=== PATIENT | female | born 1960 | race Caucasian/White ===

== ENCOUNTER 2020-05-05 14:39 | Inpatient (IN) | payer MEDICARE ==
[~2020-05-05] VITALS: Ht 157.5 cm; Wt 99.4 kg
[2020-05-05 14:48] VITALS: BP 126/67
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
[2020-05-05] MEDS ORDERED: ACETAMINOPHEN 325 MG TABLET PO PRN ×2 (16:15→17:15)
[2020-05-05] MEDS ORDERED: MAGNESIUM HYDROXIDE 2,400 MG/30 ML ORAL.SUSP. PO PRN ×2 (16:15→18:00)
[2020-05-05] MEDS ORDERED: MAG HYDROX/AL HYDROX/SIMETH 30 ML ORAL.SUSP PO PRN (16:15)
[2020-05-05] MEDS ORDERED: METHYL SALICYLATE/MENTHOL TOPICAL OINTMENT 57GM TUBE. TP PRN (16:15)
--- NOTE | 2020-05-05 16:39 | NUR ---
Spoke with Dr Taylor about which medications to continue. He gave telephone order for zyprexa 5mg PRN Q6-8 hrs as needed for agitation. Medications continued per Dr Taylor order. INR ordered per order.
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
[2020-05-05] MEDS ORDERED: MULT-245 PO (17:12)
[2020-05-05] MEDS ORDERED: POLY17PO5 PO (17:12)
[2020-05-05] MEDS ORDERED: WARF2.5T71 PO (17:12)
[2020-05-05] MEDS ORDERED: LATA7.5D OU (17:12)
[2020-05-05] MEDS ORDERED: WARF1TAB69 PO (17:12)
[2020-05-05] MEDS ORDERED: FENO145T32 PO (17:12)
[2020-05-05] MEDS ORDERED: CARV25TA2 PO (17:12)
[2020-05-05] MEDS ORDERED: MORP-15 PO (17:12)
[2020-05-05] MEDS ORDERED: LEVO50TA5 PO (17:12)
[2020-05-05] MEDS ORDERED: TIMO5DRO5 EACHEYE (17:12)
[2020-05-05] MEDS ORDERED: VENL150C PO (17:12)
[2020-05-05] MEDS ORDERED: MAGN24003 PO (17:12)
[2020-05-05] MEDS ORDERED: SENN8.8S5 PO (17:12)
[2020-05-05] MEDS ORDERED: TRAZ-120 PO (17:12)
[2020-05-05] MEDS ORDERED: CLON1PAT9 TD (17:12)
[2020-05-05] MEDS ORDERED: ACET325T21 PO (17:12)
[2020-05-05] MEDS ORDERED: INSU100I17 SQ (17:12)
[2020-05-05] MEDS ORDERED: SIMV10TA15 PO (17:12)
[2020-05-05] MEDS ORDERED: GABA-586 PO (17:12)
[2020-05-05] MEDS ORDERED: LISI-334 PO (17:12)
[2020-05-05] MEDS ORDERED: MAGN400T44 PO (17:12)
[2020-05-05] MEDS ORDERED: INSU100I13 SQ (17:12)
[2020-05-05] MEDS ORDERED: CARVEDILOL 12.5 MG TABLET PO SCH (18:00)
[2020-05-05] MEDS ORDERED: INSULIN LISPRO 300 UNITS/3 ML VIAL. SQ SCH (18:00)
--- NOTE | 2020-05-05 18:41 | NUR ---
Patient unable to be safely managed on [facility] 48 hour unit. Patient to transfer to [facility] and be placed in [facility] for her own safety. This nurse spoke with Dr Taylor after supervision made the decision to transfer the patient to [facility].
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
[2020-05-05 20:31] LABS: BASO # 0.1 x10^3/uL (0.0-0.2); BASO % 1 % (0-3); EOS # 0.3 x10^3/uL (0.0-0.7); EOS % 6 % (0-3); HEMATOCRIT 34.7 % (36.0-47.0); HEMOGLOBIN 10.9 g/dL (12.0-15.5); LYMPH # 1.3 x10^3/uL (1.0-4.8); LYMPH % 25 % (24-48); MEAN CORPUSCULAR HEMOGLOBIN 26 pg (25-35); MEAN CORPUSCULAR HGB CONC 31 g/dL (31-37); MEAN CORPUSCULAR VOLUME 82 fL (79-100); MONO # 0.5 x10^3/uL (0.0-1.1); MONO % 10 % (0-9); NEUT # 3.1 x10^3uL (1.8-7.7); NEUT % 58 % (31-73); PLATELET COUNT 226 x10^3/uL (140-400); RED BLOOD COUNT 4.21 x10^6/uL (3.50-5.40); RED CELL DISTRIBUTION WIDTH 17.1 % (11.5-14.5); WHITE BLOOD COUNT 5.3 x10^3/uL (4.0-11.0)
[2020-05-05 20:49] LABS: ALBUMIN 2.6 g/dL (3.4-5.0); ALBUMIN/GLOBULIN RATIO 0.6 (1.0-1.7); CALCIUM 8.9 mg/dL (8.5-10.1); CREATININE 1.1 mg/dL (0.6-1.0); GFR 50.3; MAGNESIUM 1.8 mg/dL (1.8-2.4); POTASSIUM 4.2 mmol/L (3.5-5.1); TOTAL BILIRUBIN 0.2 mg/dL (0.2-1.0); TOTAL PROTEIN 6.7 g/dL (6.4-8.2)
[2020-05-05] MEDS ORDERED: VENLAFAXINE 50 MG TABLET. PO SCH (21:00)
[2020-05-05] MEDS ORDERED: LATANOPROST 0.005% OPHTH SOLUTION 2.5ML BOTTLE. OU SCH (21:00)
[2020-05-05] MEDS ORDERED: GABAPENTIN 300 MG CAPSULE. PO SCH (21:00)
[2020-05-05] MEDS ORDERED: TIMOLOL 0.5% OPHTH SOLUTION 5ML BOTTLE. OU SCH (21:00)
[2020-05-05] MEDS ORDERED: SIMVASTATIN 10 MG TABLET PO SCH (21:00)
[2020-05-05] MEDS ORDERED: MORPHINE ER 15 MG TABLET.ER PO SCH (21:00)
[2020-05-05] MEDS ORDERED: INSULIN GLARGINE SYRINGE. SQ SCH (21:00)
[2020-05-05] MEDS ORDERED: traZODone 50 MG TABLET. PO SCH (21:00)
[2020-05-05] MEDS ORDERED: SENNOSIDES 8.6 MG TABLET PO SCH (21:00)
[2020-05-06] MEDS ORDERED: LEVOTHYROXINE 50 MCG TABLET PO SCH (06:00)
[2020-05-06] MEDS ORDERED: LISINOPRIL 20 MG TABLET PO SCH (09:00)
[2020-05-06] MEDS ORDERED: POLYETHYLENE GLYCOL 3350 17 GM PACKET. PO SCH (09:00)
[2020-05-06] MEDS ORDERED: FENOFIBRATE NANOCRYSTALLIZED 145 MG TABLET PO SCH (09:00)
[2020-05-06] MEDS ORDERED: MULTIVITAMIN with MINERAL TABLET. PO SCH (09:00)
[2020-05-06] MEDS ORDERED: MAGNESIUM OXIDE 400 MG TABLET PO SCH (09:00)
[2020-05-06 18:22] LABS: THYROID STIM HORMONE (TSH) 1.59 uIU/mL (0.358-3.740)
[2020-05-06 19:08] LABS: THYROXINE 7.8 ug/dL (4.5-12.0)
[2020-05-07 04:07] LABS: HEMOGLOBIN A1C 9.2 % (4.8-5.6)
[2020-05-12] MEDS ORDERED: cloNIDine TTS-1 1 PATCH PATCH TD SCH (09:00)
[2020-05-20] MEDS ORDERED: MAG-95 PO (13:21)
== END 2020-05-05 18:55 | DRG 885 ==
LOC: 1 SOUTH 14:39
PROVIDERS: ADMIT Hospitalist; ATTEND Hospitalist
DX: F31.60 Bipolar disorder, current episode mixed, unspecified (principal); Z68.41 Body mass index [BMI] 40.0-44.9, adult; F39 Unspecified mood [affective] disorder; F60.9 Personality disorder, unspecified; Z20.828 Contact with and (suspected) exposure to other viral communicable diseases; F22 Delusional disorders; E11.51 Type 2 diabetes mellitus with diabetic peripheral angiopathy without gangrene; N18.9 Chronic kidney disease, unspecified; E11.29 Type 2 diabetes mellitus with other diabetic kidney complication; E78.5 Hyperlipidemia, unspecified; M19.90 Unspecified osteoarthritis, unspecified site; Z66 Do not resuscitate; E66.9 Obesity, unspecified; Z86.711 Personal history of pulmonary embolism; Z88.1 Allergy status to other antibiotic agents; Z88.5 Allergy status to narcotic agent; Z88.0 Allergy status to penicillin; Z88.8 Allergy status to other drugs, medicaments and biological substances; Z91.018 Allergy to other foods
CPT/HCPCS: 36415; 80053; 80061; 82306; 82607; 82947; 83036; 83540; 83550; 83735; 84436; 84443; 84480; 85025; 85379; 86592; 93005; U0003

== ENCOUNTER 2020-05-05 18:00 | Inpatient (IN) | payer MEDICARE ==
[~2020-05-05] VITALS: Ht 157.5 cm; Wt 110.3 kg
[~2020-05-05 18:00] MED LIST: ACET325T21 PO; CARV25TA2 PO; CLON1PAT9 TD; FENO145T32 PO; GABA-586 PO; INSU100I13 SQ; INSU100I17 SQ; LATA7.5D OU; LEVO50TA5 PO; LISI20TA18 PO; MAGN24003 PO; MAGN400T44 PO; MORP-15 PO; MULT-245 PO; POLY17PO5 PO; SENN8.8S13 PO; SIMV10TA15 PO; TIMO5DRO5 EACHEYE; TRAZ-120 PO; VENL150C PO; WARF1TAB69 PO; WARF2.5T71 PO
[2020-05-05] MEDS ORDERED: NON FORMULARY ITEM (Magnesium Hydroxide (Milk Of Magnesia) 30 ML) PO PRN (20:15)
[2020-05-05] MEDS ORDERED: MAGNESIUM HYDROXIDE 2,400 MG/30 ML ORAL.SUSP. PO PRN (20:15)
[2020-05-05] MEDS ORDERED: METHYL SALICYLATE/MENTHOL TOPICAL OINTMENT 57GM TUBE. TP PRN (20:15)
[2020-05-05] MEDS ORDERED: ACETAMINOPHEN 325 MG TABLET PO PRN (20:15)
[2020-05-05] MEDS ORDERED: MAG HYDROX/AL HYDROX/SIMETH 30 ML ORAL.SUSP PO PRN (20:15)
[2020-05-05] MEDS: TIMOLOL 0.5% OPHTH SOLUTION 5ML BOTTLE. OU SCH (21:00)
[2020-05-05] MEDS: LATANOPROST 0.005% OPHTH SOLUTION 2.5ML BOTTLE. OU SCH (21:00)
[2020-05-05] MEDS: INSULIN GLARGINE SYRINGE. SQ SCH (21:00)
[2020-05-05] MEDS: VENLAFAXINE 50 MG TABLET. PO SCH (21:05)
[2020-05-05] MEDS: GABAPENTIN 300 MG CAPSULE. PO SCH (21:05)
[2020-05-05] MEDS: SIMVASTATIN 10 MG TABLET PO SCH (21:05)
[2020-05-05] MEDS: SENNOSIDES 8.6 MG TABLET PO SCH (21:06)
[2020-05-05] MEDS: MORPHINE ER 15 MG TABLET.ER PO SCH (21:06)
[2020-05-05] MEDS: traZODone 50 MG TABLET. PO SCH (21:06)
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
--- NOTE | 2020-05-05 21:36 | PDOC ---
Exam Note: Joseph Note: Please also refer to the separate dictated note~for this date of service dictated separately.~Patient seen individually. Discussed the patient with Nursing staff reviewed the chart.~Reviewed interim history and current functioning. Reviewed vital signs,~Labs/ Radiology~and current medications noted below. Continue current treatment with the changes noted in the dictated addendum note Assessment: Vital Signs/I&O: Vital Signs Date Time Temp Pulse Resp B/P (MAP) Pulse Ox O2 Delivery O2 Flow Rate FiO2 05/05/20 21:06 20 Room Air Labs: Laboratory Tests Test 05/05/20 20:19 05/05/20 21:00 Prothrombin Time 23.8 SEC (9.4-11.4) H Prothrombin Time INR 2.4 (0.9-1.1) H Glucose (Fingerstick) 280 mg/dL (70-99) H Current Medications: Meds: Current Medications Medications (Trade) Dose Ordered Sig/Jayant Route PRN Reason Start Time Stop Time Status Last Admin Dose Admin Gabapentin (Neurontin) 300 mg TID PO 05/05/20 21:00 05/05/20 21:05 Morphine Sulfate (Ms Contin) 15 mg BID PO 05/05/20 21:00 05/05/20 21:06 Simvastatin (Zocor) 10 mg HS PO 05/05/20 21:00 05/05/20 21:05 Trazodone HCl (Desyrel) 50 mg HS PO 05/05/20 21:00 05/05/20 21:06 Sennosides (Senna) 17.2 mg BID PO 05/05/20 21:00 05/05/20 21:06 Venlafaxine HCl (Effexor) 50 mg TID PO 05/05/20 21:00 05/05/20 21:05 I have reviewed the current psychotropics carefully including drug interactions. Risk benefit ratio favors no change other than as noted in my dictated progress note. Diagnosis: Problems: (1) Psychotic disorder (2) Person under investigation for COVID-19 ADELSO LOVE MD May 05, 2020 21:36
[2020-05-06 00:16] VITALS: BP 126/67
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
[2020-05-06 01:22] LABS: BACTERIA,URINE 0 /HPF (0-FEW); BILIRUBIN,URINE NEG (NEG); CLARITY,URINE CLEAR; COLOR,URINE YELLOW; GLUCOSE,URINE 500 mg/dL (NEG); NITRITE,URINE NEG (NEG); RBC,URINE RARE /HPF (0-2); UROBILINOGEN,URINE 0.2 mg/dL (0.2 mg/dL); WBC,URINE OCC /HPF (0-4)
[2020-05-06] MEDS: LEVOTHYROXINE 50 MCG TABLET PO SCH ×2 (04:52→08:22)
[2020-05-06] MEDS ORDERED: INSULIN LISPRO 300 UNITS/3 ML VIAL. SQ SCH (07:30)
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
[2020-05-06] MEDS: POLYETHYLENE GLYCOL 3350 17 GM PACKET. PO SCH (08:21)
[2020-05-06] MEDS: VENLAFAXINE 50 MG TABLET. PO SCH ×4 (08:22→20:16)
[2020-05-06] MEDS: SENNOSIDES 8.6 MG TABLET PO SCH ×2 (08:22→15:39)
[2020-05-06] MEDS: LISINOPRIL 20 MG TABLET PO SCH (08:22)
[2020-05-06] MEDS: MULTIVITAMIN with MINERAL TABLET. PO SCH (08:23)
[2020-05-06] MEDS: MORPHINE ER 15 MG TABLET.ER PO SCH ×2 (08:23→20:17)
[2020-05-06] MEDS: GABAPENTIN 300 MG CAPSULE. PO SCH ×4 (08:23→20:16)
[2020-05-06] MEDS: MAGNESIUM OXIDE 400 MG TABLET PO SCH (08:23)
[2020-05-06] MEDS: CARVEDILOL 12.5 MG TABLET PO SCH ×2 (08:26→16:10)
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
[2020-05-06] MEDS: FENOFIBRATE NANOCRYSTALLIZED 145 MG TABLET PO SCH (08:55)
[2020-05-06] MEDS: TIMOLOL 0.5% OPHTH SOLUTION 5ML BOTTLE. OU SCH ×2 (09:00→20:15)
[2020-05-06] MEDS ORDERED: FLU VACC QS 2020-21(6MOS+)/PF 0.5 ML SYRINGE. VAX IM ONE (09:00)
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
[2020-05-06] MEDS: LORazepam 0.5 MG TABLET PO PRN ×2 (11:22→22:17)
--- NOTE | 2020-05-06 12:29 | NUR ---
Pharmacy Warfarin Dosing Note S:Pharmacy consulted to assist with anticoagulation therapy started with target INR: 2 -3 O:REBA LINDSAY is a 60 year old F with history of PE LABS: Last INR: 2.4 Hgb/Hct ordered Last dose of 3.5mg given on 05/05/20 Previous Regimen: 3.5mg daily Vitamin K given: N Drug Interaction Changes: Same Interacting Drug Ongoing Drug Interactions: fenofibrate, venlafaxine A:INR Within desired Range. Target Range for this patient is: 2 -3 P: Warfarin dose: 3.5 mg Today at 1600 Bridge Therapy: None Next INR due 05/07 Pharmacy anticoagulation service will continue to follow. GREGORIA SWANSON, 05/06/20 [id number]
[2020-05-06] MEDS: INSULIN LISPRO 300 UNITS/3 ML VIAL. SQ SCH ×2 (12:34→17:00)
[2020-05-06 12:36] LABS: HEMOGLOBIN 11.9 g/dL (12.0-15.5)
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
--- NOTE | 2020-05-06 14:46 | NUR ---
CHUYITA placed call to Annamarie, GIULIA/sister in law, with intent to confirm social history information that Shweta provided, discuss d/c plan, and invite to participate in team meeting scheduled for 05/09/20. CHUYITA left Annamarie voice message with request for return phone call. Awaiting call.
--- NOTE | 2020-05-06 15:24 | NUR ---
Pt has been yelling out most of day. Has been belligerent. Cussing at staff. Refused meds in am but took them at lunch when she was in better spirits. Pt has been syringed with Zydis x2 and Ativan x1. Pt has been requesting to go to [facility] excessively. Pt does not currently have a UTI although pt insists she does and is on ABT. Pt also does not take diuretics. Pt placed on 2 hour toileting schedule. Pt very angry.
[2020-05-06 15:45] VITALS: BP 138/74
[2020-05-06] MEDS: WARFARIN 2.5 MG TABLET. PO SCH (16:00)
[2020-05-06] MEDS: WARFARIN 1 MG TABLET. PO SCH (16:00)
[2020-05-06] MEDS: LATANOPROST 0.005% OPHTH SOLUTION 2.5ML BOTTLE. OU SCH (20:15)
[2020-05-06] MEDS: SIMVASTATIN 10 MG TABLET PO SCH (20:17)
[2020-05-06] MEDS: traZODone 50 MG TABLET. PO SCH (20:17)
[2020-05-06] MEDS: DIVALPROEX ER 500 MG TAB.ER.24H PO SCH (20:18)
[2020-05-06] MEDS: INSULIN GLARGINE SYRINGE. SQ SCH (20:20)
--- NOTE | 2020-05-06 20:53 | PDOC ---
Exam Note: Joseph Note: Please also refer to the separate dictated note~for this date of service dictated separately.~Patient seen individually. Discussed the patient with Nursing staff reviewed the chart.~Reviewed interim history and current functioning. Reviewed vital signs,~Labs/ Radiology~and current medications noted below. Continue current treatment with the changes noted in the dictated addendum note Assessment: Vital Signs/I&O: Vital Signs Date Time Temp Pulse Resp B/P (MAP) Pulse Ox O2 Delivery O2 Flow Rate FiO2 05/06/20 16:10 77 138/74 05/06/20 15:45 99.2 16 91 05/05/20 21:06 Room Air I & O 05/05/20 05/05/20 05/06/20 15:00 23:00 07:00 Intake Total 400 ml Balance 400 ml Labs: Laboratory Tests Test 05/05/20 21:00 05/06/20 00:58 05/06/20 11:46 05/06/20 12:15 Glucose (Fingerstick) 280 mg/dL (70-99) H 207 mg/dL (70-99) H Urine Collection Type Unknown Urine Color Yellow Urine Clarity Clear Urine pH 7.0 Urine Specific [place] 1.020 Urine Protein >100 mg/dl (NEG-TRACE) Urine Glucose (UA) 500 mg/dL (NEG) Urine Ketones (Stick) Neg mg/dL (NEG) Urine Blood Trace (NEG) Urine Nitrite Neg (NEG) Urine Bilirubin Neg (NEG) Urine Urobilinogen Dipstick 0.2 mg/dL (0.2 mg/dL) Urine Leukocyte Esterase Neg (NEG) Urine RBC Rare /HPF (0-2) Urine WBC Occ /HPF (0-4) Urine Squamous Epithelial Cells None /LPF Urine Bacteria 0 /HPF (0-FEW) Hemoglobin 11.9 g/dL (12.0-15.5) L Hematocrit 37.0 % (36.0-47.0) Test 05/06/20 17:06 05/06/20 19:28 Glucose (Fingerstick) 307 mg/dL (70-99) H 361 mg/dL (70-99) H Current Medications: Meds: Current Medications Medications (Trade) Dose Ordered Sig/Jayant Route PRN Reason Start Time Stop Time Status Last Admin Dose Admin Fenofibrate (Tricor) 145 mg DAILY PO 05/06/20 09:00 05/06/20 08:55 Gabapentin (Neurontin) 300 mg TID PO 05/05/20 21:00 05/06/20 20:16 Levothyroxine Sodium (Synthroid) 50 mcg DAILY06 PO 05/06/20 06:00 05/06/20 08:22 Lisinopril (Prinivil) 20 mg DAILY PO 05/06/20 09:00 05/06/20 08:22 Magnesium Oxide (Magnesium Oxide) 200 mg DAILY PO 05/06/20 09:00 05/06/20 08:23 Morphine Sulfate (Ms Contin) 15 mg BID PO 05/05/20 21:00 05/06/20 20:17 Polyethylene Glycol (miraLAX) 17 gm DAILY PO 05/06/20 09:00 05/06/20 08:21 Simvastatin (Zocor) 10 mg HS PO 05/05/20 21:00 05/06/20 20:17 Timolol Maleate (Timoptic 0.5% Oph) 1 drop BID OU 05/05/20 21:00 05/06/20 20:15 Trazodone HCl (Desyrel) 50 mg HS PO 05/05/20 21:00 05/06/20 20:17 Carvedilol (Coreg) 12.5 mg BIDWMEALS PO 05/06/20 08:00 05/06/20 16:10 Insulin Human Lispro (HumaLOG) 10 units TIDAC SQ 05/06/20 07:30 05/06/20 11:36 DC 05/06/20 07:30 Insulin Glargine (Lantus Syringe) 25 unit QHS SQ 05/05/20 21:00 05/06/20 20:20 Latanoprost (Xalatan) 1 drop QHS OU 05/05/20 21:00 05/06/20 20:15 Multivitamins/ Calcium (Thera-M Plus) 1 tab DAILY PO 05/06/20 09:00 05/06/20 08:23 Sennosides (Senna) 17.2 mg BID PO 05/05/20 21:00 05/06/20 08:22 Venlafaxine HCl (Effexor) 50 mg TID PO 05/05/20 21:00 05/06/20 18:23 DC 05/06/20 12:34 Influenza Virus Vaccine Quadrival (Fluzone Quad Syringe) 0.5 ml ONCE ONCE VAX IM 05/06/20 09:00 05/06/20 09:01 DC 05/06/20 09:00 Warfarin Sodium (Coumadin Per Pharmacy) 1 each PRN DAILY PRN MC SEE COMMENTS 05/06/20 11:00 05/06/20 11:37 Warfarin Sodium (Coumadin) 2.5 mg DAILY@1600 PO 05/06/20 16:00 05/06/20 16:00 Lorazepam (Ativan) 0.5 mg PRN Q2HRS PRN PO ANXIETY / AGITATION 05/06/20 11:00 05/06/20 11:22 Olanzapine (ZyPREXA ZYDIS) 5 mg PRN Q2HRS PRN PO PSYCHOSIS 05/06/20 11:00 05/06/20 14:53 Warfarin Sodium (Coumadin) 1 mg DAILY@1600 PO 05/06/20 16:00 05/06/20 16:00 Insulin Human Lispro (HumaLOG) 10 units TIDWMEALS SQ 05/06/20 12:00 05/06/20 17:00 Venlafaxine HCl (Effexor) 25 mg TID PO 05/06/20 21:00 05/09/20 20:59 05/06/20 20:16 Divalproex Sodium (Depakote Er) 500 mg QHS PO 05/06/20 21:00 05/06/20 20:18 I have reviewed the current psychotropics carefully including drug interactions. Risk benefit ratio favors no change other than as noted in my dictated progress note. Diagnosis: Problems: (1) Bipolar disorder with psychotic features (2) Major depressive disorder (3) Personality disorder, unspecified (4) Psychotic disorder ADELSO LOVE MD May 06, 2020 20:53
[2020-05-06] MEDS: ACETAMINOPHEN 325 MG TABLET PO PRN (21:22)
--- NOTE | 2020-05-06 23:58 | NUR ---
Patient is sitting in her room on assumption of care, up in wheelchair. She is anxious, somatic. Compliant with assessments and medications taken whole. Did participate in HS cares and transferred to and from bed/chair to commode and back with stand-by assist. Once back in bed, patient began to cry and complain of leg pain. This nurse went in to give patient her medications, which included a scheduled MS contin. Patient repositioned in the bed, legs raised, and given reassurance. She then asked "What time did you get here?" This nurse answered "About 7PM, why?" Patient then responded by asking "Did you hear me hollering and yelling? They all keep telling me I've been yelling like a maniac all day, but I don't remember any of that. Can you wake me up next time you hear me doing that?" This nurse assured her that we would wake her if she was asleep and yelling out. Approximately 15 minutes later, patient began yelling out "NURSE!! NURSE!!" When this nurse responded, patient complained of neuropathic pain in bilateral legs and stated "Oh my God, it has never been so bad. Can't I just get up and sit in the chair for a little while?" This nurse told patient that seemed fine, and that she would return to check on the patient in 15-20 minutes. After that time, nurse returned to check on patient, who was still very anxious about her leg pain. She was given Ativan 0.5mg at that time(2215) and assisted back into bed. Patient appears to be sleeping comfortably at present time. Will continue to monitor.
[2020-05-07] MEDS: LEVOTHYROXINE 50 MCG TABLET PO SCH (06:00)
--- NOTE | 2020-05-07 06:00 | NUR ---
Patient 0600 dose of Levothyroxine 50mcg administered at scheduled time. EMAR would not let me scan it in.
[2020-05-07 06:24] VITALS: BP 149/98
[2020-05-07] MEDS: ACETAMINOPHEN 325 MG TABLET PO PRN (06:32)
[2020-05-07] MEDS: INSULIN LISPRO 300 UNITS/3 ML VIAL. SQ SCH ×3 (08:52→17:14)
[2020-05-07] MEDS: POLYETHYLENE GLYCOL 3350 17 GM PACKET. PO SCH (08:52)
[2020-05-07] MEDS: LISINOPRIL 20 MG TABLET PO SCH (08:53)
[2020-05-07] MEDS: MULTIVITAMIN with MINERAL TABLET. PO SCH (08:53)
[2020-05-07] MEDS: FENOFIBRATE NANOCRYSTALLIZED 145 MG TABLET PO SCH (08:53)
[2020-05-07] MEDS: SENNOSIDES 8.6 MG TABLET PO SCH ×2 (08:53→20:23)
[2020-05-07] MEDS: MAGNESIUM OXIDE 400 MG TABLET PO SCH (08:53)
[2020-05-07] MEDS: LATANOPROST 0.005% OPHTH SOLUTION 2.5ML BOTTLE. OU SCH (08:54)
[2020-05-07] MEDS: GABAPENTIN 300 MG CAPSULE. PO SCH ×3 (08:54→20:20)
[2020-05-07] MEDS: MORPHINE ER 15 MG TABLET.ER PO SCH ×2 (08:54→20:19)
[2020-05-07] MEDS: VENLAFAXINE 50 MG TABLET. PO SCH ×3 (08:54→20:20)
[2020-05-07] MEDS: CARVEDILOL 12.5 MG TABLET PO SCH ×2 (08:54→17:09)
[2020-05-07] MEDS: TIMOLOL 0.5% OPHTH SOLUTION 5ML BOTTLE. OU SCH ×2 (08:56→20:21)
--- NOTE | 2020-05-07 10:04 | NUR ---
Patient assisted to the rest room. Patient is attention seeking pretending she needs more assistance then she actually needs. Patient will continue to be encouraged to move on her own as much as possible with staff supervision and encouraged not to yell at staff when she is not having her way.
--- NOTE | 2020-05-07 12:01 | RAD ---
CT brain without contrast. HISTORY: Mental status change. CT scan of brain was done without contrast. I do not have an old study for comparison. Sinuses are clear. There are changes from a previous left craniotomy. Mastoids are normally aerated. Ventricles are normal in size. There is no mass or shift of the midline. There is no intracranial hemorrhage or subdural hematoma. There are areas of decreased attenuation in the left frontal lobe and left temporal lobe in the region of prior surgery. IMPRESSION: 1. No intracranial hemorrhage. 2. Focal encephalomalacia of the anterior temporal lobe and frontal lobe with evidence of a previous left craniotomy. 3. No intracranial hemorrhage or definite acute findings although I do not have an old study for comparison. PQRS Compliance Statement: One or more of the following individualized dose reduction techniques were utilized for this examination: 1. Automated exposure control 2. Adjustment of the mA and/or kV according to patient size 3. Use of iterative reconstruction technique Electronically signed by: Kvng Irving MD (05/07/2020 11:58 AM) [facility]
[2020-05-07 16:43] VITALS: BP 122/75
[2020-05-07] MEDS: WARFARIN 1 MG TABLET. PO SCH (17:08)
[2020-05-07] MEDS: WARFARIN 2.5 MG TABLET. PO SCH (17:09)
[2020-05-07] MEDS: DIVALPROEX ER 500 MG TAB.ER.24H PO SCH (20:19)
[2020-05-07] MEDS: traZODone 50 MG TABLET. PO SCH (20:20)
[2020-05-07] MEDS: SIMVASTATIN 10 MG TABLET PO SCH (20:21)
[2020-05-07] MEDS: INSULIN GLARGINE SYRINGE. SQ SCH (20:24)
--- NOTE | 2020-05-07 21:04 | PDOC ---
Exam Note: Joseph Note: This note is a late entry for 05/06/2020 covers elements not covered in my initial note. Subjective: The patient was seen on telehealth rounds in the evening of 05/06/2020 with Janine CORRAL as the unit is on a lockdown by the [place] [employer] [facility] because there were 2 patients who turned out positive for COVID-19 and no admission or discharges can be done for next 2 weeks due to the quarantine requirements. Discussed with nursing staff, reviewed the chart. She slept at 1-1/2 hours previous night. The patient has had multiple calls from the nursing staff during the day and last evening. She has been extremely loud, disruptive. She seems to have more short-term deficits, than were apparent initially and we will proceed with the CT head to make sure there has been no cerebrovascular event that could contribute to this. Additionally she has been yelling throughout the day, extremely loud, somewhat hoarse and later when questioned on this she stated she did not remember it. She continues to feel she is in [facility] and I addressed this with her. We did add Ativan p.r.n. together with increasing the Zyprexa 5 mg q.2h. after I was called as an emergency. Review of Systems: Impaired ambulation in wheelchair. No CV, , pulmonary, eye, ENT system symptoms on review. Mental Status Exam: The patient is oriented to herself and situation. Speech is coherent, somewhat hoarse. Short-term memory is impaired. Abstraction is fair. Computation is impaired. Language function is intact. Attention span is short. Mood and affect remains labile but during the individual visit, she was pleasant, smiling. She seems to do better with males than female staff. Laboratory Data: Reviewed. Impression: Bipolar disorder unspecified. Major depressive disorder. Anxiety disorder unspecified. Impulse control disorder unspecified. Personality disorder unspecified. Plan: Check CT head as noted above. Given some of her manic symptoms, reduce Effexor XR from 150 mg a day to 75 mg a day and in 3 days later stop it. Continue Zyprexa and Ativan p.r.n. Start Depakote ER 500 mg h.s. Check CBC, CMP, valproic acid level, ammonia level in 3 days. Adjust further as clinically indicated. Assessment: Vital Signs/I&O: Vital Signs Date Time Temp Pulse Resp B/P (MAP) Pulse Ox O2 Delivery O2 Flow Rate FiO2 05/07/20 17:09 69 122/75 05/07/20 16:43 98.2 18 94 05/07/20 12:49 Room Air I & O 05/06/20 05/06/20 05/07/20 15:00 23:00 07:00 Intake Total 480 ml 600 ml Balance 480 ml 600 ml Labs: Laboratory Tests Test 05/07/20 06:40 05/07/20 08:06 05/07/20 17:01 05/07/20 19:27 Prothrombin Time 19.5 SEC (9.4-11.4) H Prothrombin Time INR 1.9 (0.9-1.1) H Glucose (Fingerstick) 293 mg/dL (70-99) H 265 mg/dL (70-99) H 285 mg/dL (70-99) H Current Medications: I have reviewed the current psychotropics carefully including drug interactions. Risk benefit ratio favors no change other than as noted in my dictated progress note. Diagnosis: Problems: (1) Psychotic disorder (2) Major depressive disorder (3) Personality disorder, unspecified (4) Bipolar disorder with psychotic features ADELSO LOVE MD May 07, 2020 21:04
--- NOTE | 2020-05-07 21:12 | PDOC ---
Exam Note: Joseph Note: Please also refer to the separate dictated note~for this date of service dictated separately.~Patient seen individually. Discussed the patient with Nursing staff reviewed the chart.~Reviewed interim history and current functioning. Reviewed vital signs,~Labs/ Radiology~and current medications noted below. Continue current treatment with the changes noted in the dictated addendum note Assessment: Vital Signs/I&O: Vital Signs Date Time Temp Pulse Resp B/P (MAP) Pulse Ox O2 Delivery O2 Flow Rate FiO2 05/07/20 17:09 69 122/75 05/07/20 16:43 98.2 18 94 05/07/20 12:49 Room Air I & O 05/06/20 05/06/20 05/07/20 15:00 23:00 07:00 Intake Total 480 ml 600 ml Balance 480 ml 600 ml Labs: Laboratory Tests Test 05/07/20 06:40 05/07/20 08:06 05/07/20 17:01 05/07/20 19:27 Prothrombin Time 19.5 SEC (9.4-11.4) H Prothrombin Time INR 1.9 (0.9-1.1) H Glucose (Fingerstick) 293 mg/dL (70-99) H 265 mg/dL (70-99) H 285 mg/dL (70-99) H Current Medications: I have reviewed the current psychotropics carefully including drug interactions. Risk benefit ratio favors no change other than as noted in my dictated progress note. Diagnosis: Problems: (1) Psychotic disorder (2) Major depressive disorder (3) Personality disorder, unspecified (4) Bipolar disorder with psychotic features ADELSO LOVE MD May 07, 2020 21:12
--- NOTE | 2020-05-07 22:23 | NUR ---
Patient is in her room on assumption of care, awake in bed. Compliant with assessments and medications taken whole. Less somatic and anxious than previous evening. No agitation. No delusions voiced so far this shift. Patient appears to be sleeping comfortably at present time. Will continue to monitor.
[2020-05-08] MEDS: LEVOTHYROXINE 50 MCG TABLET PO SCH (05:09)
[2020-05-08 06:18] VITALS: BP 149/85
[2020-05-08] MEDS: MULTIVITAMIN with MINERAL TABLET. PO SCH (07:28)
[2020-05-08] MEDS: FENOFIBRATE NANOCRYSTALLIZED 145 MG TABLET PO SCH (07:28)
[2020-05-08] MEDS: GABAPENTIN 300 MG CAPSULE. PO SCH ×3 (07:28→19:32)
[2020-05-08] MEDS: MAGNESIUM OXIDE 400 MG TABLET PO SCH (07:28)
[2020-05-08] MEDS: LISINOPRIL 20 MG TABLET PO SCH (07:29)
[2020-05-08] MEDS: CARVEDILOL 12.5 MG TABLET PO SCH ×2 (07:29→17:00)
[2020-05-08] MEDS: VENLAFAXINE 50 MG TABLET. PO SCH ×3 (07:30→19:31)
[2020-05-08] MEDS: TIMOLOL 0.5% OPHTH SOLUTION 5ML BOTTLE. OU SCH ×2 (07:31→19:31)
[2020-05-08] MEDS: SENNOSIDES 8.6 MG TABLET PO SCH ×2 (07:32→19:34)
[2020-05-08] MEDS: POLYETHYLENE GLYCOL 3350 17 GM PACKET. PO SCH (07:32)
[2020-05-08] MEDS: MORPHINE ER 15 MG TABLET.ER PO SCH ×2 (07:33→19:31)
[2020-05-08] MEDS: LORazepam 0.5 MG TABLET PO PRN ×2 (07:35→20:35)
[2020-05-08] MEDS: INSULIN LISPRO 300 UNITS/3 ML VIAL. SQ SCH ×3 (08:09→17:00)
--- NOTE | 2020-05-08 15:22 | NUR ---
Pt yelling out at start of shift. Ativan given with am meds. Has been up for meals and has been in pleasant spirits. Has been polite and courteous to staff. Pt has been compliant with meds and cares.
[2020-05-08 16:00] VITALS: BP 173/75
[2020-05-08] MEDS: WARFARIN 2.5 MG TABLET. PO SCH (16:00)
[2020-05-08] MEDS: WARFARIN 1 MG TABLET. PO SCH (16:00)
[2020-05-08] MEDS: LATANOPROST 0.005% OPHTH SOLUTION 2.5ML BOTTLE. OU SCH (19:31)
[2020-05-08] MEDS: traZODone 50 MG TABLET. PO SCH (19:32)
[2020-05-08] MEDS: DIVALPROEX ER 500 MG TAB.ER.24H PO SCH (19:33)
[2020-05-08] MEDS: SIMVASTATIN 10 MG TABLET PO SCH (19:34)
[2020-05-08] MEDS: INSULIN GLARGINE SYRINGE. SQ SCH (19:35)
[2020-05-08] MEDS ORDERED: traZODone 50 MG TABLET. PO PRN (21:00)
--- NOTE | 2020-05-08 23:59 | NUR ---
Patient is in her room on assumption of care, awake in her bed. She is irritable, needy, attention seeking, labile, helpless, staff-splitting. Complied with assessments and took her HS meds without issue, but that was all she was willing to cooperate with. Refusing to ambulate, perform any hygiene care following toilet use, lifting her own legs into bed, reaching for her own drink, etc. She would not even attempt any of these things, even with therapeutic communication and encouragement from multiple staff members. Eventually, she did ambulate using the walker and standby assist to the toilet and back. Very rude and demanding, ordering staff to "Lift me up NOW!", "Give me my water, you bitch!", "Get in here and wipe my ass you [id number] ninny!" Staff informed the patient that it was unacceptable to speak to people that way and she should ask nicely. She maliciously complied, asking "Can you help me put my leg into the bed PLEASE?" in a rude and condescending manner. Nurse assisted her as requested, and patient then yelled "BITCH!" as soon as her leg was up in bed. Throughout the evening patient has received multiple PRNs for behavior and anxiety r/t her leg pain, with zero effect as of this time. Will continue to monitor and report to oncoming staff.
--- NOTE | 2020-05-09 00:26 | PDOC ---
Exam Note: Joseph Note: This is a late entry for 05/08/2020. Please also refer to the separate dictated note~for this date of service dictated separately.~Patient seen individually. Discussed the patient with Nursing staff reviewed the chart.~Reviewed interim history and current functioning. Reviewed vital signs,~Labs/ Radiology~and cur rent medications noted below. Continue current treatment with the changes noted in the dictated addendum note Assessment: Vital Signs/I&O: Vital Signs Date Time Temp Pulse Resp B/P (MAP) Pulse Ox O2 Delivery O2 Flow Rate FiO2 05/08/20 17:00 72 173/75 05/08/20 16:00 97.5 20 98 05/07/20 12:49 Room Air I & O 05/08/20 05/08/20 05/09/20 15:00 23:00 07:00 Intake Total 960 ml 580 ml Balance 960 ml 580 ml Labs: Laboratory Tests Test 05/08/20 06:53 05/08/20 08:00 05/08/20 11:49 05/08/20 17:09 Prothrombin Time 22.3 SEC (9.4-11.4) H Prothrombin Time INR 2.2 (0.9-1.1) H Glucose (Fingerstick) 260 mg/dL (70-99) H 360 mg/dL (70-99) H 307 mg/dL (70-99) H Test 05/08/20 19:10 Glucose (Fingerstick) 308 mg/dL (70-99) H Current Medications: Meds: Current Medications Medications (Trade) Dose Ordered Sig/Jayant Route PRN Reason Start Time Stop Time Status Last Admin Dose Admin Levothyroxine Sodium (Synthroid) 50 mcg 0600 PO 05/08/20 06:00 05/08/20 05:09 I have reviewed the current psychotropics carefully including drug interactions. Risk benefit ratio favors no change other than as noted in my dictated progress note. Diagnosis: Problems: (1) Psychotic disorder (2) Major depressive disorder (3) Personality disorder, unspecified (4) Bipolar disorder with psychotic features ADELSO LOVE MD May 09, 2020 00:26
[2020-05-09] MEDS: LEVOTHYROXINE 50 MCG TABLET PO SCH (04:56)
[2020-05-09 06:00] VITALS: BP 137/86
[2020-05-09 07:55] LABS: BASO # 0.1 x10^3/uL (0.0-0.2); BASO % 1 % (0-3); EOS # 0.6 x10^3/uL (0.0-0.7); EOS % 8 % (0-3); HEMATOCRIT 38.3 % (36.0-47.0); LYMPH # 2.1 x10^3/uL (1.0-4.8); LYMPH % 31 % (24-48); MEAN CORPUSCULAR HEMOGLOBIN 26 pg (25-35); MEAN CORPUSCULAR HGB CONC 31 g/dL (31-37); MEAN CORPUSCULAR VOLUME 83 fL (79-100); MONO # 0.5 x10^3/uL (0.0-1.1); MONO % 7 % (0-9); NEUT # 3.6 x10^3uL (1.8-7.7); NEUT % 52 % (31-73); PLATELET COUNT 242 x10^3/uL (140-400); RED BLOOD COUNT 4.64 x10^6/uL (3.50-5.40); RED CELL DISTRIBUTION WIDTH 16.4 % (11.5-14.5); WHITE BLOOD COUNT 6.8 x10^3/uL (4.0-11.0)
[2020-05-09 08:14] LABS: VAL ACID 11 mcg/mL (50-100)
[2020-05-09 08:15] LABS: ALBUMIN/GLOBULIN RATIO 0.7 (1.0-1.7); CALCIUM 9.3 mg/dL (8.5-10.1); GFR 56.2; POTASSIUM 4.1 mmol/L (3.5-5.1); TOTAL BILIRUBIN 0.3 mg/dL (0.2-1.0); TOTAL PROTEIN 7.6 g/dL (6.4-8.2)
[2020-05-09] MEDS: FENOFIBRATE NANOCRYSTALLIZED 145 MG TABLET PO SCH (08:21)
[2020-05-09] MEDS: MAGNESIUM OXIDE 400 MG TABLET PO SCH (08:21)
[2020-05-09] MEDS: VENLAFAXINE 50 MG TABLET. PO SCH ×2 (08:21→15:19)
[2020-05-09] MEDS: POLYETHYLENE GLYCOL 3350 17 GM PACKET. PO SCH (08:21)
[2020-05-09] MEDS: LISINOPRIL 20 MG TABLET PO SCH (08:22)
[2020-05-09] MEDS: MULTIVITAMIN with MINERAL TABLET. PO SCH (08:22)
[2020-05-09] MEDS: GABAPENTIN 300 MG CAPSULE. PO SCH ×3 (08:22→19:52)
[2020-05-09] MEDS: CARVEDILOL 12.5 MG TABLET PO SCH ×2 (08:22→17:26)
[2020-05-09] MEDS: SENNOSIDES 8.6 MG TABLET PO SCH ×2 (08:24→19:52)
[2020-05-09] MEDS: TIMOLOL 0.5% OPHTH SOLUTION 5ML BOTTLE. OU SCH ×2 (08:28→19:55)
[2020-05-09] MEDS: LORazepam 0.5 MG TABLET PO PRN (08:29)
[2020-05-09] MEDS: MORPHINE ER 15 MG TABLET.ER PO SCH ×2 (08:29→19:54)
[2020-05-09] MEDS: INSULIN LISPRO 300 UNITS/3 ML VIAL. SQ SCH ×3 (08:35→17:27)
--- NOTE | 2020-05-09 09:13 | NUR ---
Nursing note: Pt screaming out for help and was assisted to the bathroom. Pt then pressed the call light to be "wiped clean". Pt stated "I've wiped my butt long enough, you can do it for me now! My arms are too short and they don't work!" She was informed that staff would not wipe her as she is able to do it herself, but that staff would make sure she was clean before putting her pants on. Pt threw her walker at staff and accused staff of "looking at my naked body to look at the parts she wants to touch!" Pt was telling nurse that the male staff on duty today talk about the sexual things they do to her (there are no male staff here today). Pt turned down original offer of help and was then offered a héctor bottle to clean herself with. Pt refused the héctor bottle as well. PRN ativan given with her AM meds, but was ineffective. She is continuing to scream and can be heard throughout the hospital. Pt is now refusing to take oral medications. Dr. Thomas paged regarding pt's behaviors. New orders received for Haldol 5mg IM daily, Ativan 0.5mg IM daily, and Depakote ER 1000mg HS d/t VPA level being 11. Labs are ordered for 05/12. IM medications administered. Pt tolerated well. Afterwards, pt began ramming her walker into the wall, leaving dents in the wall and paint chips falling onto the floor. Walker was put to the side and pt was made aware that when she was willing to work with us and clean herself up, staff would be more than happy to assist her in getting back to bed. DPOA notified of new orders and has no questions or concerns.
[2020-05-09] MEDS: HALOPERIDOL LACT 5 MG/ML VIAL. IM SCH (09:46)
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
[2020-05-09] MEDS: WARFARIN 1 MG TABLET. PO SCH (17:25)
[2020-05-09] MEDS: WARFARIN 2.5 MG TABLET. PO SCH (17:26)
[2020-05-09 19:25] VITALS: BP 117/75
[2020-05-09] MEDS: SIMVASTATIN 10 MG TABLET PO SCH (19:51)
[2020-05-09] MEDS: traZODone 50 MG TABLET. PO SCH (19:52)
[2020-05-09] MEDS: DIVALPROEX ER 500 MG TAB.ER.24H PO SCH (19:54)
[2020-05-09] MEDS: LATANOPROST 0.005% OPHTH SOLUTION 2.5ML BOTTLE. OU SCH (19:55)
--- NOTE | 2020-05-09 20:53 | PDOC ---
Exam Note: Joseph Note: Please also refer to the separate dictated note~for this date of service dictated separately.~Patient seen individually. Discussed the patient with Nursing staff reviewed the chart.~Reviewed interim history and current functioning. Reviewed vital signs,~Labs/ Radiology~and current medications noted below. Continue current treatment with the changes noted in the dictated addendum note Assessment: Vital Signs/I&O: Vital Signs Date Time Temp Pulse Resp B/P (MAP) Pulse Ox O2 Delivery O2 Flow Rate FiO2 05/09/20 19:54 95 05/09/20 19:25 97.6 68 18 117/75 (89) 05/07/20 12:49 Room Air I & O 0 05/08/20 05/08/20 05/09/20 15:00 23:00 07:00 Intake Total 960 ml 580 ml Balance 960 ml 580 ml Labs: Laboratory Tests Test 05/09/20 07:45 05/09/20 07:48 05/09/20 12:01 05/09/20 17:01 White Blood Count 6.8 x10^3/uL (4.0-11.0) Red Blood Count 4.64 x10^6/uL (3.50-5.40) Hemoglobin 12.0 g/dL (12.0-15.5) Hematocrit 38.3 % (36.0-47.0) Mean Corpuscular Volume 83 fL (79-100) Mean Corpuscular Hemoglobin 26 pg (25-35) Mean Corpuscular Hemoglobin Concent 31 g/dL (31-37) Red Cell Distribution Width 16.4 % (11.5-14.5) H Platelet Count 242 x10^3/uL (140-400) Neutrophils (%) (Auto) 52 % (31-73) Lymphocytes (%) (Auto) 31 % (24-48) Monocytes (%) (Auto) 7 % (0-9) Eosinophils (%) (Auto) 8 % (0-3) H Basophils (%) (Auto) 1 % (0-3) Neutrophils # (Auto) 3.6 x10^3uL (1.8-7.7) Lymphocytes # (Auto) 2.1 x10^3/uL (1.0-4.8) Monocytes # (Auto) 0.5 x10^3/uL (0.0-1.1) Eosinophils # (Auto) 0.6 x10^3/uL (0.0-0.7) Basophils # (Auto) 0.1 x10^3/uL (0.0-0.2) Prothrombin Time 25.3 SEC (9.4-11.4) H Prothrombin Time INR 2.5 (0.9-1.1) H Sodium Level 135 mmol/L (136-145) L Potassium Level 4.1 mmol/L (3.5-5.1) Chloride Level 99 mmol/L (98-107) Carbon Dioxide Level 26 mmol/L (21-32) Anion Gap 10 (6-14) Blood Urea Nitrogen 26 mg/dL (7-20) H Creatinine 1.0 mg/dL (0.6-1.0) Estimated GFR (Cockcroft-Gault) 56.2 BUN/Creatinine Ratio 26 (6-20) H Glucose Level 292 mg/dL (70-99) H Calcium Level 9.3 mg/dL (8.5-10.1) Total Bilirubin 0.3 mg/dL (0.2-1.0) Aspartate Amino Transferase (AST) 18 U/L (15-37) Alanine Aminotransferase (ALT) 23 U/L (14-59) Alkaline Phosphatase 59 U/L (46-116) Ammonia 14 mcmol/L (11-34) Total Protein 7.6 g/dL (6.4-8.2) Albumin 3.0 g/dL (3.4-5.0) L Albumin/Globulin Ratio 0.7 (1.0-1.7) L Valproic Acid Level 11 mcg/mL (50-100) L Valproic Acid Last Dose Date 05/08/20 Valproic Acid Last Dose Time 2100 Glucose (Fingerstick) 299 mg/dL (70-99) H 326 mg/dL (70-99) H 351 mg/dL (70-99) H Test 05/09/20 19:20 Glucose (Fingerstick) 412 mg/dL (70-99) H Current Medications: Meds: Current Medications Medications (Trade) Dose Ordered Sig/Jayant Route PRN Reason Start Time Stop Time Status Last Admin Dose Admin Haloperidol Lactate (Haldol) 5 mg DAILY IM 05/09/20 09:30 05/09/20 09:46 Lorazepam (Ativan Inj) 0.5 mg DAILY IM 05/09/20 09:30 05/09/20 09:46 Divalproex Sodium (Depakote Er) 1,000 mg QHS PO 05/09/20 21:00 05/09/20 19:54 I have reviewed the current psychotropics carefully including drug interactions. Risk benefit ratio favors no change other than as noted in my dictated progress note. Diagnosis: Problems: (1) Psychotic disorder (2) Major depressive disorder (3) Personality disorder, unspecified (4) Bipolar disorder with psychotic features ADELSO LOVE MD May 09, 2020 20:53
[2020-05-09] MEDS: INSULIN GLARGINE SYRINGE. SQ SCH (21:00)
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
[2020-05-10] MEDS: LEVOTHYROXINE 50 MCG TABLET PO SCH (05:42)
[2020-05-10] MEDS: ACETAMINOPHEN 325 MG TABLET PO PRN (06:01)
[2020-05-10 06:29] VITALS: BP 137/82
--- NOTE | 2020-05-10 08:33 | NUR ---
Wound/Ostomy Care Wound Type/Assessment: WC consult for coccyx pressure ulcer. Pt has stage III PU to coccyx. Cleansed area, measured and assessed wound. Wound bed is slough covered with some pale pink wound bed. Treatment Recommendations/Plan: Applied medihoney alginate and foam dressing, change every 3 days. Ensure side laying while in bed as much as possible Education provided: PU prevention ad WC POC. Pt will need reinforcement of teaching due to mental status. Offloading surface/device: none, pt is up adlib Recommended Referrals/Tests: none Discharge Recommendations for dressings: continue as above noted.
--- NOTE | 2020-05-10 08:46 | PDOC ---
Exam Note: Joseph Note: This note is a late entry for 05/07/2020 covers elements not covered in my initial note. Subjective: The patient was seen on telehealth rounds in the evening of 05/07/2020 with Yasmine CORRAL as the unit is on a lockdown by the [facility] because of COVID-19 exposure on the unit and no admission or discharges can be done for next 2 weeks due to the quarantine requirements. Discussed with nursing staff, reviewed the chart. She slept at 5-1/4 hours previous night. She has been needy, complains of neuropathic pain. Review of Systems: Ambulation impaired in wheelchair. No CV, , pulmonary, eye, ENT system symptoms on review. Reliability varies. She slept better last night. Mental Status Exam: The patient is oriented to herself and situation. Speech is coherent, somewhat hoarse. Short-term memory is impaired. Abstraction is fair. Computation is impaired. Language function is intact. Attention span is short. Mood remains labile. Laboratory Data: Reviewed. Impression: Bipolar disorder unspecified. Major depressive disorder. Anxiety disorder unspecified. Impulse control disorder unspecified. Personality disorder unspecified. Plan: No change from initial note. Assessment: Vital Signs/I&O: Vital Signs Date Time Temp Pulse Resp B/P (MAP) Pulse Ox O2 Delivery O2 Flow Rate FiO2 05/10/20 06:29 97.9 70 22 137/82 (100) 95 05/07/20 12:49 Room Air I & O 05/09/20 05/09/20 05/10/20 15:00 23:00 07:00 Intake Total 460 ml Balance 460 ml Labs: Laboratory Tests Test 05/09/20 12:01 05/09/20 17:01 05/09/20 19:20 05/10/20 06:35 Glucose (Fingerstick) 326 mg/dL (70-99) H 351 mg/dL (70-99) H 412 mg/dL (70-99) H Prothrombin Time 29.8 SEC (9.4-11.4) H Prothrombin Time INR 3.0 (0.9-1.1) H Test 05/10/20 07:42 Glucose (Fingerstick) 227 mg/dL (70-99) H Current Medications: Meds: Current Medications Medications (Trade) Dose Ordered Sig/Jayant Route PRN Reason Start Time Stop Time Status Last Admin Dose Admin Haloperidol Lactate (Haldol) 5 mg DAILY IM 05/09/20 09:30 05/09/20 09:46 Lorazepam (Ativan Inj) 0.5 mg DAILY IM 05/09/20 09:30 05/09/20 09:46 Divalproex Sodium (Depakote Er) 1,000 mg QHS PO 05/09/20 21:00 05/09/20 19:54 I have reviewed the current psychotropics carefully including drug interactions. Risk benefit ratio favors no change other than as noted in my dictated progress note. Diagnosis: Problems: (1) Psychotic disorder (2) Major depressive disorder (3) Personality disorder, unspecified (4) Bipolar disorder with psychotic features ADELSO LOVE MD May 10, 2020 08:46
--- NOTE | 2020-05-10 09:01 | PDOC ---
Exam Note: Joseph Note: This note is a late entry for 05/08/2020 covers elements not covered in my initial note. Subjective: The patient was seen on telehealth rounds in the evening of 05/08/2020 with Yasmine CORRAL as the unit is on a lockdown by the [facility] because of COVID-19 and no admission or discharges can be done for next 2 weeks due to the quarantine requirements. Discussed with nursing staff, reviewed the chart. The patient has received 2 p.r.n.s. of Ativan due to her agitation, mood lability. She did well till 4 p.m. She gave relevant history of frontal craniotomy for removal of a benign meningioma presumably in 1994. We will get those records. Review of Systems: Impaired ambulation in wheelchair. No CV, , pulmonary, eye, ENT system symptoms on review. Mental Status Exam: The patient is oriented to herself and situation. Speech is coherent, somewhat hoarse. Short-term memory is impaired. Abstraction is fair. Computation is impaired. Language function is intact. Attention span is short. Mood and affect is anxious, labile and at times grandiose, very threatening and demanding. Laboratory Data: Reviewed. Impression: Bipolar disorder unspecified. Major depressive disorder. Anxiety disorder unspecified. Impulse control disorder unspecified. Personality disorder unspecified. Plan: No change from initial note. Assessment: Vital Signs/I&O: Vital Signs Date Time Temp Pulse Resp B/P (MAP) Pulse Ox O2 Delivery O2 Flow Rate FiO2 05/10/20 06:29 97.9 70 22 137/82 (100) 95 05/07/20 12:49 Room Air I & O 05/09/20 05/09/20 05/10/20 15:00 23:00 07:00 Intake Total 460 ml Balance 460 ml Labs: Laboratory Tests Test 05/09/20 12:01 05/09/20 17:01 05/09/20 19:20 05/10/20 06:35 Glucose (Fingerstick) 326 mg/dL (70-99) H 351 mg/dL (70-99) H 412 mg/dL (70-99) H Prothrombin Time 29.8 SEC (9.4-11.4) H Prothrombin Time INR 3.0 (0.9-1.1) H Test 05/10/20 07:42 Glucose (Fingerstick) 227 mg/dL (70-99) H Current Medications: Meds: Current Medications Medications (Trade) Dose Ordered Sig/Jayant Route PRN Reason Start Time Stop Time Status Last Admin Dose Admin Haloperidol Lactate (Haldol) 5 mg DAILY IM 05/09/20 09:30 05/09/20 09:46 Lorazepam (Ativan Inj) 0.5 mg DAILY IM 05/09/20 09:30 05/09/20 09:46 Divalproex Sodium (Depakote Er) 1,000 mg QHS PO 05/09/20 21:00 05/09/20 19:54 I have reviewed the current psychotropics carefully including drug interactions. Risk benefit ratio favors no change other than as noted in my dictated progress note. Diagnosis: Problems: (1) Psychotic disorder (2) Major depressive disorder (3) Personality disorder, unspecified (4) Bipolar disorder with psychotic features ADELSO LOVE MD May 10, 2020 09:01
[2020-05-10] MEDS: MORPHINE ER 15 MG TABLET.ER PO SCH ×2 (09:10→20:13)
[2020-05-10] MEDS: CARVEDILOL 12.5 MG TABLET PO SCH ×2 (09:10→17:00)
[2020-05-10] MEDS: MULTIVITAMIN with MINERAL TABLET. PO SCH (09:10)
[2020-05-10] MEDS: MAGNESIUM OXIDE 400 MG TABLET PO SCH (09:10)
[2020-05-10] MEDS: LISINOPRIL 20 MG TABLET PO SCH (09:11)
[2020-05-10] MEDS: SENNOSIDES 8.6 MG TABLET PO SCH ×2 (09:11→19:38)
[2020-05-10] MEDS: GABAPENTIN 300 MG CAPSULE. PO SCH ×3 (09:11→19:37)
[2020-05-10] MEDS: FENOFIBRATE NANOCRYSTALLIZED 145 MG TABLET PO SCH (09:11)
[2020-05-10] MEDS: INSULIN LISPRO 300 UNITS/3 ML VIAL. SQ SCH ×3 (09:12→17:15)
[2020-05-10] MEDS: TIMOLOL 0.5% OPHTH SOLUTION 5ML BOTTLE. OU SCH ×2 (09:13→20:14)
[2020-05-10] MEDS: POLYETHYLENE GLYCOL 3350 17 GM PACKET. PO SCH (09:13)
[2020-05-10] MEDS: HALOPERIDOL LACT 5 MG/ML VIAL. IM SCH (09:13)
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
--- NOTE | 2020-05-10 11:18 | NUR ---
Patient is cooperative but continues to yell out when she needs help in her room. Patient was able to stand and walk to restroom on her own and had a large BM. Needs assistance with pulling up and down her briefs but can otherwise do everything on her own. Patient has no symptoms of cough, shortness of breath or any fever, flu like symptoms. No further concerns at this time.
--- NOTE | 2020-05-10 14:51 | NUR ---
Pharmacy Warfarin Dosing Note S:Pharmacy consulted to assist with anticoagulation therapy started with target INR: 2 -3 O:REBA LINDSAY is a 60 year old F with Recurrent VTE history of PE LABS: Last INR: 3 Last HGB: 12 Last HCT: 38.3 Last PLT: 242 Last dose of 3.5MG given on 05/09/20 at 1600 Previous Regimen: 3.5mg daily Vitamin K given: N Drug Interaction Changes: Same Interacting Drug Ongoing Drug Interactions: fenofibrate, venlafaxine A:INR Within desired Range. Target Range for this patient is: 2 -3 P: Warfarin dose: Hold Today at 1600, INR is upper limit of normal, will redose depending on tomorrow's INR Bridge Therapy: None Next INR due 05/11/20 @ 0600 Pharmacy anticoagulation service will continue to follow. YENY CORRAL RP, 05/10/20 [id number]
[2020-05-10 15:43] VITALS: BP 129/75
[2020-05-10] MEDS: LORazepam 0.5 MG TABLET PO PRN ×2 (17:00→20:13)
--- NOTE | 2020-05-10 18:29 | NUR ---
Patient started yelling out and beggin for someone to come to her room to scratch her back. We went to help patient and also applied lotion to her back to see if the lotion helped with dryness she was experiencing. She continued for about 15 minutes to beg for staff to come help her so she was given Ativan 0.5mg to help calm her down. She did calm down and slept for about 30 minutes and then woke up to eat. She has been experiencing diarrhea today and has trouble getting herself to the restroom. She will get up with little assistance and walk with walker with SBA. She will not wipe and needs assistance to make sure she is clean. Patient has been better since her last dose of the Ativan and was given a ramirez to ring if she needs assistance rather than yelling out.
[2020-05-10] MEDS: SIMVASTATIN 10 MG TABLET PO SCH (19:37)
[2020-05-10] MEDS: DIVALPROEX ER 500 MG TAB.ER.24H PO SCH (20:13)
[2020-05-10] MEDS: LATANOPROST 0.005% OPHTH SOLUTION 2.5ML BOTTLE. OU SCH (20:14)
[2020-05-10] MEDS: traZODone 50 MG TABLET. PO SCH (20:14)
[2020-05-10] MEDS: INSULIN GLARGINE SYRINGE. SQ SCH (20:23)
--- NOTE | 2020-05-10 21:03 | PDOC ---
Exam Note: Joseph Note: Please also refer to the separate dictated note~for this date of service dictated separately.~Patient seen individually. Discussed the patient with Nursing staff reviewed the chart.~Reviewed interim history and current functioning. Reviewed vital signs,~Labs/ Radiology~and current medications noted below. Continue current treatment with the changes noted in the dictated addendum note Assessment: Vital Signs/I&O: Vital Signs Date Time Temp Pulse Resp B/P (MAP) Pulse Ox O2 Delivery O2 Flow Rate FiO2 05/10/20 20:13 95 05/10/20 17:00 71 129/75 05/10/20 15:43 98.1 20 05/07/20 12:49 Room Air I & O 05/09/20 05/09/20 05/10/20 15:00 23:00 07:00 Intake Total 460 ml Balance 460 ml Labs: Laboratory Tests Test 05/10/20 06:35 05/10/20 07:42 05/10/20 11:41 05/10/20 16:56 Prothrombin Time 29.8 SEC (9.4-11.4) H Prothrombin Time INR 3.0 (0.9-1.1) H Glucose (Fingerstick) 227 mg/dL (70-99) H 297 mg/dL (70-99) H 293 mg/dL (70-99) H Test 05/10/20 19:01 Glucose (Fingerstick) 311 mg/dL (70-99) H Current Medications: I have reviewed the current psychotropics carefully including drug interactions. Risk benefit ratio favors no change other than as noted in my dictated progress note. Diagnosis: Problems: (1) Psychotic disorder (2) Major depressive disorder (3) Personality disorder, unspecified (4) Bipolar disorder with psychotic features ADELSO LOVE MD May 10, 2020 21:03
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
--- NOTE | 2020-05-10 23:08 | NUR ---
Nursing Note Pt acting totally helpless, states her arms do not work, she cannot get from bed to her walker, screams that she needs total assist that we are paid to do everything for her that it is our job to be her slave. Pt then proceeds to get out of bed and walk with her walker to the bathroom. She will not wipe her front héctor area after voiding, screams constantly that it is our job to wipe her ass, and that we wipe everyone else's asses so its our job and we better do it. Pt continues to refuse to wipe herself. Pt has consistently been getting off and on the toilet independently but now states she cannot move from the toilet and wants staff to lift her. Screams at staff, to "Get the fuck out of her you stupid bitch, its your job to lift me off the fucking toilet do your fucking job or get the fuck out of here!!! You are both too busy fucking men and sucking dicks to lift me off the toilet!! Get your hands off me since you have touched enough dicks to satisfy the whole place!!" told patient to help herself off the toilet, that she has almost stood several times but sits back down, and she insists that she wants help and cannot walk or stand. Pt has been screaming, demanding, rude, inappropriate using foul language toward staff all shift.
--- NOTE | 2020-05-10 23:37 | NUR ---
Nursing Note Pts bathroom alarm was going off, after entering we found the pt to be sitting on the side of the bed. She had wiped herself, pulled up her pants and ambulated to the bed. She states "I don't know what I did to piss all of you off, I have been sweet and nice and not deserving of this treatment". Staff responded that we have no emotion regarding the situation, that we would like her to participate in her care, and stop with the foul language, and filthy accusations. Pt states "That wasn't me, I never said those things, it was my cousin Edilia, she looks just like me and says all kinds of mean stuff all the time." Staff stated that there is no one named Edilia here this PM and she stated "Well go ahead and not listen to the truth, she says all that stuff not me, you have me mistaken for Edilia!!"
[2020-05-11] MEDS: MAGNESIUM OXIDE 400 MG TABLET PO SCH (05:46)
[2020-05-11] MEDS: CARVEDILOL 12.5 MG TABLET PO SCH ×2 (05:46→17:08)
[2020-05-11] MEDS: MULTIVITAMIN with MINERAL TABLET. PO SCH (05:46)
[2020-05-11] MEDS: GABAPENTIN 300 MG CAPSULE. PO SCH ×3 (05:47→19:39)
[2020-05-11] MEDS: MORPHINE ER 15 MG TABLET.ER PO SCH ×2 (05:47→19:39)
[2020-05-11] MEDS: FENOFIBRATE NANOCRYSTALLIZED 145 MG TABLET PO SCH (05:47)
[2020-05-11] MEDS: POLYETHYLENE GLYCOL 3350 17 GM PACKET. PO SCH (05:47)
[2020-05-11] MEDS: SENNOSIDES 8.6 MG TABLET PO SCH ×2 (05:47→19:38)
[2020-05-11] MEDS: LISINOPRIL 20 MG TABLET PO SCH (05:47)
[2020-05-11] MEDS: HALOPERIDOL LACT 5 MG/ML VIAL. IM SCH (05:48)
[2020-05-11] MEDS: LEVOTHYROXINE 50 MCG TABLET PO SCH (05:48)
[2020-05-11] MEDS: TIMOLOL 0.5% OPHTH SOLUTION 5ML BOTTLE. OU SCH ×2 (05:49→19:43)
[2020-05-11 06:23] VITALS: BP 153/71
[2020-05-11] MEDS: INSULIN LISPRO 300 UNITS/3 ML VIAL. SQ SCH ×3 (08:16→17:11)
--- NOTE | 2020-05-11 12:58 | NUR ---
Pt has been sitting calmly in her room this morning. Pt states that she did not sleep well last night because she was having bad dreams. After lunch, pt requested to lay down in bed. Pt asked for assistance to stand and then became upset when she was told that she needs to do it on her own. Pt continued to be helpless, stating that she couldn't do it. After a few minutes, pt stood up completely on her own and walked to her bed with her walker with standby assistance. Once in bed, pt asked for the remote for her TV. Pt was informed that she didn't have a TV in her room. Pt laughed and pointed to the wall and said "it's right there silly." Will continue to monitor.
--- NOTE | 2020-05-11 14:17 | NUR ---
Pt assisted to the toilet standby assistance with staff x2. Once finished toileting, pt stated that she could not stand herself up. Pt informed that she could absolutely stand herself up as she has done it many times. Pt became agitated; started yelling and cursing at staff. Pt yelled "well can I at least have a precision honing machine operator knife to slit my throat?" Pt yelling at staff; stating that she owns this place and pays us. Pt continued to sit on the toilet for approximately 15 minutes yelling out and repeatedly pushing the call light. Pt then stood up on her own and ambulated to her bed with standby assistance with staff x2. Pt continued to be helpless and irritated; stating "wait until my family hears about this."
[2020-05-11 15:10] VITALS: BP 161/71
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
[2020-05-11] MEDS ORDERED: CHOLECALCIFEROL (VITAMIN D3) 50,000 UNIT CAPSULE PO SCH (17:30)
[2020-05-11] MEDS ORDERED: INSULIN LISPRO 300 UNITS/3 ML VIAL. SQ SCH (17:30)
[2020-05-11] MEDS: LORazepam 0.5 MG TABLET PO PRN ×2 (19:37→23:02)
[2020-05-11] MEDS: traZODone 100 MG TABLET. PO SCH (19:37)
[2020-05-11] MEDS: SIMVASTATIN 10 MG TABLET PO SCH (19:37)
[2020-05-11] MEDS: DIVALPROEX ER 500 MG TAB.ER.24H PO SCH (19:38)
[2020-05-11] MEDS: INSULIN GLARGINE SYRINGE. SQ SCH (19:40)
[2020-05-11] MEDS: LATANOPROST 0.005% OPHTH SOLUTION 2.5ML BOTTLE. OU SCH (19:43)
--- NOTE | 2020-05-11 20:48 | PDOC ---
Exam Note: Josehp Note: Please also refer to the separate dictated note~for this date of service dictated separately.~Patient seen individually. Discussed the patient with Nursing staff reviewed the chart.~Reviewed interim history and current functioning. Reviewed vital signs,~Labs/ Radiology~and current medications noted below. Continue current treatment with the changes noted in the dictated addendum note Assessment: Vital Signs/I&O: Vital Signs Date Time Temp Pulse Resp B/P (MAP) Pulse Ox O2 Delivery O2 Flow Rate FiO2 05/11/20 19:39 98 05/11/20 17:08 7 161/71 05/11/20 15:10 98.2 16 05/07/20 12:49 Room Air I & O 05/10/20 05/10/20 05/11/20 15:00 23:00 07:00 Intake Total 600 ml 480 ml 100 ml Balance 600 ml 480 ml 100 ml Labs: Laboratory Tests Test 05/11/20 07:05 05/11/20 07:15 05/11/20 12:03 05/11/20 16:48 Prothrombin Time 26.2 SEC (9.4-11.4) H Prothrombin Time INR 2.6 (0.9-1.1) H Glucose (Fingerstick) 269 mg/dL (70-99) H 296 mg/dL (70-99) H 301 mg/dL (70-99) H Test 05/11/20 19:00 Glucose (Fingerstick) 310 mg/dL (70-99) H Current Medications: Meds: Current Medications Medications (Trade) Dose Ordered Sig/Jayant Route PRN Reason Start Time Stop Time Status Last Admin Dose Admin Trazodone HCl (Desyrel) 100 mg QHS PO 05/11/20 21:00 05/11/20 19:37 I have reviewed the current psychotropics carefully including drug interactions. Risk benefit ratio favors no change other than as noted in my dictated progress note. Diagnosis: Problems: (1) Psychotic disorder (2) Major depressive disorder (3) Personality disorder, unspecified (4) Bipolar disorder with psychotic features ADELSO LOVE MD May 11, 2020 20:48
[2020-05-11] MEDS: ACETAMINOPHEN 325 MG TABLET PO PRN (21:25)
[2020-05-11] MEDS: traZODone 100 MG TABLET. PO PRN (22:04)
--- NOTE | 2020-05-11 22:10 | NUR ---
Nursing Note Pt yells non stop for pain to her lower legs, diarrhea, needing to urinate, wanting water, whatever her needs and demands are nonstop. She has not been name calling or inappropriate yet this shift. Her legs are warm to the touch bilat with dusky dark skin from mid calf to toes. Lotion applied, tylenol, HS meds including pain meds, trazodone X2, ativan and zydis. Nothing is working so far, continues to be anxious, calling out alternating from angry to crying in the same sentence. Acts helpless, wanting staff to assist her when she is only SBA. Can transfer and ambulate to the BR, has difficulty lifting her legs to the bed but other than that is fully able to hazardous waste remover her body.
--- NOTE | 2020-05-11 22:51 | NUR ---
Nursing note Pt continues with her litany of complaints, demands and requests. Although, she is using far less foul language, yelling and general meanness and actually saying please and thanks for things. She apologizes for complaining and acts as though she has recognition of the fact that she is very needy and time consuming. She does become grandiose, saying that her family will compensate us quite generously for our time and trouble.
[2020-05-12] MEDS: ACETAMINOPHEN 325 MG TABLET PO PRN ×3 (02:08→23:15)
[2020-05-12] MEDS: LORazepam 0.5 MG TABLET PO PRN ×3 (02:09→18:01)
--- NOTE | 2020-05-12 02:44 | NUR ---
Nursing Note Pt states that she has no recollection of conversations or behaviors she has exhibited over the course of her admission. She cannot remember being verbally abusive and yelling at staff. Now she is complimentary, compliant, cooperative with staff, tearful at times. States she has increased neuropathy pain to her legs and hands, her hands, feet, and legs go numb periodically. Instructed patient to discuss with Dr. Thomas her med regimen re her mood lability and insomnia.
[2020-05-12] MEDS: LEVOTHYROXINE 50 MCG TABLET PO SCH (03:52)
[2020-05-12] MEDS ORDERED: SENNOSIDES 8.6 MG TABLET PO PRN (05:15)
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
[2020-05-12 06:10] VITALS: BP 169/84
[2020-05-12 07:30] LABS: BASO # 0.1 x10^3/uL (0.0-0.2); BASO % 1 % (0-3); EOS # 0.5 x10^3/uL (0.0-0.7); EOS % 11 % (0-3); HEMATOCRIT 35.4 % (36.0-47.0); HEMOGLOBIN 11.1 g/dL (12.0-15.5); LYMPH # 1.7 x10^3/uL (1.0-4.8); LYMPH % 36 % (24-48); MEAN CORPUSCULAR HEMOGLOBIN 26 pg (25-35); MEAN CORPUSCULAR HGB CONC 31 g/dL (31-37); MEAN CORPUSCULAR VOLUME 82 fL (79-100); MONO # 0.4 x10^3/uL (0.0-1.1); MONO % 9 % (0-9); NEUT # 2.1 x10^3uL (1.8-7.7); NEUT % 43 % (31-73); PLATELET COUNT 193 x10^3/uL (140-400); RED BLOOD COUNT 4.33 x10^6/uL (3.50-5.40); RED CELL DISTRIBUTION WIDTH 16.4 % (11.5-14.5); WHITE BLOOD COUNT 4.8 x10^3/uL (4.0-11.0)
[2020-05-12 07:50] LABS: ALBUMIN 2.5 g/dL (3.4-5.0); ALBUMIN/GLOBULIN RATIO 0.6 (1.0-1.7); ALK PHOS 48 U/L (46-116); ALT (SGPT) 20 U/L (14-59); ANION GAP 7 (6-14); AST (SGOT) 15 U/L (15-37); BLOOD UREA NITROGEN 21 mg/dL (7-20); BUN/CREATININE RATIO 23 (6-20); CALCIUM 9.1 mg/dL (8.5-10.1); CARBON DIOXIDE 26 mmol/L (21-32); CHLORIDE 102 mmol/L (98-107); CREATININE 0.9 mg/dL (0.6-1.0); GFR 63.4; GLUCOSE 250 mg/dL (70-99); POTASSIUM 3.9 mmol/L (3.5-5.1); SODIUM 135 mmol/L (136-145); TOTAL BILIRUBIN 0.2 mg/dL (0.2-1.0); TOTAL PROTEIN 6.7 g/dL (6.4-8.2)
[2020-05-12 07:52] LABS: VAL ACID 30 mcg/mL (50-100)
[2020-05-12] MEDS: cloNIDine TTS-1 1 PATCH PATCH TD SCH (08:41)
[2020-05-12] MEDS: FENOFIBRATE NANOCRYSTALLIZED 145 MG TABLET PO SCH (08:42)
[2020-05-12] MEDS: CARVEDILOL 12.5 MG TABLET PO SCH ×2 (08:42→16:59)
[2020-05-12] MEDS: GABAPENTIN 300 MG CAPSULE. PO SCH ×3 (08:42→20:28)
[2020-05-12] MEDS: MORPHINE ER 15 MG TABLET.ER PO SCH ×2 (08:42→20:29)
[2020-05-12] MEDS: HALOPERIDOL LACT 5 MG/ML VIAL. IM SCH (08:42)
[2020-05-12] MEDS: MAGNESIUM OXIDE 400 MG TABLET PO SCH (08:42)
[2020-05-12] MEDS: MULTIVITAMIN with MINERAL TABLET. PO SCH (08:43)
[2020-05-12] MEDS: LISINOPRIL 20 MG TABLET PO SCH (08:43)
[2020-05-12] MEDS: INSULIN LISPRO 300 UNITS/3 ML VIAL. SQ SCH ×3 (08:46→17:00)
[2020-05-12] MEDS: TIMOLOL 0.5% OPHTH SOLUTION 5ML BOTTLE. OU SCH ×2 (09:00→20:30)
[2020-05-12] MEDS: CHOLECALCIFEROL (VITAMIN D3) 50,000 UNIT CAPSULE PO SCH (12:22)
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
[2020-05-12 15:10] VITALS: BP 136/83
--- NOTE | 2020-05-12 15:22 | NUR ---
Pharmacy Warfarin Dosing Note S:Pharmacy consulted to assist with anticoagulation therapy started with target INR: 2 -3 O:REBA LINDSAY is a 60 year old F with Recurrent VTE history of PE LABS: Last INR: 2.2 Last HGB: 11.1 Last HCT: 35.4 Last PLT: 193 Last dose of Hold given on 05/09/20 at 1600 Previous Regimen: 3.5mg daily Vitamin K given: N Drug Interaction Changes: Same Interacting Drug Ongoing Drug Interactions: fenofibrate, venlafaxine A:INR Within desired Range. Target Range for this patient is: 2 -3 P: Warfarin dose: 2.5 mg Today at 1600 Bridge Therapy: None Next HGB due 05/13 Pharmacy anticoagulation service will continue to follow. GREGORIA SWANSON, 05/12/20 1522
[2020-05-12] MEDS ORDERED: WARFARIN 2.5 MG TABLET. PO ONE (16:00)
[2020-05-12] MEDS: LATANOPROST 0.005% OPHTH SOLUTION 2.5ML BOTTLE. OU SCH (20:28)
[2020-05-12] MEDS: DIVALPROEX ER 500 MG TAB.ER.24H PO SCH (20:28)
[2020-05-12] MEDS: traZODone 100 MG TABLET. PO SCH (20:28)
[2020-05-12] MEDS: SIMVASTATIN 10 MG TABLET PO SCH (20:28)
[2020-05-12] MEDS: INSULIN GLARGINE SYRINGE. SQ SCH (21:00)
--- NOTE | 2020-05-12 21:05 | PDOC ---
Exam Note: Joseph Note: Please also refer to the separate dictated note~for this date of service dictated separately.~Patient seen individually. Discussed the patient with Nursing staff reviewed the chart.~Reviewed interim history and current functioning. Reviewed vital signs,~Labs/ Radiology~and current medications noted below. Continue current treatment with the changes noted in the dictated addendum note Assessment: Vital Signs/I&O: Vital Signs Date Time Temp Pulse Resp B/P (MAP) Pulse Ox O2 Delivery O2 Flow Rate FiO2 05/12/20 20:29 20 Room Air 05/12/20 16:59 79 136/83 05/12/20 15:10 98.7 96 I & O 05/11/20 05/11/20 05/12/20 14:59 22:59 06:59 Intake Total 600 ml 480 ml 240 ml Balance 600 ml 480 ml 240 ml Labs: Laboratory Tests Test 05/12/20 07:10 05/12/20 07:20 05/12/20 07:34 05/12/20 12:04 Prothrombin Time 21.9 SEC (9.4-11.4) H Prothrombin Time INR 2.2 (0.9-1.1) H White Blood Count 4.8 x10^3/uL (4.0-11.0) Red Blood Count 4.33 x10^6/uL (3.50-5.40) Hemoglobin 11.1 g/dL (12.0-15.5) L Hematocrit 35.4 % (36.0-47.0) L Mean Corpuscular Volume 82 fL (79-100) Mean Corpuscular Hemoglobin 26 pg (25-35) Mean Corpuscular Hemoglobin Concent 31 g/dL (31-37) Red Cell Distribution Width 16.4 % (11.5-14.5) H Platelet Count 193 x10^3/uL (140-400) Neutrophils (%) (Auto) 43 % (31-73) Lymphocytes (%) (Auto) 36 % (24-48) Monocytes (%) (Auto) 9 % (0-9) Eosinophils (%) (Auto) 11 % (0-3) H Basophils (%) (Auto) 1 % (0-3) Neutrophils # (Auto) 2.1 x10^3uL (1.8-7.7) Lymphocytes # (Auto) 1.7 x10^3/uL (1.0-4.8) Monocytes # (Auto) 0.4 x10^3/uL (0.0-1.1) Eosinophils # (Auto) 0.5 x10^3/uL (0.0-0.7) Basophils # (Auto) 0.1 x10^3/uL (0.0-0.2) Sodium Level 135 mmol/L (136-145) L Potassium Level 3.9 mmol/L (3.5-5.1) Chloride Level 102 mmol/L (98-107) Carbon Dioxide Level 26 mmol/L (21-32) Anion Gap 7 (6-14) Blood Urea Nitrogen 21 mg/dL (7-20) H Creatinine 0.9 mg/dL (0.6-1.0) Estimated GFR (Cockcroft-Gault) 63.4 BUN/Creatinine Ratio 23 (6-20) H Glucose Level 250 mg/dL (70-99) H Calcium Level 9.1 mg/dL (8.5-10.1) Total Bilirubin 0.2 mg/dL (0.2-1.0) Aspartate Amino Transferase (AST) 15 U/L (15-37) Alanine Aminotransferase (ALT) 20 U/L (14-59) Alkaline Phosphatase 48 U/L (46-116) Total Protein 6.7 g/dL (6.4-8.2) Albumin 2.5 g/dL (3.4-5.0) L Albumin/Globulin Ratio 0.6 (1.0-1.7) L Valproic Acid Level 30 mcg/mL (50-100) L Valproic Acid Last Dose Date 05/11/20 Valproic Acid Last Dose Time 2100 Glucose (Fingerstick) 236 mg/dL (70-99) H 388 mg/dL (70-99) H Test 05/12/20 17:06 05/12/20 19:16 Glucose (Fingerstick) 319 mg/dL (70-99) H 335 mg/dL (70-99) H Current Medications: Meds: Current Medications Medications (Trade) Dose Ordered Sig/Jayant Route PRN Reason Start Time Stop Time Status Last Admin Dose Admin Clonidine HCl (Catapres Tts-1) 1 patch WEEKLY TD 05/12/20 09:00 05/12/20 08:41 Vitamin D (Vitamin D3) 50,000 unit WEEKLY PO 05/12/20 09:00 05/12/20 12:22 Insulin Human Lispro (HumaLOG) 14 units TIDWMEALS SQ 05/12/20 08:00 05/12/20 17:00 Warfarin Sodium (Coumadin) 2.5 mg 1X WARF ONCE PO 05/12/20 16:00 05/12/20 16:01 DC 05/12/20 16:59 I have reviewed the current psychotropics carefully including drug interactions. Risk benefit ratio favors no change other than as noted in my dictated progress note. Diagnosis: Problems: (1) Psychotic disorder (2) Major depressive disorder (3) Personality disorder, unspecified (4) Bipolar disorder with psychotic features ADELSO LOVE MD May 12, 2020 21:05
[2020-05-12] MEDS ORDERED: DIVALPROEX ER 500 MG TAB.ER.24H PO SCH (22:00)
[2020-05-12] MEDS: QUEtiapine 50 MG TABLET. PO SCH (22:02)
[2020-05-12] MEDS ORDERED: DIVALPROEX ER 500 MG TAB.ER.24H PO ONE (22:15)
[2020-05-12] MEDS: traZODone 100 MG TABLET. PO PRN (22:30)
--- NOTE | 2020-05-13 04:02 | NUR ---
Nursing Note The patient has been irritable and aggressive this shift. The patient refuses to do any cares for her self. The patient becomes violent towards staff both physically and verbally when asked to attempt to help her self. The patient was compliant with her medications but refused to answer her assessment questions. The patient is currently sitting up in her chair in her room.
[2020-05-13] MEDS: LEVOTHYROXINE 50 MCG TABLET PO SCH (05:14)
[2020-05-13 06:37] VITALS: BP 187/84
[2020-05-13 06:53] LABS: GFR 56.2; POTASSIUM 3.8 mmol/L (3.5-5.1)
[2020-05-13] MEDS: GABAPENTIN 300 MG CAPSULE. PO SCH ×3 (07:48→20:23)
[2020-05-13] MEDS: LISINOPRIL 20 MG TABLET PO SCH (07:48)
[2020-05-13] MEDS: CARVEDILOL 12.5 MG TABLET PO SCH ×2 (07:48→17:14)
[2020-05-13] MEDS: MULTIVITAMIN with MINERAL TABLET. PO SCH (07:48)
[2020-05-13] MEDS: FENOFIBRATE NANOCRYSTALLIZED 145 MG TABLET PO SCH (07:49)
[2020-05-13] MEDS: LATANOPROST 0.005% OPHTH SOLUTION 2.5ML BOTTLE. OU SCH (07:49)
[2020-05-13] MEDS: HALOPERIDOL LACT 5 MG/ML VIAL. IM SCH (07:49)
[2020-05-13] MEDS: MAGNESIUM OXIDE 400 MG TABLET PO SCH (07:49)
[2020-05-13] MEDS: TIMOLOL 0.5% OPHTH SOLUTION 5ML BOTTLE. OU SCH ×2 (07:50→20:28)
[2020-05-13] MEDS: MORPHINE ER 15 MG TABLET.ER PO SCH ×2 (07:50→20:25)
[2020-05-13] MEDS: INSULIN LISPRO 300 UNITS/3 ML VIAL. SQ SCH ×3 (08:02→17:21)
--- NOTE | 2020-05-13 08:09 | PDOC ---
Exam Note: Joseph Note: This note is a late entry for 05/10/2020 covers elements not covered in my initial note. Subjective: The patient was seen on telehealth rounds in the evening of 05/10/2020 with Leena CORRAL as the unit is on a lockdown by the [facility] of COVID-19 exposure on the unit and no admission or discharges can be done. Discussed with nursing staff, reviewed the chart. The patient has had a very difficult day, has been little better since she has been getting IM Haldol and Ativan daily. She has had some yelling. She slept 4-3/4 hours previous night. Review of Systems: Impaired ambulation in wheelchair. No CV, , pulmonary, eye, ENT system symptoms on review. Mental Status Exam: The patient is oriented to herself and situation. She minimizes, rationalizes most of her behaviors. I addressed this with her. Limited insight. Speech is coherent. Short-term memory is impaired. Abstraction is fair. Computation is impaired. Language function is intact. Attention span is short. Mood and affect is anxious, threatening and demanding. Laboratory Data: Reviewed. Impression: Bipolar disorder unspecified. Major depressive disorder. Anxiety disorder unspecified. Impulse control disorder unspecified. Personality disorder unspecified. Plan: Continue rest of the psychotropics unchanged. Assessment: Vital Signs/I&O: Vital Signs Date Time Temp Pulse Resp B/P (MAP) Pulse Ox O2 Delivery O2 Flow Rate FiO2 05/13/20 07:48 79 187/84 05/13/20 06:37 97.7 18 95 05/13/20 00:29 Room Air I & O 05/12/20 05/12/20 05/13/20 15:00 23:00 07:00 Intake Total 700 ml 980 ml Balance 700 ml 980 ml Labs: Laboratory Tests Test 05/12/20 12:04 05/12/20 17:06 05/12/20 19:16 05/13/20 06:21 Glucose (Fingerstick) 388 mg/dL (70-99) H 319 mg/dL (70-99) H 335 mg/dL (70-99) H Prothrombin Time 20.1 SEC (9.4-11.4) H Prothrombin Time INR 2.0 (0.9-1.1) H Sodium Level 140 mmol/L (136-145) Potassium Level 3.8 mmol/L (3.5-5.1) Chloride Level 105 mmol/L (98-107) Carbon Dioxide Level 27 mmol/L (21-32) Anion Gap 8 (6-14) Blood Urea Nitrogen 24 mg/dL (7-20) H Creatinine 1.0 mg/dL (0.6-1.0) Estimated GFR (Cockcroft-Gault) 56.2 Glucose Level 204 mg/dL (70-99) H Calcium Level 9.0 mg/dL (8.5-10.1) Test 05/13/20 07:36 Glucose (Fingerstick) 219 mg/dL (70-99) H Current Medications: Meds: Current Medications Medications (Trade) Dose Ordered Sig/Jayant Route PRN Reason Start Time Stop Time Status Last Admin Dose Admin Clonidine HCl (Catapres Tts-1) 1 patch WEEKLY TD 05/12/20 09:00 05/12/20 08:41 Vitamin D (Vitamin D3) 50,000 unit WEEKLY PO 05/12/20 09:00 05/12/20 12:22 Warfarin Sodium (Coumadin) 2.5 mg 1X WARF ONCE PO 05/12/20 16:00 05/12/20 16:01 DC 05/12/20 16:59 Quetiapine Fumarate (SEROquel) 50 mg QHS PO 05/12/20 22:00 05/12/20 22:02 Divalproex Sodium (Depakote Er) 500 mg 1X ONCE PO 05/12/20 22:15 05/12/20 22:16 DC 05/12/20 22:05 I have reviewed the current psychotropics carefully including drug interactions. Risk benefit ratio favors no change other than as noted in my dictated progress note. Diagnosis: Problems: (1) Psychotic disorder (2) Major depressive disorder (3) Personality disorder, unspecified (4) Bipolar disorder with psychotic features ADELSO LOVE MD May 13, 2020 08:09
--- NOTE | 2020-05-13 08:32 | PDOC ---
Exam Note: Joseph Note: This note is a late entry for 05/11/2020 covers elements not covered in my initial note. Subjective: The patient was seen on telehealth rounds in the evening of 05/11/2020 with Radha CORRAL as the unit is on a lockdown by the [facility] of COVID-19 exposure on the unit and no admission or discharges can be done. Discussed with nursing staff, reviewed the chart. The patient slept 1- 3/4 hours previous night. We had increased trazodone to 100 mg h.s. scheduled. We may repeat x1 for p.r.n. insomnia. She tries to get the nursing staff to do some ADL activities even though she can do that herself, calling out nursing staff by derogatory names. She gets agitated if she is not given a remote, wanting a TV and states she saw a TV on her wall. Nursing staff are not sure if she is actually hallucinating. At times she has been yelling, pleasant. She was threatening to hurt the nursing aids and then hurt herself but denied this as I addressed this with her. Review of Systems: Impaired ambulation in wheelchair. No CV, , pulmonary, eye, ENT system symptoms on review. Mental Status Exam: The patient is oriented to herself and situation. Speech is coherent, somewhat hoarse. Short-term memory is impaired. Abstraction is fair. Computation is impaired. Language function is intact. Attention span is short. Mood and affect remains labile. Laboratory Data: Reviewed. Impression: Bipolar disorder unspecified. Major depressive disorder. Anxiety disorder unspecified. Impulse control disorder unspecified. Personality disorder unspecified. Plan: No change from initial note. Assessment: Vital Signs/I&O: Vital Signs Date Time Temp Pulse Resp B/P (MAP) Pulse Ox O2 Delivery O2 Flow Rate FiO2 05/13/20 07:48 79 187/84 05/13/20 06:37 97.7 18 95 05/13/20 00:29 Room Air I & O 05/12/20 05/12/20 05/13/20 15:00 23:00 07:00 Intake Total 700 ml 980 ml Balance 700 ml 980 ml Labs: Laboratory Tests Test 05/12/20 12:04 05/12/20 17:06 05/12/20 19:16 05/13/20 06:21 Glucose (Fingerstick) 388 mg/dL (70-99) H 319 mg/dL (70-99) H 335 mg/dL (70-99) H Prothrombin Time 20.1 SEC (9.4-11.4) H Prothrombin Time INR 2.0 (0.9-1.1) H Sodium Level 140 mmol/L (136-145) Potassium Level 3.8 mmol/L (3.5-5.1) Chloride Level 105 mmol/L (98-107) Carbon Dioxide Level 27 mmol/L (21-32) Anion Gap 8 (6-14) Blood Urea Nitrogen 24 mg/dL (7-20) H Creatinine 1.0 mg/dL (0.6-1.0) Estimated GFR (Cockcroft-Gault) 56.2 Glucose Level 204 mg/dL (70-99) H Calcium Level 9.0 mg/dL (8.5-10.1) Test 05/13/20 07:36 Glucose (Fingerstick) 219 mg/dL (70-99) H Current Medications: Meds: Current Medications Medications (Trade) Dose Ordered Sig/Jayant Route PRN Reason Start Time Stop Time Status Last Admin Dose Admin Clonidine HCl (Catapres Tts-1) 1 patch WEEKLY TD 05/12/20 09:00 05/12/20 08:41 Vitamin D (Vitamin D3) 50,000 unit WEEKLY PO 05/12/20 09:00 05/12/20 12:22 Warfarin Sodium (Coumadin) 2.5 mg 1X WARF ONCE PO 05/12/20 16:00 05/12/20 16:01 DC 05/12/20 16:59 Quetiapine Fumarate (SEROquel) 50 mg QHS PO 05/12/20 22:00 05/12/20 22:02 Divalproex Sodium (Depakote Er) 500 mg 1X ONCE PO 05/12/20 22:15 05/12/20 22:16 DC 05/12/20 22:05 I have reviewed the current psychotropics carefully including drug interactions. Risk benefit ratio favors no change other than as noted in my dictated progress note. Diagnosis: Problems: (1) Psychotic disorder (2) Major depressive disorder (3) Personality disorder, unspecified (4) Bipolar disorder with psychotic features ADELSO LOVE MD May 13, 2020 08:32
--- NOTE | 2020-05-13 08:50 | PDOC ---
Exam Note: Joseph Note: This note is a late entry for 05/12/2020 covers elements not covered in my initial note. Subjective: The patient was seen on telehealth rounds in the evening of 05/12/2020 with Alli CORRAL as the unit is on a lockdown by the [facility] of COVID-19 exposure on the unit and no admission or discharges can be done. Discussed with nursing staff, reviewed the chart. The patient slept for 1/2 hour previous night. Valproic acid level is 30 subtherapeutic on Depakote ER 1000 mg h.s. We will increase to 1500 mg h.s. Check CBC, CMP, valproic acid level in 3 days. Also start Seroquel 50 mg h.s. for her mood lability and agitation. She complains of vague somatic symptoms with gabapentin. Dr. Leiv suggested changing it to Cymbalta but given a questionable bipolar history SSRIs and SNRIs are best avoided. Review of Systems: Impaired ambulation in wheelchair. No CV, , pulmonary, eye, ENT system symptoms on review. Mental Status Exam: The patient is oriented to herself and situation. She minimizes and rationalizes some of her mood lability and agitation. I processed this with her. Speech is coherent, somewhat hoarse. Short-term memory is impaired. Abstraction is fair. Computation is impaired. Language function is intact. Attention span is short. Mood and affect is labile. Laboratory Data: Reviewed. Impression: Bipolar disorder unspecified. Major depressive disorder. Anxiety disorder unspecified. Impulse control disorder unspecified. Personality disorder unspecified. Plan: Continue rest unchanged and as noted above. Assessment: Vital Signs/I&O: Vital Signs Date Time Temp Pulse Resp B/P (MAP) Pulse Ox O2 Delivery O2 Flow Rate FiO2 05/13/20 07:48 79 187/84 05/13/20 06:37 97.7 18 95 05/13/20 00:29 Room Air I & O 05/12/20 05/12/20 05/13/20 15:00 23:00 07:00 Intake Total 700 ml 980 ml Balance 700 ml 980 ml Labs: Laboratory Tests Test 05/12/20 12:04 05/12/20 17:06 05/12/20 19:16 05/13/20 06:21 Glucose (Fingerstick) 388 mg/dL (70-99) H 319 mg/dL (70-99) H 335 mg/dL (70-99) H Prothrombin Time 20.1 SEC (9.4-11.4) H Prothrombin Time INR 2.0 (0.9-1.1) H Sodium Level 140 mmol/L (136-145) Potassium Level 3.8 mmol/L (3.5-5.1) Chloride Level 105 mmol/L (98-107) Carbon Dioxide Level 27 mmol/L (21-32) Anion Gap 8 (6-14) Blood Urea Nitrogen 24 mg/dL (7-20) H Creatinine 1.0 mg/dL (0.6-1.0) Estimated GFR (Cockcroft-Gault) 56.2 Glucose Level 204 mg/dL (70-99) H Calcium Level 9.0 mg/dL (8.5-10.1) Test 05/13/20 07:36 Glucose (Fingerstick) 219 mg/dL (70-99) H Current Medications: Meds: Current Medications Medications (Trade) Dose Ordered Sig/Jayant Route PRN Reason Start Time Stop Time Status Last Admin Dose Admin Clonidine HCl (Catapres Tts-1) 1 patch WEEKLY TD 05/12/20 09:00 05/12/20 08:41 Vitamin D (Vitamin D3) 50,000 unit WEEKLY PO 05/12/20 09:00 05/12/20 12:22 Warfarin Sodium (Coumadin) 2.5 mg 1X WARF ONCE PO 05/12/20 16:00 05/12/20 16:01 DC 05/12/20 16:59 Quetiapine Fumarate (SEROquel) 50 mg QHS PO 05/12/20 22:00 05/12/20 22:02 Divalproex Sodium (Depakote Er) 500 mg 1X ONCE PO 05/12/20 22:15 05/12/20 22:16 DC 05/12/20 22:05 I have reviewed the current psychotropics carefully including drug interactions. Risk benefit ratio favors no change other than as noted in my dictated progress note. Diagnosis: Problems: (1) Psychotic disorder (2) Person under investigation for COVID-19 (3) Major depressive disorder (4) Bipolar disorder with psychotic features ADELSO LOVE MD May 13, 2020 08:50
--- NOTE | 2020-05-13 11:25 | NUR ---
Patient was irritable sitting on edge of bed eating breakfast at time of assessment. She is slightly irritable but pleasant with me. Takes medications whole just fine. Patient c/o pain in BLE and in right arm left shoulder. Patient takes scheduled morphine and is getting Ativan with Haldol injection. I will reassess her pain in a couple of hours and see how she is doing. Patient has no cough, no loss of smell or taste. No fever. No s/s of covid. Patient has no further complaints. Still with sores on abdomen. She keeps scratching them. We will try to cover them to see if we can get her to leave them alone so they can heal. Just a few minutes after I left the patient fellow Nurse Marla went to patient room because she was screaming out and patient needed help getting into bed. when assisting her she was screaming and being very verbally abusive calling her names and yelling at her. I came to the room to help her and she eventually stopped and was layed in bed. She then fell asleep and has been asleep for most of the morning. Spoke to the pharmacy regarding her Gabapentin and they feel we can increase if they would like but they would really like to see what reaction the patient had to lyrica and possibly try lyrica again. I will discuss with Dr Levi and William so we can try to help get her neuropathy under control.
[2020-05-13] MEDS: ACETAMINOPHEN 325 MG TABLET PO PRN ×2 (12:58→19:03)
--- NOTE | 2020-05-13 15:35 | NUR ---
SW received a call from pt sister Annamarie and her oldest brother, Sid, re: how pt is doing. SW went over pt behaviors and how she can be demanding and at times verbally aggressive. Pt family is concerned as to whether or not pt medications are creating some of pt behaviors and SW was not able to answer that for them. SW encouraged pt family to participate in tx team on Saturday in which they will be able to get a handle on how pt is doing and speak to the psychiatrist re: medications and what to look for.
[2020-05-13 15:46] VITALS: BP 143/87
[2020-05-13] MEDS ORDERED: WARFARIN 2.5 MG TABLET. PO ONE (16:00)
--- NOTE | 2020-05-13 18:04 | NUR ---
Spoke to Dr Thomas regarding patient and her behaviors. She only slept for 2.5 hours last night and .5 hours the night before. She sleeps well in the morning for a solid 3-4 hours after her haldol and ativan injection. She was more sedated today and was more aggressive in the afternoon, possibly due to lack of sleep but she was hunched over in chair and in bed a couple of times when I checked on her. Per Dr Levi lets change her Haldol and Ativan injection to 5 pm to see if we are able to get her to sleep at night and also with the seroquel her moods in the AM may be better. Dose to be held at 5pm if patient is to sedated.
[2020-05-13] MEDS: SIMVASTATIN 10 MG TABLET PO SCH (20:22)
[2020-05-13] MEDS: QUEtiapine 50 MG TABLET. PO SCH (20:23)
[2020-05-13] MEDS: traZODone 100 MG TABLET. PO SCH (20:23)
[2020-05-13] MEDS: DIVALPROEX ER 500 MG TAB.ER.24H PO SCH (20:25)
[2020-05-13] MEDS: INSULIN GLARGINE SYRINGE. SQ SCH (20:40)
--- NOTE | 2020-05-13 20:59 | PDOC ---
Exam Note: Joseph Note: Please also refer to the separate dictated note~for this date of service dictated separately.~Patient seen individually. Discussed the patient with Nursing staff reviewed the chart.~Reviewed interim history and current functioning. Reviewed vital signs,~Labs/ Radiology~and current medications noted below. Continue current treatment with the changes noted in the dictated addendum note Assessment: Vital Signs/I&O: Vital Signs Date Time Temp Pulse Resp B/P (MAP) Pulse Ox O2 Delivery O2 Flow Rate FiO2 05/13/20 20:25 20 Room Air 05/13/20 17:14 71 143/87 05/13/20 15:46 97.8 95 I & O 05/12/20 05/12/20 05/13/20 15:00 23:00 07:00 Intake Total 700 ml 980 ml Balance 700 ml 980 ml Labs: Laboratory Tests Test 05/13/20 06:21 05/13/20 07:36 05/13/20 11:53 05/13/20 17:20 Prothrombin Time 20.1 SEC (9.4-11.4) H Prothrombin Time INR 2.0 (0.9-1.1) H Sodium Level 140 mmol/L (136-145) Potassium Level 3.8 mmol/L (3.5-5.1) Chloride Level 105 mmol/L (98-107) Carbon Dioxide Level 27 mmol/L (21-32) Anion Gap 8 (6-14) Blood Urea Nitrogen 24 mg/dL (7-20) H Creatinine 1.0 mg/dL (0.6-1.0) Estimated GFR (Cockcroft-Gault) 56.2 Glucose Level 204 mg/dL (70-99) H Calcium Level 9.0 mg/dL (8.5-10.1) Glucose (Fingerstick) 219 mg/dL (70-99) H 231 mg/dL (70-99) H 283 mg/dL (70-99) H Test 05/13/20 19:15 Glucose (Fingerstick) 318 mg/dL (70-99) H Current Medications: Meds: Current Medications Medications (Trade) Dose Ordered Sig/Jayant Route PRN Reason Start Time Stop Time Status Last Admin Dose Admin Quetiapine Fumarate (SEROquel) 50 mg QHS PO 05/12/20 22:00 05/13/20 20:23 Divalproex Sodium (Depakote Er) 1,500 mg QHS PO 05/13/20 21:00 05/13/20 20:25 Divalproex Sodium (Depakote Er) 500 mg 1X ONCE PO 05/12/20 22:15 05/12/20 22:16 DC 05/12/20 22:05 Warfarin Sodium (Coumadin) 2.5 mg 1X WARF ONCE PO 05/13/20 16:00 05/13/20 16:01 DC 05/13/20 17:14 I have reviewed the current psychotropics carefully including drug interactions. Risk benefit ratio favors no change other than as noted in my dictated progress note. Diagnosis: Problems: (1) Psychotic disorder (2) Major depressive disorder (3) Personality disorder, unspecified (4) Bipolar disorder with psychotic features ADELSO LOVE MD May 13, 2020 20:59
[2020-05-14] MEDS: ACETAMINOPHEN 325 MG TABLET PO PRN ×2 (00:25→18:29)
--- NOTE | 2020-05-14 04:49 | NUR ---
Nursing Note The patient was less agitated and demanding this shift. The patient was compliant with her medication and assessment. The patient took her medication whole. The patient requested PRN Tylenol@1903 and 0025 for leg and shoulder pain.
[2020-05-14] MEDS: LEVOTHYROXINE 50 MCG TABLET PO SCH (05:58)
[2020-05-14 06:29] VITALS: BP 132/86
--- NOTE | 2020-05-14 08:04 | NUR ---
Wound/Ostomy Care Wound Type/Assessment: WC follow up for coccyx pressure ulcer. Pt has stage III PU to coccyx. Cleansed area, measured and assessed wound. Wound bed is slough covered with some pale pink wound bed. Treatment Recommendations/Plan: Applied medihoney alginate and foam dressing, change every 3 days. Ensure side laying while in bed as much as possible, wheelchair cushion placed in chair Education provided: PU prevention ad WC POC. Pt will need reinforcement of teaching due to mental status. Offloading surface/device: none, pt is up adlib Recommended Referrals/Tests: none Discharge Recommendations for dressings: continue as above noted.
[2020-05-14] MEDS: FENOFIBRATE NANOCRYSTALLIZED 145 MG TABLET PO SCH (08:10)
[2020-05-14] MEDS: MAGNESIUM OXIDE 400 MG TABLET PO SCH (08:11)
[2020-05-14] MEDS: CARVEDILOL 12.5 MG TABLET PO SCH ×2 (08:11→17:00)
[2020-05-14] MEDS: MULTIVITAMIN with MINERAL TABLET. PO SCH (08:11)
[2020-05-14] MEDS: LISINOPRIL 20 MG TABLET PO SCH (08:11)
[2020-05-14] MEDS: GABAPENTIN 300 MG CAPSULE. PO SCH ×3 (08:11→20:44)
[2020-05-14] MEDS: TIMOLOL 0.5% OPHTH SOLUTION 5ML BOTTLE. OU SCH ×2 (08:12→20:47)
[2020-05-14] MEDS: INSULIN LISPRO 300 UNITS/3 ML VIAL. SQ SCH ×3 (08:15→17:00)
[2020-05-14] MEDS: MORPHINE ER 15 MG TABLET.ER PO SCH ×2 (08:17→20:44)
[2020-05-14] MEDS: LORazepam 0.5 MG TABLET PO PRN (08:17)
[2020-05-14] MEDS: hydrOXYzine HCL 25 MG TABLET PO PRN (14:08)
--- NOTE | 2020-05-14 14:12 | NUR ---
Pharmacy Warfarin Dosing Note S:Pharmacy consulted to assist with anticoagulation therapy started 05/14/20 with target INR: 2 -3 O:REBA LINDSAY is a 60 year old F with Recurrent VTE history of PE LABS: Last INR: 2 Last HGB: 11.1 Last HCT: 35.4 Last PLT: 193 Last dose of 2.5 mg given on 05/13/20 at 1600 Previous Regimen: 3.5mg daily Vitamin K given: N Drug Interaction Changes: Same Interacting Drug Ongoing Drug Interactions: fenofibrate, venlafaxine A:INR Within desired Range. Target Range for this patient is: 2 -3 P: Warfarin dose: 2.5 mg Today at 1600 Bridge Therapy: None Next INR due 05/15/20 @ 0600 Pharmacy anticoagulation service will continue to follow. YENY CORRAL [facility], 05/14/20 [id number]
[2020-05-14 15:00] VITALS: BP 107/69
[2020-05-14] MEDS ORDERED: WARFARIN 2.5 MG TABLET. PO ONE (16:00)
[2020-05-14] MEDS: HALOPERIDOL LACT 5 MG/ML VIAL. IM SCH (17:00)
--- NOTE | 2020-05-14 18:21 | NUR ---
Pt has been yelling out intermittently during shift. Demanding and attention seeking. Pt argumentative. Pt c/o back itching but refuses shower to remove dry skin. Atarax given. Redirected several times.
[2020-05-14 20:42] VITALS: BP 138/80
[2020-05-14] MEDS: SIMVASTATIN 10 MG TABLET PO SCH (20:45)
[2020-05-14] MEDS: DIVALPROEX ER 500 MG TAB.ER.24H PO SCH (20:45)
[2020-05-14] MEDS: QUEtiapine 50 MG TABLET. PO SCH (20:45)
[2020-05-14] MEDS: traZODone 100 MG TABLET. PO SCH (20:45)
[2020-05-14] MEDS: LATANOPROST 0.005% OPHTH SOLUTION 2.5ML BOTTLE. OU SCH (20:46)
[2020-05-14] MEDS: INSULIN GLARGINE SYRINGE. SQ SCH (20:50)
--- NOTE | 2020-05-14 21:17 | PDOC ---
Exam Note: Joseph Note: Please also refer to the separate dictated note~for this date of service dictated separately.~Patient seen individually. Discussed the patient with Nursing staff reviewed the chart.~Reviewed interim history and current functioning. Reviewed vital signs,~Labs/ Radiology~and current medications noted below. Continue current treatment with the changes noted in the dictated addendum note Assessment: Vital Signs/I&O: Vital Signs Date Time Temp Pulse Resp B/P (MAP) Pulse Ox O2 Delivery O2 Flow Rate FiO2 05/14/20 20:44 98 05/14/20 20:42 76 138/80 (99) 05/14/20 15:00 97.6 18 Room Air I & O 05/13/20 05/13/20 05/14/20 15:00 23:00 07:00 Intake Total 720 ml 1120 ml Balance 720 ml 1120 ml Labs: Laboratory Tests Test 05/14/20 07:38 05/14/20 10:40 05/14/20 11:39 05/14/20 16:48 Glucose (Fingerstick) 182 mg/dL (70-99) H 266 mg/dL (70-99) H 239 mg/dL (70-99) H Prothrombin Time 20.5 SEC (9.4-11.4) H Prothrombin Time INR 2.0 (0.9-1.1) H Test 05/14/20 19:14 Glucose (Fingerstick) 292 mg/dL (70-99) H Current Medications: Meds: Current Medications Medications (Trade) Dose Ordered Sig/Jayant Route PRN Reason Start Time Stop Time Status Last Admin Dose Admin Haloperidol Lactate (Haldol) 5 mg DAILY@1700 IM 05/14/20 17:00 05/14/20 17:00 Lorazepam (Ativan Inj) 0.5 mg DAILY@1700 IM 05/14/20 17:00 05/14/20 17:00 Hydroxyzine HCl (Atarax) 25 mg PRN Q6HRS PRN PO ITCHING 05/14/20 14:00 05/14/20 14:08 Warfarin Sodium (Coumadin) 2.5 mg 1X WARF ONCE PO 05/14/20 16:00 05/14/20 16:01 DC 05/14/20 16:00 I have reviewed the current psychotropics carefully including drug interactions. Risk benefit ratio favors no change other than as noted in my dictated progress note. Diagnosis: Problems: (1) Psychotic disorder (2) Major depressive disorder (3) Personality disorder, unspecified (4) Bipolar disorder with psychotic features ADELSO LOVE MD May 14, 2020 21:17
[2020-05-15] MEDS: LORazepam 0.5 MG TABLET PO PRN (00:33)
[2020-05-15] MEDS: traZODone 100 MG TABLET. PO PRN (00:33)
--- NOTE | 2020-05-15 00:38 | NUR ---
Pt yelling out from her room at the beginning of the shift. Pt refusing to do anything herself. Pt argumentative, rude, calling staff "bitch" and "slut." Pt undressed and took her brief off and refused to put a new brief on. Pt was compliant with HS medications. Pt repeatedly standing up from her bed and setting off her bed alarm and then laughing when staff enters her room to turn the alarm off. While pt was on the toilet, pt refused to stand up, repeatedly setting off call light. Staff entered pt's room and witnessed pt actually standing at the toilet. Once pt saw staff, pt immediately sat back down on toilet and asked for help standing. Pt then starting ramming her walker against the wall. Repeat Trazodone and Ativan administered at 0035. Pt currently sitting on the toilet yelling out. Will continue to monitor.
--- NOTE | 2020-05-15 02:07 | NUR ---
Due to pt's noncompliance, staff x2 attempted to assist pt with ambulating from the toilet to her bed. Gait belt placed around pt. Pt stood and began shaking her legs as if she was trying to fall. Staff lowered pt to the floor without incident. Staff x3 assisted in lifting pt off of floor and ambulating toward bed. Pt continued to yell, curse and refuse to walk on her own. Once in bed, pt refused to lift her legs onto the bed. During this entire interaction pt was rude, sarcastic, argumentative, yelling, mimicking staff and calling staff "bitches." Pt currently in bed with bed alarm on.
[2020-05-15] MEDS: LEVOTHYROXINE 50 MCG TABLET PO SCH (05:40)
[2020-05-15 06:15] VITALS: BP 100/60
[2020-05-15] MEDS: INSULIN LISPRO 300 UNITS/3 ML VIAL. SQ SCH ×3 (08:05→17:14)
[2020-05-15] MEDS: TIMOLOL 0.5% OPHTH SOLUTION 5ML BOTTLE. OU SCH ×2 (09:00→19:48)
[2020-05-15] MEDS ORDERED: QUEtiapine 25 MG TABLET. PO SCH (09:00)
[2020-05-15] MEDS: GABAPENTIN 300 MG CAPSULE. PO SCH ×3 (09:10→19:51)
[2020-05-15] MEDS: MORPHINE ER 15 MG TABLET.ER PO SCH ×2 (09:11→19:52)
[2020-05-15] MEDS: CARVEDILOL 12.5 MG TABLET PO SCH ×2 (09:11→17:16)
[2020-05-15] MEDS: FENOFIBRATE NANOCRYSTALLIZED 145 MG TABLET PO SCH (09:11)
[2020-05-15] MEDS: MAGNESIUM OXIDE 400 MG TABLET PO SCH (09:12)
[2020-05-15] MEDS: LISINOPRIL 20 MG TABLET PO SCH (09:12)
--- NOTE | 2020-05-15 10:16 | NUR ---
Patient calmer today. Patient willing to take a shower and has been polite to staff. Patient glasses broke and nurse attempted to tape them to allow patient some use from them. Patient calmly sitting in seat read a magazine.
[2020-05-15 10:55] LABS: VANC TR < 2.0 mcg/mL (10.0-20.0)
[2020-05-15 16:14] VITALS: BP 110/65
[2020-05-15] MEDS ORDERED: WARFARIN 2 MG TABLET. PO ONE (16:30)
--- NOTE | 2020-05-15 17:06 | NUR ---
Pharmacy Warfarin Dosing Note S:Pharmacy consulted to assist with anticoagulation therapy started 05/14/20 with target INR: 2 -3 O:REBA LINDSAY is a 60 year old F with DVT/PE history of PE LABS: Last INR: 2.5 Last HGB: 11.4 Last HCT: 35.4 Last PLT: 193 Last dose of 2.5 mg given on 05/14/20 at 1600 Previous Regimen: 3.5mg daily Vitamin K given: N Drug Interaction Changes: Same Interacting Drug Ongoing Drug Interactions: fenofibrate, venlafaxine A:INR Within desired Range. Target Range for this patient is: 2 -3 P: Warfarin dose: 2 mg Today at 1600 Bridge Therapy: None Next INR due 05/16/20 @0600 Pharmacy anticoagulation service will continue to follow. YENY CORRAL [facility], 05/15/20 [id number]
[2020-05-15] MEDS: HALOPERIDOL LACT 5 MG/ML VIAL. IM SCH (17:15)
[2020-05-15] MEDS: ACETAMINOPHEN 325 MG TABLET PO PRN (17:50)
[2020-05-15] MEDS: NYSTATIN TOPICAL POWDER 15GM BOTTLE. TP PRN (17:50)
[2020-05-15] MEDS: LATANOPROST 0.005% OPHTH SOLUTION 2.5ML BOTTLE. OU SCH (19:48)
[2020-05-15] MEDS: SIMVASTATIN 10 MG TABLET PO SCH (19:49)
[2020-05-15] MEDS: DIVALPROEX ER 500 MG TAB.ER.24H PO SCH (19:50)
[2020-05-15] MEDS: traZODone 100 MG TABLET. PO SCH (19:51)
[2020-05-15] MEDS: QUEtiapine 50 MG TABLET. PO SCH (19:51)
[2020-05-15] MEDS: INSULIN GLARGINE SYRINGE. SQ SCH (19:54)
--- NOTE | 2020-05-15 21:32 | PDOC ---
Exam Note: Joseph Note: This note is a late entry for 05/13/2020 covers elements not covered in my initial note. Subjective: The patient was seen on telehealth rounds in the evening of 05/13/2020 with Leena CORRAL as the unit is on a lockdown by the [facility] of COVID-19 exposure on the unit with no admission or discharges can be done. Discussed with nursing staff, reviewed the chart. The patient slept just 2-1/2 hour previous night. She has had a very difficult day. She has been agitated, yelling, threatening nursing staff wanting them to do ADLs and other activities that she could even do for herself. She does better in the morning, more agitated in the evening. We will change the Haldol and Ativan IM scheduled to 5 p.m. and hold if sedated. She also slept poorly and we are increasing the trazodone to 100 mg h.s. scheduled plus p.r.n. for insomnia. Dr. Levi had started Cymbalta for her pain in place of Neurontin but we will hold off Cymbal ta given her bipolar symptoms and SNRIs could worsen it. Review of Systems: Impaired ambulation in wheelchair. No CV, , pulmonary, eye, ENT system symptoms on review. She has vague somatic symptoms. Mental Status Exam: The patient is oriented to herself and situation. Speech is coherent, rapid at times. Abstraction is fair. Computation is impaired. Language function is intact. Attention span is short. Mood and affect remains somewhat labile. Laboratory Data: Reviewed. Impression: Bipolar disorder unspecified. Major depressive disorder. Anxiety disorder unspecified. Impulse control disorder unspecified. Personality disorder unspecified. Plan: Continue rest unchanged and as noted above. Increase the trazodone as above. Change the Haldol, Ativan to the evening and may stop in a day or so. Continue the increased Depakote and Seroquel with repeat valproic acid level on 05/16. Make further adjustments as clinically indicated. Assessment: Vital Signs/I&O: Vital Signs Date Time Temp Pulse Resp B/P (MAP) Pulse Ox O2 Delivery O2 Flow Rate FiO2 05/15/20 17:16 72 110/65 05/15/20 16:14 97.4 18 97 05/15/20 13:18 Room Air I & O 05/14/20 05/14/20 05/15/20 15:00 23:00 07:00 Intake Total 720 ml 760 ml Balance 720 ml 760 ml Labs: Laboratory Tests Test 05/15/20 07:52 05/15/20 09:45 05/15/20 11:50 05/15/20 16:54 Glucose (Fingerstick) 191 mg/dL (70-99) H 320 mg/dL (70-99) H 348 mg/dL (70-99) H Prothrombin Time 24.7 SEC (9.4-11.4) H Prothrombin Time INR 2.5 (0.9-1.1) H Vancomycin Level Trough < 2.0 mcg/mL (10.0-20.0) L Vancomycin Last Dose Date 05/14/20 Vancomycin Last Dose Time 1000 Test 05/15/20 19:12 Glucose (Fingerstick) 332 mg/dL (70-99) H Current Medications: Meds: Current Medications Medications (Trade) Dose Ordered Sig/Jayant Route PRN Reason Start Time Stop Time Status Last Admin Dose Admin Quetiapine Fumarate (SEROquel) 25 mg DAILY PO 05/15/20 09:00 05/15/20 09:11 Warfarin Sodium (Coumadin) 2 mg 1X WARF ONCE PO 05/15/20 16:30 05/15/20 16:42 DC 05/15/20 17:15 Nystatin (Nystop) 1 scottie PRN BID PRN TP REDNESS 05/15/20 17:30 05/15/20 17:50 I have reviewed the current psychotropics carefully including drug interactions. Risk benefit ratio favors no change other than as noted in my dictated progress note. Diagnosis: Problems: (1) Psychotic disorder (2) Major depressive disorder (3) Personality disorder, unspecified (4) Bipolar disorder with psychotic features ADELSO LOVE MD May 15, 2020 21:31
--- NOTE | 2020-05-15 21:45 | PDOC ---
Exam Note: Joseph Note: This note is a late entry for 05/14/2020 covers elements not covered in my initial note. Subjective: The patient was seen on telehealth rounds in the evening of 05/14/2020 with Radha CORRAL as the unit is on a lockdown by the [facility] of COVID-19 exposure on the unit with no admission or discharges can be done. Discussed with nursing staff, reviewed the chart. The patient slept for 6-3/4 hour previous night. She has had a difficult day, has been yelling, labile in her mood, presents helpless, wanting nursing staff to do all activities of ADLs even though she can do herself and valproic acid level to be checked on 05/16. She had undressed herself in the room. Before I visited, the nursing staff did have her cover herself during the telehealth rounds. Review of Systems: Impaired ambulation in wheelchair. No CV, , pulmonary, eye, ENT system symptoms on review. She has vague somatic symptoms. Mental Status Exam: The patient is oriented to herself and situation. Speech is coherent, can be somewhat pressured at times. Abstraction is fair. Computation is impaired. Language function is intact. Attention span is short. Mood and affect remains labile. Laboratory Data: Reviewed. Impression: Bipolar disorder unspecified. Major depressive disorder. Anxiety disorder unspecified. Impulse control disorder unspecified. Personality disorder unspecified. Plan: Continue rest unchanged and as noted above. We will go ahead and add Seroquel 25 mg a.m. Continue 50 mg h.s., Depakote ER 1500 mg h.s. Check labs level on 05/16. Continue rest of the psychotropics and adjust further as clinically indicated. Assessment: Vital Signs/I&O: Vital Signs Date Time Temp Pulse Resp B/P (MAP) Pulse Ox O2 Delivery O2 Flow Rate FiO2 05/15/20 17:16 72 110/65 05/15/20 16:14 97.4 18 97 05/15/20 13:18 Room Air I & O 05/14/20 05/14/20 05/15/20 15:00 23:00 07:00 Intake Total 720 ml 760 ml Balance 720 ml 760 ml Labs: Laboratory Tests Test 05/15/20 07:52 05/15/20 09:45 05/15/20 11:50 05/15/20 16:54 Glucose (Fingerstick) 191 mg/dL (70-99) H 320 mg/dL (70-99) H 348 mg/dL (70-99) H Prothrombin Time 24.7 SEC (9.4-11.4) H Prothrombin Time INR 2.5 (0.9-1.1) H Vancomycin Level Trough < 2.0 mcg/mL (10.0-20.0) L Vancomycin Last Dose Date 05/14/20 Vancomycin Last Dose Time 1000 Test 05/15/20 19:12 Glucose (Fingerstick) 332 mg/dL (70-99) H Current Medications: Meds: Current Medications Medications (Trade) Dose Ordered Sig/Jayant Route PRN Reason Start Time Stop Time Status Last Admin Dose Admin Quetiapine Fumarate (SEROquel) 25 mg DAILY PO 05/15/20 09:00 05/15/20 09:11 Warfarin Sodium (Coumadin) 2 mg 1X WARF ONCE PO 05/15/20 16:30 05/15/20 16:42 DC 05/15/20 17:15 Nystatin (Nystop) 1 scottie PRN BID PRN TP REDNESS 05/15/20 17:30 05/15/20 17:50 I have reviewed the current psychotropics carefully including drug interactions. Risk benefit ratio favors no change other than as noted in my dictated progress note. Diagnosis: Problems: (1) Psychotic disorder (2) Major depressive disorder (3) Personality disorder, unspecified (4) Bipolar disorder with psychotic features ADELSO LOVE MD May 15, 2020 21:45
--- NOTE | 2020-05-15 21:45 | PDOC ---
Exam Note: Joseph Note: Please also refer to the separate dictated note~for this date of service dictated separately.~Patient seen individually. Discussed the patient with Nursing staff reviewed the chart.~Reviewed interim history and current functioning. Reviewed vital signs,~Labs/ Radiology~and current medications noted below. Continue current treatment with the changes noted in the dictated addendum note Assessment: Vital Signs/I&O: Vital Signs Date Time Temp Pulse Resp B/P (MAP) Pulse Ox O2 Delivery O2 Flow Rate FiO2 05/15/20 17:16 72 110/65 05/15/20 16:14 97.4 18 97 05/15/20 13:18 Room Air I & O 05/14/20 05/14/20 05/15/20 15:00 23:00 07:00 Intake Total 720 ml 760 ml Balance 720 ml 760 ml Labs: Laboratory Tests Test 05/15/20 07:52 05/15/20 09:45 05/15/20 11:50 05/15/20 16:54 Glucose (Fingerstick) 191 mg/dL (70-99) H 320 mg/dL (70-99) H 348 mg/dL (70-99) H Prothrombin Time 24.7 SEC (9.4-11.4) H Prothrombin Time INR 2.5 (0.9-1.1) H Vancomycin Level Trough < 2.0 mcg/mL (10.0-20.0) L Vancomycin Last Dose Date 05/14/20 Vancomycin Last Dose Time 1000 Test 05/15/20 19:12 Glucose (Fingerstick) 332 mg/dL (70-99) H Current Medications: Meds: Current Medications Medications (Trade) Dose Ordered Sig/Jayant Route PRN Reason Start Time Stop Time Status Last Admin Dose Admin Quetiapine Fumarate (SEROquel) 25 mg DAILY PO 05/15/20 09:00 05/15/20 09:11 Warfarin Sodium (Coumadin) 2 mg 1X WARF ONCE PO 05/15/20 16:30 05/15/20 16:42 DC 05/15/20 17:15 Nystatin (Nystop) 1 scottie PRN BID PRN TP REDNESS 05/15/20 17:30 05/15/20 17:50 I have reviewed the current psychotropics carefully including drug interactions. Risk benefit ratio favors no change other than as noted in my dictated progress note. Diagnosis: Problems: (1) Psychotic disorder (2) Major depressive disorder (3) Personality disorder, unspecified (4) Bipolar disorder with psychotic features ADELSO LOVE MD May 15, 2020 21:45
--- NOTE | 2020-05-15 22:31 | NUR ---
Patient in her room on assumption of care. Before staff even completed change of shift report, patient began yelling repeatedly for the nurse. She had ambulated to the toilet independently from the chair. Upon staff arrival to the room, patient began with her feigned helplessness, demanding "Help me up NOW! I need you to wipe my ass!" Staff reminded patient that per day shift report, she had been able to do most ADLs during the day with minimal assistance, including getting herself out of the chair and onto the toilet. Staff reiterated to her that she needed to participate fully in her ADL care and that she was more than capable of wiping herself. She began yelling, "I can't! I can't fucking feel my hand to know where to wipe!" This nurse reminded her that she was fully capable of using that hand to do things when she wanted to, including using it to eat, drink, get up from the bed, and strike staff with that fist. She denied that, asking "Who fucking says? I haven't done none of that." Staff then told patient that when she had finished wiping herself, she could use the call light to summon staff and that we would return and assist her with getting back in bed. Patient proceeded to ring the call ramirez several times. When staff responded and asked if patient had cleaned up yet, she responded with "NO! I need you to do it! If you won't I guess I'm going to bed with a shitty ass." After checking on the patient several more times, she finally stated that she had done it herself. This nurse and the ACCOUNTS RECEIVABLE BOOKKEEPER then attempted to direct patient and offer assistance to get up and walk to the room. Patient put absolutely zero effort into standing, insisting that she couldn't use the hand rails, couldn't straighten her legs, couldn't stand up straight. She angrily demanded "Well, get over here and push me up from the bottom. Put your damn hands underneath my arms and lift." Staff informed the patient that staff would not be risking injury to carry her to bed when she was fully capable of ambulating independently with her walker. Patient refused to participate in any way. Staff told patient again, to ring her call ramirez when she was willing to cooperate with ambulation. She proceeded to sit on the toilet and staunchly refuse to assist staff in safely ambulating back to her bed. Staff then informed patient that we would help her get into the wheelchair and to bed, but that she would be on a strict toileting schedule due to her purported inability to participate in her own ADL care. Patient in agreement. She then proceeded to get up off the toilet completely independently and sit in wheelchair. She was wheeled to her bed, where again she was able to stand without any staff assistance and get into the bed. Once in bed, patient complained that she could not lift her legs at all and needed staff to put them in the bed. Staff assisted her with that, set pressure alarm, and left at that point. Will continue to monitor.
[2020-05-16] MEDS: LEVOTHYROXINE 50 MCG TABLET PO SCH (05:30)
[2020-05-16 06:30] LABS: ALBUMIN 2.3 g/dL (3.4-5.0); ALBUMIN/GLOBULIN RATIO 0.6 (1.0-1.7); ALK PHOS 46 U/L (46-116); ALT (SGPT) 16 U/L (14-59); ANION GAP 5 (6-14); AST (SGOT) 12 U/L (15-37); BLOOD UREA NITROGEN 38 mg/dL (7-20); BUN/CREATININE RATIO 27 (6-20); CALCIUM 8.5 mg/dL (8.5-10.1); CARBON DIOXIDE 29 mmol/L (21-32); CHLORIDE 104 mmol/L (98-107); CREATININE 1.4 mg/dL (0.6-1.0); GFR 38.1; GLUCOSE 200 mg/dL (70-99); POTASSIUM 4.4 mmol/L (3.5-5.1); SODIUM 138 mmol/L (136-145); TOTAL BILIRUBIN 0.2 mg/dL (0.2-1.0); TOTAL PROTEIN 6.3 g/dL (6.4-8.2)
[2020-05-16 06:31] LABS: VAL ACID 34 mcg/mL (50-100)
[2020-05-16 06:36] LABS: BASO % 1 % (0-3); EOS # 0.5 x10^3/uL (0.0-0.7); EOS % 8 % (0-3); HEMATOCRIT 33.1 % (36.0-47.0); HEMOGLOBIN 10.3 g/dL (12.0-15.5); LYMPH # 2.3 x10^3/uL (1.0-4.8); LYMPH % 39 % (24-48); MEAN CORPUSCULAR HEMOGLOBIN 26 pg (25-35); MEAN CORPUSCULAR HGB CONC 31 g/dL (31-37); MEAN CORPUSCULAR VOLUME 83 fL (79-100); MONO # 0.5 x10^3/uL (0.0-1.1); MONO % 9 % (0-9); NEUT # 2.5 x10^3uL (1.8-7.7); NEUT % 43 % (31-73); PLATELET COUNT 197 x10^3/uL (140-400); RED CELL DISTRIBUTION WIDTH 16.2 % (11.5-14.5); WHITE BLOOD COUNT 5.9 x10^3/uL (4.0-11.0)
[2020-05-16] MEDS: INSULIN LISPRO 300 UNITS/3 ML VIAL. SQ SCH ×3 (08:00→17:00)
[2020-05-16] MEDS: MORPHINE ER 15 MG TABLET.ER PO SCH ×2 (08:55→19:53)
[2020-05-16] MEDS: GABAPENTIN 300 MG CAPSULE. PO SCH ×3 (08:56→19:53)
[2020-05-16] MEDS: LISINOPRIL 20 MG TABLET PO SCH (08:56)
[2020-05-16] MEDS: CARVEDILOL 12.5 MG TABLET PO SCH ×2 (08:56→17:00)
[2020-05-16] MEDS: MAGNESIUM OXIDE 400 MG TABLET PO SCH (08:56)
[2020-05-16] MEDS: FENOFIBRATE NANOCRYSTALLIZED 145 MG TABLET PO SCH (08:56)
[2020-05-16] MEDS: QUEtiapine 50 MG TABLET. PO SCH ×3 (08:57→19:53)
[2020-05-16] MEDS: TIMOLOL 0.5% OPHTH SOLUTION 5ML BOTTLE. OU SCH ×2 (08:57→19:52)
--- NOTE | 2020-05-16 09:17 | NUR ---
Went to patients room to help her off the toilet and to give her medications. She was walking just fine to her chair and then started screaming she needed me to pick her feet up and I encouraged her to stop and take a break. She stopped and held onto the chair and then sat down on the ground and said that I let her fall. She was screaming help help help. She did not fall. She did not hit any body parts. She simply sat down and said I let her fall. Patient was given a pillow and blanket until she was ready to get up off the floor. Patient has had several incidents with her sitting down and saying she fell as well as yelling help help and that the nurses are hurting her or the techs are hurting her. Patient will be helped up off the floor when she is ready to help us get her up.
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
--- NOTE | 2020-05-16 13:54 | NUR ---
Patient would not get herself up off the ground so a mat was placed under her so that she was not on the floor. She stayed on the mat until around 1345 when we used a robbin to get her into bed. She has no new complaints just that he shoulder hurts, which she complained of previously. She knows that she put herself on the ground and states that she will not do this anymore. She was told we do not have a robbin her all the time and we had to get it from down stairs to help her so that she doesn't take advantage and try to have us use it all the time. We talked about her going home and being able to take care of herself and what she is going to do. She gets upset when we discuss it because she wants to be able to help herself she states but she just can't. She is now in bed and we will check on her frequently.
[2020-05-16 15:59] VITALS: BP 92/55
--- NOTE | 2020-05-16 16:19 | NUR ---
Went to help patient get to bathroom. She is very unsteady on her feet and almost fell in the bathroom. She states she is weak and cant not walk that far. She is declining in her mobility. We will us a wheelchair for her safety and for staff safety. Even with 2 person SBA if she were to fall she would hurt herself or staff. She needs to stand and pivot into her chair on her own and needs to continue to try to wipe on her own when using the bathroom. Patient has a raw rash in between skin folds near thighs and vagina. She was cleaned up really well and nystatin powder was applied to the areas. She also has redness under her left breast. It also was cleaned and nystatin powder applied. Patient has a better attitude with helping herself if she knows you will help her complete the task if she tries. Patient understands that if she can not perform these tasks on her own she will not be able to go home. Will continue to encourage patient to do for herself what she can at the same time making sure she is clean and her skin is not being compromised. Patient to continue to use wheelchair and I will see if PT can re evaluate her to see what exercises we may be able to give her to start gaining strength in her legs to be more mobile on her own.
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
[2020-05-16] MEDS: HALOPERIDOL LACT 5 MG/ML VIAL. IM SCH (17:00)
--- NOTE | 2020-05-16 17:30 | NUR ---
Patient was being very nice and apologetic once we helped her clean up and sit in the wheelchair. She was falling asleep when I was talking to her at dinner time. She was very sedated, speaking slurred and could barely keep her eyes open. I held her Haldol and Ativan injection. I also held her Carvidelol dose as her B/P was 92/55. Will monitor.
[2020-05-16 19:20] VITALS: BP 110/65
[2020-05-16] MEDS: LATANOPROST 0.005% OPHTH SOLUTION 2.5ML BOTTLE. OU SCH (19:52)
[2020-05-16] MEDS: traZODone 100 MG TABLET. PO SCH (19:53)
[2020-05-16] MEDS: DIVALPROEX ER 500 MG TAB.ER.24H PO SCH (19:53)
[2020-05-16] MEDS: SIMVASTATIN 10 MG TABLET PO SCH (19:53)
[2020-05-16] MEDS: INSULIN GLARGINE SYRINGE. SQ SCH (21:00)
--- NOTE | 2020-05-16 21:01 | PDOC ---
Exam Note: Joseph Note: Please also refer to the separate dictated note~for this date of service dictated separately.~Patient seen individually. Discussed the patient with Nursing staff reviewed the chart.~Reviewed interim history and current functioning. Reviewed vital signs,~Labs/ Radiology~and current medications noted below. Continue current treatment with the changes noted in the dictated addendum note Assessment: Vital Signs/I&O: Vital Signs Date Time Temp Pulse Resp B/P (MAP) Pulse Ox O2 Delivery O2 Flow Rate FiO2 05/16/20 19:53 94 05/16/20 19:20 82 110/65 (80) Room Air 05/16/20 15:59 98.7 18 I & O 05/15/20 05/15/20 05/16/20 15:00 23:00 07:00 Intake Total 720 ml 480 ml Balance 720 ml 480 ml Labs: Laboratory Tests Test 05/16/20 05:55 05/16/20 07:45 05/16/20 11:36 05/16/20 17:05 White Blood Count 5.9 x10^3/uL (4.0-11.0) Red Blood Count 4.00 x10^6/uL (3.50-5.40) Hemoglobin 10.3 g/dL (12.0-15.5) L Hematocrit 33.1 % (36.0-47.0) L Mean Corpuscular Volume 83 fL (79-100) Mean Corpuscular Hemoglobin 26 pg (25-35) Mean Corpuscular Hemoglobin Concent 31 g/dL (31-37) Red Cell Distribution Width 16.2 % (11.5-14.5) H Platelet Count 197 x10^3/uL (140-400) Neutrophils (%) (Auto) 43 % (31-73) Lymphocytes (%) (Auto) 39 % (24-48) Monocytes (%) (Auto) 9 % (0-9) Eosinophils (%) (Auto) 8 % (0-3) H Basophils (%) (Auto) 1 % (0-3) Neutrophils # (Auto) 2.5 x10^3uL (1.8-7.7) Lymphocytes # (Auto) 2.3 x10^3/uL (1.0-4.8) Monocytes # (Auto) 0.5 x10^3/uL (0.0-1.1) Eosinophils # (Auto) 0.5 x10^3/uL (0.0-0.7) Basophils # (Auto) 0.0 x10^3/uL (0.0-0.2) Prothrombin Time 28.6 SEC (9.4-11.4) H Prothrombin Time INR 2.9 (0.9-1.1) H Sodium Level 138 mmol/L (136-145) Potassium Level 4.4 mmol/L (3.5-5.1) Chloride Level 104 mmol/L (98-107) Carbon Dioxide Level 29 mmol/L (21-32) Anion Gap 5 (6-14) L Blood Urea Nitrogen 38 mg/dL (7-20) H Creatinine 1.4 mg/dL (0.6-1.0) H Estimated GFR (Cockcroft-Gault) 38.1 BUN/Creatinine Ratio 27 (6-20) H Glucose Level 200 mg/dL (70-99) H Calcium Level 8.5 mg/dL (8.5-10.1) Total Bilirubin 0.2 mg/dL (0.2-1.0) Aspartate Amino Transferase (AST) 12 U/L (15-37) L Alanine Aminotransferase (ALT) 16 U/L (14-59) Alkaline Phosphatase 46 U/L (46-116) Total Protein 6.3 g/dL (6.4-8.2) L Albumin 2.3 g/dL (3.4-5.0) L Albumin/Globulin Ratio 0.6 (1.0-1.7) L Valproic Acid Level 34 mcg/mL (50-100) L Valproic Acid Last Dose Date 05/15/2020 Valproic Acid Last Dose Time 2100 Glucose (Fingerstick) 183 mg/dL (70-99) H 257 mg/dL (70-99) H 260 mg/dL (70-99) H Test 05/16/20 19:06 Glucose (Fingerstick) 306 mg/dL (70-99) H Current Medications: Meds: Current Medications Medications (Trade) Dose Ordered Sig/Jayant Route PRN Reason Start Time Stop Time Status Last Admin Dose Admin Quetiapine Fumarate (SEROquel) 50 mg TID PO 05/16/20 09:00 05/16/20 19:53 I have reviewed the current psychotropics carefully including drug interactions. Risk benefit ratio favors no change other than as noted in my dictated progress note. Diagnosis: Problems: (1) Psychotic disorder (2) Major depressive disorder (3) Personality disorder, unspecified (4) Bipolar disorder with psychotic features ADELSO LOVE MD May 16, 2020 21:01
[2020-05-16] MEDS: LORazepam 0.5 MG TABLET PO PRN (22:17)
[2020-05-16] MEDS: traZODone 100 MG TABLET. PO PRN (22:17)
--- NOTE | 2020-05-17 00:08 | NUR ---
Pt lying in bed with eyes closed at shift change. Pt yelled out x1 asking for help to sit up on the side of her bed because she has bilateral feet/leg pain. Pt encouraged to do as much for her self as possible to which she complied. I brought pt her HS medications to include her scheduled pain medication. Pt was calm and interactive. Pt confused as to why she is here. Once I explained the reason for her admission, pt was tearful and sorrowful, quietly stating, "Grace, what have you done?" I provided encouragement and reassurance. Pt was pleasant and thankful for the information provided, she was cooperative with her assessment and compliant with her medications. At approximately 2215, pt was yelling"Carlos. Carlos help me!" progressively getting louder. Staff entered pt room and pt reported that she needed to use the bathroom. Staff once again encouraged pt to do as much for herself as possible. Pt feigned helplessness, complaining that she couldn't stand on her own and couldn't pull herself up. Staff reassured pt that she can do things for herself and that she needed to be as independent as possible. Pt was able to pull herself to a sitting position and stand and pivot to her w/c. Pt was then assisted to the bathroom where she once again stated that she couldn't pull herself up to a standing position but was yet again encouraged to do so. Pt then said that she couldn't do it and to take her back to bed. Staff instructed pt that she needed to use the bathroom at this time as requested. After a lot of encouragement, pt did pull herself up and was able to stand and pivot to toilet. Pt then returned to her bed where she rested quietly until 2345 when she began yelling "Help me!" Staff entered pt room again and pt reported that she needed to go to the bathroom. Pt was then told that she is on a 2 hour toileting schedule and staff would be abiding by that schedule. Pt then said "do you hold your pee for two hours?" "I bet you don't". I again reiterated that pt would be abiding by the toileting schedule. As I was leaving the room, pt screamed "you fucking bitch!" Pt continues to yell out.
[2020-05-17] MEDS: LEVOTHYROXINE 50 MCG TABLET PO SCH (05:13)
[2020-05-17 06:01] VITALS: BP 122/81
--- NOTE | 2020-05-17 08:06 | PDOC ---
Exam Note: Joseph Note: This note is a late entry for 05/15/2020 covers elements not covered in my initial note. Subjective: The patient was seen on telehealth rounds in the evening of 05/15/2020 with Yasmine CORRAL as the unit is on a lockdown by the [facility] of COVID-19 exposure on the unit with no admission or discharges can be done. Discussed with nursing staff, reviewed the chart. The patient slept for 1-1/2 hours previous night. She has done reasonably well during the day with a male nursing staff member but by the evening she was extremely agitated awful per nursing staff. She was accusatory, sat half hour on the toilet wanting staff to do everything for her including ADLs and toileting assistance even though she is capable of doing quite a bit for herself. Her intention is to return home and certainly the staff should persevere and trying to encourage her independence. She has been getting up from her bed so that the alarm goes off. Staff responds immediately and then she laughs at them and ridicules them. Reminds them how she can control them. 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 Review of Systems: Impaired ambulation in wheelchair. No CV, , pulmonary, eye, ENT system symptoms on review. Mental Status Exam: The patient is oriented to herself and situation. Speech is coherent, rapid at times. Abstraction is fair. Computation is impaired. Language function is intact. Mood and affect remains labile. She was partially undressed, sitting in the toilet prior to my visit. Nursing staff did dress her as I interacted with her. Laboratory Data: Reviewed. Impression: Bipolar disorder unspecified. Major depressive disorder. Anxiety disorder unspecified. Impulse control disorder unspecified. Personality disorder unspecified. Plan: Continue rest unchanged and as noted above. We will increase the Seroquel to 50 mg t.i.d. Continue rest of the psychotropics unchanged. We are clarifying whether she is on gabapentin or not. We will defer this to Dr. Levi. We will consider stopping the scheduled Haldol and Ativan in a day or two. Assessment: Vital Signs/I&O: Vital Signs Date Time Temp Pulse Resp B/P (MAP) Pulse Ox O2 Delivery O2 Flow Rate FiO2 05/17/20 06:01 98.0 68 20 122/81 (95) 98 05/16/20 19:20 Room Air I & O 05/16/20 05/16/20 05/17/20 15:00 23:00 07:00 Intake Total 840 ml 600 ml Balance 840 ml 600 ml Labs: Laboratory Tests Test 05/16/20 11:36 05/16/20 17:05 05/16/20 19:06 05/17/20 06:23 Glucose (Fingerstick) 257 mg/dL (70-99) H 260 mg/dL (70-99) H 306 mg/dL (70-99) H Prothrombin Time 25.1 SEC (9.4-11.4) H Prothrombin Time INR 2.5 (0.9-1.1) H Test 05/17/20 07:34 Glucose (Fingerstick) 215 mg/dL (70-99) H Current Medications: Meds: Current Medications Medications (Trade) Dose Ordered Sig/Jayant Route PRN Reason Start Time Stop Time Status Last Admin Dose Admin Quetiapine Fumarate (SEROquel) 50 mg TID PO 05/16/20 09:00 05/16/20 19:53 I have reviewed the current psychotropics carefully including drug interactions. Risk benefit ratio favors no change other than as noted in my dictated progress note. Diagnosis: Problems: (1) Psychotic disorder (2) Major depressive disorder (3) Personality disorder, unspecified (4) Bipolar disorder with psychotic features ADELSO LOVE MD May 17, 2020 08:06
--- NOTE | 2020-05-17 08:14 | PDOC ---
Exam Note: Joseph Note: This note is a late entry for 05/16/2020 covers elements not covered in my initial note. Subjective: The patient was seen on telehealth rounds in the morning of 05/16/2020 for treatment team meeting with Meliza (social media campaign manager), Emely, activity therapy, and Zina RN as the unit is on a lockdown by the [facility] of COVID-19 exposure on the unit with no admissions or discharges. The patients sister Annamarie and brother Roe were part of the treatment team meeting. Discussed with nursing staff, reviewed the chart. The patient slept for 4-1/2 hours previous night. She has had a very difficult morning and previous night. She tries to drop herself on the floor but no injuries noted. Also discussed with Georgiana CORRAL in the evening. She has been extremely labile, tearful, belligerent, threatening staff that they were injuring her and she was going to jess everyone. Some of this was assessed with nursing staff observation since she was sedated in the evening. Ativan and Haldol were held due to her sedation and we will go ahead and discontinue this tomorrow since the Seroquel has been increased to 50 mg t.i.d. Review of Systems: Impaired ambulation in wheelchair. No CV, , pulmonary, eye, ENT system symptoms on review. Mental Status Exam: The patient is oriented to herself and situation. Speech is coherent. Abstraction is fair. Computation is impaired. Language function is intact. Attention span is short. Mood and affect remains labile. Laboratory Data: Reviewed. Impression: Bipolar disorder unspecified. Major depressive disorder. Anxiety disorder unspecified. Impulse control disorder unspecified. Personality disorder unspecified. Plan: Continue rest unchanged and as noted above. Continue the increased Seroquel. Stop the Haldol and Ativan IM on 05/17. Assessment: Vital Signs/I&O: Vital Signs Date Time Temp Pulse Resp B/P (MAP) Pulse Ox O2 Delivery O2 Flow Rate FiO2 05/17/20 06:01 98.0 68 20 122/81 (95) 98 05/16/20 19:20 Room Air I & O 05/16/20 05/16/20 05/17/20 15:00 23:00 07:00 Intake Total 840 ml 600 ml Balance 840 ml 600 ml Labs: Laboratory Tests Test 05/16/20 11:36 05/16/20 17:05 05/16/20 19:06 05/17/20 06:23 Glucose (Fingerstick) 257 mg/dL (70-99) H 260 mg/dL (70-99) H 306 mg/dL (70-99) H Prothrombin Time 25.1 SEC (9.4-11.4) H Prothrombin Time INR 2.5 (0.9-1.1) H Test 05/17/20 07:34 Glucose (Fingerstick) 215 mg/dL (70-99) H Current Medications: Meds: Current Medications Medications (Trade) Dose Ordered Sig/Jayant Route PRN Reason Start Time Stop Time Status Last Admin Dose Admin Quetiapine Fumarate (SEROquel) 50 mg TID PO 05/16/20 09:00 05/16/20 19:53 I have reviewed the current psychotropics carefully including drug interactions. Risk benefit ratio favors no change other than as noted in my dictated progress note. Diagnosis: Problems: (1) Psychotic disorder (2) Major depressive disorder (3) Personality disorder, unspecified (4) Bipolar disorder with psychotic features ADELSO LOVE MD May 17, 2020 08:14
[2020-05-17] MEDS: INSULIN LISPRO 300 UNITS/3 ML VIAL. SQ SCH ×3 (08:27→17:42)
[2020-05-17] MEDS: MAGNESIUM OXIDE 400 MG TABLET PO SCH (08:28)
[2020-05-17] MEDS: FENOFIBRATE NANOCRYSTALLIZED 145 MG TABLET PO SCH (08:28)
[2020-05-17] MEDS: GABAPENTIN 300 MG CAPSULE. PO SCH ×3 (08:28→19:45)
[2020-05-17] MEDS: QUEtiapine 50 MG TABLET. PO SCH ×3 (08:28→19:45)
[2020-05-17] MEDS: LISINOPRIL 20 MG TABLET PO SCH (08:29)
[2020-05-17] MEDS: CARVEDILOL 12.5 MG TABLET PO SCH ×2 (08:29→16:18)
[2020-05-17] MEDS: MORPHINE ER 15 MG TABLET.ER PO SCH ×2 (08:31→19:48)
[2020-05-17] MEDS: TIMOLOL 0.5% OPHTH SOLUTION 5ML BOTTLE. OU SCH ×2 (08:32→19:46)
[2020-05-17 10:08] VITALS: BP 145/80
--- NOTE | 2020-05-17 10:31 | NUR ---
Nursing note: Pt c/o sharp pain in her chest and L arm. Pt's vitals were BP 145/80, P 70, and O2 98%. Dr. Gurmeet humphries. Orders for EKG, chest Xray, troponin and d-dimer received.
--- NOTE | 2020-05-17 11:12 | RAD ---
EXAM: CHEST AP ONLY 05/17/2020 10:26 AM CLINICAL INDICATION: Chest pain COMPARISON: None TECHNIQUE: AP view the chest FINDINGS: The heart and mediastinum are normal. Lungs are well-expanded and clear. No consolidation, pleural effusion, or pneumothorax. Pulmonary vascularity is normal. No acute osseous abnormality. IMPRESSION: No acute cardiopulmonary abnormality. Electronically signed by: Suzy Perez MD (05/17/2020 11:09 AM) [id number]
[2020-05-17] MEDS: NYSTATIN TOPICAL POWDER 15GM BOTTLE. TP PRN (13:32)
--- NOTE | 2020-05-17 15:26 | NUR ---
Pharmacy Warfarin Dosing Note S:Pharmacy consulted to assist with anticoagulation therapy started 05/14/20 with target INR: 2 -3 O:REBA LINDSAY is a 60 year old F with DVT/PE history of PE LABS: Last INR: 05/16=2.9 05/17=2.5 Last HGB: 10.3 Last HCT: 33.1 Last PLT: 197 Last dose of Hold given on 05/16/20 at 1600 Previous Regimen: 3.5mg daily Vitamin K given: N Drug Interaction Changes: Same Interacting Drug Ongoing Drug Interactions: fenofibrate, venlafaxine A:INR Within desired range, pt's INR rises rapidly on 2.5mg, will decrease dose by 1mg to 1.5mg daily for now. Target Range for this patient is: 2 -3 P: Warfarin dose: 1.5MG Today at 1600 Bridge Therapy: None Next INR due 05/18 Pharmacy anticoagulation service will continue to follow. GREGORIA SWANSON, 05/17/20 1526
[2020-05-17 15:49] VITALS: BP 91/55
[2020-05-17] MEDS ORDERED: WARFARIN 1 MG TABLET. PO ONE (16:00)
--- NOTE | 2020-05-17 16:08 | NUR ---
Nursing note: Pt has not complained of anymore chest pain this shift. She has remained in her room and mostly pleasant. Pt occasionally yells out for help and gets agitated and calls staff names when she is encouraged to do things for herself, such as sitting up in bed, transferring herself, etc. Pt is currently sitting quietly in her chair in her room. Will continue to monitor.
[2020-05-17] MEDS: DIVALPROEX ER 500 MG TAB.ER.24H PO SCH (19:45)
[2020-05-17] MEDS: traZODone 100 MG TABLET. PO SCH (19:46)
[2020-05-17] MEDS: SIMVASTATIN 10 MG TABLET PO SCH (19:46)
[2020-05-17] MEDS: LATANOPROST 0.005% OPHTH SOLUTION 2.5ML BOTTLE. OU SCH (19:47)
[2020-05-17] MEDS: INSULIN GLARGINE SYRINGE. SQ SCH (21:00)
--- NOTE | 2020-05-17 21:05 | PDOC ---
Exam Note: Joseph Note: Please also refer to the separate dictated note~for this date of service dictated separately.~Patient seen individually. Discussed the patient with Nursing staff reviewed the chart.~Reviewed interim history and current functioning. Reviewed vital signs,~Labs/ Radiology~and current medications noted below. Continue current treatment with the changes noted in the dictated addendum note Assessment: Vital Signs/I&O: Vital Signs Date Time Temp Pulse Resp B/P (MAP) Pulse Ox O2 Delivery O2 Flow Rate FiO2 05/17/20 19:48 18 Room Air 05/17/20 16:18 75 91/55 05/17/20 15:49 97.6 94 I & O 05/16/20 05/16/20 05/17/20 15:00 23:00 07:00 Intake Total 840 ml 600 ml Balance 840 ml 600 ml Labs: Laboratory Tests Test 05/17/20 06:23 05/17/20 07:34 05/17/20 10:35 05/17/20 11:08 Prothrombin Time 25.1 SEC (9.4-11.4) H Prothrombin Time INR 2.5 (0.9-1.1) H Glucose (Fingerstick) 215 mg/dL (70-99) H 255 mg/dL (70-99) H D-Dimer (Ivanna) 0.86 mg/L (0.00-0.50) H Troponin I Quantitative < 0.017 ng/mL (0-0.055) Test 05/17/20 16:29 05/17/20 19:19 Glucose (Fingerstick) 327 mg/dL (70-99) H 337 mg/dL (70-99) H Current Medications: Meds: Current Medications Medications (Trade) Dose Ordered Sig/Jayant Route PRN Reason Start Time Stop Time Status Last Admin Dose Admin Warfarin Sodium (Coumadin) 1.5 mg 1X WARF ONCE PO 05/17/20 16:00 05/17/20 16:01 DC 05/17/20 16:18 Divalproex Sodium (Depakote Er) 2,000 mg QHS PO 05/17/20 21:00 05/17/20 19:45 I have reviewed the current psychotropics carefully including drug interactions. Risk benefit ratio favors no change other than as noted in my dictated progress note. Diagnosis: Problems: (1) Psychotic disorder (2) Major depressive disorder (3) Personality disorder, unspecified (4) Bipolar disorder with psychotic features ADELSO LOVE MD May 17, 2020 21:05
[2020-05-18] MEDS: traZODone 100 MG TABLET. PO PRN (01:45)
[2020-05-18] MEDS: hydrOXYzine HCL 25 MG TABLET PO PRN (01:45)
--- NOTE | 2020-05-18 03:50 | NUR ---
Nursing Note The patient has been irritable and verbally abusive with staff this shift. The patient was compliant with her assessment and medication pass. The patient declined to do any self cares for her self. The patient became belligerent with staff when staff asked her to attempt self cares on her own. The patient yelled repeatedly throughout the night and made vulgar statements to several staff members throughout the shift. The patient later complained of itchiness and was given Atarax and was also given PRN Trazodone.
[2020-05-18 06:11] VITALS: BP 109/64
[2020-05-18] MEDS: LEVOTHYROXINE 50 MCG TABLET PO SCH (06:27)
[2020-05-18] MEDS: MAGNESIUM OXIDE 400 MG TABLET PO SCH (08:25)
[2020-05-18] MEDS: QUEtiapine 50 MG TABLET. PO SCH ×3 (08:25→20:52)
[2020-05-18] MEDS: LISINOPRIL 20 MG TABLET PO SCH (08:26)
[2020-05-18] MEDS: TIMOLOL 0.5% OPHTH SOLUTION 5ML BOTTLE. OU SCH ×2 (08:26→20:51)
[2020-05-18] MEDS: CARVEDILOL 12.5 MG TABLET PO SCH ×2 (08:26→16:53)
[2020-05-18] MEDS: FENOFIBRATE NANOCRYSTALLIZED 145 MG TABLET PO SCH (08:26)
[2020-05-18] MEDS: GABAPENTIN 300 MG CAPSULE. PO SCH ×3 (08:28→20:52)
[2020-05-18] MEDS: MORPHINE ER 15 MG TABLET.ER PO SCH ×2 (08:28→20:52)
[2020-05-18] MEDS: INSULIN LISPRO 300 UNITS/3 ML VIAL. SQ SCH ×3 (09:35→17:48)
--- NOTE | 2020-05-18 11:54 | NUR ---
Nursing note: Pt in her room eating breakfast at AM med pass and assessment. She is med compliant and cooperative with assessment. Pt hollering and requesting help in taking her meds because she "can't move my arms". I took the bandage off her arm from getting labs drawn this morning, pt stated "here, let me move my arm closer for you" as she stretched out her arm for the coban to be taken off, proving that she could in fact move her arms. Pt did eventually take the meds on her own. She has occasionally been yelling out for different people, all names of people who do not work on the unit. She is currently sleeping in the chair in her room. Will continue to monitor.
--- NOTE | 2020-05-18 15:12 | NUR ---
SW attempted to contact pt sister in law, Annamarie, to discuss pt discharge plans and the beginning process of sending out referrals for placement. SW will try back at a later time to contact Annamarie.
--- NOTE | 2020-05-18 15:29 | NUR ---
SW received a call back from pt sister in law, Annamarie and brother Sid to discuss pt discharge plans. SW explained that pt would not discharge this week; however, SW wanted to get a head of the game and get a plan in place. SW expressed concerns to pt family that the idea of pt going home may set everyone up to fail. At this time pt is a 2-person assist and absolutely refuses to do things for herself. If she is doing this here, she will do so at home which will make a scenario for a re-admission. Pt family questioned what she would need at home, pt would need 2 people at all times, medication management and care with all ADL's and household needs. At this time, the family will make calls for private duty and was okay with [facility] sending out referrals for placement. They would like all avenues looked out before making a final decision.
[2020-05-18 15:51] VITALS: BP 150/84
[2020-05-18] MEDS ORDERED: WARFARIN 3 MG TABLET. PO ONE (16:00)
[2020-05-18] MEDS: LATANOPROST 0.005% OPHTH SOLUTION 2.5ML BOTTLE. OU SCH (20:50)
[2020-05-18] MEDS: DIVALPROEX ER 500 MG TAB.ER.24H PO SCH (20:51)
[2020-05-18] MEDS: SIMVASTATIN 10 MG TABLET PO SCH (20:52)
[2020-05-18] MEDS: traZODone 100 MG TABLET. PO SCH (20:52)
[2020-05-18] MEDS: INSULIN GLARGINE SYRINGE. SQ SCH (20:54)
--- NOTE | 2020-05-18 20:54 | PDOC ---
Exam Note: Joseph Note: Please also refer to the separate dictated note~for this date of service dictated separately.~Patient seen individually. Discussed the patient with Nursing staff reviewed the chart.~Reviewed interim history and current functioning. Reviewed vital signs,~Labs/ Radiology~and current medications noted below. Continue current treatment with the changes noted in the dictated addendum note Assessment: Vital Signs/I&O: Vital Signs Date Time Temp Pulse Resp B/P (MAP) Pulse Ox O2 Delivery O2 Flow Rate FiO2 05/18/20 16:53 85 150/84 05/18/20 15:51 98.3 16 96 05/17/20 23:48 Room Air I & O 05/17/20 05/17/20 05/18/20 15:00 23:00 07:00 Intake Total 960 ml 600 ml Balance 960 ml 600 ml Labs: Laboratory Tests Test 05/18/20 06:20 05/18/20 07:56 05/18/20 12:06 05/18/20 16:52 Prothrombin Time 22.3 SEC (9.4-11.4) H Prothrombin Time INR 2.2 (0.9-1.1) H Glucose (Fingerstick) 181 mg/dL (70-99) H 253 mg/dL (70-99) H 183 mg/dL (70-99) H Test 05/18/20 18:59 Glucose (Fingerstick) 214 mg/dL (70-99) H Current Medications: Meds: Current Medications Medications (Trade) Dose Ordered Sig/Jayant Route PRN Reason Start Time Stop Time Status Last Admin Dose Admin Divalproex Sodium (Depakote Er) 2,000 mg QHS PO 05/17/20 21:00 05/17/20 19:45 Warfarin Sodium (Coumadin) 1.5 mg 1X WARF ONCE PO 05/18/20 16:00 05/18/20 16:01 DC 05/18/20 16:53 I have reviewed the current psychotropics carefully including drug interactions. Risk benefit ratio favors no change other than as noted in my dictated progress note. Diagnosis: Problems: (1) Psychotic disorder (2) Major depressive disorder (3) Personality disorder, unspecified (4) Bipolar disorder with psychotic features ADELSO LOVE MD May 18, 2020 20:54
--- NOTE | 2020-05-19 04:00 | NUR ---
Pt has been in her room tonight and took meds without difficulty. She has asked staff for help to do things she is capable of doing herself such as standing, walking, wiping herself. When staff encourages her independence she at times will yell and curse and demand they leave her room. Other times she attempts to split staff members by complimenting one while criticizing another.
[2020-05-19] MEDS: LEVOTHYROXINE 50 MCG TABLET PO SCH (05:39)
[2020-05-19 06:14] VITALS: BP 125/82
--- NOTE | 2020-05-19 08:15 | PDOC ---
Exam Note: Joseph Note: This note is a late entry for 05/17/2020 covers elements not covered in my initial note. Subjective: The patient was seen on telehealth rounds in the evening of 05/17/2020 with Marla CORRAL as the unit is on a lockdown by the [facility] of COVID-19 exposure on the unit with no admission or discharges can be done. Discussed with nursing staff, reviewed the chart. The patient slept for 3-1/2 hours previous night. Overall she has had a better day with less yelling, not putting herself on the floor which is an improvement. Mood lability is improved. If she does not get immediate help from nursing staff when she asked for it, she gets frustrated, starts yelling but again this is better than before. She was somewhat drowsy in the morning, better in the evening. Valproic acid level is 34 subtherapeutic. AST 12 and ALT 16 unremarkable. Review of Systems: Impaired ambulation in wheelchair. No CV, , pulmonary, eye, ENT system symptoms on review. Mental Status Exam: The patient is oriented to herself and situation. She is generally less agitated, pleasant, smiling as I met with her. Speech is coherent. Abstraction is fair. Computation is impaired. Language function is intact. Attention span is fair. Mood and affect is improved. Laboratory Data: Reviewed. Impression: Bipolar disorder unspecified. Major depressive disorder. Anxiety disorder unspecified. Impulse control disorder unspecified. Personality disorder unspecified. Plan: Continue rest unchanged. We are increasing the Depakote ER from 1500 mg to 2000 mg. Check CBC, CMP, valproic acid and ammonia level in 3 days. Adjust to reach therapeutic level. Assessment: Vital Signs/I&O: Vital Signs Date Time Temp Pulse Resp B/P (MAP) Pulse Ox O2 Delivery O2 Flow Rate FiO2 05/19/20 06:14 97.7 64 16 125/82 (96) 94 05/18/20 20:52 Room Air I & O 05/18/20 05/18/20 05/19/20 15:00 23:00 07:00 Intake Total 1200 ml 360 ml Balance 1200 ml 360 ml Labs: Laboratory Tests Test 05/18/20 12:06 05/18/20 16:52 05/18/20 18:59 05/19/20 05:47 Glucose (Fingerstick) 253 mg/dL (70-99) H 183 mg/dL (70-99) H 214 mg/dL (70-99) H Prothrombin Time 23.7 SEC (9.4-11.4) H Prothrombin Time INR 2.4 (0.9-1.1) H Test 05/19/20 07:48 Glucose (Fingerstick) 152 mg/dL (70-99) H Current Medications: Meds: Current Medications Medications (Trade) Dose Ordered Sig/Jayant Route PRN Reason Start Time Stop Time Status Last Admin Dose Admin Warfarin Sodium (Coumadin) 1.5 mg 1X WARF ONCE PO 05/18/20 16:00 05/18/20 16:01 DC 05/18/20 16:53 I have reviewed the current psychotropics carefully including drug interactions. Risk benefit ratio favors no change other than as noted in my dictated progress note. Diagnosis: Problems: (1) Psychotic disorder (2) Major depressive disorder (3) Personality disorder, unspecified (4) Bipolar disorder with psychotic features ADELSO LOVE MD May 19, 2020 08:15
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
[2020-05-19] MEDS: TIMOLOL 0.5% OPHTH SOLUTION 5ML BOTTLE. OU SCH ×2 (09:00→19:48)
[2020-05-19] MEDS: GABAPENTIN 300 MG CAPSULE. PO SCH ×3 (09:01→19:49)
[2020-05-19] MEDS: MORPHINE ER 15 MG TABLET.ER PO SCH ×2 (09:01→19:48)
[2020-05-19] MEDS: cloNIDine TTS-1 1 PATCH PATCH TD SCH (09:01)
[2020-05-19] MEDS: FENOFIBRATE NANOCRYSTALLIZED 145 MG TABLET PO SCH (09:01)
[2020-05-19] MEDS: LISINOPRIL 20 MG TABLET PO SCH (09:02)
[2020-05-19] MEDS: MAGNESIUM OXIDE 400 MG TABLET PO SCH (09:02)
[2020-05-19] MEDS: CARVEDILOL 12.5 MG TABLET PO SCH ×2 (09:02→17:14)
[2020-05-19] MEDS: QUEtiapine 50 MG TABLET. PO SCH ×3 (09:02→19:49)
[2020-05-19] MEDS: CHOLECALCIFEROL (VITAMIN D3) 50,000 UNIT CAPSULE PO SCH (09:03)
[2020-05-19] MEDS: INSULIN LISPRO 300 UNITS/3 ML VIAL. SQ SCH ×3 (09:13→17:19)
[2020-05-19] MEDS: ACETAMINOPHEN 325 MG TABLET PO PRN (11:02)
--- NOTE | 2020-05-19 12:26 | NUR ---
Pharmacy Warfarin Dosing Note S:Pharmacy consulted to assist with anticoagulation therapy started 05/14/20 with target INR: 2 -3 O:REBA LINDSAY is a 60 year old F with DVT/PE history of PE LABS: Last INR: 2.4 Last HGB: 10.3 Last HCT: 33.1 Last PLT: 197 Last dose of 1.5MG given on 05/18/20 at 1600 Previous Regimen: 3.5mg daily Vitamin K given: N Drug Interaction Changes: Same Interacting Drug Ongoing Drug Interactions: fenofibrate, venlafaxine A:INR Within desired Range. Target Range for this patient is: 2 -3 P: Warfarin dose: 1.5MG Today at 1600 Bridge Therapy: None Next INR due 05/23/20 @ 0600 Pharmacy anticoagulation service will continue to follow. YENY CORRAL [facility], 05/19/20 [id number]
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
[2020-05-19 16:10] VITALS: BP 97/59
[2020-05-19] MEDS: WARFARIN 1 MG TABLET. PO SCH (17:15)
[2020-05-19] MEDS: QUEtiapine 25 MG TABLET. PO SCH (17:16)
--- NOTE | 2020-05-19 17:31 | NUR ---
Patient came to me when we were in day room and stated that his urine was reddish brown color. I gave him a urine cup for collection and he collected clean catch with next void. It was cola looking, reddish brown tinge, thick. Patient has no complaints of pain or any edema. He stated he did have some nausea last night and some lower back pain but nothing significant and nothing today. CBC, CMP U/A with culture ordered. Addendum: 05/19/20 at 1734 by SHAWN SANFORD RN ERROR IN CHARTING. CHARTED ON WRONG PATIENT.
--- NOTE | 2020-05-19 17:34 | NUR ---
Patient has been very pleasant today. She was laughing with me and smiling all day. No screaming out. She was very confused however. She kept talking about going out with her family, dogs attacking her and she was upset that we did not talk to her about Covid. I reassured her we were in the hospital and that there were no dogs. Her family could not come here right now and that we had been testing her for the covid because it was on the floor a couple of weeks ago. She gave me blank looks but was pleasant and sat on edge of bed and watched the arun I gave her happily.
[2020-05-19] MEDS: LATANOPROST 0.005% OPHTH SOLUTION 2.5ML BOTTLE. OU SCH (19:48)
[2020-05-19] MEDS: SIMVASTATIN 10 MG TABLET PO SCH (19:49)
[2020-05-19] MEDS: traZODone 100 MG TABLET. PO SCH (19:49)
[2020-05-19] MEDS: DIVALPROEX ER 500 MG TAB.ER.24H PO SCH (19:49)
[2020-05-19] MEDS: INSULIN GLARGINE SYRINGE. SQ SCH (20:45)
--- NOTE | 2020-05-19 20:59 | PDOC ---
Exam Note: Joseph Note: Please also refer to the separate dictated note~for this date of service dictated separately.~Patient seen individually. Discussed the patient with Nursing staff reviewed the chart.~Reviewed interim history and current functioning. Reviewed vital signs,~Labs/ Radiology~and current medications noted below. Continue current treatment with the changes noted in the dictated addendum note Assessment: Vital Signs/I&O: Vital Signs Date Time Temp Pulse Resp B/P (MAP) Pulse Ox O2 Delivery O2 Flow Rate FiO2 05/19/20 17:14 66 114/76 05/19/20 16:10 97.8 20 95 05/18/20 20:52 Room Air I & O 05/18/20 05/18/20 05/19/20 15:00 23:00 07:00 Intake Total 1200 ml 360 ml Balance 1200 ml 360 ml Labs: Laboratory Tests Test 05/19/20 05:47 05/19/20 07:48 05/19/20 12:04 05/19/20 17:00 Prothrombin Time 23.7 SEC (9.4-11.4) H Prothrombin Time INR 2.4 (0.9-1.1) H Glucose (Fingerstick) 152 mg/dL (70-99) H 243 mg/dL (70-99) H 147 mg/dL (70-99) H Test 05/19/20 19:41 Glucose (Fingerstick) 200 mg/dL (70-99) H Current Medications: Meds: Current Medications Medications (Trade) Dose Ordered Sig/Jayant Route PRN Reason Start Time Stop Time Status Last Admin Dose Admin Quetiapine Fumarate (SEROquel) 25 mg 1700 PO 05/19/20 17:00 05/19/20 17:16 Warfarin Sodium (Coumadin) 1.5 mg DAILY16 PO 05/19/20 16:00 05/19/20 17:15 I have reviewed the current psychotropics carefully including drug interactions. Risk benefit ratio favors no change other than as noted in my dictated progress note. Diagnosis: Problems: (1) Psychotic disorder (2) Major depressive disorder (3) Personality disorder, unspecified (4) Bipolar disorder with psychotic features ADELSO LOVE MD May 19, 2020 20:59
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
[2020-05-20] MEDS: LEVOTHYROXINE 50 MCG TABLET PO SCH (05:49)
[2020-05-20 06:02] VITALS: BP 111/72
[2020-05-20 06:18] LABS: BASO # 0.1 x10^3/uL (0.0-0.2); BASO % 1 % (0-3); EOS # 0.4 x10^3/uL (0.0-0.7); EOS % 6 % (0-3); HEMATOCRIT 32.7 % (36.0-47.0); LYMPH # 2.2 x10^3/uL (1.0-4.8); LYMPH % 35 % (24-48); MEAN CORPUSCULAR HEMOGLOBIN 25 pg (25-35); MEAN CORPUSCULAR HGB CONC 31 g/dL (31-37); MEAN CORPUSCULAR VOLUME 83 fL (79-100); MONO # 0.6 x10^3/uL (0.0-1.1); MONO % 9 % (0-9); NEUT % 48 % (31-73); PLATELET COUNT 253 x10^3/uL (140-400); RED BLOOD COUNT 3.95 x10^6/uL (3.50-5.40); RED CELL DISTRIBUTION WIDTH 16.3 % (11.5-14.5); WHITE BLOOD COUNT 6.1 x10^3/uL (4.0-11.0)
[2020-05-20 06:28] LABS: ALBUMIN 2.5 g/dL (3.4-5.0); ALBUMIN/GLOBULIN RATIO 0.6 (1.0-1.7); ALK PHOS 38 U/L (46-116); ALT (SGPT) 17 U/L (14-59); ANION GAP 7 (6-14); AST (SGOT) 16 U/L (15-37); BLOOD UREA NITROGEN 34 mg/dL (7-20); BUN/CREATININE RATIO 26 (6-20); CALCIUM 8.4 mg/dL (8.5-10.1); CARBON DIOXIDE 28 mmol/L (21-32); CHLORIDE 104 mmol/L (98-107); CREATININE 1.3 mg/dL (0.6-1.0); GFR 41.5; GLUCOSE 133 mg/dL (70-99); POTASSIUM 4.4 mmol/L (3.5-5.1); SODIUM 139 mmol/L (136-145); TOTAL BILIRUBIN 0.2 mg/dL (0.2-1.0); TOTAL PROTEIN 6.6 g/dL (6.4-8.2)
[2020-05-20 06:30] LABS: VAL ACID 44 mcg/mL (50-100)
[2020-05-20] MEDS: CARVEDILOL 12.5 MG TABLET PO SCH ×2 (08:00→17:00)
[2020-05-20] MEDS: INSULIN LISPRO 300 UNITS/3 ML VIAL. SQ SCH ×3 (08:00→17:01)
[2020-05-20] MEDS: GABAPENTIN 300 MG CAPSULE. PO SCH ×3 (09:00→20:58)
[2020-05-20] MEDS: TIMOLOL 0.5% OPHTH SOLUTION 5ML BOTTLE. OU SCH ×2 (09:00→20:55)
[2020-05-20] MEDS: FENOFIBRATE NANOCRYSTALLIZED 145 MG TABLET PO SCH (09:00)
[2020-05-20] MEDS: MORPHINE ER 15 MG TABLET.ER PO SCH (09:00)
[2020-05-20] MEDS: MAGNESIUM OXIDE 400 MG TABLET PO SCH (09:00)
[2020-05-20] MEDS: LISINOPRIL 20 MG TABLET PO SCH (09:00)
[2020-05-20] MEDS: QUEtiapine 50 MG TABLET. PO SCH ×3 (09:00→20:58)
[2020-05-20] MEDS: ACETAMINOPHEN 325 MG TABLET PO PRN ×2 (09:21→15:19)
--- NOTE | 2020-05-20 10:59 | NUR ---
Went into patient room today and found her clonidine patch on the floor. Spoke to pharmacy and ordered another one so that we can put it on her back so that she can't reach it.
--- NOTE | 2020-05-20 11:00 | NUR ---
Patient is calm and cooperative today. She is watching movies on the [employer]. She is having a good day and takes medication fine. Patient complains that her coccyx was hurting today when she was laying down so I moved her to the chair and then gave her some tylenol. No further complaints from her. No further concerns at this time. Patient is much more pleasant and seems that her behaviors are not as bad the last few days.
[2020-05-20] MEDS: cloNIDine TTS-1 1 PATCH PATCH TD SCH (11:27)
[2020-05-20] MEDS ORDERED: DIVA500T4 PO (13:05)
[2020-05-20] MEDS ORDERED: CHOL500021 PO (13:05)
[2020-05-20] MEDS ORDERED: NYST15PO9 TP (13:07)
[2020-05-20] MEDS ORDERED: TRAZ-125 PO (13:10)
[2020-05-20] MEDS ORDERED: METH57CR17 TP (13:13)
[2020-05-20] MEDS ORDERED: OLAN5TAB99 PO (13:15)
[2020-05-20] MEDS ORDERED: QUET25TA5 PO (13:18)
[2020-05-20] MEDS ORDERED: MAG-124 PO (13:21)
[2020-05-20] MEDS ORDERED: OLAN2.5T3 PO (13:25)
--- NOTE | 2020-05-20 13:53 | NUR ---
Spoke to Dr Taylor regarding family concern of Morphine BID. We will change to daily in AM and stop night time dose to see how patient does. After a ew days to reevaluate to see if we can stop or wean off more.
[2020-05-20 15:36] VITALS: BP 109/64
[2020-05-20] MEDS: QUEtiapine 25 MG TABLET. PO SCH (16:59)
[2020-05-20] MEDS: WARFARIN 1 MG TABLET. PO SCH (16:59)
[2020-05-20] MEDS ORDERED: QUET50TA5 PO (17:40)
[2020-05-20] MEDS ORDERED: LORA0.5T21 PO (17:41)
[2020-05-20] MEDS ORDERED: HYDR25TA PO (17:46)
--- NOTE | 2020-05-20 20:56 | PDOC ---
Exam Note: Joseph Note: Please also refer to the separate dictated note~for this date of service dictated separately.~Patient seen individually. Discussed the patient with Nursing staff reviewed the chart.~Reviewed interim history and current functioning. Reviewed vital signs,~Labs/ Radiology~and current medications noted below. Continue current treatment with the changes noted in the dictated addendum note Assessment: Vital Signs/I&O: Vital Signs Date Time Temp Pulse Resp B/P (MAP) Pulse Ox O2 Delivery O2 Flow Rate FiO2 05/20/20 17:00 70 109/64 05/20/20 15:36 98.1 16 96 Room Air I & O 05/19/20 05/19/20 05/20/20 15:00 23:00 07:00 Intake Total 600 ml 440 ml Balance 600 ml 440 ml Labs: Laboratory Tests Test 05/20/20 06:05 05/20/20 07:52 05/20/20 11:44 05/20/20 16:33 White Blood Count 6.1 x10^3/uL (4.0-11.0) Red Blood Count 3.95 x10^6/uL (3.50-5.40) Hemoglobin 10.0 g/dL (12.0-15.5) L Hematocrit 32.7 % (36.0-47.0) L Mean Corpuscular Volume 83 fL (79-100) Mean Corpuscular Hemoglobin 25 pg (25-35) Mean Corpuscular Hemoglobin Concent 31 g/dL (31-37) Red Cell Distribution Width 16.3 % (11.5-14.5) H Platelet Count 253 x10^3/uL (140-400) Neutrophils (%) (Auto) 48 % (31-73) Lymphocytes (%) (Auto) 35 % (24-48) Monocytes (%) (Auto) 9 % (0-9) Eosinophils (%) (Auto) 6 % (0-3) H Basophils (%) (Auto) 1 % (0-3) Neutrophils # (Auto) 3.0 x10^3uL (1.8-7.7) Lymphocytes # (Auto) 2.2 x10^3/uL (1.0-4.8) Monocytes # (Auto) 0.6 x10^3/uL (0.0-1.1) Eosinophils # (Auto) 0.4 x10^3/uL (0.0-0.7) Basophils # (Auto) 0.1 x10^3/uL (0.0-0.2) Sodium Level 139 mmol/L (136-145) Potassium Level 4.4 mmol/L (3.5-5.1) Chloride Level 104 mmol/L (98-107) Carbon Dioxide Level 28 mmol/L (21-32) Anion Gap 7 (6-14) Blood Urea Nitrogen 34 mg/dL (7-20) H Creatinine 1.3 mg/dL (0.6-1.0) H Estimated GFR (Cockcroft-Gault) 41.5 BUN/Creatinine Ratio 26 (6-20) H Glucose Level 133 mg/dL (70-99) H Calcium Level 8.4 mg/dL (8.5-10.1) L Total Bilirubin 0.2 mg/dL (0.2-1.0) Aspartate Amino Transferase (AST) 16 U/L (15-37) Alanine Aminotransferase (ALT) 17 U/L (14-59) Alkaline Phosphatase 38 U/L (46-116) L Ammonia < 10 mcmol/L (11-34) L Total Protein 6.6 g/dL (6.4-8.2) Albumin 2.5 g/dL (3.4-5.0) L Albumin/Globulin Ratio 0.6 (1.0-1.7) L Valproic Acid Level 44 mcg/mL (50-100) L Valproic Acid Last Dose Date 05/19/2020 Valproic Acid Last Dose Time 2100 Glucose (Fingerstick) 147 mg/dL (70-99) H 153 mg/dL (70-99) H 195 mg/dL (70-99) H Test 05/20/20 19:21 Glucose (Fingerstick) 256 mg/dL (70-99) H Current Medications: Meds: Current Medications Medications (Trade) Dose Ordered Sig/Jayant Route PRN Reason Start Time Stop Time Status Last Admin Dose Admin Timolol Maleate (Timoptic 0.5% Oph) 1 drop BID OU 05/19/20 21:03 05/20/20 09:00 Clonidine HCl (Catapres Tts-1) 1 patch WEEKLY TD 05/20/20 11:00 05/20/20 11:27 I have reviewed the current psychotropics carefully including drug interactions. Risk benefit ratio favors no change other than as noted in my dictated progress note. Diagnosis: Problems: (1) Psychotic disorder (2) Major depressive disorder (3) Personality disorder, unspecified (4) Bipolar disorder with psychotic features ADELSO LOVE MD May 20, 2020 20:56
[2020-05-20] MEDS: INSULIN GLARGINE SYRINGE. SQ SCH (20:57)
[2020-05-20] MEDS: SIMVASTATIN 10 MG TABLET PO SCH (20:58)
[2020-05-20] MEDS: DIVALPROEX ER 500 MG TAB.ER.24H PO SCH (20:58)
[2020-05-20] MEDS: LATANOPROST 0.005% OPHTH SOLUTION 2.5ML BOTTLE. OU SCH (20:59)
[2020-05-20] MEDS: traZODone 100 MG TABLET. PO SCH (21:01)
--- NOTE | 2020-05-21 02:50 | NUR ---
Pt has mainly been sleeping this shift. When she was awake she was shouting, demanding and had to be encouraged to do anything for herself. Meds were taken whole without difficulty and then she went back to sleep.
[2020-05-21] MEDS: ACETAMINOPHEN 325 MG TABLET PO PRN (03:08)
[2020-05-21] MEDS: LEVOTHYROXINE 50 MCG TABLET PO SCH (03:08)
[2020-05-21] MEDS: CARVEDILOL 12.5 MG TABLET PO SCH ×2 (08:44→17:00)
[2020-05-21] MEDS: FENOFIBRATE NANOCRYSTALLIZED 145 MG TABLET PO SCH (08:44)
[2020-05-21] MEDS: QUEtiapine 50 MG TABLET. PO SCH ×3 (08:44→20:38)
[2020-05-21] MEDS: GABAPENTIN 300 MG CAPSULE. PO SCH ×3 (08:45→20:38)
[2020-05-21] MEDS: MORPHINE ER 15 MG TABLET.ER PO SCH (08:45)
[2020-05-21] MEDS: DIVALPROEX ER 500 MG TAB.ER.24H PO SCH ×2 (08:45→20:39)
[2020-05-21] MEDS: MAGNESIUM OXIDE 400 MG TABLET PO SCH (08:45)
[2020-05-21] MEDS: TIMOLOL 0.5% OPHTH SOLUTION 5ML BOTTLE. OU SCH ×2 (08:46→20:39)
[2020-05-21] MEDS: INSULIN LISPRO 300 UNITS/3 ML VIAL. SQ SCH ×3 (08:46→17:06)
[2020-05-21] MEDS: LISINOPRIL 20 MG TABLET PO SCH (08:46)
[2020-05-21] MEDS: LORazepam 0.5 MG TABLET PO PRN (11:52)
[2020-05-21] MEDS: hydrOXYzine HCL 25 MG TABLET PO PRN (13:48)
[2020-05-21 16:04] VITALS: BP 103/63
[2020-05-21] MEDS: QUEtiapine 25 MG TABLET. PO SCH (17:01)
[2020-05-21] MEDS: WARFARIN 1 MG TABLET. PO SCH (17:01)
[2020-05-21] MEDS: traZODone 100 MG TABLET. PO SCH (20:38)
[2020-05-21] MEDS: SIMVASTATIN 10 MG TABLET PO SCH (20:38)
[2020-05-21] MEDS: LATANOPROST 0.005% OPHTH SOLUTION 2.5ML BOTTLE. OU SCH (20:39)
[2020-05-21] MEDS: INSULIN GLARGINE SYRINGE. SQ SCH (20:41)
--- NOTE | 2020-05-21 22:16 | NUR ---
Pt yelling intermittently this evening. Pt was taken to the toilet with staff x3. Pt had a witnessed decent out of her wheelchair after using the toilet. It appears as if pt purposefully slid herself out of her wheelchair, landing on top of ROOF SERVICE TECHNICIAN's feet on her behind. Edwin was then used with staff x3 and pt was taken to bed. During this time, pt was yelling and rude to staff stating "you are my servant. You get paid to do this." Pt then fell asleep for approximately 45 minutes. Upon waking, pt began continuously yelling "nurse" and "help me." This RN administered pt's HS medications at this time. Pt is currently in bed yelling continuously. Will continue to monitor.
[2020-05-22 00:31] LABS: BACTERIA,URINE FEW /HPF (0-FEW); BILIRUBIN,URINE NEG (NEG); CLARITY,URINE HAZY; COLOR,URINE STRAW; GLUCOSE,URINE 250 mg/dL (NEG); NITRITE,URINE NEG (NEG); SQUAMOUS EPITHELIAL CELL,UR FEW /LPF; UROBILINOGEN,URINE 0.2 mg/dL (0.2 mg/dL)
[2020-05-22] MEDS: LEVOTHYROXINE 50 MCG TABLET PO SCH (05:17)
[2020-05-22 06:21] VITALS: BP 93/54
[2020-05-22] MEDS: CARVEDILOL 12.5 MG TABLET PO SCH ×2 (08:00→17:00)
[2020-05-22] MEDS: QUEtiapine 50 MG TABLET. PO SCH ×3 (08:09→19:49)
[2020-05-22] MEDS: GABAPENTIN 300 MG CAPSULE. PO SCH ×3 (08:09→19:49)
[2020-05-22] MEDS: FENOFIBRATE NANOCRYSTALLIZED 145 MG TABLET PO SCH (08:09)
[2020-05-22] MEDS: DIVALPROEX ER 500 MG TAB.ER.24H PO SCH ×2 (08:11→19:49)
[2020-05-22] MEDS: MAGNESIUM OXIDE 400 MG TABLET PO SCH (08:11)
[2020-05-22] MEDS: TIMOLOL 0.5% OPHTH SOLUTION 5ML BOTTLE. OU SCH ×2 (08:13→19:50)
[2020-05-22] MEDS: LORazepam 0.5 MG TABLET PO PRN ×2 (08:15→13:38)
[2020-05-22] MEDS: INSULIN LISPRO 300 UNITS/3 ML VIAL. SQ SCH ×3 (08:17→17:00)
[2020-05-22] MEDS: LISINOPRIL 20 MG TABLET PO SCH (08:18)
[2020-05-22] MEDS: MORPHINE ER 15 MG TABLET.ER PO SCH (08:20)
[2020-05-22 15:57] VITALS: BP 97/61
[2020-05-22] MEDS: QUEtiapine 25 MG TABLET. PO SCH (17:00)
--- NOTE | 2020-05-22 17:09 | NUR ---
Pt up in chair for day. Has yelled out intermittently but has decreased significantly from yesterday. Ativan given x 2 during day. Has been compliant with meds and cares.
[2020-05-22] MEDS: SIMVASTATIN 10 MG TABLET PO SCH (19:49)
[2020-05-22] MEDS: traZODone 100 MG TABLET. PO SCH (19:49)
[2020-05-22] MEDS: LATANOPROST 0.005% OPHTH SOLUTION 2.5ML BOTTLE. OU SCH (19:50)
[2020-05-22] MEDS: INSULIN GLARGINE SYRINGE. SQ SCH (19:51)
--- NOTE | 2020-05-22 21:10 | PDOC ---
Exam Note: Joseph Note: This note is a late entry for 05/19/2020 covers elements not covered in my initial note. Subjective: The patient was reviewed on telehealth rounds in the evening of 05/19/2020 with Mirza CORRAL as the unit is on a lockdown by the [facility] of COVID-19 exposure on the unit with no admission or discharges can be done. Discussed with nursing staff, reviewed the chart. The patient slept for 3-1/4 hours previous night. Overall the patient appeared somewhat less helpless, less irritable. Her niece Sindhu wondered whether MS-Contin could be worsening some of her mood lability and agitation. We will defer her to Dr. Levi for this. Review of Systems: Impaired ambulation in wheelchair. No CV, , pulmonary, eye, ENT system symptoms on review. Mental Status Exam: The patient is reasonably oriented. Speech is coherent, somewhat pressured at times. Abstraction is fair. Computation is impaired. Language function is intact. Attention span is short. Mood and affect lability is improved. Laboratory Data: Reviewed. Repeat on 05/20. Impression: Bipolar disorder unspecified. Major depressive disorder. Anxiety disorder unspecified. Impulse control disorder unspecified. Personality disorder unspecified. Plan: Continue rest unchanged and as noted above. Current labs level on Depakote on 05/20 and adjust to reach therapeutic level. We will defer to Dr. Levi for MS-Contin. Make further adjustments as clinically indicated. Assessment: Vital Signs/I&O: Vital Signs Date Time Temp Pulse Resp B/P (MAP) Pulse Ox O2 Delivery O2 Flow Rate FiO2 05/22/20 17:00 87 97/61 05/22/20 15:57 97.6 20 99 05/21/20 06:28 Room Air I & O 05/21/20 05/21/20 05/22/20 14:59 22:59 06:59 Intake Total 840 ml 720 ml Balance 840 ml 720 ml Labs: Laboratory Tests Test 05/22/20 00:03 05/22/20 06:12 05/22/20 07:42 05/22/20 12:04 Urine Collection Type Unknown Urine Color Straw Urine Clarity Hazy Urine pH 7.0 Urine Specific [place] 1.025 Urine Protein >100 mg/dl (NEG-TRACE) Urine Glucose (UA) 250 mg/dL (NEG) Urine Ketones (Stick) Neg mg/dL (NEG) Urine Blood Mod (NEG) Urine Nitrite Neg (NEG) Urine Bilirubin Neg (NEG) Urine Urobilinogen Dipstick 0.2 mg/dL (0.2 mg/dL) Urine Leukocyte Esterase Small (NEG) Urine RBC 6-10 /HPF (0-2) Urine WBC 5-10 /HPF (0-4) Urine Squamous Epithelial Cells Few /LPF Urine Transitional Epithelial Cells Occ /LPF Urine Renal Epithelial Cells Occ /LPF Urine Bacteria Few /HPF (0-FEW) Prothrombin Time 28.9 SEC (9.4-11.4) H Prothrombin Time INR 2.9 (0.9-1.1) H Glucose (Fingerstick) 153 mg/dL (70-99) H 252 mg/dL (70-99) H Test 05/22/20 17:09 05/22/20 19:18 Glucose (Fingerstick) 177 mg/dL (70-99) H 189 mg/dL (70-99) H Current Medications: I have reviewed the current psychotropics carefully including drug interactions. Risk benefit ratio favors no change other than as noted in my dictated progress note. Diagnosis: Problems: (1) Psychotic disorder (2) Major depressive disorder (3) Personality disorder, unspecified (4) Bipolar disorder with psychotic features ADELSO LOVE MD May 22, 2020 21:10
--- NOTE | 2020-05-22 21:29 | PDOC ---
Exam Note: Joseph Note: This note is a late entry for 05/20/2020 covers elements not covered in my initial note. Subjective: The patient was reviewed on telehealth rounds in the evening of 05/20/2020 with Mirza CORRAL. [facility] has [facility] up the unit for admission and discharges following quarantine for Covid-19 exposure. Discussed with nursing staff, reviewed the chart. The patient slept for 3-1/[address] Levi has reduced the MS-Contin from b.i.d. down to once a day. The patient has been less irritable, less labile. Towards late in the evening around the time of my telehealth rounds she was acting somewhat bizarre per nursing report, wanted to lie naked in her bed, undressed herself, somewhat yelling but did redirect. Valproic acid level is subtherapeutic at 44, on Depakote ER 2000 mg h.s. Liver enzymes AST 16 and ALT 17. Ammonia is awaited. Review of Systems: Impaired ambulation in wheelchair. No CV, , pulmonary, eye, ENT system symptoms on review. Mental Status Exam: The patient is reasonably oriented. Speech is coherent, rapid at times. Abstraction is fair. Computation is impaired. Language function is intact. Mood and affect is somewhat labile and anxious, hypomanic at times. No suicidal or homicidal ideation. Laboratory Data: Reviewed. Impression: Bipolar disorder unspecified. Major depressive disorder. Anxiety disorder unspecified. Impulse control disorder unspecified. Personality disorder unspecified. Plan: Add Depakote ER 500 mg a.m. Continue 2 g h.s. Check CBC, CMP, valproic acid level, ammonia level in 3 days. Maintain rest of the psychotropics unchanged including trazodone, Zyprexa p.r.n., Seroquel 50 mg t.i.d., 25 mg once a day. Adjust further as clinically indicated. Assessment: Vital Signs/I&O: Vital Signs Date Time Temp Pulse Resp B/P (MAP) Pulse Ox O2 Delivery O2 Flow Rate FiO2 05/22/20 17:00 87 97/61 05/22/20 15:57 97.6 20 99 05/21/20 06:28 Room Air I & O 05/21/20 05/21/20 05/22/20 15:00 23:00 07:00 Intake Total 840 ml 720 ml Balance 840 ml 720 ml Labs: Laboratory Tests Test 05/22/20 00:03 05/22/20 06:12 05/22/20 07:42 05/22/20 12:04 Urine Collection Type Unknown Urine Color Straw Urine Clarity Hazy Urine pH 7.0 Urine Specific [place] 1.025 Urine Protein >100 mg/dl (NEG-TRACE) Urine Glucose (UA) 250 mg/dL (NEG) Urine Ketones (Stick) Neg mg/dL (NEG) Urine Blood Mod (NEG) Urine Nitrite Neg (NEG) Urine Bilirubin Neg (NEG) Urine Urobilinogen Dipstick 0.2 mg/dL (0.2 mg/dL) Urine Leukocyte Esterase Small (NEG) Urine RBC 6-10 /HPF (0-2) Urine WBC 5-10 /HPF (0-4) Urine Squamous Epithelial Cells Few /LPF Urine Transitional Epithelial Cells Occ /LPF Urine Renal Epithelial Cells Occ /LPF Urine Bacteria Few /HPF (0-FEW) Prothrombin Time 28.9 SEC (9.4-11.4) H Prothrombin Time INR 2.9 (0.9-1.1) H Glucose (Fingerstick) 153 mg/dL (70-99) H 252 mg/dL (70-99) H Test 05/22/20 17:09 05/22/20 19:18 Glucose (Fingerstick) 177 mg/dL (70-99) H 189 mg/dL (70-99) H Current Medications: I have reviewed the current psychotropics carefully including drug interactions. Risk benefit ratio favors no change other than as noted in my dictated progress note. Diagnosis: Problems: (1) Psychotic disorder (2) Major depressive disorder (3) Personality disorder, unspecified (4) Bipolar disorder with psychotic features ADELSO LOVE MD May 22, 2020 21:29
--- NOTE | 2020-05-22 21:39 | NUR ---
Pt yelling intermittently this evening. Pt was able to toilet herself with minimal support from TIRE WRAPPER. Compliant with HS medications. Pt currently in bed yelling. Will continue to monitor.
--- NOTE | 2020-05-22 22:02 | PDOC ---
Exam Note: Joseph Note: Please also refer to the separate dictated note~for this date of service dictated separately.~Patient seen individually. Discussed the patient with Nursing staff reviewed the chart.~Reviewed interim history and current functioning. Reviewed vital signs,~Labs/ Radiology~and current medications noted below. Continue current treatment with the changes noted in the dictated addendum note Assessment: Vital Signs/I&O: Vital Signs Date Time Temp Pulse Resp B/P (MAP) Pulse Ox O2 Delivery O2 Flow Rate FiO2 05/22/20 17:00 87 97/61 05/22/20 15:57 97.6 20 99 05/21/20 06:28 Room Air I & O 05/21/20 05/21/20 05/22/20 15:00 23:00 07:00 Intake Total 840 ml 720 ml Balance 840 ml 720 ml Labs: Laboratory Tests Test 05/22/20 00:03 05/22/20 06:12 05/22/20 07:42 05/22/20 12:04 Urine Collection Type Unknown Urine Color Straw Urine Clarity Hazy Urine pH 7.0 Urine Specific [place] 1.025 Urine Protein >100 mg/dl (NEG-TRACE) Urine Glucose (UA) 250 mg/dL (NEG) Urine Ketones (Stick) Neg mg/dL (NEG) Urine Blood Mod (NEG) Urine Nitrite Neg (NEG) Urine Bilirubin Neg (NEG) Urine Urobilinogen Dipstick 0.2 mg/dL (0.2 mg/dL) Urine Leukocyte Esterase Small (NEG) Urine RBC 6-10 /HPF (0-2) Urine WBC 5-10 /HPF (0-4) Urine Squamous Epithelial Cells Few /LPF Urine Transitional Epithelial Cells Occ /LPF Urine Renal Epithelial Cells Occ /LPF Urine Bacteria Few /HPF (0-FEW) Prothrombin Time 28.9 SEC (9.4-11.4) H Prothrombin Time INR 2.9 (0.9-1.1) H Glucose (Fingerstick) 153 mg/dL (70-99) H 252 mg/dL (70-99) H Test 05/22/20 17:09 05/22/20 19:18 Glucose (Fingerstick) 177 mg/dL (70-99) H 189 mg/dL (70-99) H Current Medications: I have reviewed the current psychotropics carefully including drug interactions. Risk benefit ratio favors no change other than as noted in my dictated progress note. Diagnosis: Problems: (1) Psychotic disorder (2) Major depressive disorder (3) Personality disorder, unspecified (4) Bipolar disorder with psychotic features ADELSO LOVE MD May 22, 2020 22:02
[2020-05-23] MEDS: LEVOTHYROXINE 50 MCG TABLET PO SCH (05:05)
[2020-05-23 05:52] LABS: BASO # 0.1 x10^3/uL (0.0-0.2); BASO % 1 % (0-3); EOS # 0.3 x10^3/uL (0.0-0.7); EOS % 4 % (0-3); HEMATOCRIT 31.2 % (36.0-47.0); HEMOGLOBIN 9.6 g/dL (12.0-15.5); LYMPH # 2.2 x10^3/uL (1.0-4.8); LYMPH % 27 % (24-48); MEAN CORPUSCULAR HEMOGLOBIN 25 pg (25-35); MEAN CORPUSCULAR HGB CONC 31 g/dL (31-37); MEAN CORPUSCULAR VOLUME 82 fL (79-100); MONO # 0.6 x10^3/uL (0.0-1.1); MONO % 8 % (0-9); NEUT # 4.8 x10^3uL (1.8-7.7); NEUT % 61 % (31-73); PLATELET COUNT 273 x10^3/uL (140-400); RED BLOOD COUNT 3.78 x10^6/uL (3.50-5.40); RED CELL DISTRIBUTION WIDTH 15.9 % (11.5-14.5); WHITE BLOOD COUNT 7.9 x10^3/uL (4.0-11.0)
[2020-05-23 06:07] LABS: ALBUMIN 2.2 g/dL (3.4-5.0); ALBUMIN/GLOBULIN RATIO 0.5 (1.0-1.7); ALK PHOS 34 U/L (46-116); ALT (SGPT) 13 U/L (14-59); ANION GAP 6 (6-14); AST (SGOT) 12 U/L (15-37); BLOOD UREA NITROGEN 35 mg/dL (7-20); BUN/CREATININE RATIO 27 (6-20); CALCIUM 8.6 mg/dL (8.5-10.1); CARBON DIOXIDE 29 mmol/L (21-32); CHLORIDE 103 mmol/L (98-107); CREATININE 1.3 mg/dL (0.6-1.0); GFR 41.5; GLUCOSE 137 mg/dL (70-99); POTASSIUM 4.4 mmol/L (3.5-5.1); SODIUM 138 mmol/L (136-145); TOTAL BILIRUBIN 0.2 mg/dL (0.2-1.0); TOTAL PROTEIN 6.5 g/dL (6.4-8.2)
[2020-05-23 06:08] LABS: VAL ACID 74 mcg/mL (50-100)
[2020-05-23 06:12] VITALS: BP 104/64
--- NOTE | 2020-05-23 08:13 | PDOC ---
Exam Note: Joseph Note: This note is a late entry for 05/21/2020 covers elements not covered in my initial note. Subjective: The patient was reviewed on telehealth rounds in the evening of 05/21/2020 with Antonino CORRAL. The [facility] has opened up the unit for admission and discharges following quarantine for Covid-19 exposure. Discussed with nursing staff, reviewed the chart. The patient slept for 6-1/2 hours previous night. According to the nursing staff, she has been yelling at times playing the nursing staff. She appears to act helpless, wanting nursing staff to do much of things she can do for herself with respect to ADLs. She was irritable in the morning, later she was stating that a little boy outside the window was watching her because she was naked in bed and nursing staff hung the drapes and blinds and she was then comfortable. In fact there was no one outside the window. We are on the 2nd floor and this is not an option but she had difficulty comprehending this. Review of Systems: Impaired ambulation. No CV, , pulmonary, eye, ENT system symptoms on review. Mental Status Exam: The patient is reasonably oriented. During the telehealth visit, she was pleasant, cooperative, which is frequently in contrast to how she does during the day on the unit. She is verbal, appropriate during the visit. Speech is coherent, rapid at times. Abstraction is fair. Computation is impaired. Language function is intact. Attention span is fair. Mood and affect is somewhat labile at times, but generally improved. No suicidal or homicidal ideation. Laboratory Data: Reviewed. Impression: Bipolar disorder unspecified. Major depressive disorder. Anxiety disorder unspecified. Impulse control disorder unspecified. Personality disorder unspecified. Plan: Continue current psychotropics. Depakote ER 500 mg a.m. has been added. Repeat lab levels in 2 days and we will adjust this to reach therapeutic level. Assessment: Vital Signs/I&O: Vital Signs Date Time Temp Pulse Resp B/P (MAP) Pulse Ox O2 Delivery O2 Flow Rate FiO2 05/23/20 06:12 97.5 64 18 104/64 (77) 99 Room Air I & O 05/22/20 05/22/20 05/23/20 15:00 23:00 07:00 Intake Total 480 ml 360 ml Balance 480 ml 360 ml Labs: Laboratory Tests Test 05/22/20 12:04 05/22/20 17:09 05/22/20 19:18 05/23/20 05:39 Glucose (Fingerstick) 252 mg/dL (70-99) H 177 mg/dL (70-99) H 189 mg/dL (70-99) H White Blood Count 7.9 x10^3/uL (4.0-11.0) Red Blood Count 3.78 x10^6/uL (3.50-5.40) Hemoglobin 9.6 g/dL (12.0-15.5) L Hematocrit 31.2 % (36.0-47.0) L Mean Corpuscular Volume 82 fL (79-100) Mean Corpuscular Hemoglobin 25 pg (25-35) Mean Corpuscular Hemoglobin Concent 31 g/dL (31-37) Red Cell Distribution Width 15.9 % (11.5-14.5) H Platelet Count 273 x10^3/uL (140-400) Neutrophils (%) (Auto) 61 % (31-73) Lymphocytes (%) (Auto) 27 % (24-48) Monocytes (%) (Auto) 8 % (0-9) Eosinophils (%) (Auto) 4 % (0-3) H Basophils (%) (Auto) 1 % (0-3) Neutrophils # (Auto) 4.8 x10^3uL (1.8-7.7) Lymphocytes # (Auto) 2.2 x10^3/uL (1.0-4.8) Monocytes # (Auto) 0.6 x10^3/uL (0.0-1.1) Eosinophils # (Auto) 0.3 x10^3/uL (0.0-0.7) Basophils # (Auto) 0.1 x10^3/uL (0.0-0.2) Prothrombin Time 26.3 SEC (9.4-11.4) H Prothrombin Time INR 2.6 (0.9-1.1) H Sodium Level 138 mmol/L (136-145) Potassium Level 4.4 mmol/L (3.5-5.1) Chloride Level 103 mmol/L (98-107) Carbon Dioxide Level 29 mmol/L (21-32) Anion Gap 6 (6-14) Blood Urea Nitrogen 35 mg/dL (7-20) H Creatinine 1.3 mg/dL (0.6-1.0) H Estimated GFR (Cockcroft-Gault) 41.5 BUN/Creatinine Ratio 27 (6-20) H Glucose Level 137 mg/dL (70-99) H Calcium Level 8.6 mg/dL (8.5-10.1) Total Bilirubin 0.2 mg/dL (0.2-1.0) Aspartate Amino Transferase (AST) 12 U/L (15-37) L Alanine Aminotransferase (ALT) 13 U/L (14-59) L Alkaline Phosphatase 34 U/L (46-116) L Ammonia 17 mcmol/L (11-34) Total Protein 6.5 g/dL (6.4-8.2) Albumin 2.2 g/dL (3.4-5.0) L Albumin/Globulin Ratio 0.5 (1.0-1.7) L Valproic Acid Level 74 mcg/mL (50-100) Valproic Acid Last Dose Date 05/22/2020 Valproic Acid Last Dose Time 2100 Current Medications: I have reviewed the current psychotropics carefully including drug interactions. Risk benefit ratio favors no change other than as noted in my dictated progress note. Diagnosis: Problems: (1) Psychotic disorder (2) Major depressive disorder (3) Personality disorder, unspecified (4) Bipolar disorder with psychotic features ADELSO LOVE MD May 23, 2020 08:13
--- NOTE | 2020-05-23 08:23 | PDOC ---
Exam Note: Joseph Note: This note is a late entry for 05/22/2020 covers elements not covered in my initial note. Subjective: The patient was reviewed on telehealth rounds in the evening of 05/22/2020 with Janine CORRAL. The [facility] has opened up the unit for admission and discharges following quarantine for Covid-19 exposure. Discussed with nursing staff, reviewed the chart. The patient slept for 4-3/4 hours previous night. She has been in her wheelchair all day. She has been in the hallway, little more compliant with activities, yelling in the evening. She did get Ativan x2. Review of Systems: Impaired ambulation in wheelchair. No CV, , pulmonary, eye, ENT system symptoms on review. Mental Status Exam: The patient is reasonably oriented. She is pleasant, verbal, interactive, somewhat more insightful as we discussed during individual telehealth visit ways to improve her impulse control rather than being reactive to instigation by others. She seems to be able to comprehend some of this. Speech is coherent, rapid at times. Abstraction is fair. Computation is impair ed. Language function is intact. Mood and affect is labile at times and anxious. No suicidal or homicidal ideation. Laboratory Data: Reviewed. Impression: Bipolar disorder unspecified. Major depressive disorder. Anxiety disorder unspecified. Impulse control disorder unspecified. Personality disorder unspecified. Plan: Continue current psychotropics. Await the repeat valproic acid level. Adjust to reach therapeutic level. Rest unchanged for now. Assessment: Vital Signs/I&O: Vital Signs Date Time Temp Pulse Resp B/P (MAP) Pulse Ox O2 Delivery O2 Flow Rate FiO2 05/23/20 06:12 97.5 64 18 104/64 (77) 99 Room Air I & O 05/22/20 05/22/20 05/23/20 15:00 23:00 07:00 Intake Total 480 ml 360 ml Balance 480 ml 360 ml Labs: Laboratory Tests Test 05/22/20 12:04 05/22/20 17:09 05/22/20 19:18 05/23/20 05:39 Glucose (Fingerstick) 252 mg/dL (70-99) H 177 mg/dL (70-99) H 189 mg/dL (70-99) H White Blood Count 7.9 x10^3/uL (4.0-11.0) Red Blood Count 3.78 x10^6/uL (3.50-5.40) Hemoglobin 9.6 g/dL (12.0-15.5) L Hematocrit 31.2 % (36.0-47.0) L Mean Corpuscular Volume 82 fL (79-100) Mean Corpuscular Hemoglobin 25 pg (25-35) Mean Corpuscular Hemoglobin Concent 31 g/dL (31-37) Red Cell Distribution Width 15.9 % (11.5-14.5) H Platelet Count 273 x10^3/uL (140-400) Neutrophils (%) (Auto) 61 % (31-73) Lymphocytes (%) (Auto) 27 % (24-48) Monocytes (%) (Auto) 8 % (0-9) Eosinophils (%) (Auto) 4 % (0-3) H Basophils (%) (Auto) 1 % (0-3) Neutrophils # (Auto) 4.8 x10^3uL (1.8-7.7) Lymphocytes # (Auto) 2.2 x10^3/uL (1.0-4.8) Monocytes # (Auto) 0.6 x10^3/uL (0.0-1.1) Eosinophils # (Auto) 0.3 x10^3/uL (0.0-0.7) Basophils # (Auto) 0.1 x10^3/uL (0.0-0.2) Prothrombin Time 26.3 SEC (9.4-11.4) H Prothrombin Time INR 2.6 (0.9-1.1) H Sodium Level 138 mmol/L (136-145) Potassium Level 4.4 mmol/L (3.5-5.1) Chloride Level 103 mmol/L (98-107) Carbon Dioxide Level 29 mmol/L (21-32) Anion Gap 6 (6-14) Blood Urea Nitrogen 35 mg/dL (7-20) H Creatinine 1.3 mg/dL (0.6-1.0) H Estimated GFR (Cockcroft-Gault) 41.5 BUN/Creatinine Ratio 27 (6-20) H Glucose Level 137 mg/dL (70-99) H Calcium Level 8.6 mg/dL (8.5-10.1) Total Bilirubin 0.2 mg/dL (0.2-1.0) Aspartate Amino Transferase (AST) 12 U/L (15-37) L Alanine Aminotransferase (ALT) 13 U/L (14-59) L Alkaline Phosphatase 34 U/L (46-116) L Ammonia 17 mcmol/L (11-34) Total Protein 6.5 g/dL (6.4-8.2) Albumin 2.2 g/dL (3.4-5.0) L Albumin/Globulin Ratio 0.5 (1.0-1.7) L Valproic Acid Level 74 mcg/mL (50-100) Valproic Acid Last Dose Date 05/22/2020 Valproic Acid Last Dose Time 2100 Test 05/23/20 08:09 Glucose (Fingerstick) 140 mg/dL (70-99) H Current Medications: I have reviewed the current psychotropics carefully including drug interactions. Risk benefit ratio favors no change other than as noted in my dictated progress note. Diagnosis: Problems: (1) Psychotic disorder (2) Major depressive disorder (3) Personality disorder, unspecified (4) Bipolar disorder with psychotic features ADELSO LOVE MD May 23, 2020 08:23
[2020-05-23] MEDS: DIVALPROEX ER 500 MG TAB.ER.24H PO SCH ×2 (08:52→20:53)
[2020-05-23] MEDS: QUEtiapine 50 MG TABLET. PO SCH ×3 (08:52→20:52)
[2020-05-23] MEDS: LISINOPRIL 20 MG TABLET PO SCH (08:53)
[2020-05-23] MEDS: MAGNESIUM OXIDE 400 MG TABLET PO SCH (08:53)
[2020-05-23] MEDS: GABAPENTIN 300 MG CAPSULE. PO SCH ×3 (08:53→20:53)
[2020-05-23] MEDS: FENOFIBRATE NANOCRYSTALLIZED 145 MG TABLET PO SCH (08:53)
[2020-05-23] MEDS: CARVEDILOL 12.5 MG TABLET PO SCH ×2 (08:53→17:19)
[2020-05-23] MEDS: MORPHINE ER 15 MG TABLET.ER PO SCH (08:54)
[2020-05-23] MEDS: TIMOLOL 0.5% OPHTH SOLUTION 5ML BOTTLE. OU SCH ×2 (08:54→20:53)
[2020-05-23] MEDS: INSULIN LISPRO 300 UNITS/3 ML VIAL. SQ SCH ×3 (08:55→17:22)
--- NOTE | 2020-05-23 10:29 | NUR ---
Patient lying in bed at time of assessment. Patient anxious but cooperative. Was able to sit up on edge of bed with me with minimal assistance. Patient is able to do her own when she wants to. Patient c/o pain in shoulder and in legs. Patient alert and oriented with no further complaints. Patient takes medications whole just fine. No further concerns at this time.
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
--- NOTE | 2020-05-23 13:05 | TX PLAN ---
Interdisciplinary Tx Plan Admission Information May 05, 2020 at 18:00 Legal Status (on Admission): Voluntary, DPOA DPOA/Guardian Name: Annamarie Younger-sister in law/POA Contact Verified Code Status: DNR Allergies: Coded Allergies: Quinolones (Verified Allergy, Intermediate, 05/05/20) fentanyl (Verified Allergy, Intermediate, 05/05/20) hydrocodone (Verified Allergy, Intermediate, 05/05/20) levofloxacin (Verified Allergy, Intermediate, 05/05/20) pregabalin (Verified Allergy, Intermediate, 05/05/20) spinach (Verified Allergy, Intermediate, 05/05/20) Estimated Length of Stay: 14 Diagnoses Primary Diagnosis: Psychotic d/o unspecified Reasons for Admission: Aggressive, Delusions, Agitated, Angry, Anxiety/Panic, Hallucinations, Combative, Suspicious/paranoid, Confusion/Disoriented, Poor impulse control Problem in Patient's Words: Per Shweta, "I don't know, I begged not to come here." Per family, Annamarie's mood and behvior have continually deteriorated. Additional Admission Comments: Per intake report, delusional thinking she is being hit and followed by a man, calling 911 repeateedly to report that she is being physically and sexually [facility], agitated, anxious, yelling out, restless, physically and verbally aggressive towards staff, hallucinating as she sees her brother next to her, name calling and belligerent. Problems Active Problems: Verbally aggressive Socially disruptive Combative Delusional Refusing to assist with her adl's Inactive Problems: Adequate intake of meals Averaging five hours of sleep at night Pt Strengths/Limitations Ability for [place]: Poor Cognitive Functioning/Ability: Fair Communication Skills/Ability: Fair Financial Resources: Fair Insight/Judgement: Poor Intellectual Ability: Fair Physical Health: Fair Social Skills: Fair Stability in Family: Fair Verbal Skills: Fair Discharge Criteria Discharge Criteria: Able meet basic life need, Able to meet health needs, Adequate arrangements @DC, Adequate self-care, Improved behavior, Improved mood/thought Other Discharge Comments: D/C arrangements will relate to progress and Shweta's ability to care for herself. Preliminary Discharge Plan Preliminary DC Plan: Placement Needed Special Precautions Special Precautions: Agitation/Assault Fall Risk: High Initial D/C Plan To be determined, home vs. placement. Identified Discharge Needs: D/C plan will relate to progress, placement in a skilled facility versus back to mobile home. At current time, Shweta is needing physical asssitance with adl's and would be unsafe to return home alone. Currently Utilized Resources Currently Utilized Resources/P: PCP Referrals Community Resources: Psychiatry and counseling support if available Identified Problems/Hx/Goals Objectives/Short-Term Goals Short Term Goals: Control abnormal behavior, Dec. Aggression, Dec. Hallucination/Delus, Dec. Outbursts, Dec. Symp. Depression, Medication Stabilization, Monitor Med Effects Short Term Goals in Patient's: To get out of the hospital and return to her home. Interventions/Frequency Staff Interventions/Frequency&: Nursing to provide routine safety checks, assessments, medication administration, and adl support. Psychiatry three times weekly. SW visits twice weekly. Recreational activites as Shweta will allow. PT/OT as Shweta will allow. 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 After that, she reported working various jobs. Shweta stated that she was injured at her last job and has been on disability since. Social: Enjoys her cat "Sugar", word puzzles, and doodling. Education: Shweta graduated from [employer]. Community Follow-up PCP Psychiatry and counseling, if available Treatment Plan Explained Patient/Social Professionals had this treatment plan explained to him/her as indicated by the signature below and has been given the opportunity to ask questions and make suggestions: Date: Patient/Social Professionals Signature: Status Update Update Pt is eating 100% of meals and appeared to sleep on average 3.5 hours per night. Pt continues to be irritable, helpless and constantly yelling out for staff 3- 4x per hour. Pt apppears to be quiet during the day but becomes more vocal in the afternoon and more aggressive behaviors. Nursing reports that pt is out of it this morning and somewhat drowsy but okay. Pt did have her morphine decreased and has been getting Tylenol for pain. Pt put herself on the floor on Saturday and felt that staff was not helping her when she needs it. Pt is on Depakote and has a VPA of 74. HYACINTH FRANCE May 23, 2020 13:05
--- NOTE | 2020-05-23 14:25 | NUR ---
SW received a call from pt sister in law, Annamarie and brother Roe to see how pt was doing. SW updated them on pt behaviors and pt continued inability to complete tasks for herself. Annamarie questioned if pt understands that she cannot come home in that condition and SW assures her that staff consistently tells her this and still attempts to get her to do as much for her as she can. Pt appeared to have some delusions about giving her clothes away to one staff stating "I want you to have first dibs before others come". Pt family asked to speak with her and CHUYITA asked them to gauge how pt is in their eyes to see if they are getting a different picture which would help determine for us if this is a behavior or not.
[2020-05-23 15:55] VITALS: BP 111/68
--- NOTE | 2020-05-23 16:19 | NUR ---
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 Target Range for this patient is: 2 -3 P: Warfarin dose: 1 mg Today at 1600 Bridge Therapy: None Next INR due 05/24/20 @ 0600 Pharmacy anticoagulation service will continue to follow. YENY CORRAL [facility], 05/23/20 [id number]
[2020-05-23] MEDS: QUEtiapine 25 MG TABLET. PO SCH (17:18)
[2020-05-23] MEDS ORDERED: WARFARIN 1 MG TABLET. PO ONE (18:00)
[2020-05-23] MEDS: traZODone 100 MG TABLET. PO SCH (20:52)
[2020-05-23] MEDS: SIMVASTATIN 10 MG TABLET PO SCH (20:52)
[2020-05-23] MEDS: LATANOPROST 0.005% OPHTH SOLUTION 2.5ML BOTTLE. OU SCH (20:53)
[2020-05-23] MEDS: INSULIN GLARGINE SYRINGE. SQ SCH (21:00)
--- NOTE | 2020-05-23 21:09 | PDOC ---
Exam Note: Joseph Note: Please also refer to the separate dictated note~for this date of service dictated separately.~Patient seen individually. Discussed the patient with Nursing staff reviewed the chart.~Reviewed interim history and current functioning. Reviewed vital signs,~Labs/ Radiology~and current medications noted below. Continue current treatment with the changes noted in the dictated addendum note Assessment: Vital Signs/I&O: Vital Signs Date Time Temp Pulse Resp B/P (MAP) Pulse Ox O2 Delivery O2 Flow Rate FiO2 05/23/20 17:19 69 111/68 05/23/20 15:55 98.2 19 95 05/23/20 06:12 Room Air I & O 05/22/20 05/22/20 05/23/20 14:59 22:59 06:59 Intake Total 480 ml 360 ml Balance 480 ml 360 ml Labs: Laboratory Tests Test 05/23/20 05:39 05/23/20 08:09 05/23/20 11:58 05/23/20 16:36 White Blood Count 7.9 x10^3/uL (4.0-11.0) Red Blood Count 3.78 x10^6/uL (3.50-5.40) Hemoglobin 9.6 g/dL (12.0-15.5) L Hematocrit 31.2 % (36.0-47.0) L Mean Corpuscular Volume 82 fL (79-100) Mean Corpuscular Hemoglobin 25 pg (25-35) Mean Corpuscular Hemoglobin Concent 31 g/dL (31-37) Red Cell Distribution Width 15.9 % (11.5-14.5) H Platelet Count 273 x10^3/uL (140-400) Neutrophils (%) (Auto) 61 % (31-73) Lymphocytes (%) (Auto) 27 % (24-48) Monocytes (%) (Auto) 8 % (0-9) Eosinophils (%) (Auto) 4 % (0-3) H Basophils (%) (Auto) 1 % (0-3) Neutrophils # (Auto) 4.8 x10^3uL (1.8-7.7) Lymphocytes # (Auto) 2.2 x10^3/uL (1.0-4.8) Monocytes # (Auto) 0.6 x10^3/uL (0.0-1.1) Eosinophils # (Auto) 0.3 x10^3/uL (0.0-0.7) Basophils # (Auto) 0.1 x10^3/uL (0.0-0.2) Prothrombin Time 26.3 SEC (9.4-11.4) H Prothrombin Time INR 2.6 (0.9-1.1) H Sodium Level 138 mmol/L (136-145) Potassium Level 4.4 mmol/L (3.5-5.1) Chloride Level 103 mmol/L (98-107) Carbon Dioxide Level 29 mmol/L (21-32) Anion Gap 6 (6-14) Blood Urea Nitrogen 35 mg/dL (7-20) H Creatinine 1.3 mg/dL (0.6-1.0) H Estimated GFR (Cockcroft-Gault) 41.5 BUN/Creatinine Ratio 27 (6-20) H Glucose Level 137 mg/dL (70-99) H Calcium Level 8.6 mg/dL (8.5-10.1) Total Bilirubin 0.2 mg/dL (0.2-1.0) Aspartate Amino Transferase (AST) 12 U/L (15-37) L Alanine Aminotransferase (ALT) 13 U/L (14-59) L Alkaline Phosphatase 34 U/L (46-116) L Ammonia 17 mcmol/L (11-34) Total Protein 6.5 g/dL (6.4-8.2) Albumin 2.2 g/dL (3.4-5.0) L Albumin/Globulin Ratio 0.5 (1.0-1.7) L Valproic Acid Level 74 mcg/mL (50-100) Valproic Acid Last Dose Date 05/22/2020 Valproic Acid Last Dose Time 2100 Glucose (Fingerstick) 140 mg/dL (70-99) H 167 mg/dL (70-99) H 209 mg/dL (70-99) H Test 05/23/20 19:40 Glucose (Fingerstick) 246 mg/dL (70-99) H Current Medications: Meds: Current Medications Medications (Trade) Dose Ordered Sig/Jayant Route PRN Reason Start Time Stop Time Status Last Admin Dose Admin Warfarin Sodium (Coumadin) 1 mg 1X WARF ONCE PO 05/23/20 18:00 05/23/20 18:01 DC 05/23/20 17:47 I have reviewed the current psychotropics carefully including drug interactions. Risk benefit ratio favors no change other than as noted in my dictated progress note. Diagnosis: Problems: (1) Psychotic disorder (2) Major depressive disorder (3) Personality disorder, unspecified (4) Bipolar disorder with psychotic features ADELSO LOVE MD May 23, 2020 21:09
--- NOTE | 2020-05-23 22:49 | NUR ---
Pt yelling out from her bed at the start of shift. Pt then witnessed by EDUCATION REP ambulating herself from her bed to the bathroom with her walker. After using the toilet, pt put herself on the floor. Pt found on the floor in the bathroom sitting on her bottom, facing the toilet with feces all over her legs and bottom. Pt yelling out and repeatedly pressing the call light. Pt refusing to help get herself off of the floor after much coaxing from staff. Pt given the option to assist staff with standing up, sitting in her wheelchair and going to bed or pt could continue to stay on the floor and staff x4 would assist pt to the mat on the floor where she would sleep all night. Pt chose the latter. Staff assisted pt to the mat, cleaned and changed pt. During this time, pt continuously yelling out. Pt currently sleeping on the mat for her safety in her room. Will continue to monitor.
--- NOTE | 2020-05-24 02:08 | NUR ---
Pt yelling out from her room. When approached, pt stated that she needed to use the bathroom. Pt refused to assist staff in standing to go to the restroom so pt was given a bedpan to use. Pt was on bedpan for approx 15 minutes with staff checking on her intermittenly; however pt did not void in the bedpan. Pt continued to yell out. Staff went back in to check on pt and found that pt urinated all over the mat that she was sleeping on, stating that she "doesn't know when she has to urinate." Pt and mat cleaned. Pt currently yelling continuously from her room at this time.
--- NOTE | 2020-05-24 06:15 | NUR ---
Pt extremely combative this morning during lab draw. Pt screaming, flailing her arms and attempting to hit staff. Staff x2 assisted with the lab draw.
[2020-05-24 06:32] VITALS: BP 149/67
--- NOTE | 2020-05-24 07:57 | PDOC ---
Exam Note: Joseph Note: This note is a late entry for 05/23/2020 covers elements not covered in my initial note. Subjective: The patient was reviewed on telehealth rounds in the morning of 05/23/2020 for treatment team meeting with Meliza (social services assistant), Emely, activity therapy, and Leena RN. [facility] up the unit for admission and discharges following quarantine for Covid-19 exposure. Discussed with nursing staff, reviewed the chart. The patient slept for 5-1/2 hours previous night. Valproic aid level is therapeutic at 74. She still gets somewhat demanding, yelling but this is better. She did have conversation with her brother and [id number] and per nursing report has done much better since then for the rest of the day. Review of Systems: Impaired ambulation in wheelchair. No CV, , pulmonary, eye, ENT system symptoms on review per nursing observation. Mental Status Exam: The patient is reasonably oriented as before. Speech is coherent, rapid at times. Abstraction is fair. Computation is impaired. Language function is intact. Mood and affect is labile at times and anxious. No suicidal or homicidal ideation all per staff assessment. Laboratory Data: Reviewed. Impression: Bipolar disorder unspecified. Major depressive disorder. Anxiety disorder unspecified. Impulse control disorder unspecified. Personality disorder unspecified. Plan: Continue current psychotropics. Maintain Depakote at current dosage, level therapeutic. May need to increase Seroquel depending on her progress. Assessment: Vital Signs/I&O: Vital Signs Date Time Temp Pulse Resp B/P (MAP) Pulse Ox O2 Delivery O2 Flow Rate FiO2 05/24/20 06:32 98.3 67 18 149/67 (94) 100 05/23/20 06:12 Room Air I & O 05/23/20 05/23/20 05/24/20 15:00 23:00 07:00 Intake Total 930 ml 580 ml Balance 930 ml 580 ml Labs: Laboratory Tests Test 05/23/20 08:09 05/23/20 11:58 05/23/20 16:36 05/23/20 19:40 Glucose (Fingerstick) 140 mg/dL (70-99) H 167 mg/dL (70-99) H 209 mg/dL (70-99) H 246 mg/dL (70-99) H Test 05/24/20 05:43 Prothrombin Time 19.3 SEC (9.4-11.4) H Prothrombin Time INR 1.9 (0.9-1.1) H Current Medications: Meds: Current Medications Medications (Trade) Dose Ordered Sig/Jayant Route PRN Reason Start Time Stop Time Status Last Admin Dose Admin Warfarin Sodium (Coumadin) 1 mg 1X WARF ONCE PO 05/23/20 18:00 05/23/20 18:01 DC 05/23/20 17:47 I have reviewed the current psychotropics carefully including drug interactions. Risk benefit ratio favors no change other than as noted in my dictated progress note. Diagnosis: Problems: (1) Psychotic disorder (2) Major depressive disorder (3) Personality disorder, unspecified (4) Bipolar disorder with psychotic features ADELSO LOVE MD May 24, 2020 07:57
[2020-05-24] MEDS: FENOFIBRATE NANOCRYSTALLIZED 145 MG TABLET PO SCH (09:09)
[2020-05-24] MEDS: QUEtiapine 50 MG TABLET. PO SCH ×3 (09:09→19:22)
[2020-05-24] MEDS: LISINOPRIL 20 MG TABLET PO SCH (09:09)
[2020-05-24] MEDS: GABAPENTIN 300 MG CAPSULE. PO SCH ×3 (09:09→19:22)
[2020-05-24] MEDS: MAGNESIUM OXIDE 400 MG TABLET PO SCH (09:10)
[2020-05-24] MEDS: MORPHINE ER 15 MG TABLET.ER PO SCH (09:10)
--- NOTE | 2020-05-24 09:10 | NUR ---
Patient has been agitated, repeatedly calling out, attention seeking, and helpless since shift change. When staff attempt to help her off the mattress on the floor and into her bed, she continually accused staff of hurting her; at one point she accused a staff member of dislocating her shoulder. Patient refused to help in transferring her up off the floor, eventually a robbin was used to prevent injury to staff. Patient states she pays $4000 a month to stay here. Scheduled and prn medication provided per eMAR; will continue to monitor.
[2020-05-24] MEDS: CARVEDILOL 12.5 MG TABLET PO SCH ×2 (09:11→17:05)
[2020-05-24] MEDS: TIMOLOL 0.5% OPHTH SOLUTION 5ML BOTTLE. OU SCH ×2 (09:11→19:23)
[2020-05-24] MEDS: LEVOTHYROXINE 50 MCG TABLET PO SCH (09:11)
[2020-05-24] MEDS: DIVALPROEX ER 500 MG TAB.ER.24H PO SCH ×2 (09:11→19:22)
[2020-05-24] MEDS: INSULIN LISPRO 300 UNITS/3 ML VIAL. SQ SCH ×3 (09:12→17:07)
[2020-05-24] MEDS: LORazepam 0.5 MG TABLET PO PRN (09:13)
--- NOTE | 2020-05-24 12:35 | NUR ---
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 Target Range for this patient is: 2 -3 P: Warfarin dose: 1 mg Today at 1600 Bridge Therapy: None Next INR due 05/25/20 @ 0600 Pharmacy anticoagulation service will continue to follow. YEYN CORRAL [facility], 05/24/20 [id number]
--- NOTE | 2020-05-24 15:30 | NUR ---
Staff report that patient told them that she was in the kitchen and had just baked and decorated a cake. They report that patient appears more confused than usual for her. Will report to MD during rounds and continue to monitor.
[2020-05-24 15:58] VITALS: BP 101/59
[2020-05-24] MEDS ORDERED: WARFARIN 1 MG TABLET. PO ONE (16:00)
[2020-05-24] MEDS: QUEtiapine 25 MG TABLET. PO SCH (17:05)
[2020-05-24 18:39] LABS: BILIRUBIN,URINE NEG (NEG); CLARITY,URINE CLEAR; COLOR,URINE YELLOW; GLUCOSE,URINE 100 mg/dL (NEG); NITRITE,URINE NEG (NEG); UROBILINOGEN,URINE 0.2 mg/dL (0.2 mg/dL)
[2020-05-24 18:40] LABS: BACTERIA,URINE 0 /HPF (0-FEW)
[2020-05-24] MEDS: traZODone 100 MG TABLET. PO SCH (19:22)
[2020-05-24] MEDS: SIMVASTATIN 10 MG TABLET PO SCH (19:22)
[2020-05-24] MEDS: LATANOPROST 0.005% OPHTH SOLUTION 2.5ML BOTTLE. OU SCH (19:24)
--- NOTE | 2020-05-24 20:54 | PDOC ---
Exam Note: Joseph Note: Please also refer to the separate dictated note~for this date of service dictated separately.~Patient seen individually. Discussed the patient with Nursing staff reviewed the chart.~Reviewed interim history and current functioning. Reviewed vital signs,~Labs/ Radiology~and current medications noted below. Continue current treatment with the changes noted in the dictated addendum note Assessment: Vital Signs/I&O: Vital Signs Date Time Temp Pulse Resp B/P (MAP) Pulse Ox O2 Delivery O2 Flow Rate FiO2 05/24/20 17:05 69 101/59 05/24/20 15:58 98.6 20 98 Room Air I & O 05/23/20 05/23/20 05/24/20 15:00 23:00 07:00 Intake Total 930 ml 580 ml Balance 930 ml 580 ml Labs: Laboratory Tests Test 05/24/20 05:43 05/24/20 07:29 05/24/20 12:15 05/24/20 16:55 Prothrombin Time 19.3 SEC (9.4-11.4) H Prothrombin Time INR 1.9 (0.9-1.1) H Glucose (Fingerstick) 174 mg/dL (70-99) H 172 mg/dL (70-99) H 156 mg/dL (70-99) H Test 05/24/20 18:08 05/24/20 20:00 Urine Collection Type Unknown Urine Color Yellow Urine Clarity Clear Urine pH 5.5 Urine Specific [place] >=1.030 Urine Protein >100 mg/dl (NEG-TRACE) Urine Glucose (UA) 100 mg/dL (NEG) Urine Ketones (Stick) Neg mg/dL (NEG) Urine Blood Trace (NEG) Urine Nitrite Neg (NEG) Urine Bilirubin Neg (NEG) Urine Urobilinogen Dipstick 0.2 mg/dL (0.2 mg/dL) Urine Leukocyte Esterase Neg (NEG) Urine RBC 3-5 /HPF (0-2) Urine WBC 5-10 /HPF (0-4) Urine Squamous Epithelial Cells None /LPF Urine Bacteria 0 /HPF (0-FEW) Glucose (Fingerstick) 171 mg/dL (70-99) H Current Medications: Meds: Current Medications Medications (Trade) Dose Ordered Sig/Jayant Route PRN Reason Start Time Stop Time Status Last Admin Dose Admin Warfarin Sodium (Coumadin) 1 mg 1X WARF ONCE PO 05/24/20 16:00 05/24/20 16:01 DC 05/24/20 17:05 I have reviewed the current psychotropics carefully including drug interactions. Risk benefit ratio favors no change other than as noted in my dictated progress note. Diagnosis: Problems: (1) Psychotic disorder (2) Major depressive disorder (3) Personality disorder, unspecified (4) Bipolar disorder with psychotic features ADELSO LOVE MD May 24, 2020 20:54
[2020-05-24] MEDS: INSULIN GLARGINE SYRINGE. SQ SCH (21:00)
[2020-05-24] MEDS: traZODone 100 MG TABLET. PO PRN (23:24)
--- NOTE | 2020-05-25 01:24 | NUR ---
Nursing Note The patient remained in her room this shift. The patient was very resistive to self cares and became belligerent with staff when asked to do as much as possible for herself. The patient took her medication whole. The patient received PRN Trazodone@[id number] per prn order.
[2020-05-25] MEDS: LEVOTHYROXINE 50 MCG TABLET PO SCH (05:50)
[2020-05-25 06:06] VITALS: BP 101/62
[2020-05-25] MEDS: FENOFIBRATE NANOCRYSTALLIZED 145 MG TABLET PO SCH (08:08)
[2020-05-25] MEDS: MAGNESIUM OXIDE 400 MG TABLET PO SCH (08:08)
[2020-05-25] MEDS: LISINOPRIL 20 MG TABLET PO SCH (08:08)
[2020-05-25] MEDS: QUEtiapine 50 MG TABLET. PO SCH ×3 (08:09→20:38)
[2020-05-25] MEDS: DIVALPROEX ER 500 MG TAB.ER.24H PO SCH ×2 (08:09→20:38)
[2020-05-25] MEDS: CARVEDILOL 12.5 MG TABLET PO SCH ×2 (08:09→17:37)
[2020-05-25] MEDS: GABAPENTIN 300 MG CAPSULE. PO SCH ×3 (08:12→20:38)
[2020-05-25] MEDS: MORPHINE ER 15 MG TABLET.ER PO SCH (08:13)
[2020-05-25] MEDS: TIMOLOL 0.5% OPHTH SOLUTION 5ML BOTTLE. OU SCH ×2 (08:14→20:38)
[2020-05-25] MEDS: INSULIN LISPRO 300 UNITS/3 ML VIAL. SQ SCH ×3 (08:22→17:38)
[2020-05-25] MEDS: LORazepam 0.5 MG TABLET PO PRN ×2 (09:56→14:25)
--- NOTE | 2020-05-25 09:56 | NUR ---
Patient repeatedly calling out for help, states that a man fell in the doorway to her room. Informed patient that no one is on the floor in her room or in the hallway outside her room, she was then anxious and shaking. Provided prn medications per eMAR, will report to MD during rounds and continue to monitor.
--- NOTE | 2020-05-25 10:00 | PDOC ---
Exam Note: Joseph Note: This note is a late entry for 05/24/2020 covers elements not covered in my initial note. Subjective: The patient was reviewed on telehealth rounds in the evening of 05/24/2020 with Alli CORRAL. Discussed with nursing staff, reviewed the chart. The patient slept for 2-3/4 hours previous night. He has appeared helpless, demanding of staff. Last night she out herself on the bathroom floor, had bowel movement on the floor. She does better after she has a conversation with her brother and [id number] and nursing staff will discuss how to coordinate this on a daily basis. She was in bed in the evening and my note per nursing observations and assessments during the day. Review of Systems: Impaired ambulation in wheelchair. No CV, , pulmonary, eye, ENT system symptoms on review. Mental Status Exam: The patient is oriented to herself and situation. Speech has some latency, coherent. Abstraction is fair. Computation is impaired. Matthew guage function is intact. Mood and affect somewhat anxious at times, labile. No suicidal or homicidal ideation. Laboratory Data: Reviewed. Impression: Bipolar disorder unspecified. Major depressive disorder. Anxiety disorder unspecified. Impulse control disorder unspecified. Personality disorder unspecified. Plan: Continue current psychotropics. No change from initial note. Valproic acid level is therapeutic at 74. We may need to increase Seroquel in due course if mood lability persists. Assessment: Vital Signs/I&O: Vital Signs Date Time Temp Pulse Resp B/P (MAP) Pulse Ox O2 Delivery O2 Flow Rate FiO2 05/25/20 08:13 18 92 Room Air 05/25/20 08:09 65 101/62 05/25/20 06:06 97.9 I & O 05/24/20 05/24/20 05/25/20 15:00 23:00 07:00 Intake Total 240 ml 580 ml Balance 240 ml 580 ml Labs: Laboratory Tests Test 05/24/20 12:15 05/24/20 16:55 05/24/20 18:08 05/24/20 20:00 Glucose (Fingerstick) 172 mg/dL (70-99) H 156 mg/dL (70-99) H 171 mg/dL (70-99) H Urine Collection Type Unknown Urine Color Yellow Urine Clarity Clear Urine pH 5.5 Urine Specific [place] >=1.030 Urine Protein >100 mg/dl (NEG-TRACE) Urine Glucose (UA) 100 mg/dL (NEG) Urine Ketones (Stick) Neg mg/dL (NEG) Urine Blood Trace (NEG) Urine Nitrite Neg (NEG) Urine Bilirubin Neg (NEG) Urine Urobilinogen Dipstick 0.2 mg/dL (0.2 mg/dL) Urine Leukocyte Esterase Neg (NEG) Urine RBC 3-5 /HPF (0-2) Urine WBC 5-10 /HPF (0-4) Urine Squamous Epithelial Cells None /LPF Urine Bacteria 0 /HPF (0-FEW) Test 05/25/20 07:26 05/25/20 07:45 Glucose (Fingerstick) 147 mg/dL (70-99) H Prothrombin Time 18.5 SEC (9.4-11.4) H Prothrombin Time INR 1.8 (0.9-1.1) H Current Medications: Meds: Current Medications Medications (Trade) Dose Ordered Sig/Jayant Route PRN Reason Start Time Stop Time Status Last Admin Dose Admin Warfarin Sodium (Coumadin) 1 mg 1X WARF ONCE PO 05/24/20 16:00 05/24/20 16:01 DC 05/24/20 17:05 I have reviewed the current psychotropics carefully including drug interactions. Risk benefit ratio favors no change other than as noted in my dictated progress note. Diagnosis: Problems: (1) Psychotic disorder (2) Major depressive disorder (3) Personality disorder, unspecified (4) Bipolar disorder with psychotic features ADELSO LOVE MD May 25, 2020 10:00
--- NOTE | 2020-05-25 10:22 | NUR ---
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 Patient had been on 1.5mg daily, then had a dose held 3 days ago for an INR climb from 2.4 to 2.9. INR has continued to trend down on 1mg daily. We will resume 1.5mg dose for today to get her therapeutic and continue to monitor. P: Warfarin dose: 1.5 Today at 1600 Bridge Therapy: None Next INR due 05/26 Pharmacy anticoagulation service will continue to follow. GREGORIA SWANSON, 05/25/20 1022
[2020-05-25] MEDS: ACETAMINOPHEN 325 MG TABLET PO PRN (14:25)
--- NOTE | 2020-05-25 15:31 | NUR ---
Wound/Ostomy Care Wound Type/Assessment: Pt seen for follow up wound care. Pt has stage III PU to coccyx. Complete head to toe assessment completed. Wound cleansed, assessed, measured, and pictured. Wound bed is slough covered with some pale pink wound bed, wound appears to be improving since last wound care assessment. Treatment Recommendations/Plan: Wound redressed with Hydrocolloid and foam dressing. Change every 2-3 days or if dressing becomes soiled. Ensure side laying while in bed as much as possible, wheelchair cushion is in pt's wheelchair at this time. Pt is able to stand using walker and assistance. Education provided: Pt educated on PU prevention and dressing changes. Offloading surface/device: wheelchair cushion provided Recommended Referrals/Tests: none Discharge Recommendations for dressings: continue current at this time. No other wounds noted. Pt has very dry skin to bilateral lower extremities, encouraged the use of lotion. Dressing change instructions left in chart at nurses station. Wound care will follow up next week.
[2020-05-25 15:49] VITALS: BP 106/62
[2020-05-25] MEDS ORDERED: WARFARIN 3 MG TABLET. PO ONE (16:00)
[2020-05-25] MEDS: QUEtiapine 25 MG TABLET. PO SCH (17:36)
[2020-05-25] MEDS: LATANOPROST 0.005% OPHTH SOLUTION 2.5ML BOTTLE. OU SCH (20:38)
[2020-05-25] MEDS: traZODone 100 MG TABLET. PO SCH (20:38)
[2020-05-25] MEDS: SIMVASTATIN 10 MG TABLET PO SCH (20:39)
[2020-05-25] MEDS: MIRTAZAPINE 7.5 MG TABLET. PO SCH (20:39)
[2020-05-25] MEDS: INSULIN GLARGINE SYRINGE. SQ SCH (21:00)
--- NOTE | 2020-05-26 05:25 | NUR ---
Nursing Note The patient was more calm and cooperative this shift. The patient was compliant with her medications and her assessment. The patient had several episodes of yelling at staff this shift when asked to preform self care.
[2020-05-26 06:02] VITALS: BP 109/68
[2020-05-26] MEDS: LEVOTHYROXINE 50 MCG TABLET PO SCH (06:21)
[2020-05-26] MEDS: DIVALPROEX ER 500 MG TAB.ER.24H PO SCH ×2 (08:48→19:28)
[2020-05-26] MEDS: TIMOLOL 0.5% OPHTH SOLUTION 5ML BOTTLE. OU SCH ×2 (08:48→19:29)
[2020-05-26] MEDS: QUEtiapine 50 MG TABLET. PO SCH ×3 (08:48→19:28)
[2020-05-26] MEDS: CARVEDILOL 12.5 MG TABLET PO SCH ×2 (08:48→16:30)
[2020-05-26] MEDS: LISINOPRIL 20 MG TABLET PO SCH (08:48)
[2020-05-26] MEDS: MORPHINE ER 15 MG TABLET.ER PO SCH (08:50)
[2020-05-26] MEDS: INSULIN LISPRO 300 UNITS/3 ML VIAL. SQ SCH ×3 (08:50→17:09)
[2020-05-26] MEDS: FENOFIBRATE NANOCRYSTALLIZED 145 MG TABLET PO SCH (09:02)
[2020-05-26] MEDS: GABAPENTIN 300 MG CAPSULE. PO SCH ×3 (09:02→19:28)
[2020-05-26] MEDS: CHOLECALCIFEROL (VITAMIN D3) 50,000 UNIT CAPSULE PO SCH (09:03)
[2020-05-26] MEDS: MAGNESIUM OXIDE 400 MG TABLET PO SCH (09:04)
[2020-05-26] MEDS: LORazepam 0.5 MG TABLET PO PRN ×2 (10:49→13:52)
--- NOTE | 2020-05-26 13:44 | NUR ---
Pharmacy Warfarin Dosing Note S:Pharmacy consulted to assist with anticoagulation therapy started 05/14/20 with target INR: 2 -3 O:REBA LINDSAY is a 60 year old F with DVT/PE DVT HISTORY LABS: Last INR: 2.2 Last HGB: 9.6 Last HCT: 31.2 Last PLT: 273 Last dose of 1.5MG given on 05/25/20 at 1600 Previous Regimen: 3.5mg daily Vitamin K given: N Drug Interaction Changes: Same Interacting Drug Ongoing Drug Interactions: fenofibrate, venlafaxine A:INR Within desired Range. Target Range for this patient is: 2 -3 P: Warfarin dose: 1 mg Today at 1600 Bridge Therapy: None Next INR due 05/27/20 @ 0600 Pharmacy anticoagulation service will continue to follow. YENY CORRAL [facility], 05/26/20 [id number]
[2020-05-26] MEDS: ACETAMINOPHEN 325 MG TABLET PO PRN (13:52)
[2020-05-26] MEDS ORDERED: WARFARIN 1 MG TABLET. PO ONE (16:00)
[2020-05-26] MEDS: QUEtiapine 25 MG TABLET. PO SCH (16:29)
--- NOTE | 2020-05-26 17:42 | NUR ---
Patient is alert and oriented with no complaints. Sitting on edge of bed at time of assessment eating breakfast. Patient is calm and cooperative and takes medications whole fine. No further concerns or complaints at this time.
[2020-05-26 18:19] VITALS: BP 128/68
[2020-05-26] MEDS: SIMVASTATIN 10 MG TABLET PO SCH (19:27)
[2020-05-26] MEDS: traZODone 100 MG TABLET. PO SCH (19:28)
[2020-05-26] MEDS: MIRTAZAPINE 7.5 MG TABLET. PO SCH (19:28)
[2020-05-26] MEDS: LATANOPROST 0.005% OPHTH SOLUTION 2.5ML BOTTLE. OU SCH (19:28)
[2020-05-26] MEDS: INSULIN GLARGINE SYRINGE. SQ SCH (21:00)
--- NOTE | 2020-05-26 22:27 | PDOC ---
Exam Note: Joseph Note: This is a late entry for 05/25/2020. Please also refer to the separate dictated note~for this date of service dictated separately.~Patient seen individually. Discussed the patient with Nursing staff reviewed the chart.~Reviewed interim history and current functioning. Reviewed vital signs,~Labs/ Radiology~and cur rent medications noted below. Continue current treatment with the changes noted in the dictated addendum note Assessment: Vital Signs/I&O: Vital Signs Date Time Temp Pulse Resp B/P (MAP) Pulse Ox O2 Delivery O2 Flow Rate FiO2 05/26/20 18:19 98.4 72 22 128/68 (88) 97 05/26/20 06:02 Room Air I & O 05/25/20 05/25/20 05/26/20 15:00 23:00 07:00 Intake Total 960 ml 720 ml Balance 960 ml 720 ml Labs: Laboratory Tests Test 05/26/20 06:02 05/26/20 07:52 05/26/20 11:54 05/26/20 17:00 Prothrombin Time 22.3 SEC (9.4-11.4) H Prothrombin Time INR 2.2 (0.9-1.1) H Glucose (Fingerstick) 109 mg/dL (70-99) H 203 mg/dL (70-99) H 188 mg/dL (70-99) H Test 05/26/20 19:20 Glucose (Fingerstick) 164 mg/dL (70-99) H Current Medications: Meds: Current Medications Medications (Trade) Dose Ordered Sig/Jayant Route PRN Reason Start Time Stop Time Status Last Admin Dose Admin Warfarin Sodium (Coumadin) 1 mg 1X WARF ONCE PO 05/26/20 16:00 05/26/20 16:01 DC 05/26/20 16:29 I have reviewed the current psychotropics carefully including drug interactions. Risk benefit ratio favors no change other than as noted in my dictated progress note. Diagnosis: Problems: (1) Psychotic disorder (2) Major depressive disorder (3) Personality disorder, unspecified (4) Bipolar disorder with psychotic features ADELSO LOVE MD May 26, 2020 22:27
--- NOTE | 2020-05-26 22:27 | PDOC ---
Exam Note: Joseph Note: Please also refer to the separate dictated note~for this date of service dictated separately.~Patient seen individually. Discussed the patient with Nursing staff reviewed the chart.~Reviewed interim history and current functioning. Reviewed vital signs,~Labs/ Radiology~and current medications noted below. Continue current treatment with the changes noted in the dictated addendum note Assessment: Vital Signs/I&O: Vital Signs Date Time Temp Pulse Resp B/P (MAP) Pulse Ox O2 Delivery O2 Flow Rate FiO2 05/26/20 18:19 98.4 72 22 128/68 (88) 97 05/26/20 06:02 Room Air I & O 05/25/20 05/25/20 05/26/20 15:00 23:00 07:00 Intake Total 960 ml 720 ml Balance 960 ml 720 ml Labs: Laboratory Tests Test 05/26/20 06:02 05/26/20 07:52 05/26/20 11:54 05/26/20 17:00 Prothrombin Time 22.3 SEC (9.4-11.4) H Prothrombin Time INR 2.2 (0.9-1.1) H Glucose (Fingerstick) 109 mg/dL (70-99) H 203 mg/dL (70-99) H 188 mg/dL (70-99) H Test 05/26/20 19:20 Glucose (Fingerstick) 164 mg/dL (70-99) H Current Medications: Meds: Current Medications Medications (Trade) Dose Ordered Sig/Jayant Route PRN Reason Start Time Stop Time Status Last Admin Dose Admin Warfarin Sodium (Coumadin) 1 mg 1X WARF ONCE PO 05/26/20 16:00 05/26/20 16:01 DC 05/26/20 16:29 I have reviewed the current psychotropics carefully including drug interactions. Risk benefit ratio favors no change other than as noted in my dictated progress note. Diagnosis: Problems: (1) Psychotic disorder (2) Major depressive disorder (3) Personality disorder, unspecified (4) Bipolar disorder with psychotic features ADELSO LOVE MD May 26, 2020 22:27
--- NOTE | 2020-05-26 22:50 | NUR ---
Nursing Note The patient was located in her room for her assessment and medication pass. The patient continues to become agitated and verbally abusive with staff when asked to preform self cares. The patient took her medication whole.
[2020-05-27] MEDS: traZODone 100 MG TABLET. PO PRN ×2 (00:07→23:22)
[2020-05-27 05:07] VITALS: BP 130/84
[2020-05-27] MEDS: LEVOTHYROXINE 50 MCG TABLET PO SCH (06:03)
--- NOTE | 2020-05-27 07:57 | PDOC ---
Exam Note: Joseph Note: This note is a late entry for 05/25/2020 covers elements not covered in my initial note. Subjective: The patient was reviewed on telehealth rounds in the evening of 05/25/2020 with Greg CORRAL. Discussed with nursing staff, reviewed the chart. The patient slept for 2-3/4 hours previous night. She has had a very difficulty day. She has been yelling frequently wanting assistance, appearing helpless. Nursing staff have explained to her that she is able to do certain things but she refuses to do for herself, even thinks she can. Previously talking to her brother and [id number] seemed to have helped some of this. In fact nursing staff feels she slept even less than 2-3/4 hours which is documented for previous night even despite her second dose of trazodone. She was agitated in the daytime. Received Ativan and Zyprexa at 10 a.m. At one point she felt someone had fallen on the floor outside her room and there was no one there. She denies it was hallucination however as I questioned her on this during the telehealth rounds. She received Ativan at 2.30 p.m. along with Tylenol. Review of Systems: Impaired ambulation in wheelchair. No CV, , pulmonary, eye, ENT system symptoms on review. She has vague somatic symptoms. Mental Status Exam: The patient is reasonably oriented. Speech coherent, rapid at times. We had a lengthy discussion about some of her above behaviors. She rationalizes, minimizes much of this and blames the nursing staff for not assisting it. Abstraction is fair. Computation is impaired. Attention span is short. Language function is intact. Mood and affect somewhat anxious at times, labile. No clear suicidal or homicidal ideation. We discussed how she wants to go home and will not have 24 hours a day, 7 days a week care while she is there and she should push herself to do as much as she can. She again gets irritable about this. We did discuss her discharge plans and placement and she is rather impatient, not waiting to discuss this further with her family and social service staff. Laboratory Data: Reviewed. Impression: Bipolar disorder unspecified. Major depressive disorder. Anxiety disorder unspecified. Impulse control disorder unspecified. Personality disorder unspecified. Plan: Continue current psychotropics but we will go ahead and add Remeron 7.5 mg p.o. h.s. both for her insomnia and to assist with her mood and anxiety symptoms. Valproic acid level is therapeutic at 74. Continue rest of the psy chotropics per initial note. Assessment: Vital Signs/I&O: Vital Signs Date Time Temp Pulse Resp B/P (MAP) Pulse Ox O2 Delivery O2 Flow Rate FiO2 05/27/20 05:07 98.3 66 16 130/84 (99) 98 05/26/20 06:02 Room Air I & O 05/26/20 05/26/20 05/27/20 15:00 23:00 07:00 Intake Total 720 ml 480 ml Balance 720 ml 480 ml Labs: Laboratory Tests Test 05/26/20 11:54 05/26/20 17:00 05/26/20 19:20 05/27/20 07:09 Glucose (Fingerstick) 203 mg/dL (70-99) H 188 mg/dL (70-99) H 164 mg/dL (70-99) H Prothrombin Time 25.4 SEC (9.4-11.4) H Prothrombin Time INR 2.5 (0.9-1.1) H Current Medications: Meds: Current Medications Medications (Trade) Dose Ordered Sig/Jayant Route PRN Reason Start Time Stop Time Status Last Admin Dose Admin Warfarin Sodium (Coumadin) 1 mg 1X WARF ONCE PO 05/26/20 16:00 05/26/20 16:01 DC 05/26/20 16:29 I have reviewed the current psychotropics carefully including drug interactions. Risk benefit ratio favors no change other than as noted in my dictated progress note. Diagnosis: Problems: (1) Psychotic disorder (2) Major depressive disorder (3) Personality disorder, unspecified (4) Bipolar disorder with psychotic features ADELSO LOVE MD May 27, 2020 07:57
[2020-05-27] MEDS: INSULIN LISPRO 300 UNITS/3 ML VIAL. SQ SCH ×3 (08:00→17:10)
--- NOTE | 2020-05-27 08:19 | PDOC ---
Exam Note: Joseph Note: This note is a late entry for 05/26/2020 covers elements not covered in my initial note. Subjective: The patient was reviewed on telehealth rounds in the evening of 05/26/2020 with Leena CORRAL. Discussed with nursing staff, reviewed the chart. The patient slept for 3-1/2 hours previous night. Reportedly the patient has been half way decent per nursing report. She is still wanting nursing staff to help her even for things she can do herself. I addressed this with her and she has limited insight into this. Review of Systems: Impaired ambulation in wheelchair. No CV, , pulmonary, eye, ENT system symptoms on review. Mental Status Exam: The patient is reasonably oriented. She was a little more pleasant, cooperative. Speech coherent, quite less intrusive but demanding to speak to her sister this evening. Nursing staff will find an appropriate opportunity for this. Abstraction is fair. Computation is impaired. Attention span is short. Language function is intact. Mood and affect somewhat anxious at times, labile. No clear suicidal or homicidal ideation. Laboratory Data: Reviewed. Impression: Bipolar disorder unspecified. Major depressive disorder. Anxiety disorder unspecified. Impulse control disorder unspecified. Personality disorder unspecified. Plan: Continue current psychotropics. Valproic acid level is therapeutic. Maintain Remeron and Seroquel at current dosage. Assessment: Vital Signs/I&O: Vital Signs Date Time Temp Pulse Resp B/P (MAP) Pulse Ox O2 Delivery O2 Flow Rate FiO2 05/27/20 05:07 98.3 66 16 130/84 (99) 98 05/26/20 06:02 Room Air I & O 05/26/20 05/26/20 05/27/20 15:00 23:00 07:00 Intake Total 720 ml 480 ml Balance 720 ml 480 ml Labs: Laboratory Tests Test 05/26/20 11:54 05/26/20 17:00 05/26/20 19:20 05/27/20 07:09 Glucose (Fingerstick) 203 mg/dL (70-99) H 188 mg/dL (70-99) H 164 mg/dL (70-99) H Prothrombin Time 25.4 SEC (9.4-11.4) H Prothrombin Time INR 2.5 (0.9-1.1) H Test 05/27/20 07:43 Glucose (Fingerstick) 131 mg/dL (70-99) H Current Medications: Meds: Current Medications Medications (Trade) Dose Ordered Sig/Jayant Route PRN Reason Start Time Stop Time Status Last Admin Dose Admin Warfarin Sodium (Coumadin) 1 mg 1X WARF ONCE PO 05/26/20 16:00 05/26/20 16:01 DC 05/26/20 16:29 I have reviewed the current psychotropics carefully including drug interactions. Risk benefit ratio favors no change other than as noted in my dictated progress note. Diagnosis: Problems: (1) Psychotic disorder (2) Major depressive disorder (3) Personality disorder, unspecified (4) Bipolar disorder with psychotic features ADELSO LOVE MD May 27, 2020 08:19
[2020-05-27] MEDS: TIMOLOL 0.5% OPHTH SOLUTION 5ML BOTTLE. OU SCH ×2 (09:00→21:00)
[2020-05-27] MEDS: cloNIDine TTS-1 1 PATCH PATCH TD SCH (09:00)
[2020-05-27] MEDS: CARVEDILOL 12.5 MG TABLET PO SCH ×2 (09:18→17:07)
[2020-05-27] MEDS: DIVALPROEX ER 500 MG TAB.ER.24H PO SCH ×2 (09:18→21:04)
[2020-05-27] MEDS: GABAPENTIN 300 MG CAPSULE. PO SCH ×3 (09:18→21:04)
[2020-05-27] MEDS: QUEtiapine 50 MG TABLET. PO SCH ×3 (09:18→21:04)
[2020-05-27] MEDS: MAGNESIUM OXIDE 400 MG TABLET PO SCH (09:19)
[2020-05-27] MEDS: MORPHINE ER 15 MG TABLET.ER PO SCH (09:19)
[2020-05-27] MEDS: LISINOPRIL 20 MG TABLET PO SCH (09:19)
[2020-05-27] MEDS: FENOFIBRATE NANOCRYSTALLIZED 145 MG TABLET PO SCH (09:19)
--- NOTE | 2020-05-27 13:17 | NUR ---
Patient sitting in chair eating breakfast at time of assessment. Patient has been more anxious and has been yelling out more than previously. She continues to state she is unable to do daily tasks such as walking to the bathroom, putting her legs up in the bed. Continues to complain of pain in her shoulders and legs. Patient gets morphine in the morning and we have been giving her PRN tylenol most days to help with. She gets frustrated that we encourage her to do these things on her own and yells at us when we won't help her. We talk to her about being able to do these things to be able to go home and she just states that " she will just hire someone to do them for her". She does these things for herself when she realizes that we are not going to do it for her. She is capable she just doesn't want to do them. Patient is cooperative and takes her medications whole just fine. She has no further complaints and no concerns at this time.
[2020-05-27 16:00] VITALS: BP 133/78
[2020-05-27] MEDS ORDERED: WARFARIN 1 MG TABLET. PO ONE (16:00)
--- NOTE | 2020-05-27 16:52 | NUR ---
Pharmacy Warfarin Dosing Note S:Pharmacy consulted to assist with anticoagulation therapy started 05/14/20 with target INR: 2 -3 O:REBA LINDSAY is a 60 year old F with DVT/PE DVT HISTORY LABS: Last INR: 2.5 Last HGB: 9.6 Last HCT: 31.2 Last PLT: 273 Last dose of 1 mg given on 05/26/20 at 1600 Previous Regimen: 3.5mg daily Vitamin K given: N Drug Interaction Changes: Same Interacting Drug Ongoing Drug Interactions: fenofibrate, venlafaxine A:INR Within desired Range. Target Range for this patient is: 2 -3 P: Warfarin dose: 1.5MG Today at 1600 Bridge Therapy: None Next INR due 05/28/20 @ 0600 Pharmacy anticoagulation service will continue to follow. YENY CORRAL [facility], 05/27/20 [id number]
[2020-05-27] MEDS: QUEtiapine 25 MG TABLET. PO SCH (17:07)
--- NOTE | 2020-05-27 18:29 | NUR ---
At end of shift patient started yelling out for Annamarie and for Grandma. WHen asked she said they were here taking care of her. Patient has not had any delusions or hallucinations recently. We will monitor and will give PRN meds if needed or continues.
[2020-05-27] MEDS: LATANOPROST 0.005% OPHTH SOLUTION 2.5ML BOTTLE. OU SCH (21:00)
[2020-05-27] MEDS: SIMVASTATIN 10 MG TABLET PO SCH (21:04)
[2020-05-27] MEDS: traZODone 100 MG TABLET. PO SCH (21:04)
[2020-05-27] MEDS: MIRTAZAPINE 7.5 MG TABLET. PO SCH (21:04)
[2020-05-27] MEDS: INSULIN GLARGINE SYRINGE. SQ SCH (21:53)
[2020-05-27] MEDS: LORazepam 0.5 MG TABLET PO PRN (23:23)
--- NOTE | 2020-05-28 00:24 | NUR ---
Nursing Note Pt is yelling out intermittently that her arms do not work. She claims that the bones are breaking right in front of her and I am doing nothing about it. She shakes them to make them look like noodles. Very frustrated that I have not called for an xray of her arms bilat. HS meds given plus trazodone and ativan. Pt slept about 1.5 hours the night prior. Very tangential and manic but also is falling asleep mid sentence at times. States she cannot go to bed because she is too tired to lay down.
[2020-05-28] MEDS: LEVOTHYROXINE 50 MCG TABLET PO SCH (06:00)
[2020-05-28 06:22] VITALS: BP 101/64
[2020-05-28] MEDS: CARVEDILOL 12.5 MG TABLET PO SCH ×2 (08:00→17:00)
[2020-05-28] MEDS: MAGNESIUM OXIDE 400 MG TABLET PO SCH (08:01)
[2020-05-28] MEDS: LISINOPRIL 20 MG TABLET PO SCH (08:01)
[2020-05-28] MEDS: DIVALPROEX ER 500 MG TAB.ER.24H PO SCH ×2 (08:02→20:04)
[2020-05-28] MEDS: GABAPENTIN 300 MG CAPSULE. PO SCH ×3 (08:02→20:04)
[2020-05-28] MEDS: QUEtiapine 50 MG TABLET. PO SCH ×3 (08:02→20:04)
[2020-05-28] MEDS: FENOFIBRATE NANOCRYSTALLIZED 145 MG TABLET PO SCH (08:02)
[2020-05-28] MEDS: LORazepam 0.5 MG TABLET PO PRN ×3 (08:03→20:06)
[2020-05-28] MEDS: TIMOLOL 0.5% OPHTH SOLUTION 5ML BOTTLE. OU SCH ×2 (08:03→20:05)
[2020-05-28] MEDS: MORPHINE ER 15 MG TABLET.ER PO SCH (08:03)
[2020-05-28] MEDS: INSULIN LISPRO 300 UNITS/3 ML VIAL. SQ SCH ×3 (08:07→17:00)
--- NOTE | 2020-05-28 12:22 | NUR ---
Pharmacy Warfarin Dosing Note S:Pharmacy consulted to assist with anticoagulation therapy started 05/14/20 with target INR: 2 -3 O:REBA LINDSAY is a 60 year old F with DVT/PE DVT HISTORY LABS: Last INR: 2.2 Last HGB: 9.6 Last HCT: 31.2 Last PLT: 273 Last dose of 1.5MG given on 05/27/20 at 1600 Previous Regimen: 3.5mg daily Vitamin K given: N Drug Interaction Changes: Same Interacting Drug Ongoing Drug Interactions: fenofibrate, venlafaxine A:INR Within desired Range. Target Range for this patient is: 2 -3 P: Warfarin dose: 1.5MG Today at 1600 Bridge Therapy: None Next INR due 05/29/20 Pharmacy anticoagulation service will continue to follow. MARIZA VICTORIA, 05/28/20 [id number]
--- NOTE | 2020-05-28 13:00 | NUR ---
Resumed care of pt.
--- NOTE | 2020-05-28 15:00 | NUR ---
Pt yelling out. Refusing to care for self. Ativan given.
[2020-05-28 15:50] VITALS: BP 112/64
[2020-05-28] MEDS ORDERED: WARFARIN 3 MG TABLET. PO ONE (16:00)
[2020-05-28] MEDS: QUEtiapine 25 MG TABLET. PO SCH (17:00)
[2020-05-28] MEDS: traZODone 100 MG TABLET. PO SCH (20:04)
[2020-05-28] MEDS: MIRTAZAPINE 7.5 MG TABLET. PO SCH (20:04)
[2020-05-28] MEDS: INSULIN GLARGINE SYRINGE. SQ SCH (20:04)
[2020-05-28] MEDS: SIMVASTATIN 10 MG TABLET PO SCH (20:04)
[2020-05-28] MEDS: LATANOPROST 0.005% OPHTH SOLUTION 2.5ML BOTTLE. OU SCH (20:05)
--- NOTE | 2020-05-28 22:37 | NUR ---
Nursing Note Pt in a decent mood this pm, pleasant helping herself saying please and thank you. Surprisingly courteous. Ativan given by her request for nerves and sleep. Pt resting now comfortably.
[2020-05-29] MEDS: LORazepam 0.5 MG TABLET PO PRN ×2 (03:00→19:52)
[2020-05-29] MEDS: LEVOTHYROXINE 50 MCG TABLET PO SCH (04:27)
[2020-05-29] MEDS: ACETAMINOPHEN 325 MG TABLET PO PRN (04:27)
[2020-05-29 05:32] VITALS: BP 114/70
[2020-05-29] MEDS: QUEtiapine 50 MG TABLET. PO SCH ×3 (08:05→19:51)
[2020-05-29] MEDS: FENOFIBRATE NANOCRYSTALLIZED 145 MG TABLET PO SCH (08:05)
[2020-05-29] MEDS: LISINOPRIL 20 MG TABLET PO SCH (08:05)
[2020-05-29] MEDS: GABAPENTIN 300 MG CAPSULE. PO SCH ×3 (08:05→19:51)
[2020-05-29] MEDS: DIVALPROEX ER 500 MG TAB.ER.24H PO SCH ×2 (08:06→19:52)
[2020-05-29] MEDS: CARVEDILOL 12.5 MG TABLET PO SCH ×2 (08:06→17:08)
[2020-05-29] MEDS: MAGNESIUM OXIDE 400 MG TABLET PO SCH (08:06)
[2020-05-29] MEDS: MORPHINE ER 15 MG TABLET.ER PO SCH (08:06)
[2020-05-29] MEDS: TIMOLOL 0.5% OPHTH SOLUTION 5ML BOTTLE. OU SCH ×2 (08:07→19:50)
[2020-05-29] MEDS: INSULIN LISPRO 300 UNITS/3 ML VIAL. SQ SCH ×3 (08:12→17:11)
--- NOTE | 2020-05-29 08:19 | PN ---
DATE: 05/28/2020 SUBJECTIVE: This is the late entry for the service date 05/28/2020. The patient was evaluated by telehealth, met with the staff, chart reviewed and also covering for Dr. Thomas. Staff reports no major behavior problems except physical complaints, having diarrhea at least twice today, feeling sleepy. Apparently, she did not sleep well last night and feeling lethargic also poor eye contact. OBSERVATION: VITAL SIGNS: Temperature 98.2, blood pressure 101/64, pulse 58, respirations 16, O2 sat 95%. GENERAL: Slept about 4 hours last night. The patient's appetite is fair. The patient's medications were reviewed and also lab reviewed. No major side effects to the medications. His mental status remains the same. She seems to be oriented to her son, to her surroundings. Speech mostly coherent, rapid at times. The patient apparently is lacking insight to her problems. The patient tend to misinterpret her environment. The patient also has episodes of confusion. The patient tend to get anxious frequently. Currently, she is not exhibiting any psychotic symptoms. She is not exhibiting any negative thoughts. No suicidal thoughts or plans. IMPRESSION: Bipolar disorder, unspecified. ASSESSMENT: 1. Major depressive disorder; anxiety disorder, unspecified. 2. Impulse control disorder, unspecified. PLAN: To continue with the treatment. The patient had a valproic acid level, which is in the therapeutic range. JULIENNE CORCORAN MD DR: CAITLIN/hoa JOB#: [id number] / [id number]
--- NOTE | 2020-05-29 09:42 | NUR ---
Patient calm and cooperative. Patient assisted with getting back into bed. Patient appears to be napping at this time.
[2020-05-29 10:20] LABS: BASO # 0.1 x10^3/uL (0.0-0.2); BASO % 1 % (0-3); EOS # 0.2 x10^3/uL (0.0-0.7); EOS % 4 % (0-3); HEMOGLOBIN 10.3 g/dL (12.0-15.5); LYMPH # 1.4 x10^3/uL (1.0-4.8); LYMPH % 25 % (24-48); MEAN CORPUSCULAR HEMOGLOBIN 26 pg (25-35); MEAN CORPUSCULAR HGB CONC 31 g/dL (31-37); MEAN CORPUSCULAR VOLUME 83 fL (79-100); MONO # 0.6 x10^3/uL (0.0-1.1); MONO % 11 % (0-9); NEUT # 3.3 x10^3uL (1.8-7.7); NEUT % 58 % (31-73); PLATELET COUNT 306 x10^3/uL (140-400); WHITE BLOOD COUNT 5.7 x10^3/uL (4.0-11.0)
[2020-05-29 10:35] LABS: ALBUMIN 2.2 g/dL (3.4-5.0); ALBUMIN/GLOBULIN RATIO 0.5 (1.0-1.7); CALCIUM 8.5 mg/dL (8.5-10.1); CREATININE 1.1 mg/dL (0.6-1.0); GFR 50.3; POTASSIUM 4.2 mmol/L (3.5-5.1); TOTAL BILIRUBIN 0.1 mg/dL (0.2-1.0); TOTAL PROTEIN 6.5 g/dL (6.4-8.2)
[2020-05-29 12:39] LABS: % BANDS 2 % (0-9); % EOS 7 % (0-5); % LYMPHS 30 % (24-48); % METAS 2 % (0-0); % MONOS 9 % (0-10); % MYELOS 2 % (0-0); % SEGS 48 % (35-66)
[2020-05-29 12:40] LABS: PLT ESTIMATE ADEQUATE (ADEQUATE)
--- NOTE | 2020-05-29 13:41 | PN ---
DATE: 05/29/2020 SUBJECTIVE: The patient was seen today by telehealth, met with the staff, chart reviewed. Staff reports decreased ADLs, dependent on the staff, constantly needy, isolating in her room, staying in bed. Staff also reports she usually goes for breakfast and then goes to bed, not wanting to interact with the staff or other residents. OBJECTIVE: VITAL SIGNS: Temperature 97.9, blood pressure 114/70, pulse 64, respirations 16, O2 sat 93%. GENERAL: Slept about 4 hours last night. The patient's appetite is fair. The patient is not presenting with any physical complaints. No evidence of any psychosis. LABORATORY DATA: The patient's lab reviewed. MEDICATIONS: Reviewed. She is currently on mirtazapine 7.5 mg at night, Depakote 500 mg daily, Seroquel 25 mg at night and 50 mg 3 times a day, trazodone 100 mg at night. ASSESSMENT: 1. Major depressive disorder. 2. Anxiety disorder, unspecified. 3. Impulse control disorder, unspecified. PLAN: To continue with the treatment. JULIENNE CORCORAN MD DR: CAITLIN/hoa JOB#: [id number] / [id number]
[2020-05-29 14:24] VITALS: BP 128/73
[2020-05-29 15:00] VITALS: BP 128/73
[2020-05-29] MEDS ORDERED: WARFARIN 3 MG TABLET. PO ONE (16:00)
[2020-05-29] MEDS: QUEtiapine 25 MG TABLET. PO SCH (17:09)
[2020-05-29] MEDS: LATANOPROST 0.005% OPHTH SOLUTION 2.5ML BOTTLE. OU SCH (19:50)
[2020-05-29] MEDS: traZODone 100 MG TABLET. PO SCH (19:51)
[2020-05-29] MEDS: MIRTAZAPINE 7.5 MG TABLET. PO SCH (19:51)
[2020-05-29] MEDS: SIMVASTATIN 10 MG TABLET PO SCH (19:51)
[2020-05-29] MEDS: INSULIN GLARGINE SYRINGE. SQ SCH (19:54)
--- NOTE | 2020-05-29 23:59 | NUR ---
Patient is in her room on assumption of care. She is more cooperative than usual. Ambulated to and from the bathroom independently. No complaints of pain or discomfort. Patient requested something for anxiety, PRN Ativan given at HS, with good effect. She appears to be sleeping comfortably at present time. Will continue to monitor.
[2020-05-30] MEDS: LEVOTHYROXINE 50 MCG TABLET PO SCH (04:00)
[2020-05-30] MEDS: ACETAMINOPHEN 325 MG TABLET PO PRN (04:00)
[2020-05-30 05:46] VITALS: BP 89/50
[2020-05-30] MEDS: TIMOLOL 0.5% OPHTH SOLUTION 5ML BOTTLE. OU SCH ×2 (09:00→21:21)
[2020-05-30] MEDS: CARVEDILOL 12.5 MG TABLET PO SCH ×2 (09:50→17:09)
[2020-05-30] MEDS: GABAPENTIN 300 MG CAPSULE. PO SCH ×3 (09:50→21:20)
[2020-05-30] MEDS: LISINOPRIL 20 MG TABLET PO SCH (09:51)
[2020-05-30] MEDS: FENOFIBRATE NANOCRYSTALLIZED 145 MG TABLET PO SCH (09:51)
[2020-05-30] MEDS: QUEtiapine 50 MG TABLET. PO SCH ×3 (09:51→21:20)
[2020-05-30] MEDS: MAGNESIUM OXIDE 400 MG TABLET PO SCH (09:51)
[2020-05-30] MEDS: MORPHINE ER 15 MG TABLET.ER PO SCH (09:53)
[2020-05-30] MEDS: DIVALPROEX ER 500 MG TAB.ER.24H PO SCH ×2 (09:57→21:21)
[2020-05-30] MEDS: INSULIN LISPRO 300 UNITS/3 ML VIAL. SQ SCH ×3 (10:14→17:00)
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
[2020-05-30] MEDS ORDERED: WARFARIN 3 MG TABLET. PO ONE (16:00)
[2020-05-30] MEDS ORDERED: WARFARIN 1 MG TABLET. PO ONE (16:00)
[2020-05-30 16:07] VITALS: BP 126/76
[2020-05-30] MEDS: QUEtiapine 25 MG TABLET. PO SCH (17:10)
--- NOTE | 2020-05-30 18:00 | NUR ---
Nursing note: Pt has remained withdrawn to her room this shift. She has occasionally yelled out "MOM!" and "DAD!" She has been able to be redirected. Pt has also been able to perform ADLs on her own, still requiring encouragement when it comes to putting on a clean brief and pants. Will continue to monitor and report to oncoming shift.
[2020-05-30] MEDS: LATANOPROST 0.005% OPHTH SOLUTION 2.5ML BOTTLE. OU SCH (21:00)
--- NOTE | 2020-05-30 21:03 | PDOC ---
Exam Note: Joseph Note: Please also refer to the separate dictated note~for this date of service dictated separately.~Patient seen individually. Discussed the patient with Nursing staff reviewed the chart.~Reviewed interim history and current functioning. Reviewed vital signs,~Labs/ Radiology~and current medications noted below. Continue current treatment with the changes noted in the dictated addendum note Assessment: Vital Signs/I&O: Vital Signs Date Time Temp Pulse Resp B/P (MAP) Pulse Ox O2 Delivery O2 Flow Rate FiO2 05/30/20 17:09 73 126/76 05/30/20 16:07 98.4 17 92 05/30/20 05:46 Room Air I & O 05/29/20 05/29/20 05/30/20 15:00 23:00 07:00 Intake Total 720 ml 460 ml Balance 720 ml 460 ml Labs: Laboratory Tests Test 05/30/20 07:16 05/30/20 08:13 05/30/20 12:03 05/30/20 17:06 Prothrombin Time 24.0 SEC (9.4-11.4) H Prothrombin Time INR 2.4 (0.9-1.1) H Glucose (Fingerstick) 148 mg/dL (70-99) H 175 mg/dL (70-99) H 190 mg/dL (70-99) H Test 05/30/20 19:06 Glucose (Fingerstick) 200 mg/dL (70-99) H Current Medications: Meds: Current Medications Medications (Trade) Dose Ordered Sig/Jayant Route PRN Reason Start Time Stop Time Status Last Admin Dose Admin Warfarin Sodium (Coumadin) 1 mg 1X WARF ONCE PO 05/30/20 16:00 05/30/20 16:01 DC 05/30/20 17:09 I have reviewed the current psychotropics carefully including drug interactions. Risk benefit ratio favors no change other than as noted in my dictated progress note. Diagnosis: Problems: (1) Psychotic disorder (2) Major depressive disorder (3) Personality disorder, unspecified (4) Bipolar disorder with psychotic features ADELSO LOVE MD May 30, 2020 21:03
[2020-05-30] MEDS: SIMVASTATIN 10 MG TABLET PO SCH (21:20)
[2020-05-30] MEDS: traZODone 100 MG TABLET. PO SCH (21:20)
[2020-05-30] MEDS: MIRTAZAPINE 7.5 MG TABLET. PO SCH (21:20)
[2020-05-30] MEDS: INSULIN GLARGINE SYRINGE. SQ SCH (21:23)
--- NOTE | 2020-05-31 03:58 | NUR ---
Location of Patient during Assessment: Pt room Behaviors Mood and Affect this shift; Sometimes wants help with things she can do herself Medication Compliant: nhi zambrano whole Assessment Compliant: Yes Response After Interventions: Mainly slept but sometimes awake and yelling
[2020-05-31 06:01] VITALS: BP 161/76
[2020-05-31] MEDS: LEVOTHYROXINE 50 MCG TABLET PO SCH (06:11)
[2020-05-31] MEDS: INSULIN LISPRO 300 UNITS/3 ML VIAL. SQ SCH ×3 (08:00→16:56)
[2020-05-31] MEDS: TIMOLOL 0.5% OPHTH SOLUTION 5ML BOTTLE. OU SCH ×2 (09:00→20:27)
[2020-05-31] MEDS: QUEtiapine 50 MG TABLET. PO SCH ×3 (10:35→20:26)
[2020-05-31] MEDS: CARVEDILOL 12.5 MG TABLET PO SCH ×2 (10:36→16:51)
[2020-05-31] MEDS: GABAPENTIN 300 MG CAPSULE. PO SCH ×3 (10:36→20:25)
[2020-05-31] MEDS: FENOFIBRATE NANOCRYSTALLIZED 145 MG TABLET PO SCH (10:36)
[2020-05-31] MEDS: LISINOPRIL 20 MG TABLET PO SCH (10:36)
[2020-05-31] MEDS: DIVALPROEX ER 500 MG TAB.ER.24H PO SCH ×2 (10:37→20:26)
[2020-05-31] MEDS: MAGNESIUM OXIDE 400 MG TABLET PO SCH (10:37)
[2020-05-31] MEDS: MORPHINE ER 15 MG TABLET.ER PO SCH (10:37)
--- NOTE | 2020-05-31 13:31 | NUR ---
Assisted Shweta with a conference call from [place] with [facility] ([phone]), Annamarie(sister in law), and Roe (brother) to complete an assessment for the physically disabled waiver. After the call had been completed, offered support to Shweta as she expressed frustration and discouragement around her current situation, having worked so hard all her life, and now being in need of such support. CHUYITA will f/u with family/POA, in Nan's absence, to clarify discharge plan.
--- NOTE | 2020-05-31 15:10 | NUR ---
Pharmacy Warfarin Dosing Note S:Pharmacy consulted to assist with anticoagulation therapy started 05/14/20 with target INR: 2 -3 O:REBA LINDSAY is a 60 year old F with Atrial Fibrillation DVT HISTORY LABS: Last INR: 2.2 Last HGB: 10.3 Last HCT: 33 Last PLT: 306 Last dose of 1 mg given on 05/30/20 at 1600 Previous Regimen: 3.5mg daily Vitamin K given: N Drug Interaction Changes: Same Interacting Drug Ongoing Drug Interactions: fenofibrate, venlafaxine A:INR Within desired Range. Target Range for this patient is: 2 -3 P: Warfarin dose: 1.5MG Today at 1600 Bridge Therapy: None Next INR due Pharmacy anticoagulation service will continue to follow. YENY CORRAL [facility], 05/31/20 [id number]
[2020-05-31 16:00] VITALS: BP 122/82
[2020-05-31] MEDS ORDERED: WARFARIN 1 MG TABLET. PO ONE (16:00)
[2020-05-31] MEDS: QUEtiapine 25 MG TABLET. PO SCH (16:51)
--- NOTE | 2020-05-31 17:15 | NUR ---
Wound Care Follow up for coccyx wound. Wound is healed. Cleansed and pictured area, discussed PU prevention with pt. WC will sign off, please reconsult if new wounds develop
[2020-05-31] MEDS: traZODone 100 MG TABLET. PO SCH (20:27)
[2020-05-31] MEDS: MIRTAZAPINE 15 MG TABLET PO SCH (20:27)
[2020-05-31] MEDS: LATANOPROST 0.005% OPHTH SOLUTION 2.5ML BOTTLE. OU SCH (20:27)
[2020-05-31] MEDS: SIMVASTATIN 10 MG TABLET PO SCH (20:27)
--- NOTE | 2020-05-31 20:49 | PDOC ---
Exam Note: Joseph Note: Please also refer to the separate dictated note~for this date of service dictated separately.~Patient seen individually. Discussed the patient with Nursing staff reviewed the chart.~Reviewed interim history and current functioning. Reviewed vital signs,~Labs/ Radiology~and current medications noted below. Continue current treatment with the changes noted in the dictated addendum note Assessment: Vital Signs/I&O: Vital Signs Date Time Temp Pulse Resp B/P (MAP) Pulse Ox O2 Delivery O2 Flow Rate FiO2 05/31/20 16:51 66 122/82 05/31/20 16:00 98.0 18 96 05/30/20 05:46 Room Air I & O 05/30/20 05/30/20 05/31/20 15:00 23:00 07:00 Intake Total 720 ml 240 ml Balance 720 ml 240 ml Labs: Laboratory Tests Test 05/31/20 06:52 05/31/20 07:35 05/31/20 12:12 05/31/20 16:48 Prothrombin Time 22.1 SEC (9.4-11.4) H Prothrombin Time INR 2.2 (0.9-1.1) H Glucose (Fingerstick) 153 mg/dL (70-99) H 173 mg/dL (70-99) H 225 mg/dL (70-99) H Test 05/31/20 19:21 Glucose (Fingerstick) 179 mg/dL (70-99) H Current Medications: Meds: Current Medications Medications (Trade) Dose Ordered Sig/Jayant Route PRN Reason Start Time Stop Time Status Last Admin Dose Admin Warfarin Sodium (Coumadin) 1.5 mg 1X WARF ONCE PO 05/31/20 16:00 05/31/20 16:01 DC 05/31/20 16:18 Mirtazapine (Remeron) 15 mg QHS PO 05/31/20 21:00 05/31/20 20:27 I have reviewed the current psychotropics carefully including drug interactions. Risk benefit ratio favors no change other than as noted in my dictated progress note. Diagnosis: Problems: (1) Major depressive disorder (2) Personality disorder, unspecified (3) Bipolar disorder with psychotic features ADELSO LOVE MD May 31, 2020 20:49
[2020-05-31] MEDS: INSULIN GLARGINE SYRINGE. SQ SCH (21:32)
--- NOTE | 2020-05-31 22:59 | NUR ---
Nursing Note The patient has been compliant with assessments and has taken her medications whole. The patient requires encouragement when doing self cares and often is verbally abusive to staff during encouragement.
[2020-06-01 05:41] VITALS: BP 118/67
[2020-06-01] MEDS: LEVOTHYROXINE 50 MCG TABLET PO SCH (05:50)
[2020-06-01] MEDS: GABAPENTIN 300 MG CAPSULE. PO SCH ×3 (08:20→19:58)
[2020-06-01] MEDS: LISINOPRIL 20 MG TABLET PO SCH (08:20)
[2020-06-01] MEDS: FENOFIBRATE NANOCRYSTALLIZED 145 MG TABLET PO SCH (08:20)
[2020-06-01] MEDS: QUEtiapine 50 MG TABLET. PO SCH ×3 (08:20→19:58)
[2020-06-01] MEDS: DIVALPROEX ER 500 MG TAB.ER.24H PO SCH ×2 (08:20→19:59)
[2020-06-01] MEDS: CARVEDILOL 12.5 MG TABLET PO SCH ×2 (08:21→16:53)
[2020-06-01] MEDS: MORPHINE ER 15 MG TABLET.ER PO SCH (08:22)
[2020-06-01] MEDS: MAGNESIUM OXIDE 400 MG TABLET PO SCH (08:22)
[2020-06-01] MEDS: TIMOLOL 0.5% OPHTH SOLUTION 5ML BOTTLE. OU SCH ×2 (08:22→19:58)
[2020-06-01] MEDS: INSULIN LISPRO 300 UNITS/3 ML VIAL. SQ SCH ×3 (09:01→18:07)
--- NOTE | 2020-06-01 11:59 | NUR ---
Pharmacy Warfarin Dosing Note S:Pharmacy consulted to assist with anticoagulation therapy started 05/14/20 with target INR: 2 -3 O:REBA LINDSAY is a 60 year old F with Atrial Fibrillation DVT HISTORY LABS: Last INR: 2.4 Last HGB: 10.3 Last HCT: 33 Last PLT: 306 Last dose of 1.5 given on 05/31/20 at 1600 Previous Regimen: 3.5mg daily Vitamin K given: N Drug Interaction Changes: Same Interacting Drug Ongoing Drug Interactions: fenofibrate, venlafaxine A:INR Within desired Range. Target Range for this patient is: 2 -3 P: Warfarin dose: 1 mg Today at 1600 and 1mg Mon, Wed, Fri and 1.5mg Tue,Thur, Sat,Sun Bridge Therapy: None Next INR due 06/03/20 will check Q Mon,Wed,Fri if pt stays stable on this routine dose schedule Pharmacy anticoagulation service will continue to follow. BRISEIDA MARROQUIN, 06/01/20 2346
--- NOTE | 2020-06-01 12:37 | EKG ---
[address] [address] Test Date: 2020-05-06 Test Time: 06:00:39 Pat Name: REBA LINDSAY Department: Room: [address] [place] [address] Gender: F Flowers Salesperson: : 1960 Requested By: ADELSO LOVE Order Number: [id number] Reading MD: Measurements Intervals [place] Rate: P: OR: QRS: QRSD: T: QT: QTc: Interpretive Statements
--- NOTE | 2020-06-01 15:34 | NUR ---
Nursing note: Pt has been calm, med compliant and cooperative for most of the shift. Pt occasionally yells out for help with ADLs she is capable of doing on her own, though she has needed less encouragement today than she normally does. She is currently sitting on the edge of her bed looking out the window. Will continue to monitor.
[2020-06-01 15:40] VITALS: BP 90/59
[2020-06-01] MEDS: QUEtiapine 25 MG TABLET. PO SCH (16:53)
[2020-06-01] MEDS: WARFARIN 1 MG TABLET. PO SCH (16:53)
[2020-06-01] MEDS: traZODone 100 MG TABLET. PO SCH (19:58)
[2020-06-01] MEDS: MIRTAZAPINE 15 MG TABLET PO SCH (19:58)
[2020-06-01] MEDS: LATANOPROST 0.005% OPHTH SOLUTION 2.5ML BOTTLE. OU SCH (19:58)
[2020-06-01] MEDS: SIMVASTATIN 10 MG TABLET PO SCH (19:58)
[2020-06-01] MEDS: INSULIN GLARGINE SYRINGE. SQ SCH (21:00)
--- NOTE | 2020-06-01 21:17 | PDOC ---
Exam Note: Joseph Note: This note is a late entry for 05/30/2020 covers elements not covered in my initial note. Subjective: The patient was reviewed on telehealth rounds in the morning of 05/30/2020 for a treatment team meeting with Buffy Baez and Ivette (school social worker), Jojo, activity therapy and Marla CORRAL. Discussed with nursing staff, reviewed the chart. The patient slept for 5-3/4 hours previous night. She had intermittently yelling. Staff is intervening providing her activities to do to keep her mind busy. Also discussed with Mirza RN in the evening. She has been a little bit better, appearing helpless, takes her medications whole. Yesterday she was calling her mother and father. Review of Systems: Impaired ambulation in wheelchair. No CV, , pulmonary, eye, ENT system symptoms on review. She has vague somatic symptoms. Mental Status Exam: The patient is reasonably oriented. She is pleasant, verbal and interactive. Speech is coherent. Abstraction is fair. Computation is impaired. Mood and affect remains somewhat anxious, labile but improved. No suicidal or homicidal ideation. Laboratory Data: Reviewed. Impression: Bipolar disorder unspecified. Major depressive disorder. Anxiety disorder unspecified. Impulse control disorder unspecified. Personality disorder unspecified. Plan: No change from initial note. Assessment: Vital Signs/I&O: Vital Signs Date Time Temp Pulse Resp B/P (MAP) Pulse Ox O2 Delivery O2 Flow Rate FiO2 06/01/20 16:53 67 90/59 06/01/20 15:40 97.5 16 98 05/30/20 05:46 Room Air I & O 05/31/20 05/31/20 06/01/20 14:59 22:59 06:59 Intake Total 840 ml 460 ml Balance 840 ml 460 ml Labs: Laboratory Tests Test 06/01/20 06:33 06/01/20 07:50 06/01/20 11:49 06/01/20 16:55 Prothrombin Time 24.4 SEC (9.4-11.4) H Prothrombin Time INR 2.4 (0.9-1.1) H Glucose (Fingerstick) 139 mg/dL (70-99) H 200 mg/dL (70-99) H 159 mg/dL (70-99) H Test 06/01/20 21:00 Glucose (Fingerstick) 151 mg/dL (70-99) H Current Medications: Meds: Current Medications Medications (Trade) Dose Ordered Sig/Jayant Route PRN Reason Start Time Stop Time Status Last Admin Dose Admin Warfarin Sodium (Coumadin) 1 mg QMWF PO 06/01/20 16:00 06/01/20 16:53 I have reviewed the current psychotropics carefully including drug interactions. Risk benefit ratio favors no change other than as noted in my dictated progress note. Diagnosis: Problems: (1) Psychotic disorder (2) Major depressive disorder (3) Personality disorder, unspecified (4) Bipolar disorder with psychotic features AEDLSO LOVE MD Jun 01, 2020 21:17
--- NOTE | 2020-06-01 21:25 | NUR ---
Nursing Note: Pt withdrawn to room, sitting on edge of bed at shift change. Pt yelling out on occasion but much less frequently than before, continues to need strong encouragement to complete adl's and at times becomes agitated and reports that she cannot complete tasks on her own. Pt cooperative with assessment and compliant with medications administered whole. Pt currently resting quietly in bed.
--- NOTE | 2020-06-01 21:44 | PDOC ---
Exam Note: Joseph Note: This note is a late entry for 05/31/2020 covers elements not covered in my initial note. Subjective: The patient was reviewed on telehealth rounds in the evening of 05/31/2020 with Leena CORRAL. Discussed with nursing staff, reviewed the chart. The patient slept for 3 hours previous night. Overall the patient has had a good day till 5.30 p.m. and she seemed to have a panic attack for no reason. Gradually the panic attack she had around 5.30 p.m. seemed to subside with Ativan p.r.n. She was paranoid, suspicious, anxious. Review of Systems: Impaired ambulation in wheelchair. No CV, , pulmonary, eye, ENT system symptoms on review. Mental Status Exam: The patient is alert and oriented. Speech is coherent. She was on telephone with her family who stayed on hearing our interaction. She is pleasant, verbal, interactive. Abstraction is fair. Computation is impaired. Mood and affect still somewhat dysphoric, depressed. No suicidal or homicidal ideation. Laboratory Data: Reviewed. Impression: Bipolar disorder unspecified. Major depressive disorder. Anxiety disorder unspecified. Impulse control disorder unspecified. Personality disorder unspecified. Plan: Increase Remeron to 15 mg p.o. h.s. Continue rest unchanged. The patient seems to calm down significantly when the family talked to her on the phone. We will defer to social service staff to get her a transition option object to help with this. Assessment: Vital Signs/I&O: Vital Signs Date Time Temp Pulse Resp B/P (MAP) Pulse Ox O2 Delivery O2 Flow Rate FiO2 06/01/20 16:53 67 90/59 06/01/20 15:40 97.5 16 98 05/30/20 05:46 Room Air I & O 05/31/20 05/31/20 06/01/20 15:00 23:00 07:00 Intake Total 840 ml 460 ml Balance 840 ml 460 ml Labs: Laboratory Tests Test 06/01/20 06:33 06/01/20 07:50 06/01/20 11:49 06/01/20 16:55 Prothrombin Time 24.4 SEC (9.4-11.4) H Prothrombin Time INR 2.4 (0.9-1.1) H Glucose (Fingerstick) 139 mg/dL (70-99) H 200 mg/dL (70-99) H 159 mg/dL (70-99) H Test 06/01/20 21:00 Glucose (Fingerstick) 151 mg/dL (70-99) H Current Medications: Meds: Current Medications Medications (Trade) Dose Ordered Sig/Jayant Route PRN Reason Start Time Stop Time Status Last Admin Dose Admin Warfarin Sodium (Coumadin) 1 mg QMWF PO 06/01/20 16:00 06/01/20 16:53 I have reviewed the current psychotropics carefully including drug interactions. Risk benefit ratio favors no change other than as noted in my dictated progress note. Diagnosis: Problems: (1) Psychotic disorder (2) Major depressive disorder (3) Personality disorder, unspecified (4) Bipolar disorder with psychotic features ADELSO LOVE MD Jun 01, 2020 21:44
--- NOTE | 2020-06-01 21:52 | PDOC ---
Exam Note: Joseph Note: Please also refer to the separate dictated note~for this date of service dictated separately.~Patient seen individually. Discussed the patient with Nursing staff reviewed the chart.~Reviewed interim history and current functioning. Reviewed vital signs,~Labs/ Radiology~and current medications noted below. Continue current treatment with the changes noted in the dictated addendum note Assessment: Vital Signs/I&O: Vital Signs Date Time Temp Pulse Resp B/P (MAP) Pulse Ox O2 Delivery O2 Flow Rate FiO2 06/01/20 16:53 67 90/59 06/01/20 15:40 97.5 16 98 05/30/20 05:46 Room Air I & O 05/31/20 05/31/20 06/01/20 15:00 23:00 07:00 Intake Total 840 ml 460 ml Balance 840 ml 460 ml Labs: Laboratory Tests Test 06/01/20 06:33 06/01/20 07:50 06/01/20 11:49 06/01/20 16:55 Prothrombin Time 24.4 SEC (9.4-11.4) H Prothrombin Time INR 2.4 (0.9-1.1) H Glucose (Fingerstick) 139 mg/dL (70-99) H 200 mg/dL (70-99) H 159 mg/dL (70-99) H Test 06/01/20 21:00 Glucose (Fingerstick) 151 mg/dL (70-99) H Current Medications: Meds: Current Medications Medications (Trade) Dose Ordered Sig/Jayant Route PRN Reason Start Time Stop Time Status Last Admin Dose Admin Warfarin Sodium (Coumadin) 1 mg QMWF PO 06/01/20 16:00 06/01/20 16:53 I have reviewed the current psychotropics carefully including drug interactions. Risk benefit ratio favors no change other than as noted in my dictated progress note. Diagnosis: Problems: (1) Psychotic disorder (2) Major depressive disorder (3) Personality disorder, unspecified (4) Bipolar disorder with psychotic features ADELSO LOVE MD Jun 01, 2020 21:52
[2020-06-02] MEDS: LORazepam 0.5 MG TABLET PO PRN (04:04)
[2020-06-02] MEDS: ACETAMINOPHEN 325 MG TABLET PO PRN (04:04)
[2020-06-02] MEDS: LEVOTHYROXINE 50 MCG TABLET PO SCH (04:04)
--- NOTE | 2020-06-02 04:07 | NUR ---
Nursing Note: Pt very loudly yelling "my legs! My legs hurt!" Staff in to assist at this time. Pt continues to yell, reporting she has pain in her legs and becomes slightly agitated when approached by staff inquiring as to why she is yelling. PRN Tylenol and PRN Ativan administered at this time.
[2020-06-02 06:05] VITALS: BP 143/84
[2020-06-02] MEDS: QUEtiapine 50 MG TABLET. PO SCH ×3 (09:38→20:27)
[2020-06-02] MEDS: MAGNESIUM OXIDE 400 MG TABLET PO SCH (09:38)
[2020-06-02] MEDS: CARVEDILOL 12.5 MG TABLET PO SCH ×2 (09:38→17:23)
[2020-06-02] MEDS: LISINOPRIL 20 MG TABLET PO SCH (09:38)
[2020-06-02] MEDS: FENOFIBRATE NANOCRYSTALLIZED 145 MG TABLET PO SCH (09:38)
[2020-06-02] MEDS: GABAPENTIN 300 MG CAPSULE. PO SCH ×3 (09:38→20:28)
[2020-06-02] MEDS: DIVALPROEX ER 500 MG TAB.ER.24H PO SCH ×2 (09:39→20:28)
[2020-06-02] MEDS: CHOLECALCIFEROL (VITAMIN D3) 50,000 UNIT CAPSULE PO SCH (09:39)
[2020-06-02] MEDS: TIMOLOL 0.5% OPHTH SOLUTION 5ML BOTTLE. OU SCH ×2 (09:40→20:26)
[2020-06-02] MEDS: MORPHINE ER 15 MG TABLET.ER PO SCH (09:40)
[2020-06-02] MEDS: INSULIN LISPRO 300 UNITS/3 ML VIAL. SQ SCH ×3 (09:42→17:27)
--- NOTE | 2020-06-02 14:43 | NUR ---
Shweta has attended SW group the last two days. She has been engaged in the group, responds to discussion, and initiates interactions with peers. She is hollering out much less than on admission and expresses thankfulness for the assistance offered to her. Shweta expresses discouragement about her physical limitations and it is obvious, thru non-verbal communication, that transferring and ambulating is difficult and painful. Shweta used her walker and ambulated into the alcove this morning, self initiated. She expressed being tired this afternoon so CHUYITA assisted to use a wheelchair to group. Call returned to Annamarie, sister in law/POA, and update provided. Inquired about d/c plan and Annamarie indicated preference for [facility] at this time with the ultimate hope that Shweta will continue to progress in order to return to her mobile home. Per Annamarie's preference, CHUYITA will complete referrals to [facility] ([phone]), [facility] ([phone][phone]
--- NOTE | 2020-06-02 16:01 | NUR ---
Patient sitting in chair eating breakfast at time of assessment. Patient is calm and cooperative with no complaints. Patient takes medications whole with no problems. Patient alert and oriented with some confusion at times. No further concerns at this time.
[2020-06-02 16:19] VITALS: BP 124/77
[2020-06-02] MEDS: QUEtiapine 25 MG TABLET. PO SCH (17:23)
[2020-06-02] MEDS: WARFARIN 1 MG TABLET. PO SCH (17:23)
[2020-06-02] MEDS: LATANOPROST 0.005% OPHTH SOLUTION 2.5ML BOTTLE. OU SCH (20:26)
[2020-06-02] MEDS: traZODone 100 MG TABLET. PO SCH (20:27)
[2020-06-02] MEDS: MIRTAZAPINE 15 MG TABLET PO SCH (20:28)
[2020-06-02] MEDS: SIMVASTATIN 10 MG TABLET PO SCH (20:28)
[2020-06-02] MEDS: INSULIN GLARGINE SYRINGE. SQ SCH (20:47)
--- NOTE | 2020-06-02 20:59 | PDOC ---
Exam Note: Joseph Note: Please also refer to the separate dictated note~for this date of service dictated separately.~Patient seen individually. Discussed the patient with Nursing staff reviewed the chart.~Reviewed interim history and current functioning. Reviewed vital signs,~Labs/ Radiology~and current medications noted below. Continue current treatment with the changes noted in the dictated addendum note Assessment: Vital Signs/I&O: Vital Signs Date Time Temp Pulse Resp B/P (MAP) Pulse Ox O2 Delivery O2 Flow Rate FiO2 06/02/20 17:23 68 124/77 06/02/20 16:19 97.2 20 98 06/02/20 06:05 Room Air I & O 06/01/20 06/01/20 06/02/20 15:00 23:00 07:00 Intake Total 600 ml 480 ml Balance 600 ml 480 ml Labs: Laboratory Tests Test 06/01/20 21:00 06/02/20 07:54 06/02/20 11:43 06/02/20 16:43 Glucose (Fingerstick) 151 mg/dL (70-99) H 130 mg/dL (70-99) H 220 mg/dL (70-99) H 147 mg/dL (70-99) H Current Medications: Meds: Current Medications Medications (Trade) Dose Ordered Sig/Jayant Route PRN Reason Start Time Stop Time Status Last Admin Dose Admin Warfarin Sodium (Coumadin) 1.5 mg [id number] PO 06/02/20 16:00 06/02/20 17:23 I have reviewed the current psychotropics carefully including drug interactions. Risk benefit ratio favors no change other than as noted in my dictated progress note. Diagnosis: Problems: (1) Psychotic disorder (2) Major depressive disorder (3) Personality disorder, unspecified (4) Bipolar disorder with psychotic features ADELSO LOVE MD Jun 02, 2020 20:59
--- NOTE | 2020-06-02 22:33 | NUR ---
Nursing Note: Pt withdrawn to room, sitting quietly at shift change. Pt calm and interactive when approached. Pt has been more pleasant and less attention seeking this evening. Pt cooperative with assessment and compliant with medications administered whole. Pt currently resting quietly in bed.
[2020-06-03 05:31] VITALS: BP 114/69
[2020-06-03] MEDS: LEVOTHYROXINE 50 MCG TABLET PO SCH (05:31)
[2020-06-03] MEDS: INSULIN LISPRO 300 UNITS/3 ML VIAL. SQ SCH ×3 (08:00→17:00)
[2020-06-03] MEDS: CARVEDILOL 12.5 MG TABLET PO SCH ×2 (08:59→17:00)
[2020-06-03] MEDS: cloNIDine TTS-1 1 PATCH PATCH TD SCH (09:00)
[2020-06-03] MEDS: FENOFIBRATE NANOCRYSTALLIZED 145 MG TABLET PO SCH (09:00)
[2020-06-03] MEDS: DIVALPROEX ER 500 MG TAB.ER.24H PO SCH ×2 (09:00→20:11)
[2020-06-03] MEDS: GABAPENTIN 300 MG CAPSULE. PO SCH ×3 (09:00→20:12)
[2020-06-03] MEDS: LISINOPRIL 20 MG TABLET PO SCH (09:01)
[2020-06-03] MEDS: MORPHINE ER 15 MG TABLET.ER PO SCH (09:01)
[2020-06-03] MEDS: QUEtiapine 50 MG TABLET. PO SCH ×3 (09:01→20:12)
[2020-06-03] MEDS: MAGNESIUM OXIDE 400 MG TABLET PO SCH (09:01)
[2020-06-03] MEDS: TIMOLOL 0.5% OPHTH SOLUTION 5ML BOTTLE. OU SCH ×2 (09:03→20:10)
--- NOTE | 2020-06-03 10:36 | NUR ---
patient sitting on edge of bed in room at time of assessment. Patient waiting for her breakfast to come. Patient somewhat attention seeking this AM but is doing much better with no yelling out or needing as much help. She is slightly more depressed today because it is Priscilla and she is not with family. Will continue to encourage patient to join groups today and see if she will watch a priscilla movie with us later this afternoon.
[2020-06-03 16:19] VITALS: BP 60/69
[2020-06-03] MEDS: WARFARIN 1 MG TABLET. PO SCH (16:59)
[2020-06-03] MEDS: QUEtiapine 25 MG TABLET. PO SCH (17:00)
--- NOTE | 2020-06-03 17:10 | NUR ---
Patient was very sleepy after watching movie. Did not want to wake up to take medications. Was able to get patient to take Warfarin and Carvidelol and Insulin. Held quetipine
--- NOTE | 2020-06-03 17:15 | NUR ---
patient B/P was 124/78 HR 64
[2020-06-03] MEDS: LATANOPROST 0.005% OPHTH SOLUTION 2.5ML BOTTLE. OU SCH (20:10)
[2020-06-03] MEDS: traZODone 100 MG TABLET. PO SCH (20:12)
[2020-06-03] MEDS: MIRTAZAPINE 15 MG TABLET PO SCH (20:12)
[2020-06-03] MEDS: SIMVASTATIN 10 MG TABLET PO SCH (20:12)
[2020-06-03] MEDS: INSULIN GLARGINE SYRINGE. SQ SCH (20:13)
--- NOTE | 2020-06-03 20:45 | PDOC ---
Exam Note: Joseph Note: Please also refer to the separate dictated note~for this date of service dictated separately.~Patient seen individually. Discussed the patient with Nursing staff reviewed the chart.~Reviewed interim history and current functioning. Reviewed vital signs,~Labs/ Radiology~and current medications noted below. Continue current treatment with the changes noted in the dictated addendum note Assessment: Vital Signs/I&O: Vital Signs Date Time Temp Pulse Resp B/P (MAP) Pulse Ox O2 Delivery O2 Flow Rate FiO2 06/03/20 17:00 69 60/69 06/03/20 16:19 97.6 16 98 06/02/20 06:05 Room Air I & O 06/02/20 06/02/20 06/03/20 15:00 23:00 07:00 Intake Total 360 ml 840 ml Balance 360 ml 840 ml Labs: Laboratory Tests Test 06/03/20 06:08 06/03/20 07:51 06/03/20 07:52 06/03/20 12:00 Prothrombin Time 25.2 SEC (9.4-11.4) H Prothrombin Time INR 2.5 (0.9-1.1) H Glucose (Fingerstick) 117 mg/dL (70-99) H 121 mg/dL (70-99) H 123 mg/dL (70-99) H Test 06/03/20 16:42 06/03/20 19:06 Glucose (Fingerstick) 275 mg/dL (70-99) H 210 mg/dL (70-99) H Current Medications: I have reviewed the current psychotropics carefully including drug interactions. Risk benefit ratio favors no change other than as noted in my dictated progress note. Diagnosis: Problems: (1) Psychotic disorder (2) Major depressive disorder (3) Personality disorder, unspecified (4) Bipolar disorder with psychotic features ADELSO LOVE MD Jun 03, 2020 20:45
--- NOTE | 2020-06-03 23:11 | NUR ---
Patient is in her room on assumption of care. She is in good spirits at start of shift. Ambulating independently to and from the bathroom and cleaning herself up. She came out of her room shortly after receiving her HS medications, telling the [facility] "I'm scared to be in there, there's someone in my room and I just need to sit out here for a while." She then used her walker to ambulate independently to the quiet pettit and sat down in the chair. After about 20 minutes, she looked into the nurses station and said "I need help to get back to my room." Patient was encouraged to walk back to her room. She yelled out for help several times, asking "I need you to chicken picker my feet. What do I pay you people for anyway?" Patient encouraged to do it herself, which she did. She appears to be sleeping comfortably at present time. Will continue to monitor.
[2020-06-04] MEDS: LEVOTHYROXINE 50 MCG TABLET PO SCH (04:31)
[2020-06-04 06:30] VITALS: BP 126/81
[2020-06-04] MEDS: INSULIN LISPRO 300 UNITS/3 ML VIAL. SQ SCH ×3 (08:00→17:00)
[2020-06-04] MEDS: CARVEDILOL 12.5 MG TABLET PO SCH ×2 (09:00→18:06)
[2020-06-04] MEDS: MAGNESIUM OXIDE 400 MG TABLET PO SCH (09:00)
[2020-06-04] MEDS: FENOFIBRATE NANOCRYSTALLIZED 145 MG TABLET PO SCH (09:00)
[2020-06-04] MEDS: LISINOPRIL 20 MG TABLET PO SCH (09:00)
[2020-06-04] MEDS: GABAPENTIN 300 MG CAPSULE. PO SCH ×3 (09:01→19:49)
[2020-06-04] MEDS: DIVALPROEX ER 500 MG TAB.ER.24H PO SCH ×2 (09:01→19:51)
[2020-06-04] MEDS: QUEtiapine 50 MG TABLET. PO SCH ×3 (09:01→19:50)
[2020-06-04] MEDS: MORPHINE ER 15 MG TABLET.ER PO SCH (09:02)
[2020-06-04] MEDS: TIMOLOL 0.5% OPHTH SOLUTION 5ML BOTTLE. OU SCH ×2 (09:02→19:48)
[2020-06-04] MEDS: hydrOXYzine HCL 25 MG TABLET PO PRN (09:12)
[2020-06-04] MEDS: LORazepam 0.5 MG TABLET PO PRN ×3 (09:12→19:50)
--- NOTE | 2020-06-04 15:25 | NUR ---
Pt has been yelling out intermittently throughout the day. Difficult to get pt do do any of her ADL. PRN utilized with minimal relief. Has been compliant with meds and cares.
[2020-06-04 16:03] VITALS: BP 112/68
[2020-06-04] MEDS: WARFARIN 1 MG TABLET. PO SCH (18:05)
[2020-06-04] MEDS: QUEtiapine 25 MG TABLET. PO SCH (18:06)
[2020-06-04] MEDS: LATANOPROST 0.005% OPHTH SOLUTION 2.5ML BOTTLE. OU SCH (19:48)
[2020-06-04] MEDS: traZODone 100 MG TABLET. PO SCH (19:49)
[2020-06-04] MEDS: MIRTAZAPINE 15 MG TABLET PO SCH (19:50)
[2020-06-04] MEDS: SIMVASTATIN 10 MG TABLET PO SCH (19:50)
[2020-06-04] MEDS: INSULIN GLARGINE SYRINGE. SQ SCH (19:52)
--- NOTE | 2020-06-04 21:29 | PDOC ---
Exam Note: Joseph Note: This note is a late entry for 06/01/2020 covers elements not covered in my initial note. Subjective: The patient was reviewed on telehealth rounds in the evening of 06/01/2020 with Marla CORRAL. Discussed with nursing staff, reviewed the chart. The patient slept for 5-1/2 hours previous night. Per nursing report, the patient has been attention seeking. At times she does a little more for herself but other times she needs a lot of encouragement to complete her ADLs with assistance. Review of Systems: Impaired ambulation in wheelchair. No CV, , pulmonary, eye system symptoms on review. Mental Status Exam: The patient is reasonably oriented. Speech is coherent, rapid at times. She gets more agitated in the evening. Abstraction is fair. Computation is reasonable. Language function intact. Mood and affect somewhat depressed, anxious at times, labile. No active suicidal or homicidal ideation. Laboratory Data: Reviewed. Impression: Bipolar disorder unspecified. Major depressive disorder. Anxiety disorder unspecified. Impulse control disorder unspecified. Personality disorder unspecified. Plan: No change from initial note. Assessment: Vital Signs/I&O: Vital Signs Date Time Temp Pulse Resp B/P (MAP) Pulse Ox O2 Delivery O2 Flow Rate FiO2 06/04/20 18:06 69 112/68 06/04/20 16:03 97.9 18 96 06/04/20 06:30 Room Air I & O 06/03/20 06/03/20 06/04/20 15:00 23:00 07:00 Intake Total 960 ml 600 ml Balance 960 ml 600 ml Labs: Laboratory Tests Test 06/04/20 07:46 06/04/20 11:37 06/04/20 16:41 06/04/20 19:00 Glucose (Fingerstick) 156 mg/dL (70-99) H 233 mg/dL (70-99) H 216 mg/dL (70-99) H 249 mg/dL (70-99) H Current Medications: I have reviewed the current psychotropics carefully including drug interactions. Risk benefit ratio favors no change other than as noted in my dictated progress note. Diagnosis: Problems: (1) Psychotic disorder (2) Major depressive disorder (3) Personality disorder, unspecified (4) Bipolar disorder with psychotic features ADELSO LOVE MD Jun 04, 2020 21:29
--- NOTE | 2020-06-04 21:43 | PDOC ---
Exam Note: Joseph Note: This note is a late entry for 06/02/2020 covers elements not covered in my initial note. Subjective: The patient was reviewed on telehealth rounds in the evening of 06/02/2020 with Leena CORRAL. Discussed with nursing staff, reviewed the chart. The patient slept for 5-1/4 hours previous night. She has done much better today, getting herself out of the room, pleasant, attended two of the groups and a movie. No yelling. However as I met with her in the evening she was fixated on being discharged tonight and I addressed this with her. Review of Systems: Impaired ambulation in wheelchair. No CV, , pulmonary, eye, ENT system symptoms on review. Mental Status Exam: The patient is alert and oriented. She is pleasant, verbal, interactive, more appropriate. Speech is coherent. Abstraction is fair. Computation is impaired. Mood and affect depressed. No suicidal or homicidal ideation. Laboratory Data: Reviewed. Impression: Bipolar disorder unspecified. Major depressive disorder. Anxiety disorder unspecified. Impulse control disorder unspecified. Personality disorder unspecified. Plan: No change from initial note. Assessment: Vital Signs/I&O: Vital Signs Date Time Temp Pulse Resp B/P (MAP) Pulse Ox O2 Delivery O2 Flow Rate FiO2 06/04/20 18:06 69 112/68 06/04/20 16:03 97.9 18 96 06/04/20 06:30 Room Air I & O 06/03/20 06/03/20 06/04/20 15:00 23:00 07:00 Intake Total 960 ml 600 ml Balance 960 ml 600 ml Labs: Laboratory Tests Test 06/04/20 07:46 06/04/20 11:37 06/04/20 16:41 06/04/20 19:00 Glucose (Fingerstick) 156 mg/dL (70-99) H 233 mg/dL (70-99) H 216 mg/dL (70-99) H 249 mg/dL (70-99) H Current Medications: I have reviewed the current psychotropics carefully including drug interactions. Risk benefit ratio favors no change other than as noted in my dictated progress note. Diagnosis: Problems: (1) Psychotic disorder (2) Major depressive disorder (3) Personality disorder, unspecified (4) Bipolar disorder with psychotic features ADELSO LOVE MD Jun 04, 2020 21:43
--- NOTE | 2020-06-04 21:58 | PDOC ---
Exam Note: Joseph Note: This note is a late entry for 06/03/2020 covers elements not covered in my initial note. Subjective: The patient was reviewed on telehealth rounds in the evening of 06/03/2020 with Leena CORRAL. Discussed with nursing staff, reviewed the chart. The patient slept for 8-1/2 hours previous night. Overall the patient has done better. She has been interacting in groups, walked the hallways twice, less somatic, assisting more with her ADLs. She states she talked to her brother today and is pleased that they are looking for a placement for her closer to [place], [place]. We processed this. Review of Systems: Impaired ambulation in wheelchair. No CV, , pulmonary, eye system symptoms on review. Mental Status Exam: The patient is reasonably oriented. Speech is coherent. Abstraction is fair. Computation is impaired. Language function intact. Mood and affect is improved. No active suicidal or homicidal ideation. Laboratory Data: Reviewed. Impression: Bipolar disorder unspecified. Major depressive disorder. Anxiety disorder unspecified. Impulse control disorder unspecified. Personality disorder unspecified. Plan: No change from initial note. Assessment: Vital Signs/I&O: Vital Signs Date Time Temp Pulse Resp B/P (MAP) Pulse Ox O2 Delivery O2 Flow Rate FiO2 06/04/20 18:06 69 112/68 06/04/20 16:03 97.9 18 96 06/04/20 06:30 Room Air I & O 06/03/20 06/03/20 06/04/20 15:00 23:00 07:00 Intake Total 960 ml 600 ml Balance 960 ml 600 ml Labs: Laboratory Tests Test 06/04/20 07:46 06/04/20 11:37 06/04/20 16:41 06/04/20 19:00 Glucose (Fingerstick) 156 mg/dL (70-99) H 233 mg/dL (70-99) H 216 mg/dL (70-99) H 249 mg/dL (70-99) H Current Medications: I have reviewed the current psychotropics carefully including drug interactions. Risk benefit ratio favors no change other than as noted in my dictated progress note. Diagnosis: Problems: (1) Psychotic disorder (2) Major depressive disorder (3) Personality disorder, unspecified (4) Bipolar disorder with psychotic features ADELSO LOVE MD Jun 04, 2020 21:58
--- NOTE | 2020-06-04 22:04 | PDOC ---
Exam Note: Joseph Note: Please also refer to the separate dictated note~for this date of service dictated separately.~Patient seen individually. Discussed the patient with Nursing staff reviewed the chart.~Reviewed interim history and current functioning. Reviewed vital signs,~Labs/ Radiology~and current medications noted below. Continue current treatment with the changes noted in the dictated addendum note Assessment: Vital Signs/I&O: Vital Signs Date Time Temp Pulse Resp B/P (MAP) Pulse Ox O2 Delivery O2 Flow Rate FiO2 06/04/20 18:06 69 112/68 06/04/20 16:03 97.9 18 96 06/04/20 06:30 Room Air I & O 06/03/20 06/03/20 06/04/20 15:00 23:00 07:00 Intake Total 960 ml 600 ml Balance 960 ml 600 ml Labs: Laboratory Tests Test 06/04/20 07:46 06/04/20 11:37 06/04/20 16:41 06/04/20 19:00 Glucose (Fingerstick) 156 mg/dL (70-99) H 233 mg/dL (70-99) H 216 mg/dL (70-99) H 249 mg/dL (70-99) H Current Medications: I have reviewed the current psychotropics carefully including drug interactions. Risk benefit ratio favors no change other than as noted in my dictated progress note. Diagnosis: Problems: (1) Psychotic disorder (2) Major depressive disorder (3) Personality disorder, unspecified (4) Bipolar disorder with psychotic features ADELSO LOVE MD Jun 04, 2020 22:04
[2020-06-05] MEDS: hydrOXYzine HCL 25 MG TABLET PO PRN (00:11)
[2020-06-05] MEDS: LEVOTHYROXINE 50 MCG TABLET PO SCH (04:55)
[2020-06-05 06:11] VITALS: BP 99/59
[2020-06-05 06:35] LABS: BASO # 0.1 x10^3/uL (0.0-0.2); BASO % 1 % (0-3); EOS # 0.3 x10^3/uL (0.0-0.7); EOS % 4 % (0-3); HEMATOCRIT 29.9 % (36.0-47.0); HEMOGLOBIN 9.3 g/dL (12.0-15.5); LYMPH # 2.5 x10^3/uL (1.0-4.8); LYMPH % 33 % (24-48); MEAN CORPUSCULAR HEMOGLOBIN 26 pg (25-35); MEAN CORPUSCULAR HGB CONC 31 g/dL (31-37); MEAN CORPUSCULAR VOLUME 82 fL (79-100); MONO # 0.9 x10^3/uL (0.0-1.1); MONO % 12 % (0-9); NEUT # 3.9 x10^3uL (1.8-7.7); NEUT % 50 % (31-73); PLATELET COUNT 213 x10^3/uL (140-400); RED BLOOD COUNT 3.63 x10^6/uL (3.50-5.40); RED CELL DISTRIBUTION WIDTH 15.8 % (11.5-14.5); WHITE BLOOD COUNT 7.7 x10^3/uL (4.0-11.0)
[2020-06-05 06:47] LABS: ALBUMIN/GLOBULIN RATIO 0.5 (1.0-1.7); CALCIUM 8.3 mg/dL (8.5-10.1); CREATININE 1.3 mg/dL (0.6-1.0); GFR 41.5; POTASSIUM 4.3 mmol/L (3.5-5.1); TOTAL BILIRUBIN 0.2 mg/dL (0.2-1.0)
[2020-06-05] MEDS: INSULIN LISPRO 300 UNITS/3 ML VIAL. SQ SCH ×3 (08:00→17:00)
[2020-06-05] MEDS: CARVEDILOL 12.5 MG TABLET PO SCH ×2 (08:00→17:08)
[2020-06-05] MEDS: DIVALPROEX ER 500 MG TAB.ER.24H PO SCH ×2 (08:06→19:37)
[2020-06-05] MEDS: QUEtiapine 50 MG TABLET. PO SCH ×3 (08:06→19:38)
[2020-06-05] MEDS: FENOFIBRATE NANOCRYSTALLIZED 145 MG TABLET PO SCH (08:07)
[2020-06-05] MEDS: GABAPENTIN 300 MG CAPSULE. PO SCH ×3 (08:07→19:37)
[2020-06-05] MEDS: MAGNESIUM OXIDE 400 MG TABLET PO SCH (08:07)
[2020-06-05] MEDS: MORPHINE ER 15 MG TABLET.ER PO SCH (08:10)
[2020-06-05] MEDS: LORazepam 0.5 MG TABLET PO PRN ×3 (08:10→19:39)
[2020-06-05] MEDS: LISINOPRIL 20 MG TABLET PO SCH (08:15)
[2020-06-05] MEDS: TIMOLOL 0.5% OPHTH SOLUTION 5ML BOTTLE. OU SCH ×2 (08:21→19:36)
--- NOTE | 2020-06-05 09:39 | NUR ---
Informed Dr Taylor about HH trending down over last month (05/06 11.9 to 9.3 on 06/05). Pt has been asymptomatic except her BP has been running low. Order to dc lisinopril, dc Coumadin and recheck CBC on .
[2020-06-05 16:23] VITALS: BP 110/67
[2020-06-05] MEDS: QUEtiapine 25 MG TABLET. PO SCH (17:08)
--- NOTE | 2020-06-05 17:42 | NUR ---
Pt has intermittently yelled out during day. PRN utilized with some relief. Has been compliant with meds. Much encouragment needed to perform her own ADL.
[2020-06-05] MEDS: LATANOPROST 0.005% OPHTH SOLUTION 2.5ML BOTTLE. OU SCH (19:36)
[2020-06-05] MEDS: traZODone 100 MG TABLET. PO SCH (19:36)
[2020-06-05] MEDS: SIMVASTATIN 10 MG TABLET PO SCH (19:38)
[2020-06-05] MEDS: MIRTAZAPINE 15 MG TABLET PO SCH (19:38)
[2020-06-05] MEDS: INSULIN GLARGINE SYRINGE. SQ SCH (19:39)
--- NOTE | 2020-06-05 20:43 | PDOC ---
Exam Note: Joseph Note: Please also refer to the separate dictated note~for this date of service dictated separately.~Patient seen individually. Discussed the patient with Nursing staff reviewed the chart.~Reviewed interim history and current functioning. Reviewed vital signs,~Labs/ Radiology~and current medications noted below. Continue current treatment with the changes noted in the dictated addendum note Assessment: Vital Signs/I&O: Vital Signs Date Time Temp Pulse Resp B/P (MAP) Pulse Ox O2 Delivery O2 Flow Rate FiO2 06/05/20 17:08 72 110/67 06/05/20 16:23 98.0 20 96 06/05/20 06:11 Room Air I & O 06/04/20 06/04/20 06/05/20 15:00 23:00 07:00 Intake Total 720 ml 480 ml Balance 720 ml 480 ml Labs: Laboratory Tests Test 06/05/20 06:20 06/05/20 07:55 06/05/20 11:45 06/05/20 16:29 White Blood Count 7.7 x10^3/uL (4.0-11.0) Red Blood Count 3.63 x10^6/uL (3.50-5.40) Hemoglobin 9.3 g/dL (12.0-15.5) L Hematocrit 29.9 % (36.0-47.0) L Mean Corpuscular Volume 82 fL (79-100) Mean Corpuscular Hemoglobin 26 pg (25-35) Mean Corpuscular Hemoglobin Concent 31 g/dL (31-37) Red Cell Distribution Width 15.8 % (11.5-14.5) H Platelet Count 213 x10^3/uL (140-400) Neutrophils (%) (Auto) 50 % (31-73) Lymphocytes (%) (Auto) 33 % (24-48) Monocytes (%) (Auto) 12 % (0-9) H Eosinophils (%) (Auto) 4 % (0-3) H Basophils (%) (Auto) 1 % (0-3) Neutrophils # (Auto) 3.9 x10^3uL (1.8-7.7) Lymphocytes # (Auto) 2.5 x10^3/uL (1.0-4.8) Monocytes # (Auto) 0.9 x10^3/uL (0.0-1.1) Eosinophils # (Auto) 0.3 x10^3/uL (0.0-0.7) Basophils # (Auto) 0.1 x10^3/uL (0.0-0.2) Sodium Level 140 mmol/L (136-145) Potassium Level 4.3 mmol/L (3.5-5.1) Chloride Level 105 mmol/L (98-107) Carbon Dioxide Level 29 mmol/L (21-32) Anion Gap 6 (6-14) Blood Urea Nitrogen 32 mg/dL (7-20) H Creatinine 1.3 mg/dL (0.6-1.0) H Estimated GFR (Cockcroft-Gault) 41.5 BUN/Creatinine Ratio 25 (6-20) H Glucose Level 127 mg/dL (70-99) H Calcium Level 8.3 mg/dL (8.5-10.1) L Total Bilirubin 0.2 mg/dL (0.2-1.0) Aspartate Amino Transferase (AST) 12 U/L (15-37) L Alanine Aminotransferase (ALT) 11 U/L (14-59) L Alkaline Phosphatase 34 U/L (46-116) L Total Protein 6.0 g/dL (6.4-8.2) L Albumin 2.0 g/dL (3.4-5.0) L Albumin/Globulin Ratio 0.5 (1.0-1.7) L Glucose (Fingerstick) 130 mg/dL (70-99) H 109 mg/dL (70-99) H 200 mg/dL (70-99) H Test 06/05/20 19:08 Glucose (Fingerstick) 194 mg/dL (70-99) H Current Medications: I have reviewed the current psychotropics carefully including drug interactions. Risk benefit ratio favors no change other than as noted in my dictated progress note. Diagnosis: Problems: (1) Psychotic disorder (2) Major depressive disorder (3) Personality disorder, unspecified (4) Bipolar disorder with psychotic features ADELSO LOVE MD Jun 05, 2020 20:43
--- NOTE | 2020-06-05 23:59 | NUR ---
Patient is in her room on assumption of care. She is in good spirits at start of shift. Ambulating independently to and from the bathroom and cleaning herself up. No agitation. No complaints of pain or discomfort. Compliant with assessments and medications whole. Patient appears to be sleeping comfortably at present time. Will continue to monitor.
[2020-06-06] MEDS: LEVOTHYROXINE 50 MCG TABLET PO SCH (05:03)
[2020-06-06] MEDS: ACETAMINOPHEN 325 MG TABLET PO PRN (05:32)
[2020-06-06 06:08] VITALS: BP 114/70
--- NOTE | 2020-06-06 08:11 | PDOC ---
Exam Note: Joseph Note: This note is a late entry for 06/05/2020 covers elements not covered in my initial note. Subjective: The patient was reviewed on telehealth rounds in the evening of 06/05/2020 with Janine CORRAL. Discussed with nursing staff, reviewed the chart. The patient slept for 4-1/2 hours previous night. Overall the patient has been yelling less but did get anxious, restless in the afternoon. Received Ativan x2. Review of Systems: Impaired ambulation in wheelchair. No CV, , pulmonary, eye system symptoms on review. Mental Status Exam: The patient is reasonably oriented. Speech is coherent. Abstraction is fair. Computation is impaired. Language function intact. Mood and affect is less anxious, labile. No suicidal or homicidal ideation. Laboratory Data: Reviewed. Impression: Bipolar disorder unspecified. Major depressive disorder. Anxiety disorder unspecified. Impulse control disorder unspecified. Personality disorder unspecified. Plan: No change from initial note. Assessment: Vital Signs/I&O: Vital Signs Date Time Temp Pulse Resp B/P (MAP) Pulse Ox O2 Delivery O2 Flow Rate FiO2 06/06/20 06:08 97.2 55 16 114/70 (85) 98 Room Air I & O 06/05/20 06/05/20 06/06/20 14:59 22:59 06:59 Intake Total 840 ml 600 ml Balance 840 ml 600 ml Labs: Laboratory Tests Test 06/05/20 11:45 06/05/20 16:29 06/05/20 19:08 06/06/20 06:25 Glucose (Fingerstick) 109 mg/dL (70-99) H 200 mg/dL (70-99) H 194 mg/dL (70-99) H Prothrombin Time 19.5 SEC (9.4-11.4) H Prothrombin Time INR 1.9 (0.9-1.1) H Test 06/06/20 08:06 Glucose (Fingerstick) 137 mg/dL (70-99) H Current Medications: I have reviewed the current psychotropics carefully including drug interactions. Risk benefit ratio favors no change other than as noted in my dictated progress note. Diagnosis: Problems: (1) Psychotic disorder (2) Major depressive disorder (3) Personality disorder, unspecified (4) Bipolar disorder with psychotic features ADELSO LOVE MD Jun 06, 2020 08:11
[2020-06-06] MEDS: QUEtiapine 50 MG TABLET. PO SCH ×4 (09:26→20:13)
[2020-06-06] MEDS: DIVALPROEX ER 500 MG TAB.ER.24H PO SCH ×2 (09:26→20:11)
[2020-06-06] MEDS: FENOFIBRATE NANOCRYSTALLIZED 145 MG TABLET PO SCH (09:26)
[2020-06-06] MEDS: GABAPENTIN 300 MG CAPSULE. PO SCH ×3 (09:26→20:11)
[2020-06-06] MEDS: CARVEDILOL 12.5 MG TABLET PO SCH ×2 (09:26→17:00)
[2020-06-06] MEDS: MAGNESIUM OXIDE 400 MG TABLET PO SCH (09:28)
[2020-06-06] MEDS: MORPHINE ER 15 MG TABLET.ER PO SCH (09:28)
[2020-06-06] MEDS: TIMOLOL 0.5% OPHTH SOLUTION 5ML BOTTLE. OU SCH ×2 (09:28→20:13)
[2020-06-06] MEDS: LORazepam 0.5 MG TABLET PO PRN (09:29)
[2020-06-06] MEDS: INSULIN LISPRO 300 UNITS/3 ML VIAL. SQ SCH ×3 (09:58→17:54)
--- NOTE | 2020-06-06 10:54 | NUR ---
Call placed to Yisel, director of teaching and learning at [facility] in [facility]. Per Yisel, Shweta is not a candidate for re-admission. Call placed to Cammie, director of teaching and learning at [facility] in [facility], to inquire about bed availability. Cammie indicated that they will not have a quarantine room available until 06/14/19 but is willing to review Shweta's referral packet. Cammie also expressed that they typically want Medicaid to be in place, not pending status, and are not a behavioral facility. Referral faxed for review, awaiting admit decision.
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
--- NOTE | 2020-06-06 14:37 | NUR ---
Nursing note: Pt in her room at time of AM med pass and assessment. Pt is compliant with meds whole. She was continuously yelling out this morning demanding help with ADLs that she is able to do on her own. PRN was given with her AM meds with good effect. After lunch pt was encouraged to go to the day room for group. Pt stood up from her bed and began walking out of her room when she was demanding to have a wheelchair because she was "not going to make it all the way over there, my legs are too shaky." Pt was allowed to sit in the chair in the quiet pettit to rest her legs. Pt then began yelling "as soon as I get out of this place, I'm suing this building and starting a facility of my own where people who need help will get the help they need!" Pt eventually got up and walked back to her room where she is now sitting quietly. Will continue to monitor.
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
--- NOTE | 2020-06-06 15:05 | NUR ---
Call placed to Aliya, hr administrator at [facility] who indicated they had female bed availability. CHUYITA faxed referral for review, awaiting outcome. Call placed to Lizeth, admissions at [facility], who indicated having female bed availability. CHUYITA faxed referral for review, awaiting outcome. Call placed to Annamarie, sister in law/POA, with intent to provide progress report and update on referrals sent. Left message for Annamarie with request for return phone call.
[2020-06-06 16:03] VITALS: BP 97/61
[2020-06-06] MEDS: traZODone 100 MG TABLET. PO SCH (20:11)
[2020-06-06] MEDS: MIRTAZAPINE 15 MG TABLET PO SCH (20:11)
[2020-06-06] MEDS: SIMVASTATIN 10 MG TABLET PO SCH (20:11)
[2020-06-06] MEDS: LATANOPROST 0.005% OPHTH SOLUTION 2.5ML BOTTLE. OU SCH (20:13)
--- NOTE | 2020-06-06 21:00 | PDOC ---
Exam Note: Joseph Note: Please also refer to the separate dictated note~for this date of service dictated separately.~Patient seen individually. Discussed the patient with Nursing staff reviewed the chart.~Reviewed interim history and current functioning. Reviewed vital signs,~Labs/ Radiology~and current medications noted below. Continue current treatment with the changes noted in the dictated addendum note Assessment: Vital Signs/I&O: Vital Signs Date Time Temp Pulse Resp B/P (MAP) Pulse Ox O2 Delivery O2 Flow Rate FiO2 06/06/20 17:00 67 97/61 06/06/20 16:03 97.1 16 96 06/06/20 06:08 Room Air I & O 06/05/20 06/05/20 06/06/20 15:00 23:00 07:00 Intake Total 840 ml 600 ml Balance 840 ml 600 ml Labs: Laboratory Tests Test 06/06/20 06:25 06/06/20 08:06 06/06/20 11:56 06/06/20 17:00 Prothrombin Time 19.5 SEC (9.4-11.4) H Prothrombin Time INR 1.9 (0.9-1.1) H Glucose (Fingerstick) 137 mg/dL (70-99) H 201 mg/dL (70-99) H 118 mg/dL (70-99) H Test 06/06/20 20:08 Glucose (Fingerstick) 114 mg/dL (70-99) H Current Medications: Meds: Current Medications Medications (Trade) Dose Ordered Sig/Jayant Route PRN Reason Start Time Stop Time Status Last Admin Dose Admin Quetiapine Fumarate (SEROquel) 50 mg BID PO 06/06/20 21:00 06/06/20 20:13 Quetiapine Fumarate (SEROquel) 50 mg 1700 PO 06/06/20 17:00 06/06/20 17:17 I have reviewed the current psychotropics carefully including drug interactions. Risk benefit ratio favors no change other than as noted in my dictated progress note. Diagnosis: Problems: (1) Psychotic disorder (2) Major depressive disorder (3) Personality disorder, unspecified (4) Bipolar disorder with psychotic features ADELSO LOVE MD Jun 06, 2020 21:00
[2020-06-06] MEDS: INSULIN GLARGINE SYRINGE. SQ SCH (21:32)
--- NOTE | 2020-06-06 21:47 | NUR ---
Patient was laying in her bed upon assumption of care. She is compliant with medications taken whole and cooperative with eye drops. She has called out "nurse" several times but has not acted as helpless as on previous nights.
--- NOTE | 2020-06-07 03:54 | NUR ---
Patient woke up at around 0300 and yelled "help me". When nurse and CHUTE FEEDER responded to room patient was awake and stated that "the man in the choir brandon was coming for her". It was explained that she may have been having a dream/nightmare and that no one was coming for her. At that point patient became irritated and stated she had to pee, and began refusing to get up from the bed stating that she cannot walk. Nurse raised head of bed and then the bed to assist patient into standing position. Patient walked to the bathroom using her walker while stating that she "could not walk" all the way there. Patient was able to toilet self while staff monitored and encouraged her, standing by for safety. Staff verbally instructed patient how to change out of soiled brief and then helped her get clean brief on. Patient returned to bed.
[2020-06-07] MEDS: LEVOTHYROXINE 50 MCG TABLET PO SCH (05:48)
[2020-06-07 06:41] VITALS: BP 130/80
[2020-06-07 06:47] LABS: BASO # 0.1 x10^3/uL (0.0-0.2); BASO % 1 % (0-3); EOS # 0.4 x10^3/uL (0.0-0.7); EOS % 5 % (0-3); HEMATOCRIT 33.3 % (36.0-47.0); HEMOGLOBIN 10.3 g/dL (12.0-15.5); LYMPH # 1.9 x10^3/uL (1.0-4.8); LYMPH % 27 % (24-48); MEAN CORPUSCULAR HEMOGLOBIN 26 pg (25-35); MEAN CORPUSCULAR HGB CONC 31 g/dL (31-37); MEAN CORPUSCULAR VOLUME 83 fL (79-100); MONO # 0.7 x10^3/uL (0.0-1.1); MONO % 10 % (0-9); NEUT # 4.1 x10^3uL (1.8-7.7); NEUT % 57 % (31-73); PLATELET COUNT 230 x10^3/uL (140-400); RED BLOOD COUNT 4.04 x10^6/uL (3.50-5.40); RED CELL DISTRIBUTION WIDTH 16.5 % (11.5-14.5); WHITE BLOOD COUNT 7.2 x10^3/uL (4.0-11.0)
[2020-06-07 07:04] LABS: ALBUMIN 2.2 g/dL (3.4-5.0); ALBUMIN/GLOBULIN RATIO 0.5 (1.0-1.7); CALCIUM 8.7 mg/dL (8.5-10.1); CREATININE 1.2 mg/dL (0.6-1.0); GFR 45.5; POTASSIUM 4.4 mmol/L (3.5-5.1); TOTAL BILIRUBIN 0.2 mg/dL (0.2-1.0); TOTAL PROTEIN 6.6 g/dL (6.4-8.2)
--- NOTE | 2020-06-07 07:42 | PDOC ---
Exam Note: Joseph Note: This note is a late entry for 06/06/2020 covers elements not covered in my initial note. Subjective: The patient was reviewed on telehealth rounds in the morning of 06/06/2020 for a treatment team meeting with Buffy Baez and Ivette (dialysis social worker), Jojo, activity therapy and Marla CORRAL. Discussed with nursing staff, reviewed the chart. The patient slept for 5-1/2 hours previous night. Overall the patients appetite has been better. She has been yelling somewhat less but was in fact yelling this morning again. I met with her on telehealth rounds in the evening. Review of Systems: Impaired ambulation in wheelchair. No CV, , pulmonary, eye, ENT system symptoms on review. Mental Status Exam: The patient is reasonably oriented. Speech is coherent. Abstraction is fair. Computation is impaired. Language function intact. Attention span is short. Mood and affect is somewhat anxious, labile. As I met with her individually, she talked at length about wanting to go back to her mobile home and states she will take one of the nursing staff from here to help her at home, quite unrealistic in her expectations. I addressed this with her. No suicidal or homicidal ideation. Laboratory Data: Reviewed. Impression: Bipolar disorder unspecified. Major depressive disorder. Anxiety disorder unspecified. Impulse control disorder unspecified. Personality disorder unspecified. Plan: Continue current psychotropics. She is currently on Seroquel 50 mg t.i.d., 25 mg at 1700. We will increase the morning dosage of Seroquel to 75 mg and 1700 hours dosage to 50 mg. Continue rest unchanged. Maintain gabapentin, trazodone, Zyprexa p.r.n., Ativan p.r.n., Depakote current dosage level the rapeutic at 74. Adjust further as clinically indicated. Assessment: Vital Signs/I&O: Vital Signs Date Time Temp Pulse Resp B/P (MAP) Pulse Ox O2 Delivery O2 Flow Rate FiO2 06/07/20 06:41 98.0 66 18 130/80 (97) 99 06/06/20 06:08 Room Air I & O 06/06/20 06/06/20 06/07/20 15:00 23:00 07:00 Intake Total 600 ml 600 ml Balance 600 ml 600 ml Labs: Laboratory Tests Test 06/06/20 08:06 06/06/20 11:56 06/06/20 17:00 06/06/20 20:08 Glucose (Fingerstick) 137 mg/dL (70-99) H 201 mg/dL (70-99) H 118 mg/dL (70-99) H 114 mg/dL (70-99) H Test 06/07/20 06:30 White Blood Count 7.2 x10^3/uL (4.0-11.0) Red Blood Count 4.04 x10^6/uL (3.50-5.40) Hemoglobin 10.3 g/dL (12.0-15.5) L Hematocrit 33.3 % (36.0-47.0) L Mean Corpuscular Volume 83 fL (79-100) Mean Corpuscular Hemoglobin 26 pg (25-35) Mean Corpuscular Hemoglobin Concent 31 g/dL (31-37) Red Cell Distribution Width 16.5 % (11.5-14.5) H Platelet Count 230 x10^3/uL (140-400) Neutrophils (%) (Auto) 57 % (31-73) Lymphocytes (%) (Auto) 27 % (24-48) Monocytes (%) (Auto) 10 % (0-9) H Eosinophils (%) (Auto) 5 % (0-3) H Basophils (%) (Auto) 1 % (0-3) Neutrophils # (Auto) 4.1 x10^3uL (1.8-7.7) Lymphocytes # (Auto) 1.9 x10^3/uL (1.0-4.8) Monocytes # (Auto) 0.7 x10^3/uL (0.0-1.1) Eosinophils # (Auto) 0.4 x10^3/uL (0.0-0.7) Basophils # (Auto) 0.1 x10^3/uL (0.0-0.2) Sodium Level 140 mmol/L (136-145) Potassium Level 4.4 mmol/L (3.5-5.1) Chloride Level 105 mmol/L (98-107) Carbon Dioxide Level 29 mmol/L (21-32) Anion Gap 6 (6-14) Blood Urea Nitrogen 36 mg/dL (7-20) H Creatinine 1.2 mg/dL (0.6-1.0) H Estimated GFR (Cockcroft-Gault) 45.5 BUN/Creatinine Ratio 30 (6-20) H Glucose Level 146 mg/dL (70-99) H Calcium Level 8.7 mg/dL (8.5-10.1) Total Bilirubin 0.2 mg/dL (0.2-1.0) Aspartate Amino Transferase (AST) 14 U/L (15-37) L Alanine Aminotransferase (ALT) 12 U/L (14-59) L Alkaline Phosphatase 37 U/L (46-116) L Total Protein 6.6 g/dL (6.4-8.2) Albumin 2.2 g/dL (3.4-5.0) L Albumin/Globulin Ratio 0.5 (1.0-1.7) L Current Medications: Meds: Current Medications Medications (Trade) Dose Ordered Sig/Jayant Route PRN Reason Start Time Stop Time Status Last Admin Dose Admin Quetiapine Fumarate (SEROquel) 50 mg BID PO 06/06/20 21:00 06/06/20 20:13 Quetiapine Fumarate (SEROquel) 50 mg 1700 PO 06/06/20 17:00 06/06/20 17:17 I have reviewed the current psychotropics carefully including drug interactions. Risk benefit ratio favors no change other than as noted in my dictated progress note. Diagnosis: Problems: (1) Psychotic disorder (2) Major depressive disorder (3) Personality disorder, unspecified (4) Bipolar disorder with psychotic features ADELSO LOVE MD Jun 07, 2020 07:42
[2020-06-07] MEDS: INSULIN LISPRO 300 UNITS/3 ML VIAL. SQ SCH ×3 (08:00→17:18)
[2020-06-07] MEDS: GABAPENTIN 300 MG CAPSULE. PO SCH ×3 (08:43→19:42)
[2020-06-07] MEDS: CARVEDILOL 12.5 MG TABLET PO SCH ×2 (08:43→17:16)
[2020-06-07] MEDS: MORPHINE ER 15 MG TABLET.ER PO SCH (08:43)
[2020-06-07] MEDS: DIVALPROEX ER 500 MG TAB.ER.24H PO SCH ×2 (08:44→19:42)
[2020-06-07] MEDS: TIMOLOL 0.5% OPHTH SOLUTION 5ML BOTTLE. OU SCH ×2 (08:44→19:42)
[2020-06-07] MEDS: QUEtiapine 50 MG TABLET. PO SCH ×3 (08:44→19:41)
[2020-06-07] MEDS: FENOFIBRATE NANOCRYSTALLIZED 145 MG TABLET PO SCH (08:44)
[2020-06-07] MEDS: MAGNESIUM OXIDE 400 MG TABLET PO SCH (09:00)
[2020-06-07] MEDS: QUEtiapine 25 MG TABLET. PO SCH (14:06)
--- NOTE | 2020-06-07 14:14 | NUR ---
Phone conversation held with Annamarie (POA) and Roe (brother) updating them on status of referrals sent out for placement on 06/06/20. Annamarie indicated that a medicaid application was submitted on Shweta's behalf on 05/09/20. CHUYITA requested Annamarie call [facility] to check the application status. Annamarie stated that [facility] will not talk to her without verbal consent from Shweta. CHUYITA and Shweta contacted Carlos A at [facility] ([phone], case# [id number]) this afternoon to check status of application. Carlos A indicated that the following documents needed to be submitted: financial POA, life insurance statements, proof of sale of home in 2016, last month's bank statement, and burial statements. F/U call placed to Annamarie to inform and Annamarie reported that she had mailed all of these requested documents to [facility], other than the financial POA because they don't have one, last week. Annamarie will follow up with Shweta's last chalker about formulating a financial POA. Discussion held with Shweta about her physical condition, multiple medical illnesses, back injury, and being disabled. Encouraged Shweta to be realistic about trying to manage on her own at home. Shweta agreed at this time she would have difficulty, especially on days where she was having more pain and fatigue. Shweta is in agreement with d/c to a care facility, preferably one close to [facility], so she has the support with activities of daily living. CHUYITA will f/u with facilities that referrals were sent to on 06/06/20 to inquire if admission decisions have been made.
--- NOTE | 2020-06-07 14:29 | NUR ---
F/U call to [facility], who stated that they were unable to accept Shweta for admission due to her behavioral needs. F/U call placed to Colette at [facility] who stated that they were unable to accept Shweta at this time as they only have two quarantine rooms and they will both be occupied for the next 2 weeks. Colette did say that Shweta may be considered once quarantine room becomes open. F/U call placed to Lizeth at [facility]. Left message with request for return phone call with intent to inquire about admission decision. Awaiting return phone call. Call placed to [facility] ([phone]), [place] visual education director, who indicated they had female bed availability and would review a referral. Referral faxed fore review, awaiting outcome. Addendum: 06/07/20 at 1511 by EVA BOOGIE CHUYITA received voice message back from Lizeth at [facility] declining Shweta based on behaviors and need for prn medications.
[2020-06-07 15:19] VITALS: BP 119/70
--- NOTE | 2020-06-07 17:35 | NUR ---
Patient was labile for most of the day. She has come to the realization that she may not be going home and will be going to a facility. She is okay with this but it just hit her hard today. We had a long talk about doing things for herself and the more she does them the easier it will get and maybe she could still have a chance to go somewhere more independent. She denies any hallucinations and has not had any confusion today. She answers all orientation questions appropriately. Patient has area on her left thigh that she continues to scratch and pick at.I put a bandaid over the area after cleaning so she would leave it alone and she has not tried to mess with the area or pick at it all day. We will continue to monitor. No further concerns or complaints at this time.
[2020-06-07] MEDS: MIRTAZAPINE 15 MG TABLET PO SCH (19:41)
[2020-06-07] MEDS: LATANOPROST 0.005% OPHTH SOLUTION 2.5ML BOTTLE. OU SCH (19:42)
[2020-06-07] MEDS: SIMVASTATIN 10 MG TABLET PO SCH (19:42)
[2020-06-07] MEDS: traZODone 100 MG TABLET. PO SCH (19:42)
[2020-06-07] MEDS: INSULIN GLARGINE SYRINGE. SQ SCH (19:50)
--- NOTE | 2020-06-07 21:08 | PDOC ---
Exam Note: Joseph Note: Please also refer to the separate dictated note~for this date of service dictated separately.~Patient seen individually. Discussed the patient with Nursing staff reviewed the chart.~Reviewed interim history and current functioning. Reviewed vital signs,~Labs/ Radiology~and current medications noted below. Continue current treatment with the changes noted in the dictated addendum note Assessment: Vital Signs/I&O: Vital Signs Date Time Temp Pulse Resp B/P (MAP) Pulse Ox O2 Delivery O2 Flow Rate FiO2 06/07/20 17:16 68 119/70 06/07/20 15:19 97.4 18 96 06/06/20 06:08 Room Air I & O 06/06/20 06/06/20 06/07/20 15:00 23:00 07:00 Intake Total 600 ml 600 ml Balance 600 ml 600 ml Labs: Laboratory Tests Test 06/07/20 06:30 06/07/20 07:51 06/07/20 12:01 06/07/20 16:56 White Blood Count 7.2 x10^3/uL (4.0-11.0) Red Blood Count 4.04 x10^6/uL (3.50-5.40) Hemoglobin 10.3 g/dL (12.0-15.5) L Hematocrit 33.3 % (36.0-47.0) L Mean Corpuscular Volume 83 fL (79-100) Mean Corpuscular Hemoglobin 26 pg (25-35) Mean Corpuscular Hemoglobin Concent 31 g/dL (31-37) Red Cell Distribution Width 16.5 % (11.5-14.5) H Platelet Count 230 x10^3/uL (140-400) Neutrophils (%) (Auto) 57 % (31-73) Lymphocytes (%) (Auto) 27 % (24-48) Monocytes (%) (Auto) 10 % (0-9) H Eosinophils (%) (Auto) 5 % (0-3) H Basophils (%) (Auto) 1 % (0-3) Neutrophils # (Auto) 4.1 x10^3uL (1.8-7.7) Lymphocytes # (Auto) 1.9 x10^3/uL (1.0-4.8) Monocytes # (Auto) 0.7 x10^3/uL (0.0-1.1) Eosinophils # (Auto) 0.4 x10^3/uL (0.0-0.7) Basophils # (Auto) 0.1 x10^3/uL (0.0-0.2) Sodium Level 140 mmol/L (136-145) Potassium Level 4.4 mmol/L (3.5-5.1) Chloride Level 105 mmol/L (98-107) Carbon Dioxide Level 29 mmol/L (21-32) Anion Gap 6 (6-14) Blood Urea Nitrogen 36 mg/dL (7-20) H Creatinine 1.2 mg/dL (0.6-1.0) H Estimated GFR (Cockcroft-Gault) 45.5 BUN/Creatinine Ratio 30 (6-20) H Glucose Level 146 mg/dL (70-99) H Calcium Level 8.7 mg/dL (8.5-10.1) Total Bilirubin 0.2 mg/dL (0.2-1.0) Aspartate Amino Transferase (AST) 14 U/L (15-37) L Alanine Aminotransferase (ALT) 12 U/L (14-59) L Alkaline Phosphatase 37 U/L (46-116) L Total Protein 6.6 g/dL (6.4-8.2) Albumin 2.2 g/dL (3.4-5.0) L Albumin/Globulin Ratio 0.5 (1.0-1.7) L Glucose (Fingerstick) 151 mg/dL (70-99) H 175 mg/dL (70-99) H 155 mg/dL (70-99) H Test 06/07/20 19:12 Glucose (Fingerstick) 174 mg/dL (70-99) H Current Medications: Meds: Current Medications Medications (Trade) Dose Ordered Sig/Jayant Route PRN Reason Start Time Stop Time Status Last Admin Dose Admin Quetiapine Fumarate (SEROquel) 75 mg 1400 PO 06/07/20 14:00 06/07/20 14:06 I have reviewed the current psychotropics carefully including drug interactions. Risk benefit ratio favors no change other than as noted in my dictated progress note. Diagnosis: Problems: (1) Psychotic disorder (2) Major depressive disorder (3) Personality disorder, unspecified (4) Bipolar disorder with psychotic features ADELSO LOVE MD Jun 07, 2020 21:08
--- NOTE | 2020-06-07 22:06 | NUR ---
Nursing Note: Pt withdrawn to room, sitting quietly at shift change. Pt calm, pleasant, and interactive when approached. Pt has been able and willing to perform ADL's on her own with very little encouragement from staff. Pt cooperative with assessment and compliant with medications administered whole.
[2020-06-08] MEDS: LEVOTHYROXINE 50 MCG TABLET PO SCH (05:12)
[2020-06-08 05:54] VITALS: BP 115/70
[2020-06-08] MEDS: QUEtiapine 50 MG TABLET. PO SCH ×3 (08:49→20:40)
[2020-06-08] MEDS: MAGNESIUM OXIDE 400 MG TABLET PO SCH (08:49)
[2020-06-08] MEDS: FENOFIBRATE NANOCRYSTALLIZED 145 MG TABLET PO SCH (08:50)
[2020-06-08] MEDS: CARVEDILOL 12.5 MG TABLET PO SCH ×2 (08:50→17:37)
[2020-06-08] MEDS: GABAPENTIN 300 MG CAPSULE. PO SCH ×3 (08:50→20:40)
[2020-06-08] MEDS: DIVALPROEX ER 500 MG TAB.ER.24H PO SCH ×2 (08:50→20:40)
[2020-06-08] MEDS: TIMOLOL 0.5% OPHTH SOLUTION 5ML BOTTLE. OU SCH ×2 (08:51→20:42)
[2020-06-08] MEDS: MORPHINE ER 15 MG TABLET.ER PO SCH (08:52)
[2020-06-08] MEDS: INSULIN LISPRO 300 UNITS/3 ML VIAL. SQ SCH ×3 (09:33→17:35)
--- NOTE | 2020-06-08 10:07 | NUR ---
Received voice message from Xochitl from [facility] indicating Shweta has xiao declined for admission due to behaviors and inability to meet her needs.
--- NOTE | 2020-06-08 10:29 | NUR ---
Phone conversation with GIULIA De Luna, to inform of denials for placement for Shweta at the facilities she had requested referrals be sent to. Sonal provided three additional facilities for CHUYITA to send referrals to including [facility], [facility], and [facility]. CHUYITA will follow up with these facilities.
--- NOTE | 2020-06-08 12:21 | NUR ---
Call placed to Radha, admissions at [facility] ([phone]), who indicated having possible female bed availability. Referral faxed for review. Call placed to Tequila, admissions at [facility] and [facility] ([phone]), who indicated having female bed availability. Referral faxed for review. Call placed to Maritza, admissions at [facility] ([phone]), who indicated having female bed availability. Referral faxed for review.
[2020-06-08] MEDS: QUEtiapine 25 MG TABLET. PO SCH (13:14)
--- NOTE | 2020-06-08 14:59 | NUR ---
Nursing note: Pt has been yelling out more today and acting more helpless than previous days, more so in the morning than this afternoon. Pt had been demanding that we help her with ADLs she is capable of performing. Pt also pulled her own pants down while laying in bed and knowingly went to the bathroom in bed because "this is why I'm going to the custodial, so clean me up." Pt is currently sitting quietly in her room. Will continue to monitor.
[2020-06-08 15:59] VITALS: BP 106/71
[2020-06-08] MEDS: MIRTAZAPINE 15 MG TABLET PO SCH (20:40)
[2020-06-08] MEDS: SIMVASTATIN 10 MG TABLET PO SCH (20:40)
[2020-06-08] MEDS: traZODone 100 MG TABLET. PO SCH (20:41)
[2020-06-08] MEDS: INSULIN GLARGINE SYRINGE. SQ SCH (20:42)
[2020-06-08] MEDS: LATANOPROST 0.005% OPHTH SOLUTION 2.5ML BOTTLE. OU SCH (20:42)
--- NOTE | 2020-06-08 20:53 | PDOC ---
Exam Note: Joseph Note: This note is a late entry for 06/07/2020 covers elements not covered in my initial note. Subjective: The patient was reviewed on telehealth rounds in the evening of 06/07/2020 with Leena CORRAL. Discussed with nursing staff, reviewed the chart. He slept 4 hours previous night. Overall the patient has done better today. She was little agitated in the morning, was crying, quite insightful stating that she knew she could not get back home, had to be in a nursing facility and was agreeable to this in a place near [place], [place]. No yelling is noted. Hemoglobin 10.3, hematocrit 33. We will defer to Dr. Levi/Dr. Taylor. Review of Systems: Impaired ambulation in wheelchair. No CV, , pulmonary, eye, ENT system symptoms on review. Mental Status Exam: The patient is reasonably oriented. Speech is coherent. Abstraction is fair. Computation is impaired. Language function intact. Attention span is reasonable. Mood and affect is improves, less anxious, labile. Laboratory Data: Reviewed. Impression: Bipolar disorder unspecified. Major depressive disorder. Anxiety disorder unspecified. Impulse control disorder unspecified. Personality disorder unspecified. Plan: Continue current psychotropics. Assessment: Vital Signs/I&O: Vital Signs Date Time Temp Pulse Resp B/P (MAP) Pulse Ox O2 Delivery O2 Flow Rate FiO2 06/08/20 17:37 74 106/71 06/08/20 15:59 97.1 18 96 06/06/20 06:08 Room Air I & O 06/07/20 06/07/20 06/08/20 15:00 23:00 07:00 Intake Total 840 ml 480 ml Balance 840 ml 480 ml Labs: Laboratory Tests Test 06/08/20 07:51 06/08/20 11:48 06/08/20 16:47 06/08/20 19:15 Glucose (Fingerstick) 174 mg/dL (70-99) H 176 mg/dL (70-99) H 200 mg/dL (70-99) H 192 mg/dL (70-99) H Current Medications: I have reviewed the current psychotropics carefully including drug interactions. Risk benefit ratio favors no change other than as noted in my dictated progress note. Diagnosis: Problems: (1) Psychotic disorder (2) Major depressive disorder (3) Personality disorder, unspecified (4) Bipolar disorder with psychotic features ADELSO LOVE MD Jun 08, 2020 20:53
--- NOTE | 2020-06-08 21:18 | PDOC ---
Exam Note: Joseph Note: Please also refer to the separate dictated note~for this date of service dictated separately.~Patient seen individually. Discussed the patient with Nursing staff reviewed the chart.~Reviewed interim history and current functioning. Reviewed vital signs,~Labs/ Radiology~and current medications noted below. Continue current treatment with the changes noted in the dictated addendum note Assessment: Vital Signs/I&O: Vital Signs Date Time Temp Pulse Resp B/P (MAP) Pulse Ox O2 Delivery O2 Flow Rate FiO2 06/08/20 17:37 74 106/71 06/08/20 15:59 97.1 18 96 06/06/20 06:08 Room Air I & O 06/07/20 06/07/20 06/08/20 15:00 23:00 07:00 Intake Total 840 ml 480 ml Balance 840 ml 480 ml Labs: Laboratory Tests Test 06/08/20 07:51 06/08/20 11:48 06/08/20 16:47 06/08/20 19:15 Glucose (Fingerstick) 174 mg/dL (70-99) H 176 mg/dL (70-99) H 200 mg/dL (70-99) H 192 mg/dL (70-99) H Current Medications: I have reviewed the current psychotropics carefully including drug interactions. Risk benefit ratio favors no change other than as noted in my dictated progress note. Diagnosis: Problems: (1) Psychotic disorder (2) Major depressive disorder (3) Personality disorder, unspecified (4) Bipolar disorder with psychotic features ADELSO LOVE MD Jun 08, 2020 21:18
--- NOTE | 2020-06-08 22:00 | PDOC ---
Exam Note: Joseph Note: Please also refer to the separate dictated note~for this date of service dictated separately.~Patient seen individually. Discussed the patient with Nursing staff reviewed the chart.~Reviewed interim history and current functioning. Reviewed vital signs,~Labs/ Radiology~and current medications noted below. Continue current treatment with the changes noted in the dictated addendum note Assessment: Vital Signs/I&O: VS - Last 72 Hours, by Label Date Time Temp Pulse Resp B/P (MAP) Pulse Ox O2 Delivery O2 Flow Rate FiO2 06/08/20 17:37 74 106/71 06/08/20 15:59 97.1 74 18 106/71 (83) 96 06/08/20 13:14 95 06/08/20 08:52 95 06/08/20 08:50 60 115/70 06/08/20 05:54 98.7 60 16 115/70 (85) 95 06/07/20 17:16 68 119/70 06/07/20 15:19 97.4 68 18 119/70 (86) 96 06/07/20 08:43 66 130/80 06/07/20 06:41 98.0 66 18 130/80 (97) 99 06/06/20 17:00 67 97/61 06/06/20 16:03 97.1 67 16 97/61 (73) 96 06/06/20 13:33 98 06/06/20 09:28 98 06/06/20 09:26 55 114/70 06/06/20 06:08 97.2 55 16 114/70 (85) 98 Room Air Vital Signs Date Time Temp Pulse Resp B/P (MAP) Pulse Ox O2 Delivery O2 Flow Rate FiO2 06/08/20 17:37 74 106/71 06/08/20 15:59 97.1 18 96 06/06/20 06:08 Room Air I & O 06/07/20 06/07/20 06/08/20 14:59 22:59 06:59 Intake Total 840 ml 480 ml Balance 840 ml 480 ml Labs: Laboratory Tests Test 06/08/20 07:51 06/08/20 11:48 06/08/20 16:47 06/08/20 19:15 Glucose (Fingerstick) 174 mg/dL 176 mg/dL 200 mg/dL 192 mg/dL Current Medications Medications (Trade) Dose Ordered Sig/Jayant Route PRN Reason Start Time Stop Time Status Last Admin Dose Admin Acetaminophen (Tylenol) 650 mg PRN Q6HRS PRN PO MILD PAIN / TEMP > 100.3'F 05/05/20 20:15 UNV Multi-Ingredient Ointment (Analgesic [place]) 1 scottie PRN QID PRN TP MUSCLE PAIN 05/05/20 20:15 Al Hydroxide/Mg Hydroxide (Mylanta Plus Xs) 15 ml PRN AFTMEALHC PRN PO DYSPEPSIA 05/05/20 20:15 Magnesium Hydroxide (Milk Of Magnesia) 2,400 mg PRN QHS PRN PO CONSTIPATION, 1ST CHOICE 05/05/20 20:15 Olanzapine (ZyPREXA ZYDIS) 2.5 mg PRN Q2HRS PRN PO ANXIETY / AGITATION 05/05/20 20:15 05/06/20 11:17 DC 05/06/20 09:29 Acetaminophen (Tylenol) 650 mg PRN Q4HRS PRN PO MILD PAIN / TEMP > 100.3'F 05/05/20 20:15 06/06/20 05:32 Clonidine HCl (Catapres Tts-1) 1 patch WEEKLY TD 05/12/20 09:00 05/20/20 10:59 DC 05/19/20 09:01 Fenofibrate (Tricor) 145 mg DAILY PO 05/06/20 09:00 06/08/20 08:50 Gabapentin (Neurontin) 300 mg TID PO 05/05/20 21:00 06/08/20 20:40 Levothyroxine Sodium (Synthroid) 50 mcg DAILY06 PO 05/06/20 06:00 05/08/20 00:17 DC 05/07/20 06:00 Lisinopril (Prinivil) 20 mg DAILY PO 05/06/20 09:00 06/05/20 09:39 DC 06/04/20 09:00 Magnesium Oxide (Magnesium Oxide) 200 mg DAILY PO 05/06/20 09:00 06/08/20 08:49 Morphine Sulfate (Ms Contin) 15 mg BID PO 05/05/20 21:00 05/20/20 13:53 DC 05/20/20 09:00 Polyethylene Glycol (miraLAX) 17 gm DAILY PO 05/06/20 09:00 05/12/20 02:36 DC 05/11/20 05:47 Simvastatin (Zocor) 10 mg HS PO 05/05/20 21:00 06/08/20 20:40 Timolol Maleate (Timoptic 0.5% [facility]) 1 drop BID OU 05/05/20 21:00 05/19/20 21:03 DC 05/19/20 19:48 Trazodone HCl (Desyrel) 50 mg HS PO 05/05/20 21:00 05/11/20 17:38 DC 05/10/20 20:14 Carvedilol (Coreg) 12.5 mg BIDWMEALS PO 05/06/20 08:00 06/08/20 17:37 Insulin Human Lispro (HumaLOG) 10 units TIDAC SQ 05/06/20 07:30 05/06/20 11:36 DC 05/06/20 07:30 Insulin Glargine (Lantus Syringe) 25 unit QHS SQ 05/05/20 21:00 06/08/20 20:42 Latanoprost (Xalatan) 1 drop QHS OU 05/05/20 21:00 06/08/20 20:42 Non-Formulary Medication (Magnesium Hydroxide (Milk Of Magnesia)) 30 ml PRN DAILY PRN PO CONSTIPATION 05/05/20 20:15 UNV Multivitamins/ Calcium (Thera-M Plus) 1 tab DAILY PO 05/06/20 09:00 05/14/20 08:49 DC 05/14/20 08:11 Sennosides (Senna) 17.2 mg BID PO 05/05/20 21:00 05/12/20 05:09 DC 05/11/20 19:38 Venlafaxine HCl (Effexor) 50 mg TID PO 05/05/20 21:00 05/06/20 18:23 DC 05/06/20 12:34 Influenza Virus Vaccine Quadrival (Fluzone Quad Syringe) 0.5 ml ONCE ONCE VAX IM 05/06/20 09:00 05/06/20 09:01 DC 05/06/20 09:00 Warfarin Sodium (Coumadin Per Pharmacy) 1 each PRN DAILY PRN MC SEE COMMENTS 05/06/20 11:00 06/05/20 09:39 DC 06/01/20 11:58 Warfarin Sodium (Coumadin) 2.5 mg DAILY@1600 PO 05/06/20 16:00 05/10/20 08:18 DC 05/09/20 17:26 Lorazepam (Ativan) 0.5 mg PRN Q2HRS PRN PO ANXIETY / AGITATION 05/06/20 11:00 06/06/20 09:29 Olanzapine (ZyPREXA ZYDIS) 5 mg PRN Q2HRS PRN PO PSYCHOSIS 05/06/20 11:00 06/03/20 20:13 Warfarin Sodium (Coumadin) 1 mg DAILY@1600 PO 05/06/20 16:00 05/10/20 08:18 DC 05/09/20 17:25 Insulin Human Lispro (HumaLOG) 10 units TIDWMEALS SQ 05/06/20 12:00 05/11/20 17:31 DC 05/11/20 17:11 Venlafaxine HCl (Effexor) 25 mg TID PO 05/06/20 21:00 05/09/20 20:59 DC 05/09/20 15:19 Divalproex Sodium (Depakote Er) 500 mg QHS PO 05/06/20 21:00 05/09/20 09:41 DC 05/08/20 19:33 Levothyroxine Sodium (Synthroid) 50 mcg 0600 PO 05/08/20 06:00 06/08/20 05:12 Trazodone HCl (Desyrel) 50 mg PRN QHS PRN PO INSMONIA 05/08/20 21:00 05/11/20 17:38 DC 05/10/20 23:06 Haloperidol Lactate (Haldol) 5 mg DAILY IM 05/09/20 09:30 05/13/20 18:05 DC 05/13/20 07:49 Lorazepam (Ativan Inj) 0.5 mg DAILY IM 05/09/20 09:30 05/13/20 18:05 DC 05/13/20 07:49 Divalproex Sodium (Depakote Er) 1,000 mg QHS PO 05/09/20 21:00 05/12/20 23:00 DC 05/12/20 20:28 Warfarin Sodium (Coumadin - No Dose Today) 1 each 1X WARF ONCE 05/10/20 16:00 05/10/20 16:01 DC Insulin Human Lispro (HumaLOG) 14 units TIDWMEALS SQ 05/11/20 17:30 05/11/20 17:37 DC Vitamin D (Vitamin D3) 50,000 unit WEEKLY PO 05/11/20 17:30 05/11/20 17:37 DC Vitamin D (Vitamin D3) 50,000 unit WEEKLY PO 05/12/20 09:00 06/02/20 09:39 Insulin Human Lispro (HumaLOG) 14 units TIDWMEALS SQ 05/12/20 08:00 06/08/20 17:35 Trazodone HCl (Desyrel) 100 mg QHS PO 05/11/20 21:00 06/08/20 20:41 Trazodone HCl (Desyrel) 100 mg PRN QHS PRN PO INSOMNIA 05/11/20 17:45 05/27/20 23:22 Sennosides (Senna) 17.2 mg PRN BID PRN PO CONSTIPATION, 2ND CHOICE 05/12/20 05:15 Warfarin Sodium (Coumadin) 2.5 mg 1X WARF ONCE PO 05/12/20 16:00 05/12/20 16:01 DC 05/12/20 16:59 Quetiapine Fumarate (SEROquel) 50 mg QHS PO 05/12/20 22:00 05/15/20 22:17 DC 05/15/20 19:51 Divalproex Sodium (Depakote Er) 1,500 mg QHS PO 05/13/20 21:00 05/17/20 17:09 DC 05/16/20 19:53 Divalproex Sodium (Depakote Er) 500 mg ONCE PO 05/12/20 22:00 05/12/20 22:03 DC Divalproex Sodium (Depakote Er) 500 mg 1X ONCE PO 05/12/20 22:15 05/12/20 22:16 DC 05/12/20 22:05 Warfarin Sodium (Coumadin) 2.5 mg 1X WARF ONCE PO 05/13/20 16:00 05/13/20 16:01 DC 05/13/20 17:14 Haloperidol Lactate (Haldol) 5 mg DAILY@1700 IM 05/14/20 17:00 05/17/20 14:00 DC 05/15/20 17:15 Lorazepam (Ativan Inj) 0.5 mg DAILY@1700 IM 05/14/20 17:00 05/17/20 14:00 DC 05/15/20 17:15 Hydroxyzine HCl (Atarax) 25 mg PRN Q6HRS PRN PO ITCHING 05/14/20 14:00 06/05/20 00:11 Warfarin Sodium (Coumadin) 2.5 mg 1X WARF ONCE PO 05/14/20 16:00 05/14/20 16:01 DC 05/14/20 16:00 Quetiapine Fumarate (SEROquel) 25 mg DAILY PO 05/15/20 09:00 05/15/20 22:17 DC 05/15/20 09:11 Warfarin Sodium (Coumadin) 2 mg 1X WARF ONCE PO 05/15/20 16:30 05/15/20 16:42 DC 05/15/20 17:15 Nystatin (Nystop) 1 scottie PRN BID PRN TP REDNESS 05/15/20 17:30 05/17/20 13:32 Quetiapine Fumarate (SEROquel) 50 mg TID PO 05/16/20 09:00 06/06/20 14:21 DC 06/06/20 13:10 Warfarin Sodium (Coumadin - No Dose Today) 1 each 1X WARF ONCE MC 05/16/20 16:00 05/16/20 16:01 DC Warfarin Sodium (Coumadin) 1.5 mg 1X WARF ONCE PO 05/17/20 16:00 05/17/20 16:01 DC 05/17/20 16:18 Divalproex Sodium (Depakote Er) 2,000 mg QHS PO 05/17/20 21:00 06/08/20 20:40 Warfarin Sodium (Coumadin) 1.5 mg 1X WARF ONCE PO 05/18/20 16:00 05/18/20 16:01 DC 05/18/20 16:53 Quetiapine Fumarate (SEROquel) 25 mg 1700 PO 05/19/20 17:00 06/06/20 14:21 DC 06/05/20 17:08 Warfarin Sodium (Coumadin) 1.5 mg DAILY16 PO 05/19/20 16:00 05/22/20 10:22 DC 05/21/20 17:01 Timolol Maleate (Timoptic 0.5% Oph) 1 drop BID OU 05/19/20 21:03 06/08/20 20:42 Clonidine HCl (Catapres Tts-1) 1 patch WEEKLY TD 05/20/20 11:00 06/03/20 09:00 Morphine Sulfate (Ms Contin) 15 mg DAILY PO 05/21/20 09:00 06/08/20 08:52 Divalproex Sodium (Depakote Er) 500 mg DAILY PO 05/21/20 09:00 06/08/20 08:50 Warfarin Sodium (Coumadin - No Dose Today) 1 each 1X WARF ONCE MC 05/22/20 16:00 05/22/20 16:01 DC Warfarin Sodium (Coumadin) 1 mg 1X WARF ONCE PO 05/23/20 18:00 05/23/20 18:01 DC 05/23/20 17:47 Warfarin Sodium (Coumadin) 1 mg 1X WARF ONCE PO 05/24/20 16:00 05/24/20 16:01 DC 05/24/20 17:05 Warfarin Sodium (Coumadin) 1.5 mg 1X WARF ONCE PO 05/25/20 16:00 05/25/20 16:01 DC 05/25/20 17:36 Mirtazapine (Remeron) 7.5 mg QHS PO 05/25/20 21:00 05/31/20 18:41 DC 05/30/20 21:20 Warfarin Sodium (Coumadin) 1 mg 1X WARF ONCE PO 05/26/20 16:00 05/26/20 16:01 DC 05/26/20 16:29 Warfarin Sodium (Coumadin) 1.5 mg 1X WARF ONCE PO 05/27/20 16:00 05/27/20 16:07 DC 05/27/20 17:06 Warfarin Sodium (Coumadin) 1.5 mg 1X WARF ONCE PO 05/28/20 16:00 05/28/20 16:01 DC 05/28/20 16:00 Warfarin Sodium (Coumadin) 1.5 mg 1X WARF ONCE PO 05/29/20 16:00 05/29/20 16:01 DC 05/29/20 17:15 Warfarin Sodium (Coumadin) 1.5 mg 1X WARF ONCE PO 05/30/20 16:00 05/30/20 11:13 DC Warfarin Sodium (Coumadin) 1 mg 1X WARF ONCE PO 05/30/20 16:00 05/30/20 16:01 DC 05/30/20 17:09 Warfarin Sodium (Coumadin) 1.5 mg 1X WARF ONCE PO 05/31/20 16:00 05/31/20 16:01 DC 05/31/20 16:18 Mirtazapine (Remeron) 15 mg QHS PO 05/31/20 21:00 06/08/20 20:40 Warfarin Sodium (Coumadin) 1 mg QMWF PO 06/01/20 16:00 06/05/20 09:57 DC 06/03/20 16:59 Warfarin Sodium (Coumadin) 1.5 mg QTUTHSASU PO 06/02/20 16:00 06/05/20 09:39 DC 06/04/20 18:05 Quetiapine Fumarate (SEROquel) 50 mg BID PO 06/06/20 21:00 06/08/20 20:40 Quetiapine Fumarate (SEROquel) 50 mg 1700 PO 06/06/20 17:00 06/08/20 17:36 Quetiapine Fumarate (SEROquel) 75 mg 1400 PO 06/07/20 14:00 06/08/20 13:14 Laboratory Tests Test 06/08/20 07:51 06/08/20 11:48 06/08/20 16:47 06/08/20 19:15 Glucose (Fingerstick) 174 mg/dL (70-99) H 176 mg/dL (70-99) H 200 mg/dL (70-99) H 192 mg/dL (70-99) H Current Medications: I have reviewed the current psychotropics carefully including drug interactions. Risk benefit ratio favors no change other than as noted in my dictated progress note. Diagnosis: Problems: (1) Psychotic disorder (2) Major depressive disorder (3) Personality disorder, unspecified (4) Bipolar disorder with psychotic features ADELSO LOVE MD Jun 08, 2020 22:00
--- NOTE | 2020-06-08 23:00 | NUR ---
Patient has been sleeping and quiet most of the night. She was cooperative in her shower and compliant with medications. Patients daughter called to check on her and wanted to talk to her at around 2100 but patient was already asleep.
[2020-06-09] MEDS: LEVOTHYROXINE 50 MCG TABLET PO SCH (05:55)
[2020-06-09] MEDS: ACETAMINOPHEN 325 MG TABLET PO PRN ×2 (05:59→17:37)
--- NOTE | 2020-06-09 06:00 | NUR ---
Patient in bed moaning. Patient stated that her "back side" hurts. Patient requested tylenol. PRN Tylenol provided per order for pain.
[2020-06-09 06:38] VITALS: BP 99/61
[2020-06-09 07:09] LABS: HEMATOCRIT 29.4 % (36.0-47.0); HEMOGLOBIN 9.4 g/dL (12.0-15.5); RED BLOOD COUNT 3.58 x10^6/uL (3.50-5.40); RED CELL DISTRIBUTION WIDTH 16.1 % (11.5-14.5); WHITE BLOOD COUNT 8.2 x10^3/uL (4.0-11.0)
[2020-06-09 07:23] LABS: CALCIUM 8.8 mg/dL (8.5-10.1); CREATININE 1.1 mg/dL (0.6-1.0); GFR 50.3
[2020-06-09] MEDS: CHOLECALCIFEROL (VITAMIN D3) 50,000 UNIT CAPSULE PO SCH (08:43)
[2020-06-09] MEDS: MORPHINE ER 15 MG TABLET.ER PO SCH (08:43)
[2020-06-09] MEDS: MAGNESIUM OXIDE 400 MG TABLET PO SCH (08:44)
[2020-06-09] MEDS: GABAPENTIN 300 MG CAPSULE. PO SCH ×3 (08:44→19:49)
[2020-06-09] MEDS: FENOFIBRATE NANOCRYSTALLIZED 145 MG TABLET PO SCH (08:48)
[2020-06-09] MEDS: CARVEDILOL 12.5 MG TABLET PO SCH ×2 (08:48→17:00)
[2020-06-09] MEDS: DIVALPROEX ER 500 MG TAB.ER.24H PO SCH ×2 (08:48→19:49)
[2020-06-09] MEDS: QUEtiapine 50 MG TABLET. PO SCH ×3 (08:49→19:48)
[2020-06-09] MEDS: TIMOLOL 0.5% OPHTH SOLUTION 5ML BOTTLE. OU SCH ×2 (08:49→19:48)
[2020-06-09] MEDS: INSULIN LISPRO 300 UNITS/3 ML VIAL. SQ SCH ×3 (08:51→17:00)
[2020-06-09] MEDS: QUEtiapine 25 MG TABLET. PO SCH (14:00)
--- NOTE | 2020-06-09 14:15 | NUR ---
SW received voice message from Maritza, admissions at [facility], indicating they are unable to accept Shweta for placement due to behavioral needs. F/U call to Radha, admissions at [facility], with intent to inquire about admission decision. Left message with request for return phone call. F/U call to Tequila, admissions at [facility], with intent to inquire about admission decision. Tequila will not be back to the facility until 06/13/20.
--- NOTE | 2020-06-09 15:38 | NUR ---
CHUYITA returned call to GIULIA De Luna, and provided update on referrals sent out for placement. Annamarie indicated that if [facility] are unable to accept Shweta for admission, they plan to proceed with Shweta discharging back to her home. Annamarie indicated that she will be staying with Shweta to assist with this transition back to home. Annamarie also indicated that Shweta has been approved for care assistance in her home thru the department on aging but this still has to be finalized. Annamarie expressed the desire to come and get Shweta on 05/14/20 if Shweta is not accepted at the remaining two [place] [facility] that referrals are pending.
[2020-06-09 15:43] VITALS: BP 104/62
--- NOTE | 2020-06-09 18:11 | NUR ---
Patient has been sad but cooperative and calm today. She has not yelled out she has gone to the bathroom on her own, has gotten in and out of bed on her own. Around 0, she complained of terrible coccyx (she was very specific to this) pain, not open skin pain, down to the bone pain. Patient has been lying on side in bed all day. She has sat up to eat but has been in bed. She was given tylenol and we will reassess to see if she is doing okay. She was encouraged to get up and move around more because laying in bed and not moving decreasing activity can be contributing to her lower back/coccyx pain.
[2020-06-09] MEDS: MIRTAZAPINE 15 MG TABLET PO SCH (19:48)
[2020-06-09] MEDS: traZODone 100 MG TABLET. PO SCH (19:48)
[2020-06-09] MEDS: LATANOPROST 0.005% OPHTH SOLUTION 2.5ML BOTTLE. OU SCH (19:48)
[2020-06-09] MEDS: SIMVASTATIN 10 MG TABLET PO SCH (19:48)
[2020-06-09] MEDS: INSULIN GLARGINE SYRINGE. SQ SCH (19:52)
--- NOTE | 2020-06-09 20:57 | PDOC ---
Exam Note: Joseph Note: Please also refer to the separate dictated note~for this date of service dictated separately.~Patient seen individually. Discussed the patient with Nursing staff reviewed the chart.~Reviewed interim history and current functioning. Reviewed vital signs,~Labs/ Radiology~and current medications noted below. Continue current treatment with the changes noted in the dictated addendum note Assessment: Vital Signs/I&O: Vital Signs Date Time Temp Pulse Resp B/P (MAP) Pulse Ox O2 Delivery O2 Flow Rate FiO2 06/09/20 17:00 67 104/62 06/09/20 15:43 98.4 16 96 Room Air I & O 06/08/20 06/08/20 06/09/20 15:00 23:00 07:00 Intake Total 720 ml 720 ml Balance 720 ml 720 ml Labs: Laboratory Tests Test 06/09/20 06:52 06/09/20 07:49 06/09/20 11:58 06/09/20 16:50 White Blood Count 8.2 x10^3/uL (4.0-11.0) Red Blood Count 3.58 x10^6/uL (3.50-5.40) Hemoglobin 9.4 g/dL (12.0-15.5) L Hematocrit 29.4 % (36.0-47.0) L Mean Corpuscular Volume 82 fL (79-100) Mean Corpuscular Hemoglobin 26 pg (25-35) Mean Corpuscular Hemoglobin Concent 32 g/dL (31-37) Red Cell Distribution Width 16.1 % (11.5-14.5) H Platelet Count 197 x10^3/uL (140-400) Sodium Level 138 mmol/L (136-145) Potassium Level 4.0 mmol/L (3.5-5.1) Chloride Level 105 mmol/L (98-107) Carbon Dioxide Level 28 mmol/L (21-32) Anion Gap 5 (6-14) L Blood Urea Nitrogen 31 mg/dL (7-20) H Creatinine 1.1 mg/dL (0.6-1.0) H Estimated GFR (Cockcroft-Gault) 50.3 Glucose Level 127 mg/dL (70-99) H Calcium Level 8.8 mg/dL (8.5-10.1) Glucose (Fingerstick) 127 mg/dL (70-99) H 220 mg/dL (70-99) H 219 mg/dL (70-99) H Test 06/09/20 19:02 Glucose (Fingerstick) 252 mg/dL (70-99) H Current Medications: Meds: Laboratory Tests Test 06/09/20 06:52 06/09/20 07:49 06/09/20 11:58 06/09/20 16:50 White Blood Count 8.2 x10^3/uL Red Blood Count 3.58 x10^6/uL Hemoglobin 9.4 g/dL Hematocrit 29.4 % Mean Corpuscular Volume 82 fL Mean Corpuscular Hemoglobin 26 pg Mean Corpuscular Hemoglobin Concent 32 g/dL Red Cell Distribution Width 16.1 % Platelet Count 197 x10^3/uL Sodium Level 138 mmol/L Potassium Level 4.0 mmol/L Chloride Level 105 mmol/L Carbon Dioxide Level 28 mmol/L Anion Gap 5 Blood Urea Nitrogen 31 mg/dL Creatinine 1.1 mg/dL Estimated GFR (Cockcroft-Gault) 50.3 Glucose Level 127 mg/dL Calcium Level 8.8 mg/dL Glucose (Fingerstick) 127 mg/dL 220 mg/dL 219 mg/dL Test 06/09/20 19:02 Glucose (Fingerstick) 252 mg/dL Current Medications Medications (Trade) Dose Ordered Sig/Jayant Route PRN Reason Start Time Stop Time Status Last Admin Dose Admin Acetaminophen (Tylenol) 650 mg PRN Q6HRS PRN PO MILD PAIN / TEMP > 100.3'F 05/05/20 20:15 UNV Multi-Ingredient Ointment (Analgesic [place]) 1 scottie PRN QID PRN TP MUSCLE PAIN 05/05/20 20:15 Al Hydroxide/Mg Hydroxide (Mylanta Plus Xs) 15 ml PRN AFTMEALHC PRN PO DYSPEPSIA 05/05/20 20:15 Magnesium Hydroxide (Milk Of Magnesia) 2,400 mg PRN QHS PRN PO CONSTIPATION, 1ST CHOICE 05/05/20 20:15 Olanzapine (ZyPREXA ZYDIS) 2.5 mg PRN Q2HRS PRN PO ANXIETY / AGITATION 05/05/20 20:15 05/06/20 11:17 DC 05/06/20 09:29 Acetaminophen (Tylenol) 650 mg PRN Q4HRS PRN PO MILD PAIN / TEMP > 100.3'F 05/05/20 20:15 06/09/20 17:37 Clonidine HCl (Catapres Tts-1) 1 patch WEEKLY TD 05/12/20 09:00 05/20/20 10:59 DC 05/19/20 09:01 Fenofibrate (Tricor) 145 mg DAILY PO 05/06/20 09:00 06/09/20 08:48 Gabapentin (Neurontin) 300 mg TID PO 05/05/20 21:00 06/09/20 19:49 Levothyroxine Sodium (Synthroid) 50 mcg DAILY06 PO 05/06/20 06:00 05/08/20 00:17 DC 05/07/20 06:00 Lisinopril (Prinivil) 20 mg DAILY PO 05/06/20 09:00 06/05/20 09:39 DC 06/04/20 09:00 Magnesium Oxide (Magnesium Oxide) 200 mg DAILY PO 05/06/20 09:00 06/09/20 08:44 Morphine Sulfate (Ms Contin) 15 mg BID PO 05/05/20 21:00 05/20/20 13:53 DC 05/20/20 09:00 Polyethylene Glycol (miraLAX) 17 gm DAILY PO 05/06/20 09:00 05/12/20 02:36 DC 05/11/20 05:47 Simvastatin (Zocor) 10 mg HS PO 05/05/20 21:00 06/09/20 19:48 Timolol Maleate (Timoptic 0.5% Ophth) 1 drop BID OU 05/05/20 21:00 05/19/20 21:03 DC 05/19/20 19:48 Trazodone HCl (Desyrel) 50 mg HS PO 05/05/20 21:00 05/11/20 17:38 DC 05/10/20 20:14 Carvedilol (Coreg) 12.5 mg BIDWMEALS PO 05/06/20 08:00 06/09/20 17:00 Insulin Human Lispro (HumaLOG) 10 units TIDAC SQ 05/06/20 07:30 05/06/20 11:36 DC 05/06/20 07:30 Insulin Glargine (Lantus Syringe) 25 unit QHS SQ 05/05/20 21:00 06/09/20 19:52 Latanoprost (Xalatan) 1 drop QHS OU 05/05/20 21:00 06/09/20 19:48 Non-Formulary Medication (Magnesium Hydroxide (Milk Of Magnesia)) 30 ml PRN DAILY PRN PO CONSTIPATION 05/05/20 20:15 UNV Multivitamins/ Calcium (Thera-M Plus) 1 tab DAILY PO 05/06/20 09:00 05/14/20 08:49 DC 05/14/20 08:11 Sennosides (Senna) 17.2 mg BID PO 05/05/20 21:00 05/12/20 05:09 DC 05/11/20 19:38 Venlafaxine HCl (Effexor) 50 mg TID PO 05/05/20 21:00 05/06/20 18:23 DC 05/06/20 12:34 Influenza Virus Vaccine Quadrival (Fluzone Quad 3415-4610 Syringe) 0.5 ml ONCE ONCE VAX IM 05/06/20 09:00 05/06/20 09:01 DC 05/06/20 09:00 Warfarin Sodium (Coumadin Per Pharmacy) 1 each PRN DAILY PRN MC SEE COMMENTS 05/06/20 11:00 06/05/20 09:39 DC 06/01/20 11:58 Warfarin Sodium (Coumadin) 2.5 mg DAILY@1600 PO 05/06/20 16:00 05/10/20 08:18 DC 05/09/20 17:26 Lorazepam (Ativan) 0.5 mg PRN Q2HRS PRN PO ANXIETY / AGITATION 05/06/20 11:00 06/06/20 09:29 Olanzapine (ZyPREXA ZYDIS) 5 mg PRN Q2HRS PRN PO PSYCHOSIS 05/06/20 11:00 06/03/20 20:13 Warfarin Sodium (Coumadin) 1 mg DAILY@1600 PO 05/06/20 16:00 05/10/20 08:18 DC 05/09/20 17:25 Insulin Human Lispro (HumaLOG) 10 units TIDWMEALS SQ 05/06/20 12:00 05/11/20 17:31 DC 05/11/20 17:11 Venlafaxine HCl (Effexor) 25 mg TID PO 05/06/20 21:00 05/09/20 20:59 DC 05/09/20 15:19 Divalproex Sodium (Depakote Er) 500 mg QHS PO 05/06/20 21:00 05/09/20 09:41 DC 05/08/20 19:33 Levothyroxine Sodium (Synthroid) 50 mcg 0600 PO 05/08/20 06:00 06/09/20 05:55 Trazodone HCl (Desyrel) 50 mg PRN QHS PRN PO INSMONIA 05/08/20 21:00 05/11/20 17:38 DC 05/10/20 23:06 Haloperidol Lactate (Haldol) 5 mg DAILY IM 05/09/20 09:30 05/13/20 18:05 DC 05/13/20 07:49 Lorazepam (Ativan Inj) 0.5 mg DAILY IM 05/09/20 09:30 05/13/20 18:05 DC 05/13/20 07:49 Divalproex Sodium (Depakote Er) 1,000 mg QHS PO 05/09/20 21:00 05/12/20 23:00 DC 05/12/20 20:28 Warfarin Sodium (Coumadin - No Dose Today) 1 each 1X WARF ONCE MC 05/10/20 16:00 05/10/20 16:01 DC Insulin Human Lispro (HumaLOG) 14 units TIDWMEALS SQ 05/11/20 17:30 05/11/20 17:37 DC Vitamin D (Vitamin D3) 50,000 unit WEEKLY PO 05/11/20 17:30 05/11/20 17:37 DC Vitamin D (Vitamin D3) 50,000 unit WEEKLY PO 05/12/20 09:00 06/09/20 08:43 Insulin Human Lispro (HumaLOG) 14 units TIDWMEALS SQ 05/12/20 08:00 06/09/20 17:00 Trazodone HCl (Desyrel) 100 mg QHS PO 05/11/20 21:00 06/09/20 19:48 Trazodone HCl (Desyrel) 100 mg PRN QHS PRN PO INSOMNIA 05/11/20 17:45 05/27/20 23:22 Sennosides (Senna) 17.2 mg PRN BID PRN PO CONSTIPATION, 2ND CHOICE 05/12/20 05:15 Warfarin Sodium (Coumadin) 2.5 mg 1X WARF ONCE PO 05/12/20 16:00 05/12/20 16:01 DC 05/12/20 16:59 Quetiapine Fumarate (SEROquel) 50 mg QHS PO 05/12/20 22:00 05/15/20 22:17 DC 05/15/20 19:51 Divalproex Sodium (Depakote Er) 1,500 mg QHS PO 05/13/20 21:00 05/17/20 17:09 DC 05/16/20 19:53 Divalproex Sodium (Depakote Er) 500 mg ONCE PO 05/12/20 22:00 05/12/20 22:03 DC Divalproex Sodium (Depakote Er) 500 mg 1X ONCE PO 05/12/20 22:15 05/12/20 22:16 DC 05/12/20 22:05 Warfarin Sodium (Coumadin) 2.5 mg 1X WARF ONCE PO 05/13/20 16:00 05/13/20 16:01 DC 05/13/20 17:14 Haloperidol Lactate (Haldol) 5 mg DAILY@1700 IM 05/14/20 17:00 05/17/20 14:00 DC 05/15/20 17:15 Lorazepam (Ativan Inj) 0.5 mg DAILY@1700 IM 05/14/20 17:00 05/17/20 14:00 DC 05/15/20 17:15 Hydroxyzine HCl (Atarax) 25 mg PRN Q6HRS PRN PO ITCHING 05/14/20 14:00 06/05/20 00:11 Warfarin Sodium (Coumadin) 2.5 mg 1X WARF ONCE PO 05/14/20 16:00 05/14/20 16:01 DC 05/14/20 16:00 Quetiapine Fumarate (SEROquel) 25 mg DAILY PO 05/15/20 09:00 05/15/20 22:17 DC 05/15/20 09:11 Warfarin Sodium (Coumadin) 2 mg 1X WARF ONCE PO 05/15/20 16:30 05/15/20 16:42 DC 05/15/20 17:15 Nystatin (Nystop) 1 scottie PRN BID PRN TP REDNESS 05/15/20 17:30 05/17/20 13:32 Quetiapine Fumarate (SEROquel) 50 mg TID PO 05/16/20 09:00 06/06/20 14:21 DC 06/06/20 13:10 Warfarin Sodium (Coumadin - No Dose Today) 1 each 1X WARF ONCE MC 05/16/20 16:00 05/16/20 16:01 DC Warfarin Sodium (Coumadin) 1.5 mg 1X WARF ONCE PO 05/17/20 16:00 05/17/20 16:01 DC 05/17/20 16:18 Divalproex Sodium (Depakote Er) 2,000 mg QHS PO 05/17/20 21:00 06/09/20 19:49 Warfarin Sodium (Coumadin) 1.5 mg 1X WARF ONCE PO 05/18/20 16:00 05/18/20 16:01 DC 05/18/20 16:53 Quetiapine Fumarate (SEROquel) 25 mg 1700 PO 05/19/20 17:00 06/06/20 14:21 DC 06/05/20 17:08 Warfarin Sodium (Coumadin) 1.5 mg DAILY16 PO 05/19/20 16:00 05/22/20 10:22 DC 05/21/20 17:01 Timolol Maleate (Timoptic 0.5% [facility]) 1 drop BID OU 05/19/20 21:03 06/09/20 19:48 Clonidine HCl (Catapres Tts-1) 1 patch WEEKLY TD 05/20/20 11:00 06/03/20 09:00 Morphine Sulfate (Ms Contin) 15 mg DAILY PO 05/21/20 09:00 06/09/20 08:43 Divalproex Sodium (Depakote Er) 500 mg DAILY PO 05/21/20 09:00 06/09/20 08:48 Warfarin Sodium (Coumadin - No Dose Today) 1 each 1X WARF ONCE MC 05/22/20 16:00 05/22/20 16:01 DC Warfarin Sodium (Coumadin) 1 mg 1X WARF ONCE PO 05/23/20 18:00 05/23/20 18:01 DC 05/23/20 17:47 Warfarin Sodium (Coumadin) 1 mg 1X WARF ONCE PO 05/24/20 16:00 05/24/20 16:01 DC 05/24/20 17:05 Warfarin Sodium (Coumadin) 1.5 mg 1X WARF ONCE PO 05/25/20 16:00 05/25/20 16:01 DC 05/25/20 17:36 Mirtazapine (Remeron) 7.5 mg QHS PO 05/25/20 21:00 05/31/20 18:41 DC 05/30/20 21:20 Warfarin Sodium (Coumadin) 1 mg 1X WARF ONCE PO 05/26/20 16:00 05/26/20 16:01 DC 05/26/20 16:29 Warfarin Sodium (Coumadin) 1.5 mg 1X WARF ONCE PO 05/27/20 16:00 05/27/20 16:07 DC 05/27/20 17:06 Warfarin Sodium (Coumadin) 1.5 mg 1X WARF ONCE PO 05/28/20 16:00 05/28/20 16:01 DC 05/28/20 16:00 Warfarin Sodium (Coumadin) 1.5 mg 1X WARF ONCE PO 05/29/20 16:00 05/29/20 16:01 DC 05/29/20 17:15 Warfarin Sodium (Coumadin) 1.5 mg 1X WARF ONCE PO 05/30/20 16:00 05/30/20 11:13 DC Warfarin Sodium (Coumadin) 1 mg 1X WARF ONCE PO 05/30/20 16:00 05/30/20 16:01 DC 05/30/20 17:09 Warfarin Sodium (Coumadin) 1.5 mg 1X WARF ONCE PO 05/31/20 16:00 05/31/20 16:01 DC 05/31/20 16:18 Mirtazapine (Remeron) 15 mg QHS PO 05/31/20 21:00 06/09/20 19:48 Warfarin Sodium (Coumadin) 1 mg QMWF PO 06/01/20 16:00 06/05/20 09:57 DC 06/03/20 16:59 Warfarin Sodium (Coumadin) 1.5 mg QTUTHSASU PO 06/02/20 16:00 06/05/20 09:39 DC 06/04/20 18:05 Quetiapine Fumarate (SEROquel) 50 mg BID PO 06/06/20 21:00 06/09/20 19:48 Quetiapine Fumarate (SEROquel) 50 mg 1700 PO 06/06/20 17:00 06/09/20 17:00 Quetiapine Fumarate (SEROquel) 75 mg 1400 PO 06/07/20 14:00 06/09/20 14:00 I have reviewed the current psychotropics carefully including drug interactions. Risk benefit ratio favors no change other than as noted in my dictated progress note. Diagnosis: Problems: (1) Psychotic disorder (2) Major depressive disorder (3) Personality disorder, unspecified (4) Bipolar disorder with psychotic features ADELSO LOVE MD Jun 09, 2020 20:57
--- NOTE | 2020-06-09 21:41 | NUR ---
Nursing Note: Pt withdrawn to room, lying in bed at shift change. Pt with a flat, depressed affect and has been yelling out more this evening than was reported on the previous shift. Pt requesting help with moving around and changing positions in bed. Staff encouraged pt to try to turn to her side on her own but pt then becomes irritated and begins yelling "my backside hurts" and "help me". Staff continues to provide encouragement to pt to complete ADL's herself as much as possible.
[2020-06-09] MEDS: traZODone 100 MG TABLET. PO PRN (22:04)
[2020-06-09] MEDS: LORazepam 0.5 MG TABLET PO PRN (22:04)
--- NOTE | 2020-06-09 22:17 | NUR ---
Nursing Note: Pt yelling out "help me". When staff responds, pt requests help to "roll over" or reposition her in bed. Staff encouraging pt to do as much for herself as possible but then pt becomes irritated and acting helpless. Pt then requests a drink of water but will not hold the cup herself. PRN Ativan and PRN repeat Trazodone administered.
[2020-06-10] MEDS: LEVOTHYROXINE 50 MCG TABLET PO SCH (05:21)
[2020-06-10 06:29] VITALS: BP_SYST 146; BP_SYST 148; BP_DIAS 74; BP_DIAS 75
[2020-06-10] MEDS: GABAPENTIN 300 MG CAPSULE. PO SCH ×3 (09:54→20:36)
[2020-06-10] MEDS: MORPHINE ER 15 MG TABLET.ER PO SCH (09:54)
[2020-06-10] MEDS: CARVEDILOL 12.5 MG TABLET PO SCH ×2 (09:54→17:34)
[2020-06-10] MEDS: QUEtiapine 50 MG TABLET. PO SCH ×3 (09:55→20:36)
[2020-06-10] MEDS: FENOFIBRATE NANOCRYSTALLIZED 145 MG TABLET PO SCH (09:55)
[2020-06-10] MEDS: DIVALPROEX ER 500 MG TAB.ER.24H PO SCH ×2 (09:55→20:55)
[2020-06-10] MEDS: MAGNESIUM OXIDE 400 MG TABLET PO SCH (09:55)
[2020-06-10] MEDS: cloNIDine TTS-1 1 PATCH PATCH TD SCH (09:56)
[2020-06-10] MEDS: TIMOLOL 0.5% OPHTH SOLUTION 5ML BOTTLE. OU SCH ×2 (09:56→20:36)
[2020-06-10] MEDS: INSULIN LISPRO 300 UNITS/3 ML VIAL. SQ SCH ×3 (09:57→17:45)
[2020-06-10] MEDS: QUEtiapine 25 MG TABLET. PO SCH (13:59)
[2020-06-10 15:03] VITALS: BP 134/78
[2020-06-10] MEDS: LATANOPROST 0.005% OPHTH SOLUTION 2.5ML BOTTLE. OU SCH (20:36)
[2020-06-10] MEDS: SIMVASTATIN 10 MG TABLET PO SCH (20:36)
[2020-06-10] MEDS: MIRTAZAPINE 15 MG TABLET PO SCH (20:36)
[2020-06-10] MEDS: traZODone 100 MG TABLET. PO SCH (20:36)
[2020-06-10] MEDS: INSULIN GLARGINE SYRINGE. SQ SCH (20:37)
--- NOTE | 2020-06-10 21:15 | PDOC ---
Exam Note: Joseph Note: This note is a late entry for 06/08/2020 covers elements not covered in my initial note. Subjective: The patient was reviewed on telehealth rounds in the evening of 06/08/2020 with Marla CORRAL. Discussed with nursing staff, reviewed the chart. She slept 7 hours previous night. The patient was quite agitated in the morning, screaming, hollering but in the evening she was better. Nevertheless she has been quite labile in her mood, unrest herself in her bed in the evening, urinated and defecated in bed and was telling the nursing staff that they had to help clean her as that is what they were suppose to do. Discussion was held with her about her ability to do her ADLs and for her to do as much as she can for herself in preparation for transition to a nursing facility. Review of Systems: Impaired ambulation in wheelchair. No CV, , pulmonary, eye, ENT system symptoms on review. She has vague somatic symptoms. Mental Status Exam: The patient is oriented to herself and situation. Speech is coherent, rapid at times. Abstraction is fair. Computation is impaired. Language function intact. Attention span is short. Mood and affect intermittently labile. Laboratory Data: Reviewed. Impression: Bipolar disorder unspecified. Major depressive disorder. Anxiety disorder unspecified. Impulse control disorder unspecified. Personality disorder unspecified. Plan: Continue psychotropics from initial note. We may consider changing Seroq uel to Risperdal in due course given her psychotic symptoms, ongoing mood lability. Continue Depakote ER 2000 mg h.s. and 500 mg daily, level therapeutic at 74. Assessment: Vital Signs/I&O: Vital Signs Date Time Temp Pulse Resp B/P (MAP) Pulse Ox O2 Delivery O2 Flow Rate FiO2 06/10/20 17:34 95 134/78 06/10/20 15:03 98.7 18 94 06/10/20 06:29 Room Air I & O 06/09/20 06/09/20 06/10/20 14:59 22:59 06:59 Intake Total 600 ml 240 ml Balance 600 ml 240 ml Labs: Laboratory Tests Test 06/10/20 07:41 06/10/20 12:07 06/10/20 17:00 06/10/20 20:32 Glucose (Fingerstick) 162 mg/dL (70-99) H 157 mg/dL (70-99) H 203 mg/dL (70-99) H 225 mg/dL (70-99) H Current Medications: Meds: Laboratory Tests Test 06/10/20 07:41 06/10/20 12:07 06/10/20 17:00 06/10/20 20:32 Glucose (Fingerstick) 162 mg/dL 157 mg/dL 203 mg/dL 225 mg/dL Current Medications Medications (Trade) Dose Ordered Sig/Jayant Route PRN Reason Start Time Stop Time Status Last Admin Dose Admin Acetaminophen (Tylenol) 650 mg PRN Q6HRS PRN PO MILD PAIN / TEMP > 100.3'F 05/05/20 20:15 UNV Multi-Ingredient Ointment (Analgesic [place]) 1 scottie PRN QID PRN TP MUSCLE PAIN 05/05/20 20:15 Al Hydroxide/Mg Hydroxide (Mylanta Plus Xs) 15 ml PRN AFTMEALHC PRN PO DYSPEPSIA 05/05/20 20:15 Magnesium Hydroxide (Milk Of Magnesia) 2,400 mg PRN QHS PRN PO CONSTIPATION, 1ST CHOICE 05/05/20 20:15 Olanzapine (ZyPREXA ZYDIS) 2.5 mg PRN Q2HRS PRN PO ANXIETY / AGITATION 05/05/20 20:15 05/06/20 11:17 DC 05/06/20 09:29 Acetaminophen (Tylenol) 650 mg PRN Q4HRS PRN PO MILD PAIN / TEMP > 100.3'F 05/05/20 20:15 06/09/20 17:37 Clonidine HCl (Catapres Tts-1) 1 patch WEEKLY TD 05/12/20 09:00 05/20/20 10:59 DC 05/19/20 09:01 Fenofibrate (Tricor) 145 mg DAILY PO 05/06/20 09:00 06/10/20 09:55 Gabapentin (Neurontin) 300 mg TID PO 05/05/20 21:00 06/10/20 20:36 Levothyroxine Sodium (Synthroid) 50 mcg DAILY06 PO 05/06/20 06:00 05/08/20 00:17 DC 05/07/20 06:00 Lisinopril (Prinivil) 20 mg DAILY PO 05/06/20 09:00 06/05/20 09:39 DC 06/04/20 09:00 Magnesium Oxide (Magnesium Oxide) 200 mg DAILY PO 05/06/20 09:00 06/10/20 09:55 Morphine Sulfate (Ms Contin) 15 mg BID PO 05/05/20 21:00 05/20/20 13:53 DC 05/20/20 09:00 Polyethylene Glycol (miraLAX) 17 gm DAILY PO 05/06/20 09:00 05/12/20 02:36 DC 05/11/20 05:47 Simvastatin (Zocor) 10 mg HS PO 05/05/20 21:00 06/10/20 20:36 Timolol Maleate (Timoptic 0.5% Ophth) 1 drop BID OU 05/05/20 21:00 05/19/20 21:03 DC 05/19/20 19:48 Trazodone HCl (Desyrel) 50 mg HS PO 05/05/20 21:00 05/11/20 17:38 DC 05/10/20 20:14 Carvedilol (Coreg) 12.5 mg BIDWMEALS PO 05/06/20 08:00 06/10/20 17:34 Insulin Human Lispro (HumaLOG) 10 units TIDAC SQ 05/06/20 07:30 05/06/20 11:36 DC 05/06/20 07:30 Insulin Glargine (Lantus Syringe) 25 unit QHS SQ 05/05/20 21:00 06/10/20 20:37 Latanoprost (Xalatan) 1 drop QHS OU 05/05/20 21:00 06/10/20 20:36 Non-Formulary Medication (Magnesium Hydroxide (Milk Of Magnesia)) 30 ml PRN DAILY PRN PO CONSTIPATION 05/05/20 20:15 UNV Multivitamins/ Calcium (Thera-M Plus) 1 tab DAILY PO 05/06/20 09:00 05/14/20 08:49 DC 05/14/20 08:11 Sennosides (Senna) 17.2 mg BID PO 05/05/20 21:00 05/12/20 05:09 DC 05/11/20 19:38 Venlafaxine HCl (Effexor) 50 mg TID PO 05/05/20 21:00 05/06/20 18:23 DC 05/06/20 12:34 Influenza Virus Vaccine Quadrival (Fluzone Quad Syringe) 0.5 ml ONCE ONCE VAX IM 05/06/20 09:00 05/06/20 09:01 DC 05/06/20 09:00 Warfarin Sodium (Coumadin Per Pharmacy) 1 each PRN DAILY PRN MC SEE COMMENTS 05/06/20 11:00 06/05/20 09:39 DC 06/01/20 11:58 Warfarin Sodium (Coumadin) 2.5 mg DAILY@1600 PO 05/06/20 16:00 05/10/20 08:18 DC 05/09/20 17:26 Lorazepam (Ativan) 0.5 mg PRN Q2HRS PRN PO ANXIETY / AGITATION 05/06/20 11:00 06/09/20 22:04 Olanzapine (ZyPREXA ZYDIS) 5 mg PRN Q2HRS PRN PO PSYCHOSIS 05/06/20 11:00 06/03/20 20:13 Warfarin Sodium (Coumadin) 1 mg DAILY@1600 PO 05/06/20 16:00 05/10/20 08:18 DC 05/09/20 17:25 Insulin Human Lispro (HumaLOG) 10 units TIDWMEALS SQ 05/06/20 12:00 05/11/20 17:31 DC 05/11/20 17:11 Venlafaxine HCl (Effexor) 25 mg TID PO 05/06/20 21:00 05/09/20 20:59 DC 05/09/20 15:19 Divalproex Sodium (Depakote Er) 500 mg QHS PO 05/06/20 21:00 05/09/20 09:41 DC 05/08/20 19:33 Levothyroxine Sodium (Synthroid) 50 mcg 0600 PO 05/08/20 06:00 06/10/20 05:21 Trazodone HCl (Desyrel) 50 mg PRN QHS PRN PO INSMONIA 05/08/20 21:00 05/11/20 17:38 DC 05/10/20 23:06 Haloperidol Lactate (Haldol) 5 mg DAILY IM 05/09/20 09:30 05/13/20 18:05 DC 05/13/20 07:49 Lorazepam (Ativan Inj) 0.5 mg DAILY IM 05/09/20 09:30 05/13/20 18:05 DC 05/13/20 07:49 Divalproex Sodium (Depakote Er) 1,000 mg QHS PO 05/09/20 21:00 05/12/20 23:00 DC 05/12/20 20:28 Warfarin Sodium (Coumadin - No Dose Today) 1 each 1X WARF ONCE MC 05/10/20 16:00 05/10/20 16:01 DC Insulin Human Lispro (HumaLOG) 14 units TIDWMEALS SQ 05/11/20 17:30 05/11/20 17:37 DC Vitamin D (Vitamin D3) 50,000 unit WEEKLY PO 05/11/20 17:30 05/11/20 17:37 DC Vitamin D (Vitamin D3) 50,000 unit WEEKLY PO 05/12/20 09:00 06/09/20 08:43 Insulin Human Lispro (HumaLOG) 14 units TIDWMEALS SQ 05/12/20 08:00 06/10/20 17:45 Trazodone HCl (Desyrel) 100 mg QHS PO 05/11/20 21:00 06/10/20 20:36 Trazodone HCl (Desyrel) 100 mg PRN QHS PRN PO INSOMNIA 05/11/20 17:45 06/09/20 22:04 Sennosides (Senna) 17.2 mg PRN BID PRN PO CONSTIPATION, 2ND CHOICE 05/12/20 05:15 Warfarin Sodium (Coumadin) 2.5 mg 1X WARF ONCE PO 05/12/20 16:00 05/12/20 16:01 DC 05/12/20 16:59 Quetiapine Fumarate (SEROquel) 50 mg QHS PO 05/12/20 22:00 05/15/20 22:17 DC 05/15/20 19:51 Divalproex Sodium (Depakote Er) 1,500 mg QHS PO 05/13/20 21:00 05/17/20 17:09 DC 05/16/20 19:53 Divalproex Sodium (Depakote Er) 500 mg ONCE PO 05/12/20 22:00 05/12/20 22:03 DC Divalproex Sodium (Depakote Er) 500 mg 1X ONCE PO 05/12/20 22:15 05/12/20 22:16 DC 05/12/20 22:05 Warfarin Sodium (Coumadin) 2.5 mg 1X WARF ONCE PO 05/13/20 16:00 05/13/20 16:01 DC 05/13/20 17:14 Haloperidol Lactate (Haldol) 5 mg DAILY@1700 IM 05/14/20 17:00 05/17/20 14:00 DC 05/15/20 17:15 Lorazepam (Ativan Inj) 0.5 mg DAILY@1700 IM 05/14/20 17:00 05/17/20 14:00 DC 05/15/20 17:15 Hydroxyzine HCl (Atarax) 25 mg PRN Q6HRS PRN PO ITCHING 05/14/20 14:00 06/05/20 00:11 Warfarin Sodium (Coumadin) 2.5 mg 1X WARF ONCE PO 05/14/20 16:00 05/14/20 16:01 DC 05/14/20 16:00 Quetiapine Fumarate (SEROquel) 25 mg DAILY PO 05/15/20 09:00 05/15/20 22:17 DC 05/15/20 09:11 Warfarin Sodium (Coumadin) 2 mg 1X WARF ONCE PO 05/15/20 16:30 05/15/20 16:42 DC 05/15/20 17:15 Nystatin (Nystop) 1 scottie PRN BID PRN TP REDNESS 05/15/20 17:30 05/17/20 13:32 Quetiapine Fumarate (SEROquel) 50 mg TID PO 05/16/20 09:00 06/06/20 14:21 DC 06/06/20 13:10 Warfarin Sodium (Coumadin - No Dose Today) 1 each 1X WARF ONCE MC 05/16/20 16:00 05/16/20 16:01 DC Warfarin Sodium (Coumadin) 1.5 mg 1X WARF ONCE PO 05/17/20 16:00 05/17/20 16:01 DC 05/17/20 16:18 Divalproex Sodium (Depakote Er) 2,000 mg QHS PO 05/17/20 21:00 06/10/20 20:55 Warfarin Sodium (Coumadin) 1.5 mg 1X WARF ONCE PO 05/18/20 16:00 05/18/20 16:01 DC 05/18/20 16:53 Quetiapine Fumarate (SEROquel) 25 mg 1700 PO 05/19/20 17:00 06/06/20 14:21 DC 06/05/20 17:08 Warfarin Sodium (Coumadin) 1.5 mg DAILY16 PO 05/19/20 16:00 05/22/20 10:22 DC 05/21/20 17:01 Timolol Maleate (Timoptic 0.5% Ophth) 1 drop BID OU 05/19/20 21:03 06/10/20 20:36 Clonidine HCl (Catapres Tts-1) 1 patch WEEKLY TD 05/20/20 11:00 06/10/20 09:56 Morphine Sulfate (Ms Contin) 15 mg DAILY PO 05/21/20 09:00 06/10/20 09:54 Divalproex Sodium (Depakote Er) 500 mg DAILY PO 05/21/20 09:00 06/10/20 09:55 Warfarin Sodium (Coumadin - No Dose Today) 1 each 1X WARF ONCE MC 05/22/20 16:00 05/22/20 16:01 DC Warfarin Sodium (Coumadin) 1 mg 1X WARF ONCE PO 05/23/20 18:00 05/23/20 18:01 DC 05/23/20 17:47 Warfarin Sodium (Coumadin) 1 mg 1X WARF ONCE PO 05/24/20 16:00 05/24/20 16:01 DC 05/24/20 17:05 Warfarin Sodium (Coumadin) 1.5 mg 1X WARF ONCE PO 05/25/20 16:00 05/25/20 16:01 DC 05/25/20 17:36 Mirtazapine (Remeron) 7.5 mg QHS PO 05/25/20 21:00 05/31/20 18:41 DC 05/30/20 21:20 Warfarin Sodium (Coumadin) 1 mg 1X WARF ONCE PO 05/26/20 16:00 05/26/20 16:01 DC 05/26/20 16:29 Warfarin Sodium (Coumadin) 1.5 mg 1X WARF ONCE PO 05/27/20 16:00 05/27/20 16:07 DC 05/27/20 17:06 Warfarin Sodium (Coumadin) 1.5 mg 1X WARF ONCE PO 05/28/20 16:00 05/28/20 16:01 DC 05/28/20 16:00 Warfarin Sodium (Coumadin) 1.5 mg 1X WARF ONCE PO 05/29/20 16:00 05/29/20 16:01 DC 05/29/20 17:15 Warfarin Sodium (Coumadin) 1.5 mg 1X WARF ONCE PO 05/30/20 16:00 05/30/20 11:13 DC Warfarin Sodium (Coumadin) 1 mg 1X WARF ONCE PO 05/30/20 16:00 05/30/20 16:01 DC 05/30/20 17:09 Warfarin Sodium (Coumadin) 1.5 mg 1X WARF ONCE PO 05/31/20 16:00 05/31/20 16:01 DC 05/31/20 16:18 Mirtazapine (Remeron) 15 mg QHS PO 05/31/20 21:00 06/10/20 20:36 Warfarin Sodium (Coumadin) 1 mg QMWF PO 06/01/20 16:00 06/05/20 09:57 DC 06/03/20 16:59 Warfarin Sodium (Coumadin) 1.5 mg QTUTHSASU PO 06/02/20 16:00 06/05/20 09:39 DC 06/04/20 18:05 Quetiapine Fumarate (SEROquel) 50 mg BID PO 06/06/20 21:00 06/10/20 20:36 Quetiapine Fumarate (SEROquel) 50 mg 1700 PO 06/06/20 17:00 06/10/20 17:34 Quetiapine Fumarate (SEROquel) 75 mg 1400 PO 06/07/20 14:00 06/10/20 13:59 I have reviewed the current psychotropics carefully including drug interactions. Risk benefit ratio favors no change other than as noted in my dictated progress note. Diagnosis: Problems: (1) Psychotic disorder (2) Major depressive disorder (3) Personality disorder, unspecified (4) Bipolar disorder with psychotic features ADELSO LOVE MD Jun 10, 2020 21:15
--- NOTE | 2020-06-10 21:40 | PDOC ---
Exam Note: Joseph Note: This note is a late entry for 06/09/2020 covers elements not covered in my initial note. Subjective: The patient was reviewed on telehealth rounds in the evening of 06/09/2020 with Leena CORRAL. Discussed with nursing staff, reviewed the chart. She slept 7-3/4 hours previous night. She has been quite withdrawn today. No yelling or agitation. She spends much of the day in bed with little complaints, however, as I met with her in the evening she was complaining of back pain in the coccyx area. Nursing staff explained to her that she has been lying in bed flat all day and this has worsened the pain. She has been getting up for her meals and for the bathroom. Review of Systems: Impaired ambulation in wheelchair. No complaints of pain. No CV, , pulmonary, eye, ENT system symptoms on review. Mental Status Exam: The patient is reasonably oriented. She was quite dramatic as I met with her on telehealth rounds. She seemed to be over-emphasizing the pain, much calmer as the nursing staff intervened. Speech is coherent. Abstraction is fair. Computation is impaired. Language function intact. Attention span is reasonable. Mood and affect is improves, less anxious, labile. Laboratory Data: Reviewed. Impression: Bipolar disorder unspecified. Major depressive disorder. Anxiety disorder unspecified. Impulse control disorder unspecified. Personality disorder unspecified. Plan: Continue current psychotropics. Assessment: Vital Signs/I&O: VS - Last 72 Hours, by Label Date Time Temp Pulse Resp B/P (MAP) Pulse Ox O2 Delivery O2 Flow Rate FiO2 06/10/20 17:34 95 134/78 06/10/20 15:03 98.7 95 18 134/78 (96) 94 06/10/20 09:54 67 146/74 06/10/20 06:29 98.4 67 16 146/74 (98) 97 Room Air 06/09/20 17:00 67 104/62 06/09/20 15:43 98.4 67 16 104/62 (76) 96 Room Air 06/09/20 08:48 67 103/57 06/09/20 06:38 97.4 64 16 99/61 (74) 96 Room Air 06/08/20 17:37 74 106/71 06/08/20 15:59 97.1 74 18 106/71 (83) 96 06/08/20 13:14 95 06/08/20 08:52 95 06/08/20 08:50 60 115/70 06/08/20 05:54 98.7 60 16 115/70 (85) 95 Vital Signs Date Time Temp Pulse Resp B/P (MAP) Pulse Ox O2 Delivery O2 Flow Rate FiO2 06/10/20 17:34 95 134/78 06/10/20 15:03 98.7 18 94 06/10/20 06:29 Room Air I & O 06/09/20 06/09/20 06/10/20 15:00 23:00 07:00 Intake Total 600 ml 240 ml Balance 600 ml 240 ml Labs: Laboratory Tests Test 06/10/20 07:41 06/10/20 12:07 06/10/20 17:00 06/10/20 20:32 Glucose (Fingerstick) 162 mg/dL (70-99) H 157 mg/dL (70-99) H 203 mg/dL (70-99) H 225 mg/dL (70-99) H Current Medications: Meds: Laboratory Tests Test 06/10/20 07:41 06/10/20 12:07 06/10/20 17:00 06/10/20 20:32 Glucose (Fingerstick) 162 mg/dL 157 mg/dL 203 mg/dL 225 mg/dL Current Medications Medications (Trade) Dose Ordered Sig/Jayant Route PRN Reason Start Time Stop Time Status Last Admin Dose Admin Acetaminophen (Tylenol) 650 mg PRN Q6HRS PRN PO MILD PAIN / TEMP > 100.3'F 05/05/20 20:15 UNV Multi-Ingredient Ointment (Analgesic [place]) 1 scottie PRN QID PRN TP MUSCLE PAIN 05/05/20 20:15 Al Hydroxide/Mg Hydroxide (Mylanta Plus Xs) 15 ml PRN AFTMEALHC PRN PO DYSPEPSIA 05/05/20 20:15 Magnesium Hydroxide (Milk Of Magnesia) 2,400 mg PRN QHS PRN PO CONSTIPATION, 1ST CHOICE 05/05/20 20:15 Olanzapine (ZyPREXA ZYDIS) 2.5 mg PRN Q2HRS PRN PO ANXIETY / AGITATION 05/05/20 20:15 05/06/20 11:17 DC 05/06/20 09:29 Acetaminophen (Tylenol) 650 mg PRN Q4HRS PRN PO MILD PAIN / TEMP > 100.3'F 05/05/20 20:15 06/09/20 17:37 Clonidine HCl (Catapres Tts-1) 1 patch WEEKLY TD 05/12/20 09:00 05/20/20 10:59 DC 05/19/20 09:01 Fenofibrate (Tricor) 145 mg DAILY PO 05/06/20 09:00 06/10/20 09:55 Gabapentin (Neurontin) 300 mg TID PO 05/05/20 21:00 06/10/20 20:36 Levothyroxine Sodium (Synthroid) 50 mcg DAILY06 PO 05/06/20 06:00 05/08/20 00:17 DC 05/07/20 06:00 Lisinopril (Prinivil) 20 mg DAILY PO 05/06/20 09:00 06/05/20 09:39 DC 06/04/20 09:00 Magnesium Oxide (Magnesium Oxide) 200 mg DAILY PO 05/06/20 09:00 06/10/20 09:55 Morphine Sulfate (Ms Contin) 15 mg BID PO 05/05/20 21:00 05/20/20 13:53 DC 05/20/20 09:00 Polyethylene Glycol (miraLAX) 17 gm DAILY PO 05/06/20 09:00 05/12/20 02:36 DC 05/11/20 05:47 Simvastatin (Zocor) 10 mg HS PO 05/05/20 21:00 06/10/20 20:36 Timolol Maleate (Timoptic 0.5% Oph) 1 drop BID OU 05/05/20 21:00 05/19/20 21:03 DC 05/19/20 19:48 Trazodone HCl (Desyrel) 50 mg HS PO 05/05/20 21:00 05/11/20 17:38 DC 05/10/20 20:14 Carvedilol (Coreg) 12.5 mg BIDWMEALS PO 05/06/20 08:00 06/10/20 17:34 Insulin Human Lispro (HumaLOG) 10 units TIDAC SQ 05/06/20 07:30 05/06/20 11:36 DC 05/06/20 07:30 Insulin Glargine (Lantus Syringe) 25 unit QHS SQ 05/05/20 21:00 06/10/20 20:37 Latanoprost (Xalatan) 1 drop QHS OU 05/05/20 21:00 06/10/20 20:36 Non-Formulary Medication (Magnesium Hydroxide (Milk Of Magnesia)) 30 ml PRN DAILY PRN PO CONSTIPATION 05/05/20 20:15 UNV Multivitamins/ Calcium (Thera-M Plus) 1 tab DAILY PO 05/06/20 09:00 05/14/20 08:49 DC 05/14/20 08:11 Sennosides (Senna) 17.2 mg BID PO 05/05/20 21:00 05/12/20 05:09 DC 05/11/20 19:38 Venlafaxine HCl (Effexor) 50 mg TID PO 05/05/20 21:00 05/06/20 18:23 DC 05/06/20 12:34 Influenza Virus Vaccine Quadrival (Fluzone Quad Syringe) 0.5 ml ONCE ONCE VAX IM 05/06/20 09:00 05/06/20 09:01 DC 05/06/20 09:00 Warfarin Sodium (Coumadin Per Pharmacy) 1 each PRN DAILY PRN MC SEE COMMENTS 05/06/20 11:00 06/05/20 09:39 DC 06/01/20 11:58 Warfarin Sodium (Coumadin) 2.5 mg DAILY@1600 PO 05/06/20 16:00 05/10/20 08:18 DC 05/09/20 17:26 Lorazepam (Ativan) 0.5 mg PRN Q2HRS PRN PO ANXIETY / AGITATION 05/06/20 11:00 06/09/20 22:04 Olanzapine (ZyPREXA ZYDIS) 5 mg PRN Q2HRS PRN PO PSYCHOSIS 05/06/20 11:00 06/03/20 20:13 Warfarin Sodium (Coumadin) 1 mg DAILY@1600 PO 05/06/20 16:00 05/10/20 08:18 DC 05/09/20 17:25 Insulin Human Lispro (HumaLOG) 10 units TIDWMEALS SQ 05/06/20 12:00 05/11/20 17:31 DC 05/11/20 17:11 Venlafaxine HCl (Effexor) 25 mg TID PO 05/06/20 21:00 05/09/20 20:59 DC 05/09/20 15:19 Divalproex Sodium (Depakote Er) 500 mg QHS PO 05/06/20 21:00 05/09/20 09:41 DC 05/08/20 19:33 Levothyroxine Sodium (Synthroid) 50 mcg 0600 PO 05/08/20 06:00 06/10/20 05:21 Trazodone HCl (Desyrel) 50 mg PRN QHS PRN PO INSMONIA 05/08/20 21:00 05/11/20 17:38 DC 05/10/20 23:06 Haloperidol Lactate (Haldol) 5 mg DAILY IM 05/09/20 09:30 05/13/20 18:05 DC 05/13/20 07:49 Lorazepam (Ativan Inj) 0.5 mg DAILY IM 05/09/20 09:30 05/13/20 18:05 DC 05/13/20 07:49 Divalproex Sodium (Depakote Er) 1,000 mg QHS PO 05/09/20 21:00 05/12/20 23:00 DC 05/12/20 20:28 Warfarin Sodium (Coumadin - No Dose Today) 1 each 1X WARF ONCE 05/10/20 16:00 05/10/20 16:01 DC Insulin Human Lispro (HumaLOG) 14 units TIDWMEALS SQ 05/11/20 17:30 05/11/20 17:37 DC Vitamin D (Vitamin D3) 50,000 unit WEEKLY PO 05/11/20 17:30 05/11/20 17:37 DC Vitamin D (Vitamin D3) 50,000 unit WEEKLY PO 05/12/20 09:00 06/09/20 08:43 Insulin Human Lispro (HumaLOG) 14 units TIDWMEALS SQ 05/12/20 08:00 06/10/20 17:45 Trazodone HCl (Desyrel) 100 mg QHS PO 05/11/20 21:00 06/10/20 20:36 Trazodone HCl (Desyrel) 100 mg PRN QHS PRN PO INSOMNIA 05/11/20 17:45 06/09/20 22:04 Sennosides (Senna) 17.2 mg PRN BID PRN PO CONSTIPATION, 2ND CHOICE 05/12/20 05:15 Warfarin Sodium (Coumadin) 2.5 mg 1X WARF ONCE PO 05/12/20 16:00 05/12/20 16:01 DC 05/12/20 16:59 Quetiapine Fumarate (SEROquel) 50 mg QHS PO 05/12/20 22:00 05/15/20 22:17 DC 05/15/20 19:51 Divalproex Sodium (Depakote Er) 1,500 mg QHS PO 05/13/20 21:00 05/17/20 17:09 DC 05/16/20 19:53 Divalproex Sodium (Depakote Er) 500 mg ONCE PO 05/12/20 22:00 05/12/20 22:03 DC Divalproex Sodium (Depakote Er) 500 mg 1X ONCE PO 05/12/20 22:15 05/12/20 22:16 DC 05/12/20 22:05 Warfarin Sodium (Coumadin) 2.5 mg 1X WARF ONCE PO 05/13/20 16:00 05/13/20 16:01 DC 05/13/20 17:14 Haloperidol Lactate (Haldol) 5 mg DAILY@1700 IM 05/14/20 17:00 05/17/20 14:00 DC 05/15/20 17:15 Lorazepam (Ativan Inj) 0.5 mg DAILY@1700 IM 05/14/20 17:00 05/17/20 14:00 DC 05/15/20 17:15 Hydroxyzine HCl (Atarax) 25 mg PRN Q6HRS PRN PO ITCHING 05/14/20 14:00 06/05/20 00:11 Warfarin Sodium (Coumadin) 2.5 mg 1X WARF ONCE PO 05/14/20 16:00 05/14/20 16:01 DC 05/14/20 16:00 Quetiapine Fumarate (SEROquel) 25 mg DAILY PO 05/15/20 09:00 05/15/20 22:17 DC 05/15/20 09:11 Warfarin Sodium (Coumadin) 2 mg 1X WARF ONCE PO 05/15/20 16:30 05/15/20 16:42 DC 05/15/20 17:15 Nystatin (Nystop) 1 scottie PRN BID PRN TP REDNESS 05/15/20 17:30 05/17/20 13:32 Quetiapine Fumarate (SEROquel) 50 mg TID PO 05/16/20 09:00 06/06/20 14:21 DC 06/06/20 13:10 Warfarin Sodium (Coumadin - No Dose Today) 1 each 1X WARF ONCE MC 05/16/20 16:00 05/16/20 16:01 DC Warfarin Sodium (Coumadin) 1.5 mg 1X WARF ONCE PO 05/17/20 16:00 05/17/20 16:01 DC 05/17/20 16:18 Divalproex Sodium (Depakote Er) 2,000 mg QHS PO 05/17/20 21:00 06/10/20 20:55 Warfarin Sodium (Coumadin) 1.5 mg 1X WARF ONCE PO 05/18/20 16:00 05/18/20 16:01 DC 05/18/20 16:53 Quetiapine Fumarate (SEROquel) 25 mg 1700 PO 05/19/20 17:00 06/06/20 14:21 DC 06/05/20 17:08 Warfarin Sodium (Coumadin) 1.5 mg DAILY16 PO 05/19/20 16:00 05/22/20 10:22 DC 05/21/20 17:01 Timolol Maleate (Timoptic 0.5% [facility]) 1 drop BID OU 05/19/20 21:03 06/10/20 20:36 Clonidine HCl (Catapres Tts-1) 1 patch WEEKLY TD 05/20/20 11:00 06/10/20 09:56 Morphine Sulfate (Ms Contin) 15 mg DAILY PO 05/21/20 09:00 06/10/20 09:54 Divalproex Sodium (Depakote Er) 500 mg DAILY PO 05/21/20 09:00 06/10/20 09:55 Warfarin Sodium (Coumadin - No Dose Today) 1 each 1X WARF ONCE MC 05/22/20 16:00 05/22/20 16:01 DC Warfarin Sodium (Coumadin) 1 mg 1X WARF ONCE PO 05/23/20 18:00 05/23/20 18:01 DC 05/23/20 17:47 Warfarin Sodium (Coumadin) 1 mg 1X WARF ONCE PO 05/24/20 16:00 05/24/20 16:01 DC 05/24/20 17:05 Warfarin Sodium (Coumadin) 1.5 mg 1X WARF ONCE PO 05/25/20 16:00 05/25/20 16:01 DC 05/25/20 17:36 Mirtazapine (Remeron) 7.5 mg QHS PO 05/25/20 21:00 05/31/20 18:41 DC 05/30/20 21:20 Warfarin Sodium (Coumadin) 1 mg 1X WARF ONCE PO 05/26/20 16:00 05/26/20 16:01 DC 05/26/20 16:29 Warfarin Sodium (Coumadin) 1.5 mg 1X WARF ONCE PO 05/27/20 16:00 05/27/20 16:07 DC 05/27/20 17:06 Warfarin Sodium (Coumadin) 1.5 mg 1X WARF ONCE PO 05/28/20 16:00 05/28/20 16:01 DC 05/28/20 16:00 Warfarin Sodium (Coumadin) 1.5 mg 1X WARF ONCE PO 05/29/20 16:00 05/29/20 16:01 DC 05/29/20 17:15 Warfarin Sodium (Coumadin) 1.5 mg 1X WARF ONCE PO 05/30/20 16:00 05/30/20 11:13 DC Warfarin Sodium (Coumadin) 1 mg 1X WARF ONCE PO 05/30/20 16:00 05/30/20 16:01 DC 05/30/20 17:09 Warfarin Sodium (Coumadin) 1.5 mg 1X WARF ONCE PO 05/31/20 16:00 05/31/20 16:01 DC 05/31/20 16:18 Mirtazapine (Remeron) 15 mg QHS PO 05/31/20 21:00 06/10/20 20:36 Warfarin Sodium (Coumadin) 1 mg QMWF PO 06/01/20 16:00 06/05/20 09:57 DC 06/03/20 16:59 Warfarin Sodium (Coumadin) 1.5 mg QTUTHSASU PO 06/02/20 16:00 06/05/20 09:39 DC 06/04/20 18:05 Quetiapine Fumarate (SEROquel) 50 mg BID PO 06/06/20 21:00 06/10/20 20:36 Quetiapine Fumarate (SEROquel) 50 mg 1700 PO 06/06/20 17:00 06/10/20 17:34 Quetiapine Fumarate (SEROquel) 75 mg 1400 PO 06/07/20 14:00 06/10/20 13:59 I have reviewed the current psychotropics carefully including drug interactions. Risk benefit ratio favors no change other than as noted in my dictated progress note. Diagnosis: Problems: (1) Psychotic disorder (2) Major depressive disorder (3) Personality disorder, unspecified (4) Bipolar disorder with psychotic features ADELSO LOVE MD Jun 10, 2020 21:40
--- NOTE | 2020-06-10 21:58 | PDOC ---
Exam Note: Joseph Note: Please also refer to the separate dictated note~for this date of service dictated separately.~Patient seen individually. Discussed the patient with Nursing staff reviewed the chart.~Reviewed interim history and current functioning. Reviewed vital signs,~Labs/ Radiology~and current medications noted below. Continue current treatment with the changes noted in the dictated addendum note Assessment: Vital Signs/I&O: Vital Signs Date Time Temp Pulse Resp B/P (MAP) Pulse Ox O2 Delivery O2 Flow Rate FiO2 06/10/20 17:34 95 134/78 06/10/20 15:03 98.7 18 94 06/10/20 06:29 Room Air I & O 06/09/20 06/09/20 06/10/20 15:00 23:00 07:00 Intake Total 600 ml 240 ml Balance 600 ml 240 ml Labs: Laboratory Tests Test 06/10/20 07:41 06/10/20 12:07 06/10/20 17:00 06/10/20 20:32 Glucose (Fingerstick) 162 mg/dL (70-99) H 157 mg/dL (70-99) H 203 mg/dL (70-99) H 225 mg/dL (70-99) H Current Medications: Meds: Laboratory Tests Test 06/10/20 07:41 06/10/20 12:07 06/10/20 17:00 06/10/20 20:32 Glucose (Fingerstick) 162 mg/dL 157 mg/dL 203 mg/dL 225 mg/dL Current Medications Medications (Trade) Dose Ordered Sig/Jayant Route PRN Reason Start Time Stop Time Status Last Admin Dose Admin Acetaminophen (Tylenol) 650 mg PRN Q6HRS PRN PO MILD PAIN / TEMP > 100.3'F 05/05/20 20:15 UNV Multi-Ingredient Ointment (Analgesic [place]) 1 scottie PRN QID PRN TP MUSCLE PAIN 05/05/20 20:15 Al Hydroxide/Mg Hydroxide (Mylanta Plus Xs) 15 ml PRN AFTMEALHC PRN PO DYSPEPSIA 05/05/20 20:15 Magnesium Hydroxide (Milk Of Magnesia) 2,400 mg PRN QHS PRN PO CONSTIPATION, 1ST CHOICE 05/05/20 20:15 Olanzapine (ZyPREXA ZYDIS) 2.5 mg PRN Q2HRS PRN PO ANXIETY / AGITATION 05/05/20 20:15 05/06/20 11:17 DC 05/06/20 09:29 Acetaminophen (Tylenol) 650 mg PRN Q4HRS PRN PO MILD PAIN / TEMP > 100.3'F 05/05/20 20:15 06/09/20 17:37 Clonidine HCl (Catapres Tts-1) 1 patch WEEKLY TD 05/12/20 09:00 05/20/20 10:59 DC 05/19/20 09:01 Fenofibrate (Tricor) 145 mg DAILY PO 05/06/20 09:00 06/10/20 09:55 Gabapentin (Neurontin) 300 mg TID PO 05/05/20 21:00 06/10/20 20:36 Levothyroxine Sodium (Synthroid) 50 mcg DAILY06 PO 05/06/20 06:00 05/08/20 00:17 DC 05/07/20 06:00 Lisinopril (Prinivil) 20 mg DAILY PO 05/06/20 09:00 06/05/20 09:39 DC 06/04/20 09:00 Magnesium Oxide (Magnesium Oxide) 200 mg DAILY PO 05/06/20 09:00 06/10/20 09:55 Morphine Sulfate (Ms Contin) 15 mg BID PO 05/05/20 21:00 05/20/20 13:53 DC 05/20/20 09:00 Polyethylene Glycol (miraLAX) 17 gm DAILY PO 05/06/20 09:00 05/12/20 02:36 DC 05/11/20 05:47 Simvastatin (Zocor) 10 mg HS PO 05/05/20 21:00 06/10/20 20:36 Timolol Maleate (Timoptic 0.5% Ophth) 1 drop BID OU 05/05/20 21:00 05/19/20 21:03 DC 05/19/20 19:48 Trazodone HCl (Desyrel) 50 mg HS PO 05/05/20 21:00 05/11/20 17:38 DC 05/10/20 20:14 Carvedilol (Coreg) 12.5 mg BIDWMEALS PO 05/06/20 08:00 06/10/20 17:34 Insulin Human Lispro (HumaLOG) 10 units TIDAC SQ 05/06/20 07:30 05/06/20 11:36 DC 05/06/20 07:30 Insulin Glargine (Lantus Syringe) 25 unit QHS SQ 05/05/20 21:00 06/10/20 20:37 Latanoprost (Xalatan) 1 drop QHS OU 05/05/20 21:00 06/10/20 20:36 Non-Formulary Medication (Magnesium Hydroxide (Milk Of Magnesia)) 30 ml PRN DAILY PRN PO CONSTIPATION 05/05/20 20:15 UNV Multivitamins/ Calcium (Thera-M Plus) 1 tab DAILY PO 05/06/20 09:00 05/14/20 08:49 DC 05/14/20 08:11 Sennosides (Senna) 17.2 mg BID PO 05/05/20 21:00 05/12/20 05:09 DC 05/11/20 19:38 Venlafaxine HCl (Effexor) 50 mg TID PO 05/05/20 21:00 05/06/20 18:23 DC 05/06/20 12:34 Influenza Virus Vaccine Quadrival (Fluzone Quad Syringe) 0.5 ml ONCE ONCE VAX IM 05/06/20 09:00 05/06/20 09:01 DC 05/06/20 09:00 Warfarin Sodium (Coumadin Per Pharmacy) 1 each PRN DAILY PRN MC SEE COMMENTS 05/06/20 11:00 06/05/20 09:39 DC 06/01/20 11:58 Warfarin Sodium (Coumadin) 2.5 mg DAILY@1600 PO 05/06/20 16:00 05/10/20 08:18 DC 05/09/20 17:26 Lorazepam (Ativan) 0.5 mg PRN Q2HRS PRN PO ANXIETY / AGITATION 05/06/20 11:00 06/09/20 22:04 Olanzapine (ZyPREXA ZYDIS) 5 mg PRN Q2HRS PRN PO PSYCHOSIS 05/06/20 11:00 06/03/20 20:13 Warfarin Sodium (Coumadin) 1 mg DAILY@1600 PO 05/06/20 16:00 05/10/20 08:18 DC 05/09/20 17:25 Insulin Human Lispro (HumaLOG) 10 units TIDWMEALS SQ 05/06/20 12:00 05/11/20 17:31 DC 05/11/20 17:11 Venlafaxine HCl (Effexor) 25 mg TID PO 05/06/20 21:00 05/09/20 20:59 DC 05/09/20 15:19 Divalproex Sodium (Depakote Er) 500 mg QHS PO 05/06/20 21:00 05/09/20 09:41 DC 05/08/20 19:33 Levothyroxine Sodium (Synthroid) 50 mcg 0600 PO 05/08/20 06:00 06/10/20 05:21 Trazodone HCl (Desyrel) 50 mg PRN QHS PRN PO INSMONIA 05/08/20 21:00 05/11/20 17:38 DC 05/10/20 23:06 Haloperidol Lactate (Haldol) 5 mg DAILY IM 05/09/20 09:30 05/13/20 18:05 DC 05/13/20 07:49 Lorazepam (Ativan Inj) 0.5 mg DAILY IM 05/09/20 09:30 05/13/20 18:05 DC 05/13/20 07:49 Divalproex Sodium (Depakote Er) 1,000 mg QHS PO 05/09/20 21:00 05/12/20 23:00 DC 05/12/20 20:28 Warfarin Sodium (Coumadin - No Dose Today) 1 each 1X WARF ONCE 05/10/20 16:00 05/10/20 16:01 DC Insulin Human Lispro (HumaLOG) 14 units TIDWMEALS SQ 05/11/20 17:30 05/11/20 17:37 DC Vitamin D (Vitamin D3) 50,000 unit WEEKLY PO 05/11/20 17:30 05/11/20 17:37 DC Vitamin D (Vitamin D3) 50,000 unit WEEKLY PO 05/12/20 09:00 06/09/20 08:43 Insulin Human Lispro (HumaLOG) 14 units TIDWMEALS SQ 05/12/20 08:00 06/10/20 17:45 Trazodone HCl (Desyrel) 100 mg QHS PO 05/11/20 21:00 06/10/20 20:36 Trazodone HCl (Desyrel) 100 mg PRN QHS PRN PO INSOMNIA 05/11/20 17:45 12/31/20 22:04 Sennosides (Senna) 17.2 mg PRN BID PRN PO CONSTIPATION, 2ND CHOICE 05/12/20 05:15 Warfarin Sodium (Coumadin) 2.5 mg 1X WARF ONCE PO 05/12/20 16:00 05/12/20 16:01 DC 05/12/20 16:59 Quetiapine Fumarate (SEROquel) 50 mg QHS PO 05/12/20 22:00 05/15/20 22:17 DC 05/15/20 19:51 Divalproex Sodium (Depakote Er) 1,500 mg QHS PO 05/13/20 21:00 05/17/20 17:09 DC 05/16/20 19:53 Divalproex Sodium (Depakote Er) 500 mg ONCE PO 05/12/20 22:00 05/12/20 22:03 DC Divalproex Sodium (Depakote Er) 500 mg 1X ONCE PO 05/12/20 22:15 05/12/20 22:16 DC 05/12/20 22:05 Warfarin Sodium (Coumadin) 2.5 mg 1X WARF ONCE PO 05/13/20 16:00 05/13/20 16:01 DC 05/13/20 17:14 Haloperidol Lactate (Haldol) 5 mg DAILY@1700 IM 05/14/20 17:00 05/17/20 14:00 DC 05/15/20 17:15 Lorazepam (Ativan Inj) 0.5 mg DAILY@1700 IM 05/14/20 17:00 05/17/20 14:00 DC 05/15/20 17:15 Hydroxyzine HCl (Atarax) 25 mg PRN Q6HRS PRN PO ITCHING 05/14/20 14:00 06/05/20 00:11 Warfarin Sodium (Coumadin) 2.5 mg 1X WARF ONCE PO 05/14/20 16:00 05/14/20 16:01 DC 05/14/20 16:00 Quetiapine Fumarate (SEROquel) 25 mg DAILY PO 05/15/20 09:00 05/15/20 22:17 DC 05/15/20 09:11 Warfarin Sodium (Coumadin) 2 mg 1X WARF ONCE PO 05/15/20 16:30 05/15/20 16:42 DC 05/15/20 17:15 Nystatin (Nystop) 1 scottie PRN BID PRN TP REDNESS 05/15/20 17:30 05/17/20 13:32 Quetiapine Fumarate (SEROquel) 50 mg TID PO 05/16/20 09:00 06/06/20 14:21 DC 06/06/20 13:10 Warfarin Sodium (Coumadin - No Dose Today) 1 each 1X WARF ONCE MC 05/16/20 16:00 05/16/20 16:01 DC Warfarin Sodium (Coumadin) 1.5 mg 1X WARF ONCE PO 05/17/20 16:00 05/17/20 16:01 DC 05/17/20 16:18 Divalproex Sodium (Depakote Er) 2,000 mg QHS PO 05/17/20 21:00 06/10/20 20:55 Warfarin Sodium (Coumadin) 1.5 mg 1X WARF ONCE PO 05/18/20 16:00 05/18/20 16:01 DC 05/18/20 16:53 Quetiapine Fumarate (SEROquel) 25 mg 1700 PO 05/19/20 17:00 06/06/20 14:21 DC 06/05/20 17:08 Warfarin Sodium (Coumadin) 1.5 mg DAILY16 PO 05/19/20 16:00 05/22/20 10:22 DC 05/21/20 17:01 Timolol Maleate (Timoptic 0.5% Oph) 1 drop BID OU 05/19/20 21:03 06/10/20 20:36 Clonidine HCl (Catapres Tts-1) 1 patch WEEKLY TD 05/20/20 11:00 06/10/20 09:56 Morphine Sulfate (Ms Contin) 15 mg DAILY PO 05/21/20 09:00 06/10/20 09:54 Divalproex Sodium (Depakote Er) 500 mg DAILY PO 05/21/20 09:00 06/10/20 09:55 Warfarin Sodium (Coumadin - No Dose Today) 1 each 1X WARF ONCE MC 05/22/20 16:00 05/22/20 16:01 DC Warfarin Sodium (Coumadin) 1 mg 1X WARF ONCE PO 05/23/20 18:00 05/23/20 18:01 DC 05/23/20 17:47 Warfarin Sodium (Coumadin) 1 mg 1X WARF ONCE PO 05/24/20 16:00 05/24/20 16:01 DC 05/24/20 17:05 Warfarin Sodium (Coumadin) 1.5 mg 1X WARF ONCE PO 05/25/20 16:00 05/25/20 16:01 DC 05/25/20 17:36 Mirtazapine (Remeron) 7.5 mg QHS PO 05/25/20 21:00 05/31/20 18:41 DC 05/30/20 21:20 Warfarin Sodium (Coumadin) 1 mg 1X WARF ONCE PO 05/26/20 16:00 05/26/20 16:01 DC 05/26/20 16:29 Warfarin Sodium (Coumadin) 1.5 mg 1X WARF ONCE PO 05/27/20 16:00 05/27/20 16:07 DC 05/27/20 17:06 Warfarin Sodium (Coumadin) 1.5 mg 1X WARF ONCE PO 05/28/20 16:00 05/28/20 16:01 DC 05/28/20 16:00 Warfarin Sodium (Coumadin) 1.5 mg 1X WARF ONCE PO 05/29/20 16:00 05/29/20 16:01 DC 05/29/20 17:15 Warfarin Sodium (Coumadin) 1.5 mg 1X WARF ONCE PO 05/30/20 16:00 05/30/20 11:13 DC Warfarin Sodium (Coumadin) 1 mg 1X WARF ONCE PO 05/30/20 16:00 05/30/20 16:01 DC 05/30/20 17:09 Warfarin Sodium (Coumadin) 1.5 mg 1X WARF ONCE PO 05/31/20 16:00 05/31/20 16:01 DC 05/31/20 16:18 Mirtazapine (Remeron) 15 mg QHS PO 05/31/20 21:00 06/10/20 20:36 Warfarin Sodium (Coumadin) 1 mg QMWF PO 06/01/20 16:00 06/05/20 09:57 DC 06/03/20 16:59 Warfarin Sodium (Coumadin) 1.5 mg QTUTHSASU PO 06/02/20 16:00 06/05/20 09:39 DC 06/04/20 18:05 Quetiapine Fumarate (SEROquel) 50 mg BID PO 06/06/20 21:00 06/10/20 20:36 Quetiapine Fumarate (SEROquel) 50 mg 1700 PO 06/06/20 17:00 06/10/20 17:34 Quetiapine Fumarate (SEROquel) 75 mg 1400 PO 06/07/20 14:00 06/10/20 13:59 I have reviewed the current psychotropics carefully including drug interactions. Risk benefit ratio favors no change other than as noted in my dictated progress note. Diagnosis: Problems: (1) Psychotic disorder (2) Major depressive disorder (3) Personality disorder, unspecified (4) Bipolar disorder with psychotic features ADELSO LOVE MD Jun 10, 2020 21:58
[2020-06-11] MEDS: LEVOTHYROXINE 50 MCG TABLET PO SCH (03:17)
[2020-06-11 05:59] VITALS: BP 135/74
[2020-06-11] MEDS: MAGNESIUM OXIDE 400 MG TABLET PO SCH (08:10)
[2020-06-11] MEDS: FENOFIBRATE NANOCRYSTALLIZED 145 MG TABLET PO SCH (08:10)
[2020-06-11] MEDS: GABAPENTIN 300 MG CAPSULE. PO SCH ×3 (08:10→20:28)
[2020-06-11] MEDS: QUEtiapine 50 MG TABLET. PO SCH ×3 (08:10→20:28)
[2020-06-11] MEDS: MORPHINE ER 15 MG TABLET.ER PO SCH (08:11)
[2020-06-11] MEDS: DIVALPROEX ER 500 MG TAB.ER.24H PO SCH ×2 (08:11→20:28)
[2020-06-11] MEDS: TIMOLOL 0.5% OPHTH SOLUTION 5ML BOTTLE. OU SCH ×2 (08:11→20:28)
[2020-06-11] MEDS: CARVEDILOL 12.5 MG TABLET PO SCH ×2 (08:11→17:00)
[2020-06-11] MEDS: INSULIN LISPRO 300 UNITS/3 ML VIAL. SQ SCH ×3 (08:13→17:00)
--- NOTE | 2020-06-11 10:06 | NUR ---
Patient calm and cooperative. Patient assisted with getting back into bed. Patient appears to be napping at this time.
[2020-06-11] MEDS: QUEtiapine 25 MG TABLET. PO SCH (12:01)
[2020-06-11 15:00] VITALS: BP 92/58
[2020-06-11] MEDS: MIRTAZAPINE 15 MG TABLET PO SCH (20:28)
[2020-06-11] MEDS: LATANOPROST 0.005% OPHTH SOLUTION 2.5ML BOTTLE. OU SCH (20:28)
[2020-06-11] MEDS: traZODone 100 MG TABLET. PO SCH (20:28)
[2020-06-11] MEDS: SIMVASTATIN 10 MG TABLET PO SCH (20:28)
[2020-06-11] MEDS: INSULIN GLARGINE SYRINGE. SQ SCH (20:30)
--- NOTE | 2020-06-11 21:11 | PDOC ---
Exam Note: Joseph Note: Please also refer to the separate dictated note~for this date of service dictated separately.~Patient seen individually. Discussed the patient with Nursing staff reviewed the chart.~Reviewed interim history and current functioning. Reviewed vital signs,~Labs/ Radiology~and current medications noted below. Continue current treatment with the changes noted in the dictated addendum note Assessment: Vital Signs/I&O: Vital Signs Date Time Temp Pulse Resp B/P (MAP) Pulse Ox O2 Delivery O2 Flow Rate FiO2 06/11/20 17:00 80 92/58 06/11/20 15:00 98.0 20 98 Room Air I & O 06/10/20 06/10/20 06/11/20 14:59 22:59 06:59 Intake Total 680 ml 680 ml Balance 680 ml 680 ml Labs: Laboratory Tests Test 06/11/20 07:41 06/11/20 11:37 06/11/20 16:45 06/11/20 18:55 Glucose (Fingerstick) 233 mg/dL (70-99) H 224 mg/dL (70-99) H 159 mg/dL (70-99) H 182 mg/dL (70-99) H Current Medications: Meds: Laboratory Tests Test 06/11/20 07:41 06/11/20 11:37 06/11/20 16:45 06/11/20 18:55 Glucose (Fingerstick) 233 mg/dL 224 mg/dL 159 mg/dL 182 mg/dL Current Medications Medications (Trade) Dose Ordered Sig/Jayant Route PRN Reason Start Time Stop Time Status Last Admin Dose Admin Acetaminophen (Tylenol) 650 mg PRN Q6HRS PRN PO MILD PAIN / TEMP > 100.3'F 05/05/20 20:15 UNV Multi-Ingredient Ointment (Analgesic [place]) 1 scottie PRN QID PRN TP MUSCLE PAIN 05/05/20 20:15 Al Hydroxide/Mg Hydroxide (Mylanta Plus Xs) 15 ml PRN AFTMEALHC PRN PO DYSPEPSIA 05/05/20 20:15 Magnesium Hydroxide (Milk Of Magnesia) 2,400 mg PRN QHS PRN PO CONSTIPATION, 1ST CHOICE 05/05/20 20:15 Olanzapine (ZyPREXA ZYDIS) 2.5 mg PRN Q2HRS PRN PO ANXIETY / AGITATION 05/05/20 20:15 05/06/20 11:17 DC 05/06/20 09:29 Acetaminophen (Tylenol) 650 mg PRN Q4HRS PRN PO MILD PAIN / TEMP > 100.3'F 05/05/20 20:15 06/09/20 17:37 Clonidine HCl (Catapres Tts-1) 1 patch WEEKLY TD 05/12/20 09:00 05/20/20 10:59 DC 05/19/20 09:01 Fenofibrate (Tricor) 145 mg DAILY PO 05/06/20 09:00 06/11/20 08:10 Gabapentin (Neurontin) 300 mg TID PO 05/05/20 21:00 06/11/20 20:28 Levothyroxine Sodium (Synthroid) 50 mcg DAILY06 PO 05/06/20 06:00 05/08/20 00:17 DC 05/07/20 06:00 Lisinopril (Prinivil) 20 mg DAILY PO 05/06/20 09:00 06/05/20 09:39 DC 06/04/20 09:00 Magnesium Oxide (Magnesium Oxide) 200 mg DAILY PO 05/06/20 09:00 06/11/20 08:10 Morphine Sulfate (Ms Contin) 15 mg BID PO 05/05/20 21:00 05/20/20 13:53 DC 05/20/20 09:00 Polyethylene Glycol (miraLAX) 17 gm DAILY PO 05/06/20 09:00 05/12/20 02:36 DC 05/11/20 05:47 Simvastatin (Zocor) 10 mg HS PO 05/05/20 21:00 06/11/20 20:28 Timolol Maleate (Timoptic 0.5% Ophth) 1 drop BID OU 05/05/20 21:00 05/19/20 21:03 DC 05/19/20 19:48 Trazodone HCl (Desyrel) 50 mg HS PO 05/05/20 21:00 05/11/20 17:38 DC 05/10/20 20:14 Carvedilol (Coreg) 12.5 mg BIDWMEALS PO 05/06/20 08:00 06/11/20 08:11 Insulin Human Lispro (HumaLOG) 10 units TIDAC SQ 05/06/20 07:30 05/06/20 11:36 DC 05/06/20 07:30 Insulin Glargine (Lantus Syringe) 25 unit QHS SQ 05/05/20 21:00 06/11/20 20:30 Latanoprost (Xalatan) 1 drop QHS OU 05/05/20 21:00 06/11/20 20:28 Non-Formulary Medication (Magnesium Hydroxide (Milk Of Magnesia)) 30 ml PRN DAILY PRN PO CONSTIPATION 05/05/20 20:15 UNV Multivitamins/ Calcium (Thera-M Plus) 1 tab DAILY PO 05/06/20 09:00 05/14/20 08:49 DC 05/14/20 08:11 Sennosides (Senna) 17.2 mg BID PO 05/05/20 21:00 05/12/20 05:09 DC 05/11/20 19:38 Venlafaxine HCl (Effexor) 50 mg TID PO 05/05/20 21:00 05/06/20 18:23 DC 05/06/20 12:34 Influenza Virus Vaccine Quadrival (Fluzone Quad Syringe) 0.5 ml ONCE ONCE VAX IM 05/06/20 09:00 05/06/20 09:01 DC 05/06/20 09:00 Warfarin Sodium (Coumadin Per Pharmacy) 1 each PRN DAILY PRN MC SEE COMMENTS 05/06/20 11:00 06/05/20 09:39 DC 06/01/20 11:58 Warfarin Sodium (Coumadin) 2.5 mg DAILY@1600 PO 05/06/20 16:00 05/10/20 08:18 DC 05/09/20 17:26 Lorazepam (Ativan) 0.5 mg PRN Q2HRS PRN PO ANXIETY / AGITATION 05/06/20 11:00 06/09/20 22:04 Olanzapine (ZyPREXA ZYDIS) 5 mg PRN Q2HRS PRN PO PSYCHOSIS 05/06/20 11:00 06/03/20 20:13 Warfarin Sodium (Coumadin) 1 mg DAILY@1600 PO 05/06/20 16:00 05/10/20 08:18 DC 05/09/20 17:25 Insulin Human Lispro (HumaLOG) 10 units TIDWMEALS SQ 05/06/20 12:00 05/11/20 17:31 DC 05/11/20 17:11 Venlafaxine HCl (Effexor) 25 mg TID PO 05/06/20 21:00 05/09/20 20:59 DC 05/09/20 15:19 Divalproex Sodium (Depakote Er) 500 mg QHS PO 05/06/20 21:00 05/09/20 09:41 DC 05/08/20 19:33 Levothyroxine Sodium (Synthroid) 50 mcg 0600 PO 05/08/20 06:00 06/11/20 03:17 Trazodone HCl (Desyrel) 50 mg PRN QHS PRN PO INSMONIA 05/08/20 21:00 05/11/20 17:38 DC 05/10/20 23:06 Haloperidol Lactate (Haldol) 5 mg DAILY IM 05/09/20 09:30 05/13/20 18:05 DC 05/13/20 07:49 Lorazepam (Ativan Inj) 0.5 mg DAILY IM 05/09/20 09:30 05/13/20 18:05 DC 05/13/20 07:49 Divalproex Sodium (Depakote Er) 1,000 mg QHS PO 05/09/20 21:00 05/12/20 23:00 DC 05/12/20 20:28 Warfarin Sodium (Coumadin - No Dose Today) 1 each 1X WARF ONCE 05/10/20 16:00 05/10/20 16:01 DC Insulin Human Lispro (HumaLOG) 14 units TIDWMEALS SQ 05/11/20 17:30 05/11/20 17:37 DC Vitamin D (Vitamin D3) 50,000 unit WEEKLY PO 05/11/20 17:30 05/11/20 17:37 DC Vitamin D (Vitamin D3) 50,000 unit WEEKLY PO 05/12/20 09:00 06/09/20 08:43 Insulin Human Lispro (HumaLOG) 14 units TIDWMEALS SQ 05/12/20 08:00 06/11/20 12:02 Trazodone HCl (Desyrel) 100 mg QHS PO 05/11/20 21:00 06/11/20 20:28 Trazodone HCl (Desyrel) 100 mg PRN QHS PRN PO INSOMNIA 05/11/20 17:45 06/09/20 22:04 Sennosides (Senna) 17.2 mg PRN BID PRN PO CONSTIPATION, 2ND CHOICE 05/12/20 05:15 Warfarin Sodium (Coumadin) 2.5 mg 1X WARF ONCE PO 05/12/20 16:00 05/12/20 16:01 DC 05/12/20 16:59 Quetiapine Fumarate (SEROquel) 50 mg QHS PO 05/12/20 22:00 05/15/20 22:17 DC 05/15/20 19:51 Divalproex Sodium (Depakote Er) 1,500 mg QHS PO 05/13/20 21:00 05/17/20 17:09 DC 05/16/20 19:53 Divalproex Sodium (Depakote Er) 500 mg ONCE PO 05/12/20 22:00 05/12/20 22:03 DC Divalproex Sodium (Depakote Er) 500 mg 1X ONCE PO 05/12/20 22:15 05/12/20 22:16 DC 05/12/20 22:05 Warfarin Sodium (Coumadin) 2.5 mg 1X WARF ONCE PO 05/13/20 16:00 05/13/20 16:01 DC 05/13/20 17:14 Haloperidol Lactate (Haldol) 5 mg DAILY@1700 IM 05/14/20 17:00 05/17/20 14:00 DC 05/15/20 17:15 Lorazepam (Ativan Inj) 0.5 mg DAILY@1700 IM 05/14/20 17:00 05/17/20 14:00 DC 05/15/20 17:15 Hydroxyzine HCl (Atarax) 25 mg PRN Q6HRS PRN PO ITCHING 05/14/20 14:00 06/05/20 00:11 Warfarin Sodium (Coumadin) 2.5 mg 1X WARF ONCE PO 05/14/20 16:00 05/14/20 16:01 DC 05/14/20 16:00 Quetiapine Fumarate (SEROquel) 25 mg DAILY PO 05/15/20 09:00 05/15/20 22:17 DC 05/15/20 09:11 Warfarin Sodium (Coumadin) 2 mg 1X WARF ONCE PO 05/15/20 16:30 05/15/20 16:42 DC 05/15/20 17:15 Nystatin (Nystop) 1 scottie PRN BID PRN TP REDNESS 05/15/20 17:30 05/17/20 13:32 Quetiapine Fumarate (SEROquel) 50 mg TID PO 05/16/20 09:00 06/06/20 14:21 DC 06/06/20 13:10 Warfarin Sodium (Coumadin - No Dose Today) 1 each 1X WARF ONCE MC 05/16/20 16:00 05/16/20 16:01 DC Warfarin Sodium (Coumadin) 1.5 mg 1X WARF ONCE PO 05/17/20 16:00 05/17/20 16:01 DC 05/17/20 16:18 Divalproex Sodium (Depakote Er) 2,000 mg QHS PO 05/17/20 21:00 06/11/20 20:28 Warfarin Sodium (Coumadin) 1.5 mg 1X WARF ONCE PO 05/18/20 16:00 05/18/20 16:01 DC 05/18/20 16:53 Quetiapine Fumarate (SEROquel) 25 mg 1700 PO 05/19/20 17:00 06/06/20 14:21 DC 06/05/20 17:08 Warfarin Sodium (Coumadin) 1.5 mg DAILY16 PO 05/19/20 16:00 05/22/20 10:22 DC 05/21/20 17:01 Timolol Maleate (Timoptic 0.5% Oph) 1 drop BID OU 05/19/20 21:03 06/11/20 20:28 Clonidine HCl (Catapres Tts-1) 1 patch WEEKLY TD 05/20/20 11:00 06/10/20 09:56 Morphine Sulfate (Ms Contin) 15 mg DAILY PO 05/21/20 09:00 06/11/20 08:11 Divalproex Sodium (Depakote Er) 500 mg DAILY PO 05/21/20 09:00 06/11/20 08:11 Warfarin Sodium (Coumadin - No Dose Today) 1 each 1X WARF ONCE MC 05/22/20 16:00 05/22/20 16:01 DC Warfarin Sodium (Coumadin) 1 mg 1X WARF ONCE PO 05/23/20 18:00 05/23/20 18:01 DC 05/23/20 17:47 Warfarin Sodium (Coumadin) 1 mg 1X WARF ONCE PO 05/24/20 16:00 05/24/20 16:01 DC 05/24/20 17:05 Warfarin Sodium (Coumadin) 1.5 mg 1X WARF ONCE PO 05/25/20 16:00 05/25/20 16:01 DC 05/25/20 17:36 Mirtazapine (Remeron) 7.5 mg QHS PO 05/25/20 21:00 05/31/20 18:41 DC 05/30/20 21:20 Warfarin Sodium (Coumadin) 1 mg 1X WARF ONCE PO 05/26/20 16:00 05/26/20 16:01 DC 05/26/20 16:29 Warfarin Sodium (Coumadin) 1.5 mg 1X WARF ONCE PO 05/27/20 16:00 05/27/20 16:07 DC 05/27/20 17:06 Warfarin Sodium (Coumadin) 1.5 mg 1X WARF ONCE PO 05/28/20 16:00 05/28/20 16:01 DC 05/28/20 16:00 Warfarin Sodium (Coumadin) 1.5 mg 1X WARF ONCE PO 05/29/20 16:00 05/29/20 16:01 DC 05/29/20 17:15 Warfarin Sodium (Coumadin) 1.5 mg 1X WARF ONCE PO 05/30/20 16:00 05/30/20 11:13 DC Warfarin Sodium (Coumadin) 1 mg 1X WARF ONCE PO 05/30/20 16:00 05/30/20 16:01 DC 05/30/20 17:09 Warfarin Sodium (Coumadin) 1.5 mg 1X WARF ONCE PO 05/31/20 16:00 05/31/20 16:01 DC 05/31/20 16:18 Mirtazapine (Remeron) 15 mg QHS PO 05/31/20 21:00 06/11/20 20:28 Warfarin Sodium (Coumadin) 1 mg QMWF PO 06/01/20 16:00 06/05/20 09:57 DC 06/03/20 16:59 Warfarin Sodium (Coumadin) 1.5 mg QTUTHSASU PO 06/02/20 16:00 06/05/20 09:39 DC 06/04/20 18:05 Quetiapine Fumarate (SEROquel) 50 mg BID PO 06/06/20 21:00 06/11/20 20:28 Quetiapine Fumarate (SEROquel) 50 mg 1700 PO 06/06/20 17:00 06/11/20 17:06 Quetiapine Fumarate (SEROquel) 75 mg 1400 PO 06/07/20 14:00 06/11/20 12:01 I have reviewed the current psychotropics carefully including drug interactions. Risk benefit ratio favors no change other than as noted in my dictated progress note. Diagnosis: Problems: (1) Psychotic disorder (2) Major depressive disorder (3) Personality disorder, unspecified (4) Bipolar disorder with psychotic features ADELSO LOVE MD Jun 11, 2020 21:11
--- NOTE | 2020-06-11 23:02 | NUR ---
Pt in bed all evening. Pt has flat, depressed affect. Yelling out intermittently. Continues to need much encouragement with ADLs. Compliant with whole medications.
[2020-06-12] MEDS: LEVOTHYROXINE 50 MCG TABLET PO SCH (05:02)
[2020-06-12 05:48] VITALS: BP 143/75
[2020-06-12] MEDS: DIVALPROEX ER 500 MG TAB.ER.24H PO SCH ×2 (08:12→20:42)
[2020-06-12] MEDS: CARVEDILOL 12.5 MG TABLET PO SCH ×2 (08:12→16:06)
[2020-06-12] MEDS: GABAPENTIN 300 MG CAPSULE. PO SCH ×3 (08:14→20:42)
[2020-06-12] MEDS: MAGNESIUM OXIDE 400 MG TABLET PO SCH (08:14)
[2020-06-12] MEDS: QUEtiapine 50 MG TABLET. PO SCH ×3 (08:15→20:42)
[2020-06-12] MEDS: FENOFIBRATE NANOCRYSTALLIZED 145 MG TABLET PO SCH (08:15)
[2020-06-12] MEDS: MORPHINE ER 15 MG TABLET.ER PO SCH (08:17)
[2020-06-12] MEDS: INSULIN LISPRO 300 UNITS/3 ML VIAL. SQ SCH ×3 (08:20→17:01)
--- NOTE | 2020-06-12 08:53 | PDOC ---
Exam Note: Joseph Note: This note is a late entry for 06/10/2020 covers elements not covered in my initial note. Subjective: The patient was reviewed on telehealth rounds in the evening of 06/10/2020 with Leena CORRAL. Discussed with nursing staff, reviewed the chart. She slept 6-3/4 hours previous night. Reportedly previous night, the patient was extremely anxious, labile in her mood, agitated. Received trazodone x2. She has done better during the day on 06/10. Appetite is fair. Review of Systems: Ambulation impaired in wheelchair. No CV, , pulmonary, eye, ENT system symptoms on review. She does complain of some pain in her coccyx area but she lies in bed a lot of the time during the day contributing to this. Mental Status Exam: The patient is reasonably oriented. Speech is coherent, less pressured. Abstraction is fair. Computation is impaired. Language function intact. Attention span is short. Mood and affect still withdrawn but showing some improvement. Laboratory Data: Reviewed. Impression: Bipolar disorder unspecified. Major depressive disorder. Anxiety disorder unspecified. Impulse control disorder unspecified. Personality disorder unspecified. Plan: No change from initial note. Assessment: Vital Signs/I&O: Vital Signs Date Time Temp Pulse Resp B/P (MAP) Pulse Ox O2 Delivery O2 Flow Rate FiO2 06/12/20 08:17 18 06/12/20 08:12 71 143/75 06/12/20 08:10 98 06/12/20 05:48 97.7 06/11/20 15:00 Room Air I & O 06/11/20 06/11/20 06/12/20 14:59 22:59 06:59 Intake Total 720 ml 480 ml Balance 720 ml 480 ml Labs: Laboratory Tests Test 06/11/20 11:37 06/11/20 16:45 06/11/20 18:55 06/12/20 07:46 Glucose (Fingerstick) 224 mg/dL (70-99) H 159 mg/dL (70-99) H 182 mg/dL (70-99) H 166 mg/dL (70-99) H Current Medications: Meds: Laboratory Tests Test 06/11/20 11:37 06/11/20 16:45 06/11/20 18:55 06/12/20 07:46 Glucose (Fingerstick) 224 mg/dL 159 mg/dL 182 mg/dL 166 mg/dL Current Medications Medications (Trade) Dose Ordered Sig/Jayant Route PRN Reason Start Time Stop Time Status Last Admin Dose Admin Acetaminophen (Tylenol) 650 mg PRN Q6HRS PRN PO MILD PAIN / TEMP > 100.3'F 05/05/20 20:15 UNV Multi-Ingredient Ointment (Analgesic [place]) 1 scottie PRN QID PRN TP MUSCLE PAIN 05/05/20 20:15 Al Hydroxide/Mg Hydroxide (Mylanta Plus Xs) 15 ml PRN AFTMEALHC PRN PO DYSPEPSIA 05/05/20 20:15 Magnesium Hydroxide (Milk Of Magnesia) 2,400 mg PRN QHS PRN PO CONSTIPATION, 1ST CHOICE 05/05/20 20:15 Olanzapine (ZyPREXA ZYDIS) 2.5 mg PRN Q2HRS PRN PO ANXIETY / AGITATION 05/05/20 20:15 05/06/20 11:17 DC 05/06/20 09:29 Acetaminophen (Tylenol) 650 mg PRN Q4HRS PRN PO MILD PAIN / TEMP > 100.3'F 05/05/20 20:15 06/09/20 17:37 Clonidine HCl (Catapres Tts-1) 1 patch WEEKLY TD 05/12/20 09:00 05/20/20 10:59 DC 05/19/20 09:01 Fenofibrate (Tricor) 145 mg DAILY PO 05/06/20 09:00 06/12/20 08:15 Gabapentin (Neurontin) 300 mg TID PO 05/05/20 21:00 06/12/20 08:14 Levothyroxine Sodium (Synthroid) 50 mcg DAILY06 PO 05/06/20 06:00 05/08/20 00:17 DC 05/07/20 06:00 Lisinopril (Prinivil) 20 mg DAILY PO 05/06/20 09:00 06/05/20 09:39 DC 06/04/20 09:00 Magnesium Oxide (Magnesium Oxide) 200 mg DAILY PO 05/06/20 09:00 06/12/20 08:14 Morphine Sulfate (Ms Contin) 15 mg BID PO 05/05/20 21:00 05/20/20 13:53 DC 05/20/20 09:00 Polyethylene Glycol (miraLAX) 17 gm DAILY PO 05/06/20 09:00 05/12/20 02:36 DC 05/11/20 05:47 Simvastatin (Zocor) 10 mg HS PO 05/05/20 21:00 06/11/20 20:28 Timolol Maleate (Timoptic 0.5% Ophth) 1 drop BID OU 05/05/20 21:00 05/19/20 21:03 DC 05/19/20 19:48 Trazodone HCl (Desyrel) 50 mg HS PO 05/05/20 21:00 05/11/20 17:38 DC 05/10/20 20:14 Carvedilol (Coreg) 12.5 mg BIDWMEALS PO 05/06/20 08:00 06/12/20 08:12 Insulin Human Lispro (HumaLOG) 10 units TIDAC SQ 05/06/20 07:30 05/06/20 11:36 DC 05/06/20 07:30 Insulin Glargine (Lantus Syringe) 25 unit QHS SQ 05/05/20 21:00 06/11/20 20:30 Latanoprost (Xalatan) 1 drop QHS OU 05/05/20 21:00 06/11/20 20:28 Non-Formulary Medication (Magnesium Hydroxide (Milk Of Magnesia)) 30 ml PRN DAILY PRN PO CONSTIPATION 05/05/20 20:15 UNV Multivitamins/ Calcium (Thera-M Plus) 1 tab DAILY PO 05/06/20 09:00 05/14/20 08:49 DC 05/14/20 08:11 Sennosides (Senna) 17.2 mg BID PO 05/05/20 21:00 05/12/20 05:09 DC 05/11/20 19:38 Venlafaxine HCl (Effexor) 50 mg TID PO 05/05/20 21:00 05/06/20 18:23 DC 05/06/20 12:34 Influenza Virus Vaccine Quadrival (Fluzone Quad Syringe) 0.5 ml ONCE ONCE VAX IM 05/06/20 09:00 05/06/20 09:01 DC 05/06/20 09:00 Warfarin Sodium (Coumadin Per Pharmacy) 1 each PRN DAILY PRN MC SEE COMMENTS 05/06/20 11:00 06/05/20 09:39 DC 06/01/20 11:58 Warfarin Sodium (Coumadin) 2.5 mg DAILY@1600 PO 05/06/20 16:00 05/10/20 08:18 DC 05/09/20 17:26 Lorazepam (Ativan) 0.5 mg PRN Q2HRS PRN PO ANXIETY / AGITATION 05/06/20 11:00 06/09/20 22:04 Olanzapine (ZyPREXA ZYDIS) 5 mg PRN Q2HRS PRN PO PSYCHOSIS 05/06/20 11:00 06/03/20 20:13 Warfarin Sodium (Coumadin) 1 mg DAILY@1600 PO 05/06/20 16:00 05/10/20 08:18 DC 05/09/20 17:25 Insulin Human Lispro (HumaLOG) 10 units TIDWMEALS SQ 05/06/20 12:00 05/11/20 17:31 DC 05/11/20 17:11 Venlafaxine HCl (Effexor) 25 mg TID PO 05/06/20 21:00 05/09/20 20:59 DC 05/09/20 15:19 Divalproex Sodium (Depakote Er) 500 mg QHS PO 05/06/20 21:00 05/09/20 09:41 DC 05/08/20 19:33 Levothyroxine Sodium (Synthroid) 50 mcg 0600 PO 05/08/20 06:00 06/12/20 05:02 Trazodone HCl (Desyrel) 50 mg PRN QHS PRN PO INSMONIA 05/08/20 21:00 05/11/20 17:38 DC 05/10/20 23:06 Haloperidol Lactate (Haldol) 5 mg DAILY IM 05/09/20 09:30 05/13/20 18:05 DC 05/13/20 07:49 Lorazepam (Ativan Inj) 0.5 mg DAILY IM 05/09/20 09:30 05/13/20 18:05 DC 05/13/20 07:49 Divalproex Sodium (Depakote Er) 1,000 mg QHS PO 05/09/20 21:00 05/12/20 23:00 DC 05/12/20 20:28 Warfarin Sodium (Coumadin - No Dose Today) 1 each 1X WARF ONCE 05/10/20 16:00 05/10/20 16:01 DC Insulin Human Lispro (HumaLOG) 14 units TIDWMEALS SQ 05/11/20 17:30 05/11/20 17:37 DC Vitamin D (Vitamin D3) 50,000 unit WEEKLY PO 05/11/20 17:30 05/11/20 17:37 DC Vitamin D (Vitamin D3) 50,000 unit WEEKLY PO 05/12/20 09:00 06/09/20 08:43 Insulin Human Lispro (HumaLOG) 14 units TIDWMEALS SQ 05/12/20 08:00 06/12/20 08:20 Trazodone HCl (Desyrel) 100 mg QHS PO 05/11/20 21:00 06/11/20 20:28 Trazodone HCl (Desyrel) 100 mg PRN QHS PRN PO INSOMNIA 05/11/20 17:45 06/09/20 22:04 Sennosides (Senna) 17.2 mg PRN BID PRN PO CONSTIPATION, 2ND CHOICE 05/12/20 05:15 Warfarin Sodium (Coumadin) 2.5 mg 1X WARF ONCE PO 05/12/20 16:00 05/12/20 16:01 DC 05/12/20 16:59 Quetiapine Fumarate (SEROquel) 50 mg QHS PO 05/12/20 22:00 05/15/20 22:17 DC 05/15/20 19:51 Divalproex Sodium (Depakote Er) 1,500 mg QHS PO 05/13/20 21:00 05/17/20 17:09 DC 05/16/20 19:53 Divalproex Sodium (Depakote Er) 500 mg ONCE PO 05/12/20 22:00 05/12/20 22:03 DC Divalproex Sodium (Depakote Er) 500 mg 1X ONCE PO 05/12/20 22:15 05/12/20 22:16 DC 05/12/20 22:05 Warfarin Sodium (Coumadin) 2.5 mg 1X WARF ONCE PO 05/13/20 16:00 05/13/20 16:01 DC 05/13/20 17:14 Haloperidol Lactate (Haldol) 5 mg DAILY@1700 IM 05/14/20 17:00 05/17/20 14:00 DC 05/15/20 17:15 Lorazepam (Ativan Inj) 0.5 mg DAILY@1700 IM 05/14/20 17:00 05/17/20 14:00 DC 05/15/20 17:15 Hydroxyzine HCl (Atarax) 25 mg PRN Q6HRS PRN PO ITCHING 05/14/20 14:00 06/05/20 00:11 Warfarin Sodium (Coumadin) 2.5 mg 1X WARF ONCE PO 05/14/20 16:00 05/14/20 16:01 DC 05/14/20 16:00 Quetiapine Fumarate (SEROquel) 25 mg DAILY PO 05/15/20 09:00 05/15/20 22:17 DC 05/15/20 09:11 Warfarin Sodium (Coumadin) 2 mg 1X WARF ONCE PO 05/15/20 16:30 05/15/20 16:42 DC 05/15/20 17:15 Nystatin (Nystop) 1 scottie PRN BID PRN TP REDNESS 05/15/20 17:30 05/17/20 13:32 Quetiapine Fumarate (SEROquel) 50 mg TID PO 05/16/20 09:00 06/06/20 14:21 DC 06/06/20 13:10 Warfarin Sodium (Coumadin - No Dose Today) 1 each 1X WARF ONCE MC 05/16/20 16:00 05/16/20 16:01 DC Warfarin Sodium (Coumadin) 1.5 mg 1X WARF ONCE PO 05/17/20 16:00 05/17/20 16:01 DC 05/17/20 16:18 Divalproex Sodium (Depakote Er) 2,000 mg QHS PO 05/17/20 21:00 06/11/20 20:28 Warfarin Sodium (Coumadin) 1.5 mg 1X WARF ONCE PO 05/18/20 16:00 05/18/20 16:01 DC 05/18/20 16:53 Quetiapine Fumarate (SEROquel) 25 mg 1700 PO 05/19/20 17:00 06/06/20 14:21 DC 06/05/20 17:08 Warfarin Sodium (Coumadin) 1.5 mg DAILY16 PO 05/19/20 16:00 05/22/20 10:22 DC 05/21/20 17:01 Timolol Maleate (Timoptic 0.5% Ophth) 1 drop BID OU 05/19/20 21:03 06/11/20 20:28 Clonidine HCl (Catapres Tts-1) 1 patch WEEKLY TD 05/20/20 11:00 06/10/20 09:56 Morphine Sulfate (Ms Contin) 15 mg DAILY PO 05/21/20 09:00 06/12/20 08:17 Divalproex Sodium (Depakote Er) 500 mg DAILY PO 05/21/20 09:00 06/12/20 08:12 Warfarin Sodium (Coumadin - No Dose Today) 1 each 1X WARF ONCE MC 05/22/20 16:00 05/22/20 16:01 DC Warfarin Sodium (Coumadin) 1 mg 1X WARF ONCE PO 05/23/20 18:00 05/23/20 18:01 DC 05/23/20 17:47 Warfarin Sodium (Coumadin) 1 mg 1X WARF ONCE PO 05/24/20 16:00 05/24/20 16:01 DC 05/24/20 17:05 Warfarin Sodium (Coumadin) 1.5 mg 1X WARF ONCE PO 05/25/20 16:00 05/25/20 16:01 DC 05/25/20 17:36 Mirtazapine (Remeron) 7.5 mg QHS PO 05/25/20 21:00 05/31/20 18:41 DC 05/30/20 21:20 Warfarin Sodium (Coumadin) 1 mg 1X WARF ONCE PO 05/26/20 16:00 05/26/20 16:01 DC 05/26/20 16:29 Warfarin Sodium (Coumadin) 1.5 mg 1X WARF ONCE PO 05/27/20 16:00 05/27/20 16:07 DC 05/27/20 17:06 Warfarin Sodium (Coumadin) 1.5 mg 1X WARF ONCE PO 05/28/20 16:00 05/28/20 16:01 DC 05/28/20 16:00 Warfarin Sodium (Coumadin) 1.5 mg 1X WARF ONCE PO 05/29/20 16:00 05/29/20 16:01 DC 05/29/20 17:15 Warfarin Sodium (Coumadin) 1.5 mg 1X WARF ONCE PO 05/30/20 16:00 05/30/20 11:13 DC Warfarin Sodium (Coumadin) 1 mg 1X WARF ONCE PO 05/30/20 16:00 05/30/20 16:01 DC 05/30/20 17:09 Warfarin Sodium (Coumadin) 1.5 mg 1X WARF ONCE PO 05/31/20 16:00 05/31/20 16:01 DC 05/31/20 16:18 Mirtazapine (Remeron) 15 mg QHS PO 05/31/20 21:00 06/11/20 20:28 Warfarin Sodium (Coumadin) 1 mg QMWF PO 06/01/20 16:00 06/05/20 09:57 DC 06/03/20 16:59 Warfarin Sodium (Coumadin) 1.5 mg QTUTHSASU PO 06/02/20 16:00 06/05/20 09:39 DC 06/04/20 18:05 Quetiapine Fumarate (SEROquel) 50 mg BID PO 06/06/20 21:00 06/12/20 08:15 Quetiapine Fumarate (SEROquel) 50 mg 1700 PO 06/06/20 17:00 06/11/20 17:06 Quetiapine Fumarate (SEROquel) 75 mg 1400 PO 06/07/20 14:00 06/11/20 12:01 I have reviewed the current psychotropics carefully including drug interactions. Risk benefit ratio favors no change other than as noted in my dictated progress note. Diagnosis: Problems: (1) Psychotic disorder (2) Major depressive disorder (3) Personality disorder, unspecified (4) Bipolar disorder with psychotic features ADELSO LOVE MD Jun 12, 2020 08:53
[2020-06-12] MEDS: TIMOLOL 0.5% OPHTH SOLUTION 5ML BOTTLE. OU SCH ×2 (09:00→20:43)
--- NOTE | 2020-06-12 09:12 | PDOC ---
Exam Note: oJseph Note: This note is a late entry for 06/11/2020 covers elements not covered in my initial note. Subjective: The patient was reviewed on telehealth rounds in the evening of 06/11/2020 with Matt CORRAL. Discussed with nursing staff, reviewed the chart. She slept 8-1/4 hours previous night. Reportedly previous evening the patient was acting out, yelling, appearing to be helpless per nursing report but during the day today she has been calmer, helping herself more. She was tearful on telehealth rounds in the evening as I met with her stating she wanted to go back to [place], [place]. Review of Systems: Impaired ambulation in wheelchair. No complaints of pain. No CV, , pulmonary, eye, ENT system symptoms on review. Mental Status Exam: The patient is alert and oriented. She is pleasant, verbal, interactive, somewhat tearful as noted. Speech is coherent. Abstraction is fair. Computation is impaired. Language function intact. Attention span is fair. No suicidal or homicidal ideation. Laboratory Data: Reviewed. Impression: Bipolar disorder unspecified. Major depressive disorder. Anxiety disorder unspecified. Impulse control disorder unspecified. Personality disorder unspecified. Plan: Continue current psychotropics. Assessment: Vital Signs/I&O: Vital Signs Date Time Temp Pulse Resp B/P (MAP) Pulse Ox O2 Delivery O2 Flow Rate FiO2 06/12/20 08:17 18 06/12/20 08:12 71 143/75 06/12/20 08:10 98 06/12/20 05:48 97.7 06/11/20 15:00 Room Air I & O 06/11/20 06/11/20 06/12/20 15:00 23:00 07:00 Intake Total 720 ml 480 ml Balance 720 ml 480 ml Labs: Laboratory Tests Test 06/11/20 11:37 06/11/20 16:45 06/11/20 18:55 06/12/20 07:46 Glucose (Fingerstick) 224 mg/dL (70-99) H 159 mg/dL (70-99) H 182 mg/dL (70-99) H 166 mg/dL (70-99) H Current Medications: Meds: Laboratory Tests Test 06/11/20 11:37 06/11/20 16:45 06/11/20 18:55 06/12/20 07:46 Glucose (Fingerstick) 224 mg/dL 159 mg/dL 182 mg/dL 166 mg/dL Current Medications Medications (Trade) Dose Ordered Sig/Jayant Route PRN Reason Start Time Stop Time Status Last Admin Dose Admin Acetaminophen (Tylenol) 650 mg PRN Q6HRS PRN PO MILD PAIN / TEMP > 100.3'F 05/05/20 20:15 UNV Multi-Ingredient Ointment (Analgesic [place]) 1 scottie PRN QID PRN TP MUSCLE PAIN 05/05/20 20:15 Al Hydroxide/Mg Hydroxide (Mylanta Plus Xs) 15 ml PRN AFTMEALHC PRN PO DYSPEPSIA 05/05/20 20:15 Magnesium Hydroxide (Milk Of Magnesia) 2,400 mg PRN QHS PRN PO CONSTIPATION, 1ST CHOICE 05/05/20 20:15 Olanzapine (ZyPREXA ZYDIS) 2.5 mg PRN Q2HRS PRN PO ANXIETY / AGITATION 05/05/20 20:15 05/06/20 11:17 DC 05/06/20 09:29 Acetaminophen (Tylenol) 650 mg PRN Q4HRS PRN PO MILD PAIN / TEMP > 100.3'F 05/05/20 20:15 06/09/20 17:37 Clonidine HCl (Catapres Tts-1) 1 patch WEEKLY TD 05/12/20 09:00 05/20/20 10:59 DC 05/19/20 09:01 Fenofibrate (Tricor) 145 mg DAILY PO 05/06/20 09:00 06/12/20 08:15 Gabapentin (Neurontin) 300 mg TID PO 05/05/20 21:00 06/12/20 08:14 Levothyroxine Sodium (Synthroid) 50 mcg DAILY06 PO 05/06/20 06:00 05/08/20 00:17 DC 05/07/20 06:00 Lisinopril (Prinivil) 20 mg DAILY PO 05/06/20 09:00 06/05/20 09:39 DC 06/04/20 09:00 Magnesium Oxide (Magnesium Oxide) 200 mg DAILY PO 05/06/20 09:00 06/12/20 08:14 Morphine Sulfate (Ms Contin) 15 mg BID PO 05/05/20 21:00 05/20/20 13:53 DC 05/20/20 09:00 Polyethylene Glycol (miraLAX) 17 gm DAILY PO 05/06/20 09:00 05/12/20 02:36 DC 05/11/20 05:47 Simvastatin (Zocor) 10 mg HS PO 05/05/20 21:00 06/11/20 20:28 Timolol Maleate (Timoptic 0.5% Oph) 1 drop BID OU 05/05/20 21:00 05/19/20 21:03 DC 05/19/20 19:48 Trazodone HCl (Desyrel) 50 mg HS PO 05/05/20 21:00 05/11/20 17:38 DC 05/10/20 20:14 Carvedilol (Coreg) 12.5 mg BIDWMEALS PO 05/06/20 08:00 06/12/20 08:12 Insulin Human Lispro (HumaLOG) 10 units TIDAC SQ 05/06/20 07:30 05/06/20 11:36 DC 05/06/20 07:30 Insulin Glargine (Lantus Syringe) 25 unit QHS SQ 05/05/20 21:00 06/11/20 20:30 Latanoprost (Xalatan) 1 drop QHS OU 05/05/20 21:00 06/11/20 20:28 Non-Formulary Medication (Magnesium Hydroxide (Milk Of Magnesia)) 30 ml PRN DAILY PRN PO CONSTIPATION 05/05/20 20:15 UNV Multivitamins/ Calcium (Thera-M Plus) 1 tab DAILY PO 05/06/20 09:00 05/14/20 08:49 DC 05/14/20 08:11 Sennosides (Senna) 17.2 mg BID PO 05/05/20 21:00 05/12/20 05:09 DC 05/11/20 19:38 Venlafaxine HCl (Effexor) 50 mg TID PO 05/05/20 21:00 05/06/20 18:23 DC 05/06/20 12:34 Influenza Virus Vaccine Quadrival (Fluzone Quad Syringe) 0.5 ml ONCE ONCE VAX IM 05/06/20 09:00 05/06/20 09:01 DC 05/06/20 09:00 Warfarin Sodium (Coumadin Per Pharmacy) 1 each PRN DAILY PRN MC SEE COMMENTS 05/06/20 11:00 06/05/20 09:39 DC 06/01/20 11:58 Warfarin Sodium (Coumadin) 2.5 mg DAILY@1600 PO 05/06/20 16:00 05/10/20 08:18 DC 05/09/20 17:26 Lorazepam (Ativan) 0.5 mg PRN Q2HRS PRN PO ANXIETY / AGITATION 05/06/20 11:00 06/09/20 22:04 Olanzapine (ZyPREXA ZYDIS) 5 mg PRN Q2HRS PRN PO PSYCHOSIS 05/06/20 11:00 06/03/20 20:13 Warfarin Sodium (Coumadin) 1 mg DAILY@1600 PO 05/06/20 16:00 05/10/20 08:18 DC 05/09/20 17:25 Insulin Human Lispro (HumaLOG) 10 units TIDWMEALS SQ 05/06/20 12:00 05/11/20 17:31 DC 05/11/20 17:11 Venlafaxine HCl (Effexor) 25 mg TID PO 05/06/20 21:00 05/09/20 20:59 DC 05/09/20 15:19 Divalproex Sodium (Depakote Er) 500 mg QHS PO 05/06/20 21:00 05/09/20 09:41 DC 05/08/20 19:33 Levothyroxine Sodium (Synthroid) 50 mcg 0600 PO 05/08/20 06:00 06/12/20 05:02 Trazodone HCl (Desyrel) 50 mg PRN QHS PRN PO INSMONIA 05/08/20 21:00 05/11/20 17:38 DC 05/10/20 23:06 Haloperidol Lactate (Haldol) 5 mg DAILY IM 05/09/20 09:30 05/13/20 18:05 DC 05/13/20 07:49 Lorazepam (Ativan Inj) 0.5 mg DAILY IM 05/09/20 09:30 05/13/20 18:05 DC 05/13/20 07:49 Divalproex Sodium (Depakote Er) 1,000 mg QHS PO 05/09/20 21:00 05/12/20 23:00 DC 05/12/20 20:28 Warfarin Sodium (Coumadin - No Dose Today) 1 each 1X WARF ONCE MC 05/10/20 16:00 05/10/20 16:01 DC Insulin Human Lispro (HumaLOG) 14 units TIDWMEALS SQ 05/11/20 17:30 05/11/20 17:37 DC Vitamin D (Vitamin D3) 50,000 unit WEEKLY PO 05/11/20 17:30 05/11/20 17:37 DC Vitamin D (Vitamin D3) 50,000 unit WEEKLY PO 05/12/20 09:00 06/09/20 08:43 Insulin Human Lispro (HumaLOG) 14 units TIDWMEALS SQ 05/12/20 08:00 06/12/20 08:20 Trazodone HCl (Desyrel) 100 mg QHS PO 05/11/20 21:00 06/11/20 20:28 Trazodone HCl (Desyrel) 100 mg PRN QHS PRN PO INSOMNIA 05/11/20 17:45 06/09/20 22:04 Sennosides (Senna) 17.2 mg PRN BID PRN PO CONSTIPATION, 2ND CHOICE 05/12/20 05:15 Warfarin Sodium (Coumadin) 2.5 mg 1X WARF ONCE PO 05/12/20 16:00 05/12/20 16:01 DC 05/12/20 16:59 Quetiapine Fumarate (SEROquel) 50 mg QHS PO 05/12/20 22:00 05/15/20 22:17 DC 05/15/20 19:51 Divalproex Sodium (Depakote Er) 1,500 mg QHS PO 05/13/20 21:00 05/17/20 17:09 DC 05/16/20 19:53 Divalproex Sodium (Depakote Er) 500 mg ONCE PO 05/12/20 22:00 05/12/20 22:03 DC Divalproex Sodium (Depakote Er) 500 mg 1X ONCE PO 05/12/20 22:15 05/12/20 22:16 DC 05/12/20 22:05 Warfarin Sodium (Coumadin) 2.5 mg 1X WARF ONCE PO 05/13/20 16:00 05/13/20 16:01 DC 05/13/20 17:14 Haloperidol Lactate (Haldol) 5 mg DAILY@1700 IM 05/14/20 17:00 12/8/20 14:00 DC 05/15/20 17:15 Lorazepam (Ativan Inj) 0.5 mg DAILY@1700 IM 05/14/20 17:00 05/17/20 14:00 DC 05/15/20 17:15 Hydroxyzine HCl (Atarax) 25 mg PRN Q6HRS PRN PO ITCHING 05/14/20 14:00 06/05/20 00:11 Warfarin Sodium (Coumadin) 2.5 mg 1X WARF ONCE PO 05/14/20 16:00 05/14/20 16:01 DC 05/14/20 16:00 Quetiapine Fumarate (SEROquel) 25 mg DAILY PO 05/15/20 09:00 05/15/20 22:17 DC 05/15/20 09:11 Warfarin Sodium (Coumadin) 2 mg 1X WARF ONCE PO 05/15/20 16:30 05/15/20 16:42 DC 05/15/20 17:15 Nystatin (Nystop) 1 scottie PRN BID PRN TP REDNESS 05/15/20 17:30 05/17/20 13:32 Quetiapine Fumarate (SEROquel) 50 mg TID PO 05/16/20 09:00 06/06/20 14:21 DC 06/06/20 13:10 Warfarin Sodium (Coumadin - No Dose Today) 1 each 1X WARF ONCE MC 05/16/20 16:00 05/16/20 16:01 DC Warfarin Sodium (Coumadin) 1.5 mg 1X WARF ONCE PO 05/17/20 16:00 05/17/20 16:01 DC 05/17/20 16:18 Divalproex Sodium (Depakote Er) 2,000 mg QHS PO 05/17/20 21:00 06/11/20 20:28 Warfarin Sodium (Coumadin) 1.5 mg 1X WARF ONCE PO 05/18/20 16:00 05/18/20 16:01 DC 05/18/20 16:53 Quetiapine Fumarate (SEROquel) 25 mg 1700 PO 05/19/20 17:00 06/06/20 14:21 DC 06/05/20 17:08 Warfarin Sodium (Coumadin) 1.5 mg DAILY16 PO 05/19/20 16:00 05/22/20 10:22 DC 05/21/20 17:01 Timolol Maleate (Timoptic 0.5% Ophth) 1 drop BID OU 05/19/20 21:03 06/11/20 20:28 Clonidine HCl (Catapres Tts-1) 1 patch WEEKLY TD 05/20/20 11:00 06/10/20 09:56 Morphine Sulfate (Ms Contin) 15 mg DAILY PO 05/21/20 09:00 06/12/20 08:17 Divalproex Sodium (Depakote Er) 500 mg DAILY PO 05/21/20 09:00 06/12/20 08:12 Warfarin Sodium (Coumadin - No Dose Today) 1 each 1X WARF ONCE MC 05/22/20 16:00 05/22/20 16:01 DC Warfarin Sodium (Coumadin) 1 mg 1X WARF ONCE PO 05/23/20 18:00 05/23/20 18:01 DC 05/23/20 17:47 Warfarin Sodium (Coumadin) 1 mg 1X WARF ONCE PO 05/24/20 16:00 05/24/20 16:01 DC 05/24/20 17:05 Warfarin Sodium (Coumadin) 1.5 mg 1X WARF ONCE PO 05/25/20 16:00 05/25/20 16:01 DC 05/25/20 17:36 Mirtazapine (Remeron) 7.5 mg QHS PO 05/25/20 21:00 05/31/20 18:41 DC 05/30/20 21:20 Warfarin Sodium (Coumadin) 1 mg 1X WARF ONCE PO 05/26/20 16:00 05/26/20 16:01 DC 05/26/20 16:29 Warfarin Sodium (Coumadin) 1.5 mg 1X WARF ONCE PO 05/27/20 16:00 05/27/20 16:07 DC 05/27/20 17:06 Warfarin Sodium (Coumadin) 1.5 mg 1X WARF ONCE PO 05/28/20 16:00 05/28/20 16:01 DC 05/28/20 16:00 Warfarin Sodium (Coumadin) 1.5 mg 1X WARF ONCE PO 05/29/20 16:00 05/29/20 16:01 DC 05/29/20 17:15 Warfarin Sodium (Coumadin) 1.5 mg 1X WARF ONCE PO 05/30/20 16:00 05/30/20 11:13 DC Warfarin Sodium (Coumadin) 1 mg 1X WARF ONCE PO 05/30/20 16:00 05/30/20 16:01 DC 05/30/20 17:09 Warfarin Sodium (Coumadin) 1.5 mg 1X WARF ONCE PO 05/31/20 16:00 05/31/20 16:01 DC 05/31/20 16:18 Mirtazapine (Remeron) 15 mg QHS PO 05/31/20 21:00 06/11/20 20:28 Warfarin Sodium (Coumadin) 1 mg QMWF PO 06/01/20 16:00 06/05/20 09:57 DC 06/03/20 16:59 Warfarin Sodium (Coumadin) 1.5 mg QTUTHSASU PO 06/02/20 16:00 06/05/20 09:39 DC 06/04/20 18:05 Quetiapine Fumarate (SEROquel) 50 mg BID PO 06/06/20 21:00 06/12/20 08:15 Quetiapine Fumarate (SEROquel) 50 mg 1700 PO 06/06/20 17:00 06/11/20 17:06 Quetiapine Fumarate (SEROquel) 75 mg 1400 PO 06/07/20 14:00 06/11/20 12:01 I have reviewed the current psychotropics carefully including drug interactions. Risk benefit ratio favors no change other than as noted in my dictated progress note. Diagnosis: Problems: (1) Psychotic disorder (2) Major depressive disorder (3) Personality disorder, unspecified (4) Bipolar disorder with psychotic features ADELSO LOVE MD Jun 12, 2020 09:12
--- NOTE | 2020-06-12 11:16 | NUR ---
Pt is calm, cooperative, and compliant. No agitation, no aggression, no hallucinations, no delusions. She is compliant with her medication and assessment.
[2020-06-12] MEDS: QUEtiapine 25 MG TABLET. PO SCH (12:43)
[2020-06-12 15:03] VITALS: BP 98/62
[2020-06-12 19:44] VITALS: BP 125/82
[2020-06-12] MEDS: MIRTAZAPINE 15 MG TABLET PO SCH (20:42)
[2020-06-12] MEDS: SIMVASTATIN 10 MG TABLET PO SCH (20:42)
[2020-06-12] MEDS: traZODone 100 MG TABLET. PO SCH (20:42)
[2020-06-12] MEDS: LATANOPROST 0.005% OPHTH SOLUTION 2.5ML BOTTLE. OU SCH (20:43)
[2020-06-12] MEDS: INSULIN GLARGINE SYRINGE. SQ SCH (20:46)
--- NOTE | 2020-06-12 21:15 | PDOC ---
Exam Note: Joseph Note: Please also refer to the separate dictated note~for this date of service dictated separately.~Patient seen individually. Discussed the patient with Nursing staff reviewed the chart.~Reviewed interim history and current functioning. Reviewed vital signs,~Labs/ Radiology~and current medications noted below. Continue current treatment with the changes noted in the dictated addendum note Assessment: Vital Signs/I&O: Vital Signs Date Time Temp Pulse Resp B/P (MAP) Pulse Ox O2 Delivery O2 Flow Rate FiO2 06/12/20 19:44 97.9 71 18 125/82 (96) 100 06/11/20 15:00 Room Air I & O 06/11/20 06/11/20 06/12/20 15:00 23:00 07:00 Intake Total 720 ml 480 ml Balance 720 ml 480 ml Labs: Laboratory Tests Test 06/12/20 07:46 06/12/20 11:45 06/12/20 16:44 06/12/20 19:08 Glucose (Fingerstick) 166 mg/dL (70-99) H 255 mg/dL (70-99) H 157 mg/dL (70-99) H 141 mg/dL (70-99) H Current Medications: I have reviewed the current psychotropics carefully including drug interactions. Risk benefit ratio favors no change other than as noted in my dictated progress note. Diagnosis: Problems: (1) Psychotic disorder (2) Major depressive disorder (3) Personality disorder, unspecified (4) Bipolar disorder with psychotic features ADELSO LOVE MD Jun 12, 2020 21:15
--- NOTE | 2020-06-12 22:32 | NUR ---
Pt yelling out tonight more than previous evenings. Pt acting helpless and needing much encouragement with ADLs. Compliant with medications.
[2020-06-13] MEDS: LEVOTHYROXINE 50 MCG TABLET PO SCH (05:19)
[2020-06-13 05:55] VITALS: BP 120/71
[2020-06-13 07:04] LABS: CALCIUM 8.5 mg/dL (8.5-10.1); CREATININE 0.9 mg/dL (0.6-1.0); GFR 63.4; POTASSIUM 4.1 mmol/L (3.5-5.1)
[2020-06-13 07:05] LABS: BASO # 0.1 x10^3/uL (0.0-0.2); BASO % 1 % (0-3); EOS # 0.4 x10^3/uL (0.0-0.7); EOS % 5 % (0-3); HEMOGLOBIN 9.7 g/dL (12.0-15.5); LYMPH # 1.8 x10^3/uL (1.0-4.8); LYMPH % 23 % (24-48); MEAN CORPUSCULAR HEMOGLOBIN 26 pg (25-35); MEAN CORPUSCULAR HGB CONC 32 g/dL (31-37); MEAN CORPUSCULAR VOLUME 80 fL (79-100); MONO # 0.8 x10^3/uL (0.0-1.1); MONO % 10 % (0-9); NEUT # 4.8 x10^3uL (1.8-7.7); NEUT % 61 % (31-73); PLATELET COUNT 197 x10^3/uL (140-400); RED BLOOD COUNT 3.74 x10^6/uL (3.50-5.40); RED CELL DISTRIBUTION WIDTH 16.1 % (11.5-14.5); WHITE BLOOD COUNT 7.9 x10^3/uL (4.0-11.0)
[2020-06-13] MEDS: INSULIN LISPRO 300 UNITS/3 ML VIAL. SQ SCH ×3 (08:00→17:29)
[2020-06-13] MEDS: DIVALPROEX ER 500 MG TAB.ER.24H PO SCH ×2 (08:24→20:03)
[2020-06-13] MEDS: CARVEDILOL 12.5 MG TABLET PO SCH ×2 (08:24→16:56)
[2020-06-13] MEDS: MAGNESIUM OXIDE 400 MG TABLET PO SCH (08:24)
[2020-06-13] MEDS: GABAPENTIN 300 MG CAPSULE. PO SCH ×3 (08:25→20:03)
[2020-06-13] MEDS: FENOFIBRATE NANOCRYSTALLIZED 145 MG TABLET PO SCH (08:25)
[2020-06-13] MEDS: MORPHINE ER 15 MG TABLET.ER PO SCH (08:25)
[2020-06-13] MEDS: QUEtiapine 50 MG TABLET. PO SCH ×3 (08:25→20:03)
[2020-06-13] MEDS: TIMOLOL 0.5% OPHTH SOLUTION 5ML BOTTLE. OU SCH ×2 (09:00→20:05)
--- NOTE | 2020-06-13 10:46 | NUR ---
She is compliant with her medication and assessment. Pt is calm, cooperative, and compliant. No agitation, no aggression, no hallucinations, no delusions. Morning insulin not given as pt stated to nurse she did not want breakfast and wanted to sleep.
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
[2020-06-13] MEDS: QUEtiapine 25 MG TABLET. PO SCH (12:25)
--- NOTE | 2020-06-13 13:31 | NUR ---
[facility] Social Work Discharge Planning Form Patient Name SHWETA LINDSAY Admit Date: 05/05/20 DISCHARGE PLAN Discharge Destination: Home with supports of family staying with Shweta and [facility] private duty services. Care Assessment: n/a Transportation: Family will transport on 06/14/2020, 1pm slat pickler time. Special Instructions/Notes: GIULIA De Luna, will schedule follow up appointments with Dr. Johnson (PCP) and the behavioral health provider at [facility] within 7-10 days of Shweta arriving home. DISCHARGE TO HOME: Address: [address] [place] [address] [place] [id number] Responsible Alliance Party: Annamarie Johnson, sister in law/POA Pharmacy: [facility] [phone] Psychiatrist/Mental Health Follow Up: [facility] [phone], (fax) Primary Care Follow Up: Dr. Johnson [phone], (fax)
--- NOTE | 2020-06-13 13:41 | NUR ---
F/U calls to [facility] and [facility] and [facility]. Left message two for aRdha at [facility], this worker is not getting return calls from the facility. Spoke with Tequila at [facility] and [facility] and Tequila indicated that Shweta was declined for admit due to psych needs and lack of providers at their facility. Call placed to GIULIA De Luna, to discuss and Annamarie desires to proceed with Shweta discharging home with Annamarie providing care to Shweta and the private duty support of [facility]. Annamarie indicated that she would arrange for f/u appointments with Dr. Johnson (PCP) and [facility] for psychiatry appointments. Annamarie expressed the desire to have Shweta seen by Dr. Johnson later this week. Addendum: 06/13/20 at 1556 by EVA BOOGIE CHUYITA received return call from Radha at [facility] indicating the inability to accept Shweta for placement due to having to move several of their own residents around the facility leaving no openings for Shweta.
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
[2020-06-13 16:34] VITALS: BP 95/60
[2020-06-13] MEDS: SIMVASTATIN 10 MG TABLET PO SCH (20:03)
[2020-06-13] MEDS: MIRTAZAPINE 15 MG TABLET PO SCH (20:03)
[2020-06-13] MEDS: traZODone 100 MG TABLET. PO SCH (20:03)
[2020-06-13] MEDS: LATANOPROST 0.005% OPHTH SOLUTION 2.5ML BOTTLE. OU SCH (20:05)
--- NOTE | 2020-06-13 20:51 | PDOC ---
Exam Note: Joseph Note: Please also refer to the separate dictated note~for this date of service dictated separately.~Patient seen individually. Discussed the patient with Nursing staff reviewed the chart.~Reviewed interim history and current functioning. Reviewed vital signs,~Labs/ Radiology~and current medications noted below. Continue current treatment with the changes noted in the dictated addendum note Assessment: Vital Signs/I&O: Vital Signs Date Time Temp Pulse Resp B/P (MAP) Pulse Ox O2 Delivery O2 Flow Rate FiO2 06/13/20 16:34 98.7 86 19 95/60 (72) 95 06/13/20 05:55 Room Air I & O 06/12/20 06/12/20 06/13/20 14:59 22:59 06:59 Intake Total 540 ml 440 ml Balance 540 ml 440 ml Labs: Laboratory Tests Test 06/13/20 06:44 06/13/20 07:59 06/13/20 12:02 06/13/20 17:04 White Blood Count 7.9 x10^3/uL (4.0-11.0) Red Blood Count 3.74 x10^6/uL (3.50-5.40) Hemoglobin 9.7 g/dL (12.0-15.5) L Hematocrit 30.0 % (36.0-47.0) L Mean Corpuscular Volume 80 fL (79-100) Mean Corpuscular Hemoglobin 26 pg (25-35) Mean Corpuscular Hemoglobin Concent 32 g/dL (31-37) Red Cell Distribution Width 16.1 % (11.5-14.5) H Platelet Count 197 x10^3/uL (140-400) Neutrophils (%) (Auto) 61 % (31-73) Lymphocytes (%) (Auto) 23 % (24-48) L Monocytes (%) (Auto) 10 % (0-9) H Eosinophils (%) (Auto) 5 % (0-3) H Basophils (%) (Auto) 1 % (0-3) Neutrophils # (Auto) 4.8 x10^3uL (1.8-7.7) Lymphocytes # (Auto) 1.8 x10^3/uL (1.0-4.8) Monocytes # (Auto) 0.8 x10^3/uL (0.0-1.1) Eosinophils # (Auto) 0.4 x10^3/uL (0.0-0.7) Basophils # (Auto) 0.1 x10^3/uL (0.0-0.2) Sodium Level 138 mmol/L (136-145) Potassium Level 4.1 mmol/L (3.5-5.1) Chloride Level 103 mmol/L (98-107) Carbon Dioxide Level 29 mmol/L (21-32) Anion Gap 6 (6-14) Blood Urea Nitrogen 31 mg/dL (7-20) H Creatinine 0.9 mg/dL (0.6-1.0) Estimated GFR (Cockcroft-Gault) 63.4 Glucose Level 115 mg/dL (70-99) H Calcium Level 8.5 mg/dL (8.5-10.1) Glucose (Fingerstick) 117 mg/dL (70-99) H 235 mg/dL (70-99) H 159 mg/dL (70-99) H Test 06/13/20 19:54 Glucose (Fingerstick) 157 mg/dL (70-99) H Current Medications: I have reviewed the current psychotropics carefully including drug interactions. Risk benefit ratio favors no change other than as noted in my dictated progress note. Diagnosis: Problems: (1) Psychotic disorder (2) Major depressive disorder (3) Personality disorder, unspecified (4) Bipolar disorder with psychotic features ADELSO LOVE MD Jun 13, 2020 20:51
[2020-06-13] MEDS: INSULIN GLARGINE SYRINGE. SQ SCH (21:00)
--- NOTE | 2020-06-13 22:21 | NUR ---
Patient has been pleasant and cooperative this shift. She expressed interest in what medications she takes at bed time. Patient is scheduled to discharge tomorrow and states she is looking forward to getting home.
[2020-06-13] MEDS: ACETAMINOPHEN 325 MG TABLET PO PRN (23:05)
[2020-06-13] MEDS: traZODone 100 MG TABLET. PO PRN (23:05)
[2020-06-13] MEDS ORDERED: DIVA500T4 PO (23:40)
[2020-06-13] MEDS ORDERED: MIRT-37 PO (23:41)
[2020-06-14 05:42] VITALS: BP 114/69
[2020-06-14] MEDS: LEVOTHYROXINE 50 MCG TABLET PO SCH (05:49)
--- NOTE | 2020-06-14 05:54 | NUR ---
Patient has fecal occult stool test ordered, the sample remains uncollected. She has not defecated this shift. Will pass on in report.
--- NOTE | 2020-06-14 08:00 | PDOC ---
Exam Note: Joseph Note: This note is a late entry for 06/12/2020 covers elements not covered in my initial note. Subjective: The patient was reviewed on telehealth rounds in the evening of 06/12/2020 with Radha CORRAL. Discussed with nursing staff, reviewed the chart. She slept 7-1/4 hours previous night. Overall the patient has had less yelling. Her hemoglobin and hematocrit are low. We will defer to Dr. Levi. Stool is being checked for occult blood. Review of Systems: Impaired ambulation. No CV, , pulmonary, eye, ENT system symptoms on review. Mental Status Exam: The patient is alert and oriented. She is less anxious, restless, somewhat more appropriate. Speech is coherent. Abstraction is fair. Computation is impaired. Language function intact. Attention span is fair. No suicidal or homicidal ideation. We discussed potential discharge plans. Laboratory Data: Reviewed. Impression: Bipolar disorder unspecified. Major depressive disorder. Anxiety disorder unspecified. Impulse control disorder unspecified. Personality disorder unspecified. Plan: No change from initial note. Assessment: Vital Signs/I&O: Vital Signs Date Time Temp Pulse Resp B/P (MAP) Pulse Ox O2 Delivery O2 Flow Rate FiO2 06/14/20 05:42 98.5 64 18 114/69 (84) 96 06/13/20 05:55 Room Air I & O 06/13/20 06/13/20 06/14/20 15:00 23:00 07:00 Intake Total 840 ml 360 ml Balance 840 ml 360 ml Labs: Laboratory Tests Test 06/13/20 12:02 06/13/20 17:04 06/13/20 19:54 06/14/20 07:50 Glucose (Fingerstick) 235 mg/dL (70-99) H 159 mg/dL (70-99) H 157 mg/dL (70-99) H 113 mg/dL (70-99) H Current Medications: Meds: Laboratory Tests Test 06/13/20 12:02 06/13/20 17:04 06/13/20 19:54 06/14/20 07:50 Glucose (Fingerstick) 235 mg/dL 159 mg/dL 157 mg/dL 113 mg/dL Current Medications Medications (Trade) Dose Ordered Sig/Jayant Route PRN Reason Start Time Stop Time Status Last Admin Dose Admin Acetaminophen (Tylenol) 650 mg PRN Q6HRS PRN PO MILD PAIN / TEMP > 100.3'F 05/05/20 20:15 UNV Multi-Ingredient Ointment (Analgesic [place]) 1 scottie PRN QID PRN TP MUSCLE PAIN 05/05/20 20:15 Al Hydroxide/Mg Hydroxide (Mylanta Plus Xs) 15 ml PRN AFTMEALHC PRN PO DYSPEPSIA 05/05/20 20:15 Magnesium Hydroxide (Milk Of Magnesia) 2,400 mg PRN QHS PRN PO CONSTIPATION, 1ST CHOICE 05/05/20 20:15 Olanzapine (ZyPREXA ZYDIS) 2.5 mg PRN Q2HRS PRN PO ANXIETY / AGITATION 05/05/20 20:15 05/06/20 11:17 DC 05/06/20 09:29 Acetaminophen (Tylenol) 650 mg PRN Q4HRS PRN PO MILD PAIN / TEMP > 100.3'F 05/05/20 20:15 06/13/20 23:05 Clonidine HCl (Catapres Tts-1) 1 patch WEEKLY TD 05/12/20 09:00 05/20/20 10:59 DC 05/19/20 09:01 Fenofibrate (Tricor) 145 mg DAILY PO 05/06/20 09:00 06/13/20 08:25 Gabapentin (Neurontin) 300 mg TID PO 05/05/20 21:00 06/13/20 20:03 Levothyroxine Sodium (Synthroid) 50 mcg DAILY06 PO 05/06/20 06:00 05/08/20 00:17 DC 05/07/20 06:00 Lisinopril (Prinivil) 20 mg DAILY PO 05/06/20 09:00 06/05/20 09:39 DC 06/04/20 09:00 Magnesium Oxide (Magnesium Oxide) 200 mg DAILY PO 05/06/20 09:00 06/13/20 08:24 Morphine Sulfate (Ms Contin) 15 mg BID PO 05/05/20 21:00 05/20/20 13:53 DC 05/20/20 09:00 Polyethylene Glycol (miraLAX) 17 gm DAILY PO 05/06/20 09:00 05/12/20 02:36 DC 05/11/20 05:47 Simvastatin (Zocor) 10 mg HS PO 05/05/20 21:00 06/13/20 20:03 Timolol Maleate (Timoptic 0.5% Oph) 1 drop BID OU 05/05/20 21:00 05/19/20 21:03 DC 05/19/20 19:48 Trazodone HCl (Desyrel) 50 mg HS PO 05/05/20 21:00 05/11/20 17:38 DC 05/10/20 20:14 Carvedilol (Coreg) 12.5 mg BIDWMEALS PO 05/06/20 08:00 06/13/20 08:24 Insulin Human Lispro (HumaLOG) 10 units TIDAC SQ 05/06/20 07:30 05/06/20 11:36 DC 05/06/20 07:30 Insulin Glargine (Lantus Syringe) 25 unit QHS SQ 05/05/20 21:00 06/13/20 21:00 Latanoprost (Xalatan) 1 drop QHS OU 05/05/20 21:00 06/13/20 20:05 Non-Formulary Medication (Magnesium Hydroxide (Milk Of Magnesia)) 30 ml PRN DAILY PRN PO CONSTIPATION 05/05/20 20:15 UNV Multivitamins/ Calcium (Thera-M Plus) 1 tab DAILY PO 05/06/20 09:00 05/14/20 08:49 DC 05/14/20 08:11 Sennosides (Senna) 17.2 mg BID PO 05/05/20 21:00 05/12/20 05:09 DC 05/11/20 19:38 Venlafaxine HCl (Effexor) 50 mg TID PO 05/05/20 21:00 05/06/20 18:23 DC 05/06/20 12:34 Influenza Virus Vaccine Quadrival (Fluzone Quad Syringe) 0.5 ml ONCE ONCE VAX IM 05/06/20 09:00 05/06/20 09:01 DC 05/06/20 09:00 Warfarin Sodium (Coumadin Per Pharmacy) 1 each PRN DAILY PRN MC SEE COMMENTS 05/06/20 11:00 06/05/20 09:39 DC 06/01/20 11:58 Warfarin Sodium (Coumadin) 2.5 mg DAILY@1600 PO 05/06/20 16:00 05/10/20 08:18 DC 05/09/20 17:26 Lorazepam (Ativan) 0.5 mg PRN Q2HRS PRN PO ANXIETY / AGITATION 05/06/20 11:00 06/09/20 22:04 Olanzapine (ZyPREXA ZYDIS) 5 mg PRN Q2HRS PRN PO PSYCHOSIS 05/06/20 11:00 06/03/20 20:13 Warfarin Sodium (Coumadin) 1 mg DAILY@1600 PO 05/06/20 16:00 05/10/20 08:18 DC 05/09/20 17:25 Insulin Human Lispro (HumaLOG) 10 units TIDWMEALS SQ 05/06/20 12:00 05/11/20 17:31 DC 05/11/20 17:11 Venlafaxine HCl (Effexor) 25 mg TID PO 05/06/20 21:00 05/09/20 20:59 DC 05/09/20 15:19 Divalproex Sodium (Depakote Er) 500 mg QHS PO 05/06/20 21:00 05/09/20 09:41 DC 05/08/20 19:33 Levothyroxine Sodium (Synthroid) 50 mcg 0600 PO 05/08/20 06:00 06/14/20 05:49 Trazodone HCl (Desyrel) 50 mg PRN QHS PRN PO INSMONIA 05/08/20 21:00 05/11/20 17:38 DC 05/10/20 23:06 Haloperidol Lactate (Haldol) 5 mg DAILY IM 05/09/20 09:30 05/13/20 18:05 DC 05/13/20 07:49 Lorazepam (Ativan Inj) 0.5 mg DAILY IM 05/09/20 09:30 05/13/20 18:05 DC 05/13/20 07:49 Divalproex Sodium (Depakote Er) 1,000 mg QHS PO 05/09/20 21:00 05/12/20 23:00 DC 05/12/20 20:28 Warfarin Sodium (Coumadin - No Dose Today) 1 each 1X WARF ONCE 05/10/20 16:00 05/10/20 16:01 DC Insulin Human Lispro (HumaLOG) 14 units TIDWMEALS SQ 05/11/20 17:30 05/11/20 17:37 DC Vitamin D (Vitamin D3) 50,000 unit WEEKLY PO 05/11/20 17:30 05/11/20 17:37 DC Vitamin D (Vitamin D3) 50,000 unit WEEKLY PO 05/12/20 09:00 06/09/20 08:43 Insulin Human Lispro (HumaLOG) 14 units TIDWMEALS SQ 05/12/20 08:00 06/13/20 17:29 Trazodone HCl (Desyrel) 100 mg QHS PO 05/11/20 21:00 06/13/20 20:03 Trazodone HCl (Desyrel) 100 mg PRN QHS PRN PO INSOMNIA 05/11/20 17:45 06/13/20 23:05 Sennosides (Senna) 17.2 mg PRN BID PRN PO CONSTIPATION, 2ND CHOICE 05/12/20 05:15 Warfarin Sodium (Coumadin) 2.5 mg 1X WARF ONCE PO 05/12/20 16:00 05/12/20 16:01 DC 05/12/20 16:59 Quetiapine Fumarate (SEROquel) 50 mg QHS PO 05/12/20 22:00 05/15/20 22:17 DC 05/15/20 19:51 Divalproex Sodium (Depakote Er) 1,500 mg QHS PO 05/13/20 21:00 05/17/20 17:09 DC 05/16/20 19:53 Divalproex Sodium (Depakote Er) 500 mg ONCE PO 05/12/20 22:00 05/12/20 22:03 DC Divalproex Sodium (Depakote Er) 500 mg 1X ONCE PO 05/12/20 22:15 05/12/20 22:16 DC 05/12/20 22:05 Warfarin Sodium (Coumadin) 2.5 mg 1X WARF ONCE PO 05/13/20 16:00 05/13/20 16:01 DC 05/13/20 17:14 Haloperidol Lactate (Haldol) 5 mg DAILY@1700 IM 05/14/20 17:00 05/17/20 14:00 DC 05/15/20 17:15 Lorazepam (Ativan Inj) 0.5 mg DAILY@1700 IM 05/14/20 17:00 05/17/20 14:00 DC 05/15/20 17:15 Hydroxyzine HCl (Atarax) 25 mg PRN Q6HRS PRN PO ITCHING 05/14/20 14:00 06/05/20 00:11 Warfarin Sodium (Coumadin) 2.5 mg 1X WARF ONCE PO 05/14/20 16:00 05/14/20 16:01 DC 05/14/20 16:00 Quetiapine Fumarate (SEROquel) 25 mg DAILY PO 05/15/20 09:00 05/15/20 22:17 DC 05/15/20 09:11 Warfarin Sodium (Coumadin) 2 mg 1X WARF ONCE PO 05/15/20 16:30 05/15/20 16:42 DC 05/15/20 17:15 Nystatin (Nystop) 1 scottie PRN BID PRN TP REDNESS 05/15/20 17:30 05/17/20 13:32 Quetiapine Fumarate (SEROquel) 50 mg TID PO 05/16/20 09:00 06/06/20 14:21 DC 06/06/20 13:10 Warfarin Sodium (Coumadin - No Dose Today) 1 each 1X WARF ONCE MC 05/16/20 16:00 05/16/20 16:01 DC Warfarin Sodium (Coumadin) 1.5 mg 1X WARF ONCE PO 05/17/20 16:00 05/17/20 16:01 DC 05/17/20 16:18 Divalproex Sodium (Depakote Er) 2,000 mg QHS PO 05/17/20 21:00 06/13/20 20:03 Warfarin Sodium (Coumadin) 1.5 mg 1X WARF ONCE PO 05/18/20 16:00 05/18/20 16:01 DC 05/18/20 16:53 Quetiapine Fumarate (SEROquel) 25 mg 1700 PO 05/19/20 17:00 06/06/20 14:21 DC 06/05/20 17:08 Warfarin Sodium (Coumadin) 1.5 mg DAILY16 PO 05/19/20 16:00 05/22/20 10:22 DC 05/21/20 17:01 Timolol Maleate (Timoptic 0.5% Oph) 1 drop BID OU 05/19/20 21:03 06/13/20 20:05 Clonidine HCl (Catapres Tts-1) 1 patch WEEKLY TD 05/20/20 11:00 06/10/20 09:56 Morphine Sulfate (Ms Contin) 15 mg DAILY PO 05/21/20 09:00 06/13/20 08:25 Divalproex Sodium (Depakote Er) 500 mg DAILY PO 05/21/20 09:00 06/13/20 08:24 Warfarin Sodium (Coumadin - No Dose Today) 1 each 1X WARF ONCE MC 05/22/20 16:00 05/22/20 16:01 DC Warfarin Sodium (Coumadin) 1 mg 1X WARF ONCE PO 05/23/20 18:00 05/23/20 18:01 DC 05/23/20 17:47 Warfarin Sodium (Coumadin) 1 mg 1X WARF ONCE PO 05/24/20 16:00 05/24/20 16:01 DC 05/24/20 17:05 Warfarin Sodium (Coumadin) 1.5 mg 1X WARF ONCE PO 05/25/20 16:00 05/25/20 16:01 DC 05/25/20 17:36 Mirtazapine (Remeron) 7.5 mg QHS PO 05/25/20 21:00 05/31/20 18:41 DC 05/30/20 21:20 Warfarin Sodium (Coumadin) 1 mg 1X WARF ONCE PO 05/26/20 16:00 05/26/20 16:01 DC 05/26/20 16:29 Warfarin Sodium (Coumadin) 1.5 mg 1X WARF ONCE PO 05/27/20 16:00 05/27/20 16:07 DC 05/27/20 17:06 Warfarin Sodium (Coumadin) 1.5 mg 1X WARF ONCE PO 05/28/20 16:00 05/28/20 16:01 DC 05/28/20 16:00 Warfarin Sodium (Coumadin) 1.5 mg 1X WARF ONCE PO 05/29/20 16:00 05/29/20 16:01 DC 05/29/20 17:15 Warfarin Sodium (Coumadin) 1.5 mg 1X WARF ONCE PO 05/30/20 16:00 05/30/20 11:13 DC Warfarin Sodium (Coumadin) 1 mg 1X WARF ONCE PO 05/30/20 16:00 05/30/20 16:01 DC 05/30/20 17:09 Warfarin Sodium (Coumadin) 1.5 mg 1X WARF ONCE PO 05/31/20 16:00 05/31/20 16:01 DC 05/31/20 16:18 Mirtazapine (Remeron) 15 mg QHS PO 05/31/20 21:00 06/13/20 20:03 Warfarin Sodium (Coumadin) 1 mg QMWF PO 06/01/20 16:00 06/05/20 09:57 DC 06/03/20 16:59 Warfarin Sodium (Coumadin) 1.5 mg QTUTHSASU PO 06/02/20 16:00 06/05/20 09:39 DC 06/04/20 18:05 Quetiapine Fumarate (SEROquel) 50 mg BID PO 06/06/20 21:00 06/13/20 20:03 Quetiapine Fumarate (SEROquel) 50 mg 1700 PO 06/06/20 17:00 06/13/20 17:28 Quetiapine Fumarate (SEROquel) 75 mg 1400 PO 06/07/20 14:00 06/13/20 12:25 I have reviewed the current psychotropics carefully including drug interactions. Risk benefit ratio favors no change other than as noted in my dictated progress note. Diagnosis: Problems: (1) Major depressive disorder (2) Personality disorder, unspecified (3) Bipolar disorder with psychotic features (4) Impulse control disorder (5) Anxiety disorder, unspecified ADELSO LOVE MD Jun 14, 2020 08:00
[2020-06-14 08:08] VITALS: BP 114/69
[2020-06-14] MEDS: FENOFIBRATE NANOCRYSTALLIZED 145 MG TABLET PO SCH (08:08)
[2020-06-14] MEDS: CARVEDILOL 12.5 MG TABLET PO SCH (08:08)
[2020-06-14] MEDS: MAGNESIUM OXIDE 400 MG TABLET PO SCH (08:08)
[2020-06-14] MEDS: GABAPENTIN 300 MG CAPSULE. PO SCH ×2 (08:08→12:48)
[2020-06-14] MEDS: MORPHINE ER 15 MG TABLET.ER PO SCH (08:09)
[2020-06-14] MEDS: DIVALPROEX ER 500 MG TAB.ER.24H PO SCH (08:09)
[2020-06-14] MEDS: QUEtiapine 50 MG TABLET. PO SCH (08:09)
[2020-06-14] MEDS: TIMOLOL 0.5% OPHTH SOLUTION 5ML BOTTLE. OU SCH (08:10)
[2020-06-14] MEDS: INSULIN LISPRO 300 UNITS/3 ML VIAL. SQ SCH ×2 (08:11→12:06)
--- NOTE | 2020-06-14 08:18 | PDOC ---
Exam Note: Joseph Note: This note is a late entry for 06/13/2020 covers elements not covered in my initial note. Subjective: The patient was reviewed on telehealth rounds in the morning of 06/13/2020 for a treatment team meeting with Buffy Baez and Ivette (social professionals), Jojo, activity therapy and Zina RN. Discussed with nursing staff, reviewed the chart. She is sleeping about 7 hours average. Previous night she was yelling but during the day she has been appropriate. At the treatment team meeting we had a lengthy discussion about disposition plans and family is willing to have her home; if no, facility in [place], [place] accepts her. She is less agitated. Review of Systems: Impaired ambulation in wheelchair. No complaints of pain. No CV, , pulmonary, eye, ENT system symptoms on review. Mental Status Exam: The patient is alert and oriented. She is pleasant, verbal, interactive. We discussed discharge plans for tomorrow. She is quite animated about this and thankful. Speech is coherent. Abstraction is fair. Computation is impaired. Language function intact. Attention span is fair. No suicidal or homicidal ideation. Laboratory Data: Reviewed. Impression: Bipolar disorder unspecified. Major depressive disorder. Anxiety disorder unspecified. Impulse control disorder unspecified. Personality disorder unspecified. Plan: No change from initial note. Discharge home tomorrow with family. Assessment: Vital Signs/I&O: Vital Signs Date Time Temp Pulse Resp B/P (MAP) Pulse Ox O2 Delivery O2 Flow Rate FiO2 06/14/20 08:09 16 96 Room Air 06/14/20 08:08 64 114/69 06/14/20 05:42 98.5 I & O 06/13/20 06/13/20 06/14/20 15:00 23:00 07:00 Intake Total 840 ml 360 ml Balance 840 ml 360 ml Labs: Laboratory Tests Test 06/13/20 12:02 06/13/20 17:04 06/13/20 19:54 06/14/20 07:50 Glucose (Fingerstick) 235 mg/dL (70-99) H 159 mg/dL (70-99) H 157 mg/dL (70-99) H 113 mg/dL (70-99) H Current Medications: Meds: Laboratory Tests Test 06/13/20 12:02 06/13/20 17:04 06/13/20 19:54 06/14/20 07:50 Glucose (Fingerstick) 235 mg/dL 159 mg/dL 157 mg/dL 113 mg/dL Current Medications Medications (Trade) Dose Ordered Sig/Jayant Route PRN Reason Start Time Stop Time Status Last Admin Dose Admin Acetaminophen (Tylenol) 650 mg PRN Q6HRS PRN PO MILD PAIN / TEMP > 100.3'F 05/05/20 20:15 UNV Multi-Ingredient Ointment (Analgesic Avilla) 1 scottie PRN QID PRN TP MUSCLE PAIN 05/05/20 20:15 Al Hydroxide/Mg Hydroxide (Mylanta Plus Xs) 15 ml PRN AFTMEALHC PRN PO DYSPEPSIA 05/05/20 20:15 Magnesium Hydroxide (Milk Of Magnesia) 2,400 mg PRN QHS PRN PO CONSTIPATION, 1ST CHOICE 05/05/20 20:15 Olanzapine (ZyPREXA ZYDIS) 2.5 mg PRN Q2HRS PRN PO ANXIETY / AGITATION 05/05/20 20:15 05/06/20 11:17 DC 05/06/20 09:29 Acetaminophen (Tylenol) 650 mg PRN Q4HRS PRN PO MILD PAIN / TEMP > 100.3'F 05/05/20 20:15 06/13/20 23:05 Clonidine HCl (Catapres Tts-1) 1 patch WEEKLY TD 05/12/20 09:00 05/20/20 10:59 DC 05/19/20 09:01 Fenofibrate (Tricor) 145 mg DAILY PO 05/06/20 09:00 06/14/20 08:08 Gabapentin (Neurontin) 300 mg TID PO 05/05/20 21:00 06/14/20 08:08 Levothyroxine Sodium (Synthroid) 50 mcg DAILY06 PO 05/06/20 06:00 05/08/20 00:17 DC 05/07/20 06:00 Lisinopril (Prinivil) 20 mg DAILY PO 05/06/20 09:00 06/05/20 09:39 DC 06/04/20 09:00 Magnesium Oxide (Magnesium Oxide) 200 mg DAILY PO 05/06/20 09:00 06/14/20 08:08 Morphine Sulfate (Ms Contin) 15 mg BID PO 05/05/20 21:00 05/20/20 13:53 DC 05/20/20 09:00 Polyethylene Glycol (miraLAX) 17 gm DAILY PO 05/06/20 09:00 05/12/20 02:36 DC 05/11/20 05:47 Simvastatin (Zocor) 10 mg HS PO 05/05/20 21:00 06/13/20 20:03 Timolol Maleate (Timoptic 0.5% Oph) 1 drop BID OU 05/05/20 21:00 05/19/20 21:03 DC 05/19/20 19:48 Trazodone HCl (Desyrel) 50 mg HS PO 05/05/20 21:00 05/11/20 17:38 DC 05/10/20 20:14 Carvedilol (Coreg) 12.5 mg BIDWMEALS PO 05/06/20 08:00 06/14/20 08:08 Insulin Human Lispro (HumaLOG) 10 units TIDAC SQ 05/06/20 07:30 05/06/20 11:36 DC 05/06/20 07:30 Insulin Glargine (Lantus Syringe) 25 unit QHS SQ 05/05/20 21:00 06/13/20 21:00 Latanoprost (Xalatan) 1 drop QHS OU 05/05/20 21:00 06/13/20 20:05 Non-Formulary Medication (Magnesium Hydroxide (Milk Of Magnesia)) 30 ml PRN DAILY PRN PO CONSTIPATION 05/05/20 20:15 UNV Multivitamins/ Calcium (Thera-M Plus) 1 tab DAILY PO 05/06/20 09:00 05/14/20 08:49 DC 05/14/20 08:11 Sennosides (Senna) 17.2 mg BID PO 05/05/20 21:00 05/12/20 05:09 DC 05/11/20 19:38 Venlafaxine HCl (Effexor) 50 mg TID PO 05/05/20 21:00 05/06/20 18:23 DC 05/06/20 12:34 Influenza Virus Vaccine Quadrival (Fluzone Quad Syringe) 0.5 ml ONCE ONCE VAX IM 05/06/20 09:00 11/27/20 09:01 DC 05/06/20 09:00 Warfarin Sodium (Coumadin Per Pharmacy) 1 each PRN DAILY PRN MC SEE COMMENTS 05/06/20 11:00 06/05/20 09:39 DC 06/01/20 11:58 Warfarin Sodium (Coumadin) 2.5 mg DAILY@1600 PO 05/06/20 16:00 05/10/20 08:18 DC 05/09/20 17:26 Lorazepam (Ativan) 0.5 mg PRN Q2HRS PRN PO ANXIETY / AGITATION 05/06/20 11:00 06/09/20 22:04 Olanzapine (ZyPREXA ZYDIS) 5 mg PRN Q2HRS PRN PO PSYCHOSIS 05/06/20 11:00 06/03/20 20:13 Warfarin Sodium (Coumadin) 1 mg DAILY@1600 PO 05/06/20 16:00 05/10/20 08:18 DC 05/09/20 17:25 Insulin Human Lispro (HumaLOG) 10 units TIDWMEALS SQ 05/06/20 12:00 05/11/20 17:31 DC 05/11/20 17:11 Venlafaxine HCl (Effexor) 25 mg TID PO 05/06/20 21:00 05/09/20 20:59 DC 05/09/20 15:19 Divalproex Sodium (Depakote Er) 500 mg QHS PO 05/06/20 21:00 05/09/20 09:41 DC 05/08/20 19:33 Levothyroxine Sodium (Synthroid) 50 mcg 0600 PO 05/08/20 06:00 06/14/20 05:49 Trazodone HCl (Desyrel) 50 mg PRN QHS PRN PO INSMONIA 05/08/20 21:00 05/11/20 17:38 DC 05/10/20 23:06 Haloperidol Lactate (Haldol) 5 mg DAILY IM 05/09/20 09:30 05/13/20 18:05 DC 05/13/20 07:49 Lorazepam (Ativan Inj) 0.5 mg DAILY IM 05/09/20 09:30 05/13/20 18:05 DC 05/13/20 07:49 Divalproex Sodium (Depakote Er) 1,000 mg QHS PO 05/09/20 21:00 05/12/20 23:00 DC 05/12/20 20:28 Warfarin Sodium (Coumadin - No Dose Today) 1 each 1X WARF ONCE 05/10/20 16:00 05/10/20 16:01 DC Insulin Human Lispro (HumaLOG) 14 units TIDWMEALS SQ 05/11/20 17:30 05/11/20 17:37 DC Vitamin D (Vitamin D3) 50,000 unit WEEKLY PO 05/11/20 17:30 05/11/20 17:37 DC Vitamin D (Vitamin D3) 50,000 unit WEEKLY PO 05/12/20 09:00 06/09/20 08:43 Insulin Human Lispro (HumaLOG) 14 units TIDWMEALS SQ 05/12/20 08:00 06/14/20 08:11 Trazodone HCl (Desyrel) 100 mg QHS PO 05/11/20 21:00 06/13/20 20:03 Trazodone HCl (Desyrel) 100 mg PRN QHS PRN PO INSOMNIA 05/11/20 17:45 06/13/20 23:05 Sennosides (Senna) 17.2 mg PRN BID PRN PO CONSTIPATION, 2ND CHOICE 05/12/20 05:15 Warfarin Sodium (Coumadin) 2.5 mg 1X WARF ONCE PO 05/12/20 16:00 05/12/20 16:01 DC 05/12/20 16:59 Quetiapine Fumarate (SEROquel) 50 mg QHS PO 05/12/20 22:00 05/15/20 22:17 DC 05/15/20 19:51 Divalproex Sodium (Depakote Er) 1,500 mg QHS PO 05/13/20 21:00 05/17/20 17:09 DC 05/16/20 19:53 Divalproex Sodium (Depakote Er) 500 mg ONCE PO 05/12/20 22:00 05/12/20 22:03 DC Divalproex Sodium (Depakote Er) 500 mg 1X ONCE PO 05/12/20 22:15 05/12/20 22:16 DC 05/12/20 22:05 Warfarin Sodium (Coumadin) 2.5 mg 1X WARF ONCE PO 05/13/20 16:00 05/13/20 16:01 DC 05/13/20 17:14 Haloperidol Lactate (Haldol) 5 mg DAILY@1700 IM 05/14/20 17:00 05/17/20 14:00 DC 05/15/20 17:15 Lorazepam (Ativan Inj) 0.5 mg DAILY@1700 IM 05/14/20 17:00 05/17/20 14:00 DC 05/15/20 17:15 Hydroxyzine HCl (Atarax) 25 mg PRN Q6HRS PRN PO ITCHING 05/14/20 14:00 06/05/20 00:11 Warfarin Sodium (Coumadin) 2.5 mg 1X WARF ONCE PO 05/14/20 16:00 05/14/20 16:01 DC 05/14/20 16:00 Quetiapine Fumarate (SEROquel) 25 mg DAILY PO 05/15/20 09:00 05/15/20 22:17 DC 05/15/20 09:11 Warfarin Sodium (Coumadin) 2 mg 1X WARF ONCE PO 05/15/20 16:30 05/15/20 16:42 DC 05/15/20 17:15 Nystatin (Nystop) 1 scottie PRN BID PRN TP REDNESS 05/15/20 17:30 05/17/20 13:32 Quetiapine Fumarate (SEROquel) 50 mg TID PO 05/16/20 09:00 06/06/20 14:21 DC 06/06/20 13:10 Warfarin Sodium (Coumadin - No Dose Today) 1 each 1X WARF ONCE 05/16/20 16:00 05/16/20 16:01 DC Warfarin Sodium (Coumadin) 1.5 mg 1X WARF ONCE PO 05/17/20 16:00 05/17/20 16:01 DC 05/17/20 16:18 Divalproex Sodium (Depakote Er) 2,000 mg QHS PO 05/17/20 21:00 06/13/20 20:03 Warfarin Sodium (Coumadin) 1.5 mg 1X WARF ONCE PO 05/18/20 16:00 05/18/20 16:01 DC 05/18/20 16:53 Quetiapine Fumarate (SEROquel) 25 mg 1700 PO 05/19/20 17:00 06/06/20 14:21 DC 06/05/20 17:08 Warfarin Sodium (Coumadin) 1.5 mg DAILY16 PO 05/19/20 16:00 05/22/20 10:22 DC 05/21/20 17:01 Timolol Maleate (Timoptic 0.5% Ophth) 1 drop BID OU 05/19/20 21:03 06/14/20 08:10 Clonidine HCl (Catapres Tts-1) 1 patch WEEKLY TD 05/20/20 11:00 06/10/20 09:56 Morphine Sulfate (Ms Contin) 15 mg DAILY PO 05/21/20 09:00 06/14/20 08:09 Divalproex Sodium (Depakote Er) 500 mg DAILY PO 05/21/20 09:00 06/14/20 08:09 Warfarin Sodium (Coumadin - No Dose Today) 1 each 1X WARF ONCE MC 05/22/20 16:00 05/22/20 16:01 DC Warfarin Sodium (Coumadin) 1 mg 1X WARF ONCE PO 05/23/20 18:00 05/23/20 18:01 DC 05/23/20 17:47 Warfarin Sodium (Coumadin) 1 mg 1X WARF ONCE PO 05/24/20 16:00 05/24/20 16:01 DC 05/24/20 17:05 Warfarin Sodium (Coumadin) 1.5 mg 1X WARF ONCE PO 05/25/20 16:00 05/25/20 16:01 DC 05/25/20 17:36 Mirtazapine (Remeron) 7.5 mg QHS PO 05/25/20 21:00 05/31/20 18:41 DC 05/30/20 21:20 Warfarin Sodium (Coumadin) 1 mg 1X WARF ONCE PO 05/26/20 16:00 05/26/20 16:01 DC 05/26/20 16:29 Warfarin Sodium (Coumadin) 1.5 mg 1X WARF ONCE PO 05/27/20 16:00 05/27/20 16:07 DC 05/27/20 17:06 Warfarin Sodium (Coumadin) 1.5 mg 1X WARF ONCE PO 05/28/20 16:00 05/28/20 16:01 DC 05/28/20 16:00 Warfarin Sodium (Coumadin) 1.5 mg 1X WARF ONCE PO 05/29/20 16:00 05/29/20 16:01 DC 05/29/20 17:15 Warfarin Sodium (Coumadin) 1.5 mg 1X WARF ONCE PO 05/30/20 16:00 05/30/20 11:13 DC Warfarin Sodium (Coumadin) 1 mg 1X WARF ONCE PO 05/30/20 16:00 05/30/20 16:01 DC 05/30/20 17:09 Warfarin Sodium (Coumadin) 1.5 mg 1X WARF ONCE PO 05/31/20 16:00 05/31/20 16:01 DC 05/31/20 16:18 Mirtazapine (Remeron) 15 mg QHS PO 05/31/20 21:00 06/13/20 20:03 Warfarin Sodium (Coumadin) 1 mg QMWF PO 06/01/20 16:00 06/05/20 09:57 DC 06/03/20 16:59 Warfarin Sodium (Coumadin) 1.5 mg QTUTHSASU PO 06/02/20 16:00 06/05/20 09:39 DC 06/04/20 18:05 Quetiapine Fumarate (SEROquel) 50 mg BID PO 06/06/20 21:00 06/14/20 08:09 Quetiapine Fumarate (SEROquel) 50 mg 1700 PO 06/06/20 17:00 06/13/20 17:28 Quetiapine Fumarate (SEROquel) 75 mg 1400 PO 06/07/20 14:00 06/13/20 12:25 I have reviewed the current psychotropics carefully including drug interactions. Risk benefit ratio favors no change other than as noted in my dictated progress note. Diagnosis: Problems: (1) Major depressive disorder (2) Personality disorder, unspecified (3) Bipolar disorder with psychotic features (4) Impulse control disorder (5) Anxiety disorder, unspecified ADELSO LOVE MD Jun 14, 2020 08:18
[2020-06-14] MEDS: QUEtiapine 25 MG TABLET. PO SCH (12:48)
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
--- NOTE | 2020-06-14 20:54 | PDOC ---
Exam Note: Joseph Note: Please also refer to the separate dictated note~for this date of service dictated separately.~Patient seen individually. Discussed the patient with Nursing staff reviewed the chart.~Reviewed interim history and current functioning. Reviewed vital signs,~Labs/ Radiology~and current medications noted below. Continue current treatment with the changes noted in the dictated addendum note Assessment: Vital Signs/I&O: Vital Signs Date Time Temp Pulse Resp B/P (MAP) Pulse Ox O2 Delivery O2 Flow Rate FiO2 06/14/20 12:24 18 96 Room Air 06/14/20 08:08 64 114/69 06/14/20 05:42 98.5 I & O 06/13/20 06/13/20 06/14/20 15:00 23:00 07:00 Intake Total 840 ml 360 ml Balance 840 ml 360 ml Labs: Laboratory Tests Test 06/14/20 07:50 06/14/20 11:38 Glucose (Fingerstick) 113 mg/dL (70-99) H 156 mg/dL (70-99) H Current Medications: I have reviewed the current psychotropics carefully including drug interactions. Risk benefit ratio favors no change other than as noted in my dictated progress note. Diagnosis: Problems: (1) Major depressive disorder (2) Personality disorder, unspecified (3) Bipolar disorder with psychotic features (4) Impulse control disorder (5) Anxiety disorder, unspecified ADELSO LOVE MD Jun 14, 2020 20:54
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
== END 2020-06-14 13:00 | disposition home or self-care (01) | DRG 885 ==
LOC: GEROPSY 18:00
PROVIDERS: ADMIT Psychiatry & Neurology Psychiatry; ATTEND Psychiatry & Neurology Psychiatry
DX: F31.64 Bipolar disorder, current episode mixed, severe, with psychotic features (principal); N18.9 Chronic kidney disease, unspecified; F03.91 Unspecified dementia, unspecified severity, with behavioral disturbance; Z68.41 Body mass index [BMI] 40.0-44.9, adult; D63.8 Anemia in other chronic diseases classified elsewhere; E11.51 Type 2 diabetes mellitus with diabetic peripheral angiopathy without gangrene; E66.01 Morbid (severe) obesity due to excess calories; E78.5 Hyperlipidemia, unspecified; J44.9 Chronic obstructive pulmonary disease, unspecified; Z66 Do not resuscitate; F41.0 Panic disorder [episodic paroxysmal anxiety]; F60.9 Personality disorder, unspecified; F63.9 Impulse disorder, unspecified; G89.29 Other chronic pain; E11.22 Type 2 diabetes mellitus with diabetic chronic kidney disease; I12.9 Hypertensive chronic kidney disease with stage 1 through stage 4 chronic kidney disease, or unspecified chronic kidney disease; M19.90 Unspecified osteoarthritis, unspecified site; Z88.1 Allergy status to other antibiotic agents; Z88.5 Allergy status to narcotic agent; Z88.8 Allergy status to other drugs, medicaments and biological substances; Z79.899 Other long term (current) drug therapy; Z86.011 Personal history of benign neoplasm of the brain; Z86.711 Personal history of pulmonary embolism; Z20.822 Contact with and (suspected) exposure to COVID-19
CPT/HCPCS: 36415; 70450; 71045; 80048; 80053; 80164; 80202; 81001; 82140; 82947; 84484; 85007; 85014; 85018; 85025; 85027; 85379; 85610; 87086; 90471; 90686; 93005; J1630; J1815; J2060; U0003; 97530